=== PATIENT | female | born 1985 | race Caucasian/White ===

== ENCOUNTER 2019-12-10 15:50 | Inpatient (IN) | payer SELFPAY ==
[2019-12-10 15:51] VITALS: BP 91/61; PULSE 98; RESP 20; TEMP 36.8; O2SAT 99; BMI 16.2
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
[2019-12-10 16:23] LABS: Basophils # 0.1 10^3/uL (0.0-0.1); Basophils % 0.9 %; Eosinophils # 0.1 10^3/uL (0.0-0.8); Eosinophils % 0.9 %; Hematocrit 38.5 % (37.0-47.0); Hemoglobin 12.7 g/dL (11.5-15.3); Lymphocytes # 2.1 10^3/uL (0.8-4.8); Lymphocytes % 20.7 %; Mean Corpuscular Hemoglobin 31.9 pg (28.0-34.0); Mean Corpuscular Volume 96.7 fL (81-99); Monocytes # 0.7 10^3/uL (0.2-0.9); Monocytes % 6.8 %; Neutrophils # 7.21 10^3/uL (1.8-7.7); Neutrophils % 70.5 %; Nucleated Red Blood Cells % 0 %; Platelet Count 384 10^3/cmm (130-400); Red Blood Count 3.98 10^6/uL (4.1-5.3); Red Cell Distribution Width 12.3 % (12.1-15.1); White Blood Count 10.2 10^3/uL (4.0-10.0)
[2019-12-10 16:38] LABS: Alanine Aminotransferase 40 U/L (0-33); Albumin Level 4.4 g/dL (3.5-5.2); Alkaline Phosphatase 95 IU/L (35-105); Anion Gap 17.7 (5-19); Aspartate Amino Transferase 30 U/L (0-32); Blood Urea Nitrogen 17 mg/dL (6-20); Calcium 9.4 mg/dL (8.5-10.5); Carbon Dioxide 20 mmol/L (22-29); Chloride 104 mmol/L (98-107); Globulin 2.6 g/dL (1.3-4.6); Glomerular Filtration Rate 114.4 mL/min (90-130); Glucose 88 mg/dL (65-115); HCG, Serum Qual Negative (Negative); Osmolality Calculated 287 mOsm/kg (285-295); Potassium 3.7 mmol/L (3.5-5.1); Salicylate 0.8 mg/dL (3-10); Sodium 138 mmol/L (136-145); Total Bilirubin 0.3 mg/dL (0.15-1.2)
[2019-12-10 16:41] LABS: Acetaminophen < 5.0 ug/mL (10-30); Alcohol Level < 10 mg/dL (0-10)
[2019-12-10] MEDS: LORazepam 2 mg/mL INJ 1 mL (17:12)
[2019-12-10] MEDS: ziprasidone 20 mg/mL SDV IM (17:12)
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
[2019-12-10 19:28] VITALS: PULSE 65; RESP 18; TEMP 36.8; O2SAT 99
[2019-12-10 22:00] VITALS: RESP 17
--- NOTE | 2019-12-10 22:03 | PC.NURSE ---
Patient arrives to unit in restraints which were applied in the ED. Patient is placed on 1:1 due to being in restraints and recent aggressive and violent behaviors. Nursing will assess patient at this time and begin removal of restraints as soon as deemed safe.
--- NOTE | 2019-12-10 23:15 | PC.NURSE ---
1900 on my arrival to the unit, patient is sleeping in her bed. Patient has a 1:1 sitter at this time.
[2019-12-11 06:00] VITALS: RESP 15
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
[2019-12-11 14:00] VITALS: BP 138/89; PULSE 89; RESP 18; TEMP 36.5
[2019-12-11] MEDS: hyDROXYzine 25 mg Capsule 50 MG PO (20:30)
[2019-12-11] MEDS: trazodone 50 mg Tablet PO (20:30)
[2019-12-11 20:36] VITALS: BP 97/62; PULSE 88; RESP 17; TEMP 36.6; O2SAT 98
[2019-12-11] MEDS: haloperidol inj 5 mg/mL INJ 1 mL IM (21:11)
[2019-12-11] MEDS: diphenhydrAMINE 50 mg/mL SDV 1mL IM (21:11)
[2019-12-11] MEDS: LORazepam 2 mg/mL INJ 1 mL IM (21:12)
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
--- NOTE | 2019-12-12 09:38 | P.PN_ITS ---
Subjective NPU Subjective: Interval history: Aga presents today having received an as needed of Haldol and Ativan and being mostly nonresponsive as she has been most of her stay. Staff report aggression and inability to be reasoned with. Mental Status Exam MSE Comments: This is a diminutive white female with limited dress, grooming and virtually no eye contact. No abnormal movements except for psychomotor retardation. Uncooperative with exam in no acute distress. Speech was absent. Mood was not described, affect was subdued and lethargic. Thought process appeared linear. Thought content: Patient did not respond to questions of lethality but was not acting aggressive towards herself or others during my evaluation but had earlier, she did not appear to be having delusional content or responding to internal stimuli. Attention and concentration were limited and memory was not tested but none were formally tested. She was alert but demonstrated no orientation. Insight and judgment are impaired, impulse control is limited. Vitals/I&O/Wt Last Vital Signs Temp 97.8 F 12/12/19 19:40 Pulse 88 12/12/19 19:40 Resp 16 12/12/19 19:40 BP 120/36 12/12/19 19:40 Pulse Ox 98 12/12/19 19:40 Data NPU : 12/10/19 16:08 12/10/19 16:08 A&P Additional A&P Information (1) Psychosis: (2) Substance use: This is a 34-year-old white female with a long history of mental health services but limited history of medication management or clear indication of anything that would lead to this type of presentation who presented floridly psychotic to the emergency department who continues to struggle with aggression and has limited participation and treatment today. 1. Continue current medication. We will continue to explore history and offer medications to assist. 2. Continue every 15 minute checks for safety. 3. Encourage engagement in individual, group and milieu therapy. 4. Continue to attempt to obtain a UDS. 5. Likely methamphetamine or other substance use and well encouraged to pursue sober living treatment at the highest level of care to which she is willing to commit. Involuntary Hold Information 96 Hour Hold: 96 Hour Involuntary Admission: Yes 96 Hour Hold Ending Date: 12/16/19 96 Hour Hold Ending Time: 17:00 Attestations NPU Medical Necessity Statement*: Inpatient hospitalization is medically necessary and the clinically appropriate intervention at this time. We will initiate/monitor medications and make changes as indicated. Likely length of stay 4 to 6 days. Coding Level of Care Code Acute Director Of Program Management for Anna Stubbs
[2019-12-12 14:00] VITALS: BP 101/89; PULSE 87; RESP 18; TEMP 36.6
[2019-12-12 19:40] VITALS: BP 120/36; PULSE 88; RESP 16; TEMP 36.6; O2SAT 98
[2019-12-13 06:00] VITALS: BP 113/80; PULSE 60; RESP 16; TEMP 37.1; O2SAT 99
--- NOTE | 2019-12-13 11:25 | P.PN_ITS ---
Subjective NPU Subjective: Interval history: Aga presented today no longer lethargic but clearly still floridly psychotic. She was not interested in having any significant discussion about treatment or medication. She continued to be quite thoughtful repetitively makes sense in her conversation very much. She got upset when called her proper name at 1 time saying she was billed. She was ve rbally aggressive towards staff cursing at them. She was non-redirectable during conversation. And not open to medication. Mental Status Exam MSE Comments: This is a diminutive white female with limited dress, grooming and improving eye contact. No abnormal movements except for psychomotor agitation. Uncooperative with exam in mild distress. Speech: Normal rate and volume. Mood was not described, affect was angry and irritable. Thought process appeared disorganized. Thought content: Patient did not respond to questions of lethality but was not acting aggressive towards herself but was verbally aggressive towards others, she did appear to be having delusional content and possibly responding to internal stimuli. Attention and concentration were limited and memory was not tested but none were formally tested. She was alert but demonstrated no orientation. Insight and judgment are impaired, impulse control is impaired. Vitals/I&O/Wt Last Vital Signs Temp 98.4 F 12/13/19 19:46 Pulse 127 H 12/13/19 19:46 Resp 17 12/13/19 19:46 BP 48/27 12/13/19 19:46 Pulse Ox 97 12/13/19 19:46 Data NPU : 12/10/19 16:08 12/10/19 16:08 A&P Additional A&P Information (1) Psychosis: (2) Substance use: This is a 34-year-old white female with a long history of mental health services but limited history of medication management or clear indication of anything that would lead to this type of presentation who presented floridly psychotic to the emergency department who continues to struggle with aggression and has limited participation and treatment today. 1. Continue current medication. We will continue to explore history and offer medications to assist. 2. Continue every 15 minute checks for safety. 3. Encourage engagement in individual, group and milieu therapy. 4. Continue to attempt to obtain a UDS. 5. Likely methamphetamine or other substance use and well encouraged to pursue sober living treatment at the highest level of care to which she is willing to commit. 6. Current trajectory suggests a likely need for a 21-day hold his arising. Involuntary Hold Information 96 Hour Hold: 96 Hour Involuntary Admission: Yes 96 Hour Hold Ending Date: 12/16/19 96 Hour Hold Ending Time: 17:00 Attestations NPU Medical Necessity Statement*: Inpatient hospitalization is medically necessary and the clinically appropriate intervention at this time. We will initiate/monitor medications and make changes as indicated. Likely length of stay 4 to 6 days. Coding Level of Care Code Acute Flake Cutter Operator for Anna Stubbs
--- NOTE | 2019-12-13 13:26 | NPU.GN ---
Aga had to be asked to leave the session about fifteen minutes in for being disruptive. She was angry at being in the NPU and raised her voice about that. She continuously interrupted other group members when they were speaking and/or would laugh loudly at what they had to say (talking about very personal life situations). Aga was given multiple chances to sit down and be a respectful member of the group session but she would not. ECW had a nurse take her back to her room.
[2019-12-13 14:00] VITALS: BP 93/61; PULSE 87; RESP 18; TEMP 36.2; O2SAT 99
--- NOTE | 2019-12-13 14:51 | PC.RESP ---
SMOKING CESSATION INFORMATION SENT TO PATIENT.
[2019-12-13 19:46] VITALS: BP 48/27; PULSE 127; RESP 17; TEMP 36.9; O2SAT 97
[2019-12-13] MEDS: hyDROXYzine 25 mg Capsule 50 MG PO (20:35)
[2019-12-13] MEDS: trazodone 50 mg Tablet PO (20:35)
[2019-12-13] MEDS: haloperidol 5 mg Tablet PO (22:54)
[2019-12-14 06:00] VITALS: BP 103/70; PULSE 72; RESP 16; TEMP 37; O2SAT 98
--- NOTE | 2019-12-14 11:42 | PM.NPN ---
Subjective NPU Subjective: Interval history: Aga presents today still having significant struggles with disorganization and florid psychosis. She was able to articulate a desire to be discharged. And this typewriter repairer was able to share with her that the fastest route to her discharge given her level of impairment in her being on a 96-hour hold would be through her engaging in medication management. We discussed the risks, benefits and alternatives of a trial of Abilify which she reports she has had before and she understood and agreed proceed as is documented in this note. Although she was able to have this reasonable exchange she spent much of the day really struggling with control, screening and ultimately was moved to a different room to manage her level of agitation. Mental Status Exam MSE Comments: This is a diminutive white female with limited dress, grooming and improving eye contact. No abnormal movements except for psychomotor agitation. More cooperative with exam in mild to moderate distress. Speech: Often significantly increased rate and volume. Mood was not described, affect was angry and irritable. Thought process appeared disorganized. Thought content: Patient did not respond to questions of lethality but was not acting aggressive towards herself but was verbally aggressive towards others, she did appear to be having delusional content and possibly responding to internal stimuli. Attention and concentration were limited and memory was not tested but none were formally tested. She was alert and oriented to person and place. Insight and judgment are impaired, impulse control is impaired. Vitals/I&O/Wt Last Vital Signs Temp 97.6 F 12/14/19 20:59 Pulse 100 12/14/19 20:59 Resp 18 12/14/19 20:59 BP 98/51 12/14/19 20:59 Pulse Ox 97 12/14/19 20:59 Data NPU : 12/10/19 16:08 12/10/19 16:08 A&P Additional A&P Information (1) Psychosis: (2) Substance use: This is a 34-year-old white female with a long history of mental health services but limited history of medication management or clear indication of anything that would lead to this type of presentation who presented floridly psychotic to the emergency department who continues to struggle with aggression and has limited participation and treatment today. 1. Continue current medication. Except: Initiate Abilify 15 mg p.o. every morning. 3. Encourage engagement in individual, group and milieu therapy. 4. Continue to attempt to obtain a UDS. 5. Likely methamphetamine or other substance use and well encouraged to pursue sober living treatment at the highest level of care to which she is willing to commit. 6. Current trajectory suggests a likely need for a 21-day hold his arising. Involuntary Hold Information 96 Hour Hold: 96 Hour Involuntary Admission: Yes 96 Hour Hold Ending Date: 12/16/19 96 Hour Hold Ending Time: 17:00 Attestations NPU Medical Necessity Statement*: Inpatient hospitalization is medically necessary and the clinically appropriate intervention at this time. We will initiate/monitor medications and make changes as indicated. Likely length of stay 4 to 6 days. Coding Level of Care Code Acute Electric Sign Wirer for Anna Stubbs
[2019-12-14] MEDS: ARIPiprazole 30 mg Tablet 15 MG PO (11:44)
[2019-12-14 14:00] VITALS: BP 103/59; PULSE 98; RESP 18; TEMP 36.7; O2SAT 99
[2019-12-14 20:14] VITALS: RESP 18
--- NOTE | 2019-12-14 20:14 | PC.NURSE ---
Patient refused vitals. Respirations were given.
[2019-12-14] MEDS: haloperidol 5 mg Tablet PO (20:46)
[2019-12-14] MEDS: trazodone 50 mg Tablet PO (20:46)
[2019-12-14 20:59] VITALS: BP 98/51; PULSE 100; RESP 18; TEMP 36.4; O2SAT 97
[2019-12-15 06:00] VITALS: RESP 17
[2019-12-15] MEDS: ARIPiprazole 30 mg Tablet 15 MG PO (08:07)
--- NOTE | 2019-12-15 13:21 | NPU.GN ---
Aga did not attend group this afternoon.
[2019-12-15 14:00] VITALS: BP 95/65; PULSE 89; RESP 18; TEMP 36.1; O2SAT 98
--- NOTE | 2019-12-15 15:48 | PC.NURSE ---
PATIENT WAS ON THE PHONE WITH HER MOM, STARTED GETTING LOUD AND CURSING. ASKED TO GET OFF THE PHONE, REDIRECTED TO ROOM WHERE PATIENT CONTINUED CURSING AND YELLING. LAID DOWN IN BED AND ROLLED OVER ON HER SIDE. WILL CONT TO MONITOR, SUPPORT AND REDIRECT NEEDED.
--- NOTE | 2019-12-15 16:55 | P.PN_ITS ---
Subjective NPU Subjective: Interval history: Aga presents today reporting that on the Abilify. She did speak of a green pill that she was not sure if it goes well with the other medications. She talked about when they get the vital signs that they should leave the vital signs machine in the room and that will work better in obtaining people's information. She reported that she was bored to . And then correctly spelled [id number]. Today demonstrates the first [id number] conversation in a reasonable dB range since her admission. She once again asked to be discharged. And I explained that she was on a 96-hour hold Mental Status Exam MSE Comments: This is a diminutive white female with limited dress, grooming and improving eye contact. No abnormal movements except for psychomotor retardation. More cooperative with exam in no acute distress. Speech: More normal rate and volume. Mood was okay, affect was congruent. Thought process appeared more organized. Thought content: Patient did not respond to questions of lethality but was not acting aggressive towards herself or others, she did not appear to be having delusional content or to be responding to internal stimuli. Attention and concentration were vastly improved and memory was not tested but none were formally tested. She was alert and oriented to person and place. Insight and judgment are impaired, impulse control is impaired. Vitals/I&O/Wt Last Vital Signs Temp 98.0 F 12/15/19 22:00 Pulse 129 H 12/15/19 22:00 Resp 19 H 12/15/19 22:00 BP 92/58 12/15/19 22:00 Pulse Ox 97 12/15/19 22:00 Data NPU : 12/10/19 16:08 12/10/19 16:08 A&P Additional A&P Information (1) Psychosis: (2) Substance use: This is a 34-year-old white female with a long history of mental health services but limited history of medication management or clear indication of anything that would lead to this type of presentation who presented floridly psychotic to the emergency department who continues to struggle with aggression and has limited participation and treatment today. 1. Continue current medication. 3. Encourage engagement in individual, group and milieu therapy. 4. Continue to attempt to obtain a UDS. 5. Likely methamphetamine or other substance use and well encouraged to pursue sober living treatment at the highest level of care to which she is willing to commit. 6. We will likely file a 21-day hold tomorrow. Involuntary Hold Information 96 Hour Hold: 96 Hour Involuntary Admission: Yes 96 Hour Hold Ending Date: 12/16/19 96 Hour Hold Ending Time: 17:00 Attestations NPU Medical Necessity Statement*: Inpatient hospitalization is medically necessary and the clinically appropriate intervention at this time. We will initiate/monitor medications and make changes as indicated. Likely length of stay 4 to 6 days. Likely request a 21-day hold tomorrow. Coding Level of Care Code Acute Human Resources Professional for Anna Stubbs
[2019-12-15 22:00] VITALS: BP 92/58; PULSE 129; RESP 19; TEMP 36.7; O2SAT 97
--- NOTE | 2019-12-16 01:00 | NUR.SHIFT ---
Pt is calm this evening, she is easily redirected, and pleasant. She came to the nurses station with concerns that she may be allergic to abilify. She stated that she thinks she has covid and that the boys in the hallway are trying to give it to her, she can see it coming thru her vents. The vent in her room is covered in wet toilet paper wads that she has tried to cover the vent with to keep the Covid out. She says that she can hear voices whirling around in her room. patient made hissing noises and said that would keep it away.
--- NOTE | 2019-12-16 05:39 | PC.NURSE ---
Pt refused to allow COLLECTION SUPPORT SPECIALIST to take VS this morning. She became verbally assaultive. She has put one mattress in the floor and the other is what she is sleeping on. Most of the shift stacker she has been cooperative but she is in a different mood as of this morning.
[2019-12-16 06:00] VITALS: RESP 17
--- NOTE | 2019-12-16 06:05 | PC.NURSE ---
Patient refused vitals. Respirations were taken.
[2019-12-16] MEDS: ARIPiprazole 30 mg Tablet 15 MG PO (09:11)
--- NOTE | 2019-12-16 12:34 | P.PN_ITS ---
Subjective NPU Subjective: Interval history: Aga presented to session today continuing to have moments of clarity that are intermixed with significant difficulties. Today she went from having some very insightful moments to another screaming fit which led to the need for as needed medication to help her manage her agitation. We discussed the fact that we would be following a 21-day hold given her continued for psychosis. Mental Status Exam MSE Comments: This is a diminutive white female with limited dress, grooming and improving eye contact. No abnormal movements except for psychomotor retar dation. More cooperative with exam in no acute distress. Speech: More normal rate and volume. Mood was okay, affect was congruent. Thought process appeared more organized. Thought content: Patient did not respond to questions of lethality but was not acting aggressive towards herself or others, she did not appear to be having delusional content or to be responding to internal stimuli. Attention and concentration were vastly improved and memory was not tested but none were formally tested. She was alert and oriented to person and place. Insight and judgment are impaired, impulse control is impaired. Vitals/I&O/Wt Last Vital Signs Temp 98.0 F 12/15/19 22:00 Pulse 129 H 12/15/19 22:00 Resp 17 12/16/19 06:00 BP 92/58 12/15/19 22:00 Pulse Ox 97 12/15/19 22:00 Data NPU : 12/10/19 16:08 12/10/19 16:08 A&P Additional A&P Information (1) Psychosis: (2) Substance use: This is a 34-year-old white female with a long history of mental health services but limited history of medication management or clear indication of anything that would lead to this type of presentation who presented floridly psychotic to the emergency department who continues to struggle with aggression and has limited participation and treatment today. 1. Continue current medication. 3. Encourage engagement in individual, group and milieu therapy. 4. Continue to attempt to obtain a UDS. 5. Likely methamphetamine or other substance use and well encouraged to pursue sober living treatment at the highest level of care to which she is willing to commit. 6. Filed a 21-day hold petition today. Involuntary Hold Information 96 Hour Hold: 96 Hour Involuntary Admission: Yes 96 Hour Hold Ending Date: 12/16/19 96 Hour Hold Ending Time: 17:00 Attestations NPU Medical Necessity Statement*: Inpatient hospitalization is medically necessary and the clinically appropriate intervention at this time. We will initiate/monitor medications and make changes as indicated. Likely length of stay 4 to 6 days. Coding Level of Care Code Acute Group Billing Coordinator for Anna Stubbs
[2019-12-16 14:00] VITALS: BP 94/68; PULSE 103; RESP 18; TEMP 36.4; O2SAT 98
[2019-12-16] MEDS: ziprasidone 20 mg/mL SDV (14:10)
[2019-12-16] MEDS: LORazepam 2 mg/mL INJ 1 mL IM (14:10)
[2019-12-16] MEDS: diphenhydrAMINE 50 mg/mL SDV 1mL IM (14:10)
--- NOTE | 2019-12-16 14:29 | PC.NURSE ---
Geodon, Ativan, & Benadryl Patient screaming in her room. Patient at nurse's station wanting to leave, talking belligerently about random things. Patient asked to lower voice. Patient yelling that we cut her eyes out and requesting to be transferred to the emergency center. Derogatory language. Patient demanding she see a real doctor. Patient refusing to stop yelling and go back to room. Physician ordered medications. 50mg Benadryl, 20mg Geodon, and 2mg Ativan given IM. Will monitor for effectiveness. Patient now in room, resting.
[2019-12-16 22:00] VITALS: BP 92/70; PULSE 123; RESP 15; TEMP 36.3; O2SAT 99
[2019-12-17 06:00] VITALS: RESP 20
[2019-12-17] MEDS: ARIPiprazole 30 mg Tablet 15 MG PO (10:02)
[2019-12-17] MEDS: ziprasidone 20 mg/mL SDV (11:24)
[2019-12-17] MEDS: diphenhydrAMINE 50 mg/mL SDV 1mL IM (11:25)
[2019-12-17] MEDS: LORazepam 2 mg/mL INJ 1 mL IM (11:25)
--- NOTE | 2019-12-17 11:26 | PC.NURSE ---
Geodon 20, Ativan 2, and Benardyl 50 Meds given IM at this time d/t increased agitation, yelling, and attempting to elope out of locked doors. Patient hitting door and door. Orders to give meds at this time. Patient sat on her bed and recieved medications with no issues. Patient moved to a room closer to nurses station.
--- NOTE | 2019-12-17 12:20 | PC.NURSE ---
Lori Almonte and Estuardo Follow up Patient resting in bed quietly with eyes closed, respirations regular and non-labored.
--- NOTE | 2019-12-17 13:33 | P.PN_ITS ---
Subjective NPU Subjective: Interval history: Aga presents today continuing the pattern of moments of clarity intermixed with moments of extreme emotional and behavioral dysregulation. Things get out of the unit out of the blue. Being at the door screaming that she has to be let out because she has no oxygen. Having or demonstrating no ability at self-regulation during those times and generally needing as needed medication to disengage from those moments. We discussed the risk benefits and alternatives of adding Geodon as a standing dose and she expressed understanding and agreed to proceed as is documented in this note. We discussed having filed a 21-day hold. Mental Status Exam MSE Comments: This is a diminutive white female with limited dress, grooming and improving eye contact. No abnormal movements except for psychomotor retardation. More cooperative with exam in no acute distress. Speech: More normal rate and volume. Mood was all right but I want to get out, affect was congruent. Thought process appeared more organized. Thought content: Patient denied suicidal or homicidal ideations, she denied any delusions but persecutory/paranoid delusions noted she denied auditory or visual hallucinations. Attention and concentration were vastly improved and memory was unreliable but none were formally tested. She was alert and oriented to person and place. Insight and judgment are impaired, impulse control is impaired. Vitals/I&O/Wt Last Vital Signs Temp 97.3 F L 12/17/19 14:00 Pulse 123 H 12/16/19 22:00 Resp 16 12/17/19 21:13 BP 92/70 12/16/19 22:00 Pulse Ox 99 12/16/19 22:00 Data NPU : 12/10/19 16:08 12/10/19 16:08 A&P Additional A&P Information (1) Psychosis: (2) Substance use: This is a 34-year-old white female with a long history of mental health services but limited history of medication management or clear indication of anything that would lead to this type of presentation who presented floridly psychotic to the emergency department who continues to struggle with aggression and has limited participation and treatment today. 1. Continue current medication. Add Geodon 20 mg p.o. twice daily with meals. 3. Encourage engagement in individual, group and milieu therapy. 4. Continue to attempt to obtain a UDS. 5. Likely methamphetamine or other substance use and well encouraged to pursue sober living treatment at the highest level of care to which she is willing to commit. 6. Filed a 21-day hold petition today. Involuntary Hold Information 96 Hour Hold: 96 Hour Involuntary Admission: Yes 96 Hour Hold Ending Date: 12/16/19 96 Hour Hold Ending Time: 17:00 Attestations NPU Medical Necessity Statement*: Inpatient hospitalization is medically necessary and the clinically appropriate intervention at this time. We will initiate/m onitor medications and make changes as indicated. Likely length of stay 4 to 6 days. 21-day hold hearing is on Friday. Coding Level of Care Code Acute Director Of Software Engineering for Anna Stubbs
[2019-12-17 14:00] VITALS: RESP 18; TEMP 36.3
[2019-12-17] MEDS: ziprasidone hcl 20 mg Capsule PO (17:30)
[2019-12-17 21:13] VITALS: RESP 16
[2019-12-18 06:00] VITALS: PULSE 83; RESP 13; TEMP 36.8; O2SAT 96
[2019-12-18] MEDS: ziprasidone hcl 20 mg Capsule PO ×2 (06:42→16:54)
[2019-12-18] MEDS: ARIPiprazole 30 mg Tablet 15 MG PO (09:00)
[2019-12-18 14:00] VITALS: BP 138/87; PULSE 96; RESP 18; TEMP 36.3
--- NOTE | 2019-12-18 14:24 | PM.NPN ---
Subjective NPU Subjective: Interval history: with continuing to show slight improvements but still have a very roller coaster like presentation. Moments of clarity in conversation followed by moments of significant disinhibition, attempting to escape the unit and things of that nature. Less episodes of screaming today which may be a sign of improvement. Mental Status Exam MSE Comments: This is a diminutive white female with limited dress, grooming and improving eye contact. No abnormal movements except for psychomotor retardation. More cooperative with exam in no acute distress. Speech: More normal rate and volume. Mood was you have beautiful eyes, affect was more calm. Thought process appeared more organized. Thought content: Patient denied suicidal or homicidal ideations, she denied any delusions but persecutory/paranoid delusions noted she denied auditory or visual hallucinations. Attention and concentration were vastly improved and memory was unreliable but none were formally tested. She was alert and oriented to person and place. Insight and judgment are impaired, impulse control is impaired. Vitals/I&O/Wt Last Vital Signs Temp 97.4 F L 12/18/19 14:00 Pulse 96 12/18/19 14:00 Resp 16 12/18/19 21:41 BP 138/87 12/18/19 14:00 Pulse Ox 96 12/18/19 06:00 Data NPU : 12/10/19 16:08 12/10/19 16:08 A&P Additional A&P Information (1) Psychosis: (2) Substance use: This is a 34-year-old white female with a long history of mental health services but limited history of medication management or clear indication of anything that would lead to this type of presentation who presented floridly psychotic to the emergency department who continues to struggle with aggression and has limited participation and treatment today. 1. Continue current medication. Increase Geodon to 40 mg p.o. twice daily daily with meals. 3. Encourage engagement in individual, group and milieu therapy. 4. Continue to attempt to obtain a UDS. 5. Likely methamphetamine or other substance use and well encouraged to pursue sober living treatment at the highest level of care to which she is willing to commit. 6. 21-day hold hearing on Friday. Involuntary Hold Information 96 Hour Hold: 96 Hour Involuntary Admission: Yes 96 Hour Hold Ending Date: 12/16/19 96 Hour Hold Ending Time: 17:00 Attestations NPU Medical Necessity Statement*: Inpatient hospitalization is medically necessary and the clinically appropriate intervention at this time. We will initiate/monitor medications and make changes as indicated. Likely length of stay 4 to 6 days. 21-day hold hearing is on Friday. Coding Level of Care Code Acute Electronics Computer Mechanic for Anna Stubbs
[2019-12-18] MEDS: ziprasidone 20 mg/mL SDV IM (17:14)
--- NOTE | 2019-12-18 17:17 | PC.NURSE ---
SILVA Almonte Patient had a visitor and became agitated and was trying to leave by pushing on the doors. She insisted her visitor take her home. We asked him to leave because it was causing her to be upset. He agreed. Given 20 mg Geodon IM.
[2019-12-18 21:41] VITALS: RESP 16
[2019-12-19 06:00] VITALS: BP 112/67; PULSE 95; RESP 16; TEMP 36.2; O2SAT 98
[2019-12-19] MEDS: ziprasidone hcl 40 mg Capsule PO ×2 (06:00→17:09)
[2019-12-19] MEDS: ARIPiprazole 30 mg Tablet 15 MG PO (08:28)
[2019-12-19] MEDS: ziprasidone 20 mg/mL SDV IM (09:18)
--- NOTE | 2019-12-19 09:19 | PC.NURSE ---
PRN CHARISSA Patient becoming anxious and agitated. Going into other patients rooms and making bizarre statements and trying to get out the door. Stated there were babies in her breasts. Agreed to IM geodon 20 mg.
--- NOTE | 2019-12-19 11:21 | PM.NPN ---
Subjective NPU Subjective: Interval history: Aga present today continuing to struggle with a roller coaster like existence of having moments of calm this with moments of extreme behavioral lability. She will engage in conversation which starts out in the normal realm and then she will begin speaking words that since in sentences that do not. She is taking the medication as prescribed. Mental Status Exam MSE Comments: This is a diminutive white female with limited dress, grooming and improving eye contact. No abnormal movements except for psychomotor retardation, with occasional but less moments of psychomotor agitation. More cooperative with exam in no acute distress. Speech: More normal rate and volume, but still with occasional screaming. Mood was okay, affect was more calm at times. Thought process appeared more organized. Thought content: Patient denied suicidal or homicidal ideations, she denied any delusions but persecutory/paranoid delusions noted she denied auditory or visual hallucinations. Attention and concentration were vastly improved and memory was unreliable but none were formally tested. She was alert and oriented to person and place. Insight and judgment are impaired, impulse control is impaired. Vitals/I&O/Wt Last Vital Signs Temp 97.6 F 12/19/19 22:00 Pulse 99 12/19/19 22:00 Resp 15 12/19/19 22:00 BP 104/68 12/19/19 22:00 Pulse Ox 96 12/19/19 22:00 Weight last 48 hrs Weight 47.627 kg Data NPU : 12/10/19 16:08 12/10/19 16:08 A&P Additional A&P Information (1) Psychosis: (2) Substance use: This is a 34-year-old white female with a long history of mental health services but limited history of medication management or clear indication of anything that would lead to this type of presentation who presented floridly psychotic to the emergency department who continues to struggle with aggression and has limited participation and treatment today. 1. Continue current medication. 3. Encourage engagement in individual, group and milieu therapy. 4. Continue to attempt to obtain a UDS. 5. Likely methamphetamine or other substance use and well encouraged to pursue sober living treatment at the highest level of care to which she is willing to commit. 6. 21-day hold hearing on Friday. Involuntary Hold Information 96 Hour Hold: 96 Hour Involuntary Admission: Yes 96 Hour Hold Ending Date: 12/16/19 96 Hour Hold Ending Time: 17:00 Attestations NPU Medical Necessity Statement*: Inpatient hospitalization is medically necessary and the clinically appropriate intervention at this time. We will initiate/monitor medications and make changes as indicated. Likely length of stay 4 to 6 days. 21-day hold hearing is on Friday. Coding Level of Care Code Acute Fixed Route Bus Operator for Anna Stubbs
[2019-12-19] MEDS: haloperidol 5 mg Tablet PO ×2 (13:48→22:23)
--- NOTE | 2019-12-19 13:49 | PC.NURSE ---
PRN HALL Patient in room throwing food and yelling. She asked for medication. Given 5 mg Haldol po.
[2019-12-19 14:00] VITALS: BP 116/82; PULSE 104; RESP 16; TEMP 36.5; O2SAT 98
[2019-12-19] MEDS: LORazepam 2 mg/mL INJ 1 mL IM (15:33)
--- NOTE | 2019-12-19 15:45 | PC.NURSE ---
PRN ATIVAN patient continues to yell out and having hallucinations. feels her nose is gone and keeps yelling out to leave while standing at the locked door. Given Ativan 2mg IM.
[2019-12-19 22:00] VITALS: BP 104/68; PULSE 99; RESP 15; TEMP 36.4; O2SAT 96
[2019-12-19] MEDS: hyDROXYzine 25 mg Capsule 50 MG PO (22:23)
[2019-12-19] MEDS: trazodone 50 mg Tablet PO (22:23)
[2019-12-20 06:00] VITALS: RESP 18
[2019-12-20] MEDS: ziprasidone hcl 40 mg Capsule PO ×3 (06:00→18:00)
[2019-12-20] MEDS: ARIPiprazole 30 mg Tablet 15 MG PO (09:29)
[2019-12-20 14:11] VITALS: BP 106/65; PULSE 112; RESP 18; TEMP 36.4; O2SAT 99
[2019-12-20] MEDS: nicotine 2 mg Gum BUCCAL (16:33)
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
--- NOTE | 2019-12-20 18:17 | P.PN_ITS ---
Subjective NPU Subjective: Interval history: Aga presents today continuing to be more engaging but still having moments of extreme dysregulation of her mood and affect. She continues to desire discharge without any clear indication of what she would do and how she would manage herself and still unable to display self- control on the unit. She continues to require daily as needed medications. Continue with medications to affect. She continues to have moments where she is speaking in intelligible words without the words making sense together. She went on a rant about a bucket of tools that she has and that she was in a van and 2 blocks with heavy and that somehow the inverform machine operator got involved and talked about some woman on the unit that used to be her mom and strange things of that nature. Mental Status Exam MSE Comments: This is a diminutive white female with limited dress, grooming and improving eye contact. No abnormal movements except for psychomotor retardation, with occasional but less moments of psychomotor agitation. More cooperative with exam in no acute distress. Speech: More normal rate and volume, but still with occasional screaming. Mood was good, can I go home?, affect was more calm at times. Thought process appeared more organized. Thought content: Patient denied suicidal or homicidal ideations, she denied any delusions but persecutory/paranoid delusions noted she denied auditory or visual hallucinations. Attention and concentration were vastly improved and memory was unreliable but none were formally tested. She was alert and oriented to person and place. Insight and judgment are impaired, impulse control is impaired. Vitals/I&O/Wt Last Vital Signs Temp 97.6 F 12/20/19 14:11 Pulse 112 H 12/20/19 14:11 Resp 17 12/20/19 20:31 BP 106/65 12/20/19 14:11 Pulse Ox 99 12/20/19 14:11 Weight last 48 hrs Weight 47.627 kg Data NPU : 12/10/19 16:08 12/10/19 16:08 A&P Additional A&P Information (1) Psychosis: (2) Substance use: This is a 34-year-old white female with a long history of mental health services but limited history of medication management or clear indication of anything that would lead to this type of presentation who presented floridly psychotic to the emergency department who continues to struggle with aggression and has limited participation and treatment today. 1. Continue current medication. Except: We will increase her Abilify to 20 mg p.o. every morning in the morning and identify if she was previously on the Abilify injection. 2. Continue every 15 minute checks for safety. 3. Encourage engagement in individual, group and milieu therapy. 4. Encourage individual, group and mood therapies 5. Likely methamphetamine or other substance use and well encouraged to pursue sober living treatment at the highest level of care to which she is willing to commit. 6. 21-day hold hearing on Friday. Involuntary Hold Information 96 Hour Hold: 96 Hour Involuntary Admission: Yes 96 Hour Hold Ending Date: 12/16/19 96 Hour Hold Ending Time: 17:00 Attestations NPU Medical Necessity Statement*: Inpatient hospitalization is medically necessary and the clinically appropriate intervention at this time. We will initiate/monitor medications and make changes as indicated. Likely length of stay 7-10 days. 21-day hold hearing is on Friday. Coding Level of Care Code Acute Account Adjuster for Anna Stubbs
[2019-12-20 20:31] VITALS: RESP 17
[2019-12-20] MEDS: hyDROXYzine 25 mg Capsule 50 MG PO (23:52)
[2019-12-20] MEDS: trazodone 50 mg Tablet PO (23:52)
[2019-12-20] MEDS: haloperidol 5 mg Tablet PO (23:52)
[2019-12-21 06:00] VITALS: RESP 16
[2019-12-21] MEDS: ziprasidone hcl 40 mg Capsule PO ×2 (06:33→17:13)
[2019-12-21] MEDS: ARIPiprazole 10 mg Tablet 20 MG PO (10:25)
[2019-12-21] MEDS: hyDROXYzine 25 mg Capsule 50 MG PO ×2 (10:25→19:22)
[2019-12-21 14:00] VITALS: BP 106/67; PULSE 91; RESP 18; TEMP 36.8; O2SAT 100
--- NOTE | 2019-12-21 14:34 | PM.NPN ---
Subjective NPU Subjective: Interval history: Aga presents today with continued the railing of her conversations. Today she had a conversation that was for some reason focused on her ears. She was asking me questions about her ears, reporting that she swallowed them and she cannot get them out. Reporting that she can still hear with the home but then somehow they do not work at times. But she continued to be somatically preoccupied talking about her cheeks and her hand saying that her hand was growing out from her face when she touched her hand to her face. We went to the 21-day hold hearing, and she was placed on a 21-day hold and did not represent herself very well there. Mental Status Exam MSE Comments: This is a diminutive white female with limited dress, grooming and improving eye contact. No abnormal movements except for psychomotor retardation, with occasional but less common moments of psychomotor agitation. More cooperative with exam in no acute distress. Speech: More normal rate and volume, but still with less screaming. Mood was okay?, affect was more calm at times. Thought process appeared more organized. Thought content: Patient denied suicidal or homicidal ideations, she denied any delusions but persecutory/paranoid, and somatic delusions noted. She denied auditory or visual hallucinations. Attention and concentration were vastly improved and memory was unreliable but none were formally tested. She was alert and oriented to person and place. Insight and judgment are impaired, impulse control is impaired. Vitals/I&O/Wt Last Vital Signs Temp 97.7 F 12/21/19 20:11 Pulse 102 H 12/21/19 20:11 Resp 18 12/21/19 20:11 BP 104/62 12/21/19 20:11 Pulse Ox 99 12/21/19 20:11 Data NPU : 12/10/19 16:08 12/10/19 16:08 A&P Additional A&P Information (1) Psychosis: (2) Substance use: This is a 34-year-old white female with a long history of mental health services but limited history of medication management or clear indication of anything that would lead to this type of presentation who presented floridly psychotic to the emergency department who continues to struggle with aggression and has limited participation and treatment today. 1. Continue current medication. Except: We will determine whether she was on Abilify injection or possibly Invega injection and consider switching her over to Invega if in fact she was previously on that. 2. Continue every 15 minute checks for safety. 3. Encourage engagement in individual, group and milieu therapy. 4. Encourage individual, group and mood therapies 5. Likely methamphetamine or other substance use and well encouraged to pursue sober living treatment at the highest level of care to which she is willing to commit. 6. She was placed on a 21-day hold Involuntary Hold Information 96 Hour Hold: 96 Hour Involuntary Admission: Yes 96 Hour Hold Ending Date: 12/16/19 96 Hour Hold Ending Time: 17:00 Attestations NPU Medical Necessity Statement*: Inpatient hospitalization is medically necessary and the clinically appropriate intervention at this time. We will initiate/monitor medications and make changes as indicated. Likely length of stay 7-10 days. Coding Level of Care Code Acute Director Of Speech Pathology for Anna Stubbs
[2019-12-21] MEDS: haloperidol 5 mg Tablet PO (19:22)
[2019-12-21] MEDS: trazodone 50 mg Tablet PO (19:22)
[2019-12-21 20:11] VITALS: BP 104/62; PULSE 102; RESP 18; TEMP 36.5; O2SAT 99
--- NOTE | 2019-12-21 22:17 | NUR.SHIFT ---
Patient is pleasant and very talkative this evening. She stated, Im 5 months . She talked about how Carlos is not only a boy but a girl also. She was not able to tell me who Carlos is to her. She does report wanting to be stuck by a needle because it relieves the need to shoot up while she is withdrawing. She states that she is having a hard time sleeping and has lived multiple lifetimes. Tangential thought, flight of ideas, and nonsensical during most of assessment.
--- NOTE | 2019-12-22 02:12 | PC.NURSE ---
0200 pt came to nurses station thinking that her son was here to bring her a magic paintbrush that he put a spell on. Redirected pt to bed. She is resting in her room
[2019-12-22] MEDS: haloperidol inj 5 mg/mL INJ 1 mL IM ×2 (02:45→21:19)
--- NOTE | 2019-12-22 02:45 | PC.NURSE ---
PT NOTED TO BE SCREAMING IN ROOM 128. STATES SEEING HER SON OUT THE WINDOW. HALDOL 5MG IM GIVEN TO PT'S LEFT GLUTEAL MUSCLE.
--- NOTE | 2019-12-22 02:46 | PC.NURSE ---
Pt screaming in her room. She stated that she is seeing her sons skin grow up the tree outside her window. She is yelling, those kids are not buckets of paint.Stop cutting them in two. She is hallucinating and believes her son is outside her window and that he is caught in some type of blower motor being cut to pieces. She asked me to help her to call her friend [id number] to get the magic paintbrush so these kids don't . She said those kids wont taste right if they are used as paint. Contacted Med Nurse. Pt received 5mg Haldol IM to the left gluteal muscle. Will continue to monitor this patient.
--- NOTE | 2019-12-22 03:22 | PC.NURSE ---
Outburst, Housekeeping was cleaning the another room on the hoff and pt became upset. Pt was yelling. MEMBERSHIP COUNSELOR went into the room, pt stated, dont be wrapping those babies up in plastic bags and then jumped topics to her son. She calmed down and started talking about candy. She began talking about blood, told the MEMBERSHIP COUNSELOR not to hack off her arms, and don't get bloody. Her thought process is rapidly cycling. Pt received Haldol injection about an hour ago. She is now calm and attempting to rest. We will continue to monitor this patient.
[2019-12-22 06:00] VITALS: BP 101/66; PULSE 92; RESP 14; TEMP 36.7; O2SAT 99
[2019-12-22] MEDS: ziprasidone 20 mg/mL SDV IM (08:32)
[2019-12-22] MEDS: LORazepam 2 mg/mL INJ 1 mL IM (08:32)
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
--- NOTE | 2019-12-22 12:00 | P.PN_ITS ---
Subjective NPU Subjective: Interval history: Aga continues to report somatic issues. She seemed to be tired after receiving the Invega. She continued to be focused on wanting to be discharged. She continued to have episodes requiring as needed interventions. Mental Status Exam MSE Comments: This is a diminutive white female with limited dress, grooming and improving eye contact. No abnormal movements except for psychomotor retardation, with occasional but less common moments of psychomotor agitation. More cooperative with exam in no acute distress. Speech: More normal rate and volume, but still with less screaming. Mood was okay?, affect was more calm at times. Thought process appeared more organized. Thought content: Patient denied suicidal or homicidal ideations, she denied any delusions but persecutory/paranoid, and somatic delusions noted. She denied auditory or visual hallucinations. Attention and concentration were vastly improved and memory was unreliable but none were formally tested. She was alert and oriented to person and place. Insight and judgment are impaired, impulse control is impaired. Vitals/I&O/Wt Last Vital Signs Temp 98.1 F 12/22/19 06:00 Pulse 92 12/22/19 06:00 Resp 14 12/22/19 06:00 BP 101/66 12/22/19 06:00 Pulse Ox 99 12/22/19 06:00 Data NPU : 12/10/19 16:08 12/10/19 16:08 A&P Additional A&P Information (1) Psychosis: (2) Substance use: This is a 34-year-old white female with a long history of mental health services but limited history of medication management or clear indication of anything that would lead to this type of presentation who presented floridly psychotic to the emergency department who continues to struggle with aggression and has limited participation and treatment today. 1. Continue current medication. Except: Initiate Invega 6 mg p.o. daily we will begin to taper either Abilify or Geodon. 2. Continue every 15 minute checks for safety. 3. Encourage engagement in individual, group and milieu therapy. 4. Encourage individual, group and mood therapies 5. Likely methamphetamine or other substance use and well encouraged to pursue sober living treatment at the highest level of care to which she is willing to commit. Involuntary Hold Information 96 Hour Hold: 96 Hour Involuntary Admission: Yes 96 Hour Hold Ending Date: 12/16/19 96 Hour Hold Ending Time: 17:00 Attestations NPU Medical Necessity Statement*: Inpatient hospitalization is medically necessary and the clinically appropriate intervention at this time. We will initiate/monitor medications and make changes as indicated. Likely length of stay 7-10 days. Coding Level of Care Code Acute Machine Bunch Maker for Anna Stubbs
[2019-12-22 13:41] VITALS: TEMP 36.4; O2SAT 18
[2019-12-22] MEDS: paliperidone ER 6 mg Tablet PO (14:23)
[2019-12-22] MEDS: ziprasidone hcl 40 mg Capsule PO (16:57)
[2019-12-22 20:49] VITALS: BP 120/62; PULSE 97; RESP 16; TEMP 36.8; O2SAT 98
--- NOTE | 2019-12-22 21:20 | PC.NURSE ---
Addendum entered by Lizzy Anthony RN 12/23/19 03:50: Follow up Pt has slept without incident this evening Original Note: PRN Haldol 5mg IM given in right dorsogluteal muscle Pt is experiencing halluncinations and is becoming aggressive. Will monitor patient.
[2019-12-23] MEDS: ziprasidone hcl 40 mg Capsule PO (06:55)
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
--- NOTE | 2019-12-23 07:04 | PC.NURSE ---
Patient refused vials and began to escalate.
[2019-12-23] MEDS: paliperidone ER 6 mg Tablet PO (09:03)
[2019-12-23] MEDS: ARIPiprazole 10 mg Tablet 20 MG PO (09:03)
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
[2019-12-23 13:44] VITALS: BP 94/66; PULSE 118; RESP 18; TEMP 36.9; O2SAT 99
[2019-12-23] MEDS: ziprasidone 20 mg/mL SDV IM ×2 (16:41→16:42)
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
[2019-12-23] MEDS: LORazepam 2 mg Tablet PO (16:55)
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
[2019-12-23 20:18] VITALS: RESP 17
[2019-12-24 06:00] VITALS: RESP 17; TEMP 37.1
--- NOTE | 2019-12-24 06:51 | PC.NURSE ---
Patient sedated respirations remained at 17 was unable to get the rest of the vitals. was unable to continue charting without putting previous vitals.
--- NOTE | 2019-12-24 08:59 | PC.NURSE ---
Addendum entered by Cathy Colindres LPN 12/24/19 09:41: scheduled charissa, rene lopez given at this time to pt. snack and juice also given per pt request Original Note: SCHEDULED 0900 MEDS & 0600 CHARISSA HELD D/T LEVEL OF SEDATION & PT UNABLE TO SAFELY SWALLOW MEDS
[2019-12-24] MEDS: ARIPiprazole 10 mg Tablet 20 MG PO (09:41)
[2019-12-24] MEDS: paliperidone ER 6 mg Tablet PO (09:41)
[2019-12-24] MEDS: ziprasidone hcl 40 mg Capsule PO ×2 (09:41→16:54)
[2019-12-24 14:00] VITALS: BP 120/74; PULSE 138; RESP 19; TEMP 36.7; O2SAT 99
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
[2019-12-24] MEDS: acetaminophen 325 mg Tablet 650 MG PO (18:49)
[2019-12-24 20:27] VITALS: PULSE 114; RESP 18; TEMP 36.3; O2SAT 100
--- NOTE | 2019-12-24 21:06 | PC.NURSE ---
Upon assessment, pt is calm, cooperative with staff at this time.She allowed the [employer] to take vitals and to assess her heart and lungs. She stated, Im hearing babbling/crying babies. She denies VH, SI, HI, at this time. will continue to monitor patient throughout the evening
[2019-12-24] MEDS: trazodone 50 mg Tablet PO (23:28)
[2019-12-24] MEDS: OLANZapine 5 mg ODT PO (23:28)
[2019-12-24] MEDS: hyDROXYzine 25 mg Capsule 50 MG PO (23:28)
--- NOTE | 2019-12-25 01:46 | PC.NURSE ---
Pt decided to move out of room 129 into 131-1. I asked her why she wanted to change rooms and she said that she could at least have someone to talk to in a room with two beds. However, she went back to her room in 129 and slept for a while. When rounding this evening, she has changed back to 131-1
[2019-12-25 06:00] VITALS: PULSE 109; RESP 19; TEMP 36.6; O2SAT 98
[2019-12-25] MEDS: ziprasidone hcl 40 mg Capsule PO ×2 (06:46→17:37)
[2019-12-25] MEDS: ARIPiprazole 10 mg Tablet 20 MG PO (08:51)
[2019-12-25] MEDS: paliperidone ER 6 mg Tablet PO (08:51)
--- NOTE | 2019-12-25 09:38 | PM.NPN ---
Mental Status Exam MSE Comments: This is a diminutive white female with limited dress, grooming and improving eye contact. No abnormal movements except for psychomotor retardation, with occasional but less common moments of psychomotor agitation. More cooperative with exam in no acute distress. Speech: More normal rate and volume, with less screaming. Mood was depressed, affect was more calm at times. Thought process appeared more organized, with continued moments of making no sense. Thought content: Patient denied suicidal or homicidal ideations, she denied any delusions but persecutory/paranoid, and somatic delusions noted. She denied auditory or visual hallucinations. Attention and concentration were vastly improved and memory was unreliable but none were formally tested. She was alert and oriented to person and place. Insight and judgment are impaired, impulse control is impaired. Vitals/I&O/Wt Last Vital Signs Temp 97.8 F 12/25/19 06:00 Pulse 109 H 12/25/19 06:00 Resp 19 H 12/25/19 06:00 BP 120/74 12/24/19 14:00 Pulse Ox 98 12/25/19 06:00 Data NPU : 12/10/19 16:08 12/10/19 16:08 A&P Additional A&P Information (1) Psychosis: (2) Substance use: This is a 34-year-old white female with a long history of mental health services but limited history of medication management or clear indication of anything that would lead to this type of presentation who presented floridly psychotic to the emergency department who continues to struggle with aggression and has limited participation and treatment today. 1. Continue current medication. We will consider reducing medication. 2. Continue every 15 minute checks for safety. 3. Encourage engagement in individual, group and milieu therapy. 4. Encourage individual, group and mood therapies 5. Likely methamphetamine or other substance use and well encouraged to pursue sober living treatment at the highest level of care to which she is willing to commit. Involuntary Hold Information 96 Hour Hold: 96 Hour Involuntary Admission: Yes 96 Hour Hold Ending Date: 12/16/19 96 Hour Hold Ending Time: 17:00 Attestations NPU Medical Necessity Statement*: Inpatient hospitalization is medically necessary and the clinically appropriate intervention at this time. We will initiate/monitor medications and make changes as indicated. Likely length of stay 7-10 days. Coding Level of Care Code Acute Commercial Loan Analyst for Anna Stubbs
[2019-12-25] MEDS: LORazepam 2 mg/mL INJ 1 mL IM (10:36)
--- NOTE | 2019-12-25 10:37 | PC.NURSE ---
Addendum entered by Cathy Colindres LPN 12/25/19 13:32: prn med effective no further c/o anxiety Original Note: PRN ATIVAN 2 MG GIVEN IM IN LEFT DELTOID PER PT REQUEST & PHYSICIAN REQUEST. PT HAS BEEN RESTLESS, ASKING FOR SLEEPING MEDICINE WILL CONT TO MONITOR
[2019-12-25 14:00] VITALS: BP 106/72; PULSE 111; RESP 18; TEMP 37.1
[2019-12-25 21:58] VITALS: BP 119/68; PULSE 120; RESP 17; TEMP 37.1; O2SAT 98
[2019-12-26] MEDS: hyDROXYzine 25 mg Capsule 50 MG PO ×2 (03:22→20:31)
--- NOTE | 2019-12-26 03:22 | PC.NURSE ---
PRN VISTARIL PT REQUESTING ANXIETY MEDICATION. ADMINISTERED VISTARIL 50MG PO. WILL MONITOR FOR MEDICATION EFFECTIVENESS.
[2019-12-26 06:00] VITALS: RESP 15
[2019-12-26] MEDS: ziprasidone hcl 40 mg Capsule PO ×2 (06:59→16:47)
[2019-12-26] MEDS: paliperidone ER 6 mg Tablet PO (08:43)
[2019-12-26] MEDS: ARIPiprazole 10 mg Tablet 20 MG PO (08:43)
[2019-12-26] MEDS: OLANZapine 5 mg ODT PO ×2 (08:43→20:31)
--- NOTE | 2019-12-26 08:43 | PC.NURSE ---
PRN Zyprexa 5mg/Agitation 5mg Zyprexa PO given at this time for increased agitation. Patient pacing in room and reporting increased agitation. Will monitor for effectiveness of this medication.
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
--- NOTE | 2019-12-26 12:11 | P.PN_ITS ---
Subjective NPU Subjective: Interval history: Aga presented today reporting that she wants to leave, and maybe go to a rehab. She was somatically preoccupied with reports of strange issues with her sinuses. She denied issues with methamphetamines or previous Clozaril reversing her previous statements. She continues to occasionally disintegrate into confused ranting about strange topics. She c ontinues to take her medication. She is still receiving prn medications essentially daily. Mental Status Exam MSE Comments: This is a diminutive white female with limited dress, grooming and improving eye contact. No abnormal movements except for psychomotor retardation. More cooperative with exam in no acute distress. Speech: More normal rate and volume. Mood was depressed, affect was more calm at times. Thought process appeared more organized, with continued but less moments of making no sense. Thought content: Patient denied suicidal or homicidal ideations, she denied any delusions but persecutory/paranoid, and somatic delusions noted. She denied auditory or visual hallucinations. Attention and concentration were vastly improved and memory was unreliable but none were formally tested. She was alert and oriented to person and place. Insight and judgment are impaired, impulse control is impaired. Vitals/I&O/Wt Last Vital Signs Temp 98.4 F 12/26/19 19:57 Pulse 106 H 12/26/19 19:57 Resp 17 12/26/19 19:57 BP 95/66 12/26/19 19:57 Pulse Ox 98 12/26/19 19:57 Weight last 48 hrs Weight 64.977 kg Data NPU : 12/10/19 16:08 12/10/19 16:08 A&P Additional A&P Information (1) Psychosis: (2) Substance use: This is a 34-year-old white female with a long history of mental health services but limited history of medication management or clear indication of anything that would lead to this type of presentation who presented floridly psychotic to the emergency department who continues to struggle with aggression and has limited participation and treatment today. 1. Continue current medication. We will increase geodon to 60 mg po bid with meals and decrease abilify to 15 mg with a plan to maximize geodon and Invega, likely going to the injection and discontinue Abilify. If this is not effective a mood stabilizer and or clozaril would be indicated. 2. Continue every 15 minute checks for safety. 3. Encourage engagement in individual, group and milieu therapy. 4. Encourage individual, group and mood therapies 5. Likely methamphetamine or other substance use and well encouraged to pursue sober living treatment at the highest level of care to which she is willing to commit. Involuntary Hold Information 96 Hour Hold: 96 Hour Involuntary Admission: Yes 96 Hour Hold Ending Date: 12/16/19 96 Hour Hold Ending Time: 17:00 Attestations NPU Medical Necessity Statement*: Inpatient hospitalization is medically necessary and the clinically appropriate intervention at this time. We will initiate/monitor medications and make changes as indicated. Likely length of stay 7-10 days. Coding Level of Care Code Acute Field Crop Farmer for Anna Stubbs
[2019-12-26 14:00] VITALS: BP 107/67; PULSE 111; RESP 18; TEMP 37
[2019-12-26] MEDS: ziprasidone 20 mg/mL SDV IM (14:05)
--- NOTE | 2019-12-26 14:05 | PC.NURSE ---
PRN IM Geodon and IM Ativan Patient to nurses station at this time reporting she is agitated and demanding medication that the doctor ordered right now. Patient went back to her room and This nurse administered Geodon 20mg IM and Ativan 2mg IM. Patient cooperative.
[2019-12-26] MEDS: LORazepam 2 mg/mL INJ 1 mL IM (14:07)
--- NOTE | 2019-12-26 14:55 | PC.NURSE ---
Suzy/Lori Follow up Patient is pleasant at this time. She did just come to the desk and ask if it was time for her to check out. Berto RN explained that that was not an option at this time. Patient quietly went back to her room with no issues.
[2019-12-26 19:57] VITALS: BP 95/66; PULSE 106; RESP 17; TEMP 36.9; O2SAT 98
[2019-12-26] MEDS: trazodone 50 mg Tablet PO (20:31)
[2019-12-27 06:00] VITALS: BP 95/55; PULSE 96; RESP 20; TEMP 36.7; O2SAT 97
[2019-12-27] MEDS: ziprasidone hcl 60 mg Capsule PO ×2 (06:21→16:43)
[2019-12-27] MEDS: ARIPiprazole 10 mg Tablet 15 MG PO (09:31)
[2019-12-27] MEDS: paliperidone ER 6 mg Tablet PO (09:31)
[2019-12-27 13:56] VITALS: PULSE 109; RESP 20; TEMP 36.6; O2SAT 97
[2019-12-27] MEDS: hyDROXYzine 25 mg Capsule 50 MG PO (16:19)
--- NOTE | 2019-12-27 18:08 | P.PN_ITS ---
Subjective NPU Subjective: Interval history: I have memory loss. I know I have children. I do not know I think the youngest is 7. But I do not know how long I been in here. I wish I knew. They could be 20 years old by now. Patient for started off listing a number of different names by which she has been known in the past. Some were reasonable names and some were nonsense names. She was able to talk about her personal history. She cannot give any history of ever having gone to school. She said at one point, she lived in a town but she was completely by herself. There is a question of whether she ever attended school. 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 The only personal history that she gives it seems to be accurate is that she has an arrest record. She has 4 charges from 2018 all relating to operation of a motor vehicle. None were felonies or violent. However she did ask whether there was a warrant out for her arrest. Her affidavit was reviewed and at this point, it is unclear why she was in the intermediate at all. She gave an address where she lives on [address] [facility]. This was challenged. In fact there is a road by this name. It was brought up on the map. She could identify where she lived and recognized the area. She says that she lives with her and her children. She says that he has his own issues. She has not been in contact with him and wonders if he knows that she is in here. When asked why she has not contacted him, she said that the phones do not work and look at my hands. I cannot dial the phones that way. She also asked that the Abilify be discontinued because last year there was a problem at [facility] and her Abilify prescription was keeping her from getting other prescriptions. She could not explain why she had an Abilify prescription last year. Mental Status Exam MSE Comments: Mental Status Exam: The patient is a brown haired reneged woman appearing approximately her stated age. Eye contact is good. She displays no approach anxiety during the interview and she is believed to be a reliable informant to the best of her ability even though she provides very little information that can be checked. Appearance: hygiene is fair; no gross neurological deficits., gait is unremarkable; AIMS=0 Speech: Speech is of normal rate and rhythm and easily understood. Thought processes: Thought processes are idiosyncratic. Judgment is not adequate for safety. Associations: Quite loose Psychotic processes: There is no indication of guarding or paranoia. There is no attention to the internal stimuli. Auditory and visual hallucinations are denied. Judgment: Insight is poor. Problem solving skills are extremely poor and not adequate for safety. Orientation: The patient is oriented to person, and situation only Memory: We are unable to verify memory function of the events prior to being admitted to this hospitalization. Even during hospitalization, she does not provide significant amount of information that can be checked against the record. Attention: The patient is alert and interpersonally engaged. Language: Verbalizations are coherent. Fund of knowledge: Fund of knowledge is poor Affect/Mood: Affect is consistent with a euthymic mood. pt denies suicidal ideation Affective range during the interview is appropriate. Psychosis: Reality testing is extremely impaired primarily due to cognitive function. Cognition: Patient Appearance: Appears Older than Age Level of Consciousness: Awake, Disoriented and Inappropriate Patient Cognition Impaired: Yes (pt is disoriented) Ability to Follow Directions: Poor Patient Orientation (long list): Person and Name Comprehension Ability: Unable to Comprehend Hallucination Type: None Delusion Description: Not Present Thought Process: Indecisive Affect: Affect Description: Appropriate, Calm and Flat Behavior: Patient Behavior: Appropriate and Cooperative Speech Pattern: Appropriate and Clear Vitals/I&O/Wt Last Vital Signs Temp 97.9 F 12/27/19 13:56 Pulse 109 H 12/27/19 13:56 Resp 20 H 12/27/19 13:56 BP 95/55 12/27/19 06:00 Pulse Ox 97 12/27/19 13:56 Weight last 48 hrs Weight 64.977 kg Data NPU : 12/10/19 16:08 12/10/19 16:08 A&P Assessment and plan (1) Psychosis: Status: Acute (2) Substance use: Status: Acute Additional A&P Information (1) Psychosis: (2) Substance use: This is a 34-year-old white female with a long history of mental health services but limited history of medication management or clear indication of anything that would lead to this type of presentation who presented floridly psychotic to the emergency department who continues to struggle with aggression and has limited participation and treatment today. Hospital day #18: I have memory loss. I know I have children. I do not know I think the youngest is 7. But I do not know how long I been in here. I wish I knew. They could be 20 years old by now. Patient for started off listing a number of different names by which she has been known in the past. Some were reasonable names and some were nonsense names. She was able to talk about her personal history. She cannot give any history of ever having gone to school. She said at one point, she lived in a town but she was completely by herself. There is a question of whether she ever attended school. 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 The only personal history that she gives it seems to be accurate is that she has an arrest record. She has 4 charges from 2018 all r elating to operation of a motor vehicle. None were felonies or violent. However she did ask whether there was a warrant out for her arrest. Her affidavit was reviewed and at this point, it is unclear why she was in the intermediate at all. She gave an address where she lives on [address] [facility]. This was challenged. In fact there is a road by this name. It was brought up on the map. She could identify where she lived and recognized the area. She says that she lives with her and her children. She says that he has his own issues. She has not been in contact with him and wonders if he knows that she is in here. When asked why she has not contacted him, she said that the phones do not work and look at my hands. I cannot dial the phones that way. She also asked that the Abilify be discontinued because last year there was a problem at [facility] and her Abilify prescription was keeping her from getting other prescriptions. She could not explain why she had an Abilify prescription last year Staff and chart review indicates that they have there is a significant problem with her emotional lability and tendency toward assaultive behavior. It is unclear that the combination of Invega, Geodon, and Abilify have had a significant effect on this. At the same time, her deficit in reality testing appears to be more to do with deficit in cognitive function than it does to do w ith first rank symptoms, or delusional systems. 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 Without any premorbid assessment of her level of function, it is extremely difficult to come up with an intervention plan that we will provide a significant prognosis. The potential for this being secondary to substance use is quite distinct. However without a premorbid history or indication of specifically what substances she may have been abusing, again, a treatment plan is difficult to establish. Plan: Continue geodon to 60 mg po bid with meals and Invega 6 mg daily. Abilify is discontinued. A significant problem during her hospitalization has been her explosive reactive assaultive behavior. A mood stabilizing agent or an agent targeting intermittent explosive patterns would be of benefit. Unfortunately, her blood pressure has been low which prevents the use of the better medications with the fewer side effects. The plan at this time is to initiate Depakote 250 mg twice daily and will keep a close eye on blood pressure to see if there is an improvement that will allow the use of atenolol or clonidine. 2. Continue every 15 minute checks for safety. 3. Encourage engagement in individual, group and milieu therapy. 4. Encourage individual, group and mood therapies 5. Likely methamphetamine or other substance use and well encouraged to pursue sober living treatment at the highest level of care to which she is willing to commit. Involuntary Hold Information 96 Hour Hold: 96 Hour Involuntary Admission: Yes 96 Hour Hold Ending Date: 12/16/19 96 Hour Hold Ending Time: 17:00 Attestations NPU Medical Necessity Statement*: Patient will remain in the hospital another 2-4 nights for assessment of medication efficacy and tolerability. Coding Level of Care Code Acute Exterior Door Installer for Anna Stubbs Diagnoses Psychosis F29 Substance use F19.90
[2019-12-27 20:07] VITALS: BP 105/63; PULSE 116; RESP 18; TEMP 36.2; O2SAT 98
[2019-12-28 06:00] VITALS: BP 114/75; PULSE 81; RESP 17; TEMP 36.6; O2SAT 99
[2019-12-28] MEDS: ziprasidone hcl 60 mg Capsule PO ×2 (06:40→16:54)
[2019-12-28] MEDS: paliperidone ER 6 mg Tablet PO (08:48)
[2019-12-28] MEDS: divalproex DR 250 mg Tablet PO ×2 (08:48→20:22)
--- NOTE | 2019-12-28 10:16 | PM.NPN ---
Subjective NPU Subjective: Interval history: I am hungry. I am just so hungry. I think I need to be transferred to another hospital. I think I need an IV. I am really tired this morning. Mental Status Exam MSE Comments: Mental Status Exam: The patient is a brown haired woman appearing approximately her stated age. Eye contact is good. She displays no approach anxiety during the interview and she is believed to be a reliable informant to the best of her ability even though she provides very little information that can be checked. She appears fatigued and tired this morning. Appearance: hygiene is poor; no gross neurological deficits., gait is unremarkable; AIMS=0 Speech: Speech is of slow rate and rhythm and easily understood. Thought processes: Thought processes are idiosyncratic. Judgment is not adequate for safety. Associations: Quite loose Psychotic processes: There is no indication of guarding or paranoia. There is no attention to the internal stimuli. Auditory and visual hallucinations are denied. Judgment: Insight is poor. Problem solving skills are extremely poor and not adequate for safety. Orientation: The patient is oriented to person, and situation only Memory: We are unable to verify memory function of the events prior to being admitted to this hospitalization. Even during hospitalization, she does not provide significant amount of information that can be checked against the record. Attention: The patient is alert and interpersonally engaged. Language: Verbalizations are coherent. Fund of knowledge: Fund of knowledge is poor Affect/Mood: Affect is consistent with a euthymic mood. pt denies suicidal ideation Affective range during the interview is appropriate. Psychosis: Reality testing is extremely impaired primarily due to cognitive function. Cognition: Patient Appearance: Appropriate Level of Consciousness: Awake, Disoriented and Inappropriate Patient Cognition Impaired: Yes (pt is disoriented) Ability to Follow Directions: Poor Patient Orientation (long list): Person and Name Comprehension Ability: Unable to Comprehend Hallucination Type: None Delusion Description: Not Present Thought Process: Confused and Indecisive Affect: Affect Description: Calm Behavior: Patient Behavior: Cooperative Speech Pattern: Clear Vitals/I&O/Wt Last Vital Signs Temp 97.9 F 12/28/19 06:00 Pulse 81 12/28/19 06:00 Resp 17 12/28/19 06:00 BP 114/75 12/28/19 06:00 Pulse Ox 99 12/28/19 06:00 Data NPU : 12/10/19 16:08 12/10/19 16:08 A&P Assessment and plan (1) Psychosis: Status: Acute (2) Substance use: Status: Acute Additional A&P Information (1) Psychosis: (2) Substance use: This is a 34-year-old white female with a long history of mental health services but limited history of medication management or clear indication of anything that would lead to this type of presentation who presented floridly psychotic to the emergency department who continues to struggle with aggression and has limited participation and treatment today. Hospital day #18: I have memory loss. I know I have children. I do not know I think the youngest is 7. But I do not know how long I been in here. I wish I knew. They could be 20 years old by now. Patient for started off listing a number of different names by which she has been known in the past. Some were reasonable names and some were nonsense names. She was able to talk about her personal history. She cannot give any history of ever having gone to school. She said at one point, she lived in a town but she was completely by herself. There is a question of whether she ever attended school. 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 The only personal history that she gives it seems to be accurate is that she has an arrest record. She has 4 charges from 2018 all relating to operation of a motor vehicle. None were felonies or violent. However she did ask whether there was a warrant out for her arrest. Her affidavit was reviewed and at this point, it is unclear why she was in the residential at all. She gave an address where she lives on [address] This was challenged. In fact there is a road by this name. It was brought up on the map. She could identify where she lived and recognized the area. She says that she lives with her and her children. She says that he has his own issues. She has not been in contact with him and wonders if he knows that she is in here. When asked why she has not contacted him, she said that the phones do not work and look at my hands. I cannot dial the phones that way. She also asked that the Abilify be discontinued because last year there was a problem at [facility] and her Abilify prescription was keeping her from getting other prescriptions. She could not explain why she had an Abilify prescription last year Staff and chart review indicates that they have there is a significant problem with her emotional lability and tendency toward assaultive behavior. It is unclear that the combination of Invega, Geodon, and Abilify have had a significant effect on this. At the same time, her deficit in reality testing appears to be more to do with deficit in cognitive function than it does to do with first rank symptoms, or delusional systems. 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 Without any premorbid assessment of her level of function, it is extremely difficult to come up with an intervention plan that we will provide a significant prognosis. The potential for this being secondary to substance use is quite distinct. However without a premorbid history or indication of specifically what substances she may have been abusing, again, a treatment plan is difficult to establish. Plan: Continue geodon to 60 mg po bid with meals and Invega 6 mg daily. Abilify is discontinued. A significant problem during her hospitalization has been her explosive reactive assaultive behavior. A mood stabilizing agent or an agent targeting intermittent explosive patterns would be of benefit. Unfortunately, her blood pressure has been low which prevents the use of the better medications with the fewer side effects. The plan at this time is to initiate Depakote 250 mg twice daily and will keep a close eye on blood pressure to see if there is an improvement that will allow the use of atenolol or clonidine. Hospital day #19: Patient appears fatigued and tired this morning. This is day #1 of Depakote. Plan: Continue Invega 6 mg and Geodon 60 mg twice daily. May consider Invega Sustenna initiation. Will discontinue imipramine. 2. Continue every 15 minute checks for safety. 3. Encourage engagement in individual, group and milieu therapy. 4. Encourage individual, group and mood therapies 5. Likely methamphetamine or other substance use and well encouraged to pursue sober living treatment at the highest level of care to which she is willing to commit. Involuntary Hold Information 96 Hour Hold: 96 Hour Involuntary Admission: Yes 96 Hour Hold Ending Date: 12/16/19 96 Hour Hold Ending Time: 17:00 Attestations NPU Medical Necessity Statement*: Patient will remain in the hospital another 4-5 nights or till the end of her 21-day commitment. 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
[2019-12-28] MEDS: LORazepam 1 mg Tablet PO (10:49)
[2019-12-28 14:00] VITALS: BP 102/63; PULSE 88; RESP 18; TEMP 36.9; O2SAT 98
[2019-12-28] MEDS: trazodone 50 mg Tablet PO (20:23)
[2019-12-28 21:58] VITALS: RESP 16
--- NOTE | 2019-12-28 21:58 | PC.NURSE ---
Patient refused vitals. respirations were taken.
[2019-12-29 06:00] VITALS: BP 133/88; PULSE 96; RESP 17; TEMP 36.4; O2SAT 97
[2019-12-29] MEDS: ziprasidone hcl 60 mg Capsule PO ×2 (06:04→16:27)
[2019-12-29] MEDS: divalproex DR 250 mg Tablet PO (08:30)
[2019-12-29] MEDS: paliperidone ER 6 mg Tablet PO (08:30)
--- NOTE | 2019-12-29 13:56 | P.PN_ITS ---
Subjective NPU Subjective: Interval history: I have to stop bringing the pills early in the morning. I cannot tell who it is. It might be somebody to put something over my face. Like a ghost. Hungry and hungry all the time and my hair breaks easy. That is how I know there are ghosts around. Wait here, I will be right back. And then patient walks all the way and does not return. Mental Status Exam MSE Comments: Mental Status Exam: The patient is a brown haired woman appearing approximately her stated age. Eye contact is good. She displays no approach anxiety during the interview and she is believed to be a reliable informant to the best of her ability even though she provides very little information that can be checked. She appears fatigued and tired this morning. Appearance: hygiene is poor; no gross neurological deficits., gait is unremarkable; AIMS=0 Speech: Speech is of slow rate and rhythm and easily understood. Thought processes: Thought processes are idiosyncratic. Judgment is not adequate for safety. Associations: Quite loose Psychotic processes: There is no indication of guarding or paranoia. There is no attention to the internal stimuli. Auditory and visual hallucinations are denied. Judgment: Insight is poor. Problem solving skills are extremely poor and not adequate for safety. Orientation: The patient is oriented to person, and situation only Memory: We are unable to verify memory function of the events prior to being admitted to this hospitalization. Even during hospitalization, she does not provide significant amount of information that can be checked against the record. Attention: The patient is alert and interpersonally engaged. Language: Verbalizations are coherent. Fund of knowledge: Fund of knowledge is poor Affect/Mood: Affect is consistent with a euthymic mood. pt denies suicidal ideation Affective range during the interview is appropriate. Psychosis: Reality testing is extremely impaired primarily due to cognitive function. Cognition: Patient Appearance: Appropriate Level of Consciousness: Awake, Disoriented and Inappropriate Patient Cognition Impaired: Yes (pt is disoriented) Ability to Follow Directions: Poor Patient Orientation (long list): Person and Name Comprehension Ability: Unable to Comprehend Hallucination Type: None Delusion Description: Not Present Thought Process: Disorganized, Flight of Ideas and Indecisive Affect: Affect Description: Calm Behavior: Patient Behavior: Impulsive Speech Pattern: Appropriate and Clear Vitals/I&O/Wt Last Vital Signs Temp 97.6 F 12/29/19 06:00 Pulse 96 12/29/19 06:00 Resp 17 12/29/19 06:00 BP 133/88 12/29/19 06:00 Pulse Ox 97 12/29/19 06:00 Data NPU : 12/10/19 16:08 12/10/19 16:08 A&P Assessment and plan (1) Psychosis: Status: Acute (2) Substance use: Status: Acute Additional A&P Information (1) Psychosis: (2) Substance use: This is a 34-year-old white female with a long history of mental health services but limited history of medication management or clear indication of anything that would lead to this type of presentation who presented floridly psychotic to the emergency department who continues to struggle with aggression and has limited participation and treatment today. Hospital day #18: I have memory loss. I know I have children. I do not know I think the youngest is 7. But I do not know how long I been in here. I wish I knew. They could be 20 years old by now. Patient for started off listing a number of different names by which she has been known in the past. Some were reasonable names and some were nonsense names. She was able to talk about her personal history. She cannot give any history of ever having gone to school. She said at one point, she lived in a town but she was completely by herself. There is a question of whether she ever attended school. 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 The only personal history that she gives it seems to be accurate is that she has an arrest record. She has 4 charges from 2018 all re lating to operation of a motor vehicle. None were felonies or violent. However she did ask whether there was a warrant out for her arrest. Her affidavit was reviewed and at this point, it is unclear why she was in the residential at all. She gave an address where she lives [address]. This was challenged. In fact there is a road by this name. It was brought up on the map. She could identify where she lived and recognized the area. She says that she lives with her and her children. She says that he has his own issues. She has not been in contact with him and wonders if he knows that she is in here. When asked why she has not contacted him, she said that the phones do not work and look at my hands. I cannot dial the phones that way. She also asked that the Abilify be discontinued because last year there was a problem at [facility] and her Abilify prescription was keeping her from getting other prescriptions. She could not explain why she had an Abilify prescription last year Staff and chart review indicates that they have there is a significant problem with her emotional lability and tendency toward assaultive behavior. It is unclear that the combination of Invega, Geodon, and Abilify have had a significant effect on this. At the same time, her deficit in reality testing appears to be more to do with deficit in cognitive function than it does to do with first rank symptoms, or delusional systems. 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 Without any premorbid assessment of her level of function, it is extremely difficult to come up with an intervention plan that we will provide a significant prognosis. The potential for this being secondary to substance use is quite distinct. However without a premorbid history or indication of specifically what substances she may have been abusing, again, a treatment plan is difficult to establish. Plan: Continue geodon to 60 mg po bid with meals and Invega 6 mg daily. Abilify is discontinued. A significant problem during her hospitalization has been her explosive reactive assaultive behavior. A mood stabilizing agent or an agent targeting intermittent explosive patterns would be of benefit. Unfortunately, her blood pressure has been low which prevents the use of the better medications with the fewer side effects. The plan at this time is to initiate Depakote 250 mg twice daily and will keep a close eye on blood pressure to see if there is an improvement that will allow the use of atenolol or clonidine. Hospital day #19: Patient appears fatigued and tired this morning. This is day #1 of Depakote. Plan: Continue Invega 6 mg and Geodon 60 mg twice daily. May consider Invega Sustenna initiation. Will discontinue imipramine. Hospital day #20: Patient is now free of assaultive behavior x72 hours. However she continues to be disorganized in her thought processes. She is not reporting auditory or visual hallucinations. However she has loose associations driven by paranoia. Prognosis for significant improvement in a short period of time is poor. Plan: Change depakote to 500 mg at bedtime only. Get depakote olevel on 12/30. 2. Continue every 15 minute checks for safety. 3. Encourage engagement in individual, group and milieu therapy. 4. Encourage individual, group and mood therapies 5. Likely methamphetamine or other substance use and well encouraged to pursue sober living treatment at the highest level of care to which she is willing to commit. Involuntary Hold Information 96 Hour Hold: 96 Hour Involuntary Admission: Yes 96 Hour Hold Ending Date: 12/16/19 96 Hour Hold Ending Time: 17:00 Attestations NPU Medical Necessity Statement*: Patient to remain in the hospital another 8 to 10 days for her 21-day involuntary commitment. 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
[2019-12-29 14:00] VITALS: BP 96/64; PULSE 102; RESP 20; TEMP 36.9; O2SAT 98
[2019-12-29 19:49] VITALS: BP 121/36; PULSE 88; RESP 16; O2SAT 99
[2019-12-29] MEDS: divalproex DR 500 mg Tablet PO (21:10)
[2019-12-29] MEDS: trazodone 50 mg Tablet PO (21:14)
[2019-12-29] MEDS: hyDROXYzine 25 mg Capsule 50 MG PO (21:14)
[2019-12-30] MEDS: OLANZapine 5 mg ODT PO ×2 (00:11→23:51)
[2019-12-30 06:00] VITALS: BP 96/67; PULSE 147; RESP 16; TEMP 36.6; O2SAT 100
[2019-12-30] MEDS: paliperidone ER 6 mg Tablet PO (09:40)
--- NOTE | 2019-12-30 11:15 | PM.NPN ---
Subjective NPU Subjective: Interval history: pt refused po geodon this am. Mental Status Exam MSE Comments: Mental Status Exam: The patient is a brown haired woman appearing approximately her stated age. Eye contact is good. She displays no approach anxiety during the interview and she is believed to be a reliable informant to the best of her ability even though she provides very little information that can be checked. She appears fatigued and tired this morning. Appearance: hygiene is poor; no gross neurological deficits., gait is unremarkable; AIMS=0 Speech: Speech is of slow rate and rhythm and easily understood. Thought processes: Thought processes are idiosyncratic. Judgment is not adequate for safety. Associations: Quite loose Psychotic processes: There is no indication of guarding or paranoia. There is no attention to the internal stimuli. Auditory and visual hallucinations are denied. Judgment: Insight is poor. Problem solving skills are extremely poor and not adequate for safety. Orientation: The patient is oriented to person, and situation only Memory: We are unable to verify memory function of the events prior to being admitted to this hospitalization. Even during hospitalization, she does not provide significant amount of information that can be checked against the record. Attention: The patient is alert and interpersonally engaged. Language: Verbalizations are coherent. Fund of knowledge: Fund of knowledge is poor Affect/Mood: Affect is consistent with a euthymic mood. pt denies suicidal ideation Affective range during the interview is appropriate. Psychosis: Reality testing is extremely impaired primarily due to cognitive function. Cognition: Patient Appearance: Appropriate Level of Consciousness: Awake, Disoriented and Inappropriate Patient Cognition Impaired: Yes (pt is disoriented) Ability to Follow Directions: Poor Patient Orientation (long list): Person and Name Comprehension Ability: Unable to Comprehend Hallucination Type: None Delusion Description: Not Present Thought Process: Disorganized, Flight of Ideas and Indecisive Affect: Affect Description: Calm Behavior: Patient Behavior: Appropriate Speech Pattern: Clear Vitals/I&O/Wt Last Vital Signs Temp 97.9 F 12/30/19 06:00 Pulse 147 H 12/30/19 06:00 Resp 16 12/30/19 06:00 BP 96/67 12/30/19 06:00 Pulse Ox 100 12/30/19 06:00 Data NPU : 12/10/19 16:08 12/10/19 16:08 A&P Assessment and plan (1) Psychosis: Status: Acute (2) Substance use: Status: Acute Additional A&P Information (1) Psychosis: (2) Substance use: This is a 34-year-old white female with a long history of mental health services but limited history of medication management or clear indication of anything that would lead to this type of presentation who presented floridly psychotic to the emergency department who continues to struggle with aggression and has limited participation and treatment today. Hospital day #18: I have memory loss. I know I have children. I do not know I think the youngest is 7. But I do not know how long I been in here. I wish I knew. They could be 20 years old by now. Patient for started off listing a number of different names by which she has been known in the past. Some were reasonable names and some were nonsense names. She was able to talk about her personal history. She cannot give any history of ever having gone to school. She said at one point, she lived in a town but she was completely by herself. There is a question of whether she ever attended school. 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 The only personal history that she gives it seems to be accurate is that she has an arrest record. She has 4 charges from 2018 all relating to operation of a motor vehicle. None were felonies or violent. However she did ask whether there was a warrant out for her arrest. Her affidavit was reviewed and at this point, it is unclear why she was in the [facility] at all. She gave an address where she lives on [address] This was challenged. In fact there is a road by this name. It was brought up on the map. She could identify where she lived and recognized the area. She says that she lives with her and her children. She says that he has his own issues. She has not been in contact with him and wonders if he knows that she is in here. When asked why she has not contacted him, she said that the phones do not work and look at my hands. I cannot dial the phones that way. She also asked that the Abilify be discontinued because last year there was a problem at [facility] and her Abilify prescription was keeping her from getting other prescriptions. She could not explain why she had an Abilify prescription last year Staff and chart review indicates that they have there is a significant problem with her emotional lability and tendency toward assaultive behavior. It is unclear that the combination of Invega, Geodon, and Abilify have had a significant effect on this. At the same time, her deficit in reality testing appears to be more to do with deficit in cognitive function than it does to do with first rank symptoms, or delusional systems. 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 Without any premorbid assessment of her level of function, it is extremely difficult to come up with an intervention plan that we will provide a significant prognosis. The potential for this being secondary to substance use is quite distinct. However without a premorbid history or indication of specifically what substances she may have been abusing, again, a treatment plan is difficult to establish. Plan: Continue geodon to 60 mg po bid with meals and Invega 6 mg daily. Abilify is discontinued. A significant problem during her hospitalization has been her explosive reactive assaultive behavior. A mood stabilizing agent or an agent targeting intermittent explosive patterns would be of benefit. Unfortunately, her blood pressure has been low which prevents the use of the better medications with the fewer side effects. The plan at this time is to initiate Depakote 250 mg twice daily and will keep a close eye on blood pressure to see if there is an improvement that will allow the use of atenolol or clonidine. Hospital day #19: Patient appears fatigued and tired this morning. This is day #1 of Depakote. Plan: Continue Invega 6 mg and Geodon 60 mg twice daily. May consider Invega Sustenna initiation. Will discontinue imipramine. Hospital day #20: Patient is now free of assaultive behavior x72 hours. However she continues to be disorganized in her thought processes. She is not reporting auditory or visual hallucinations. However she has loose associations driven by paranoia. Prognosis for significant improvement in a short period of time is poor. Plan: Change depakote to 500 mg at bedtime only. Get depakote olevel on 12/30. Hospital day #21: Patient is now free of assaultive behavior x96 hours. However she continues to be disorganized in her thought processes. She is not reporting auditory or visual hallucinations. Depakote level pending tomorrow. Placement is barrier to discharge. 2. Continue every 15 minute checks for safety. 3. Encourage engagement in individual, group and milieu therapy. 4. Encourage individual, group and mood therapies 5. Likely methamphetamine or other substance use and well encouraged to pursue sober living treatment at the highest level of care to which she is willing to commit. Involuntary Hold Information 96 Hour Hold: 96 Hour Involuntary Admission: Yes 96 Hour Hold Ending Date: 12/16/19 96 Hour Hold Ending Time: 17:00 Attestations NPU Medical Necessity Statement*: Patient will remain in the hospital another 2-4 nights until a placement can be found. Coding Level of Care Code Acute Pharmacy Affairs Assistant for Anna Stubbs Diagnoses Psychosis F29 Substance use F19.90
[2019-12-30 12:43] VITALS: BP 99/54; PULSE 99; RESP 20; TEMP 36.6; O2SAT 100
[2019-12-30] MEDS: ziprasidone hcl 60 mg Capsule PO (16:39)
[2019-12-30 19:42] VITALS: BP 101/69; PULSE 119; RESP 19; TEMP 36.6; O2SAT 99
[2019-12-30] MEDS: trazodone 50 mg Tablet PO (20:57)
[2019-12-30] MEDS: divalproex DR 500 mg Tablet PO (20:58)
[2019-12-30] MEDS: hyDROXYzine 25 mg Capsule 50 MG PO (23:50)
--- NOTE | 2019-12-31 02:13 | PC.NURSE ---
Pt is showing concern related to the kinds of medication that she is taking. She seems more coherent this evening. Pt is discussing why she don't want to take the medication and how it is making her feel tired most of the time. She has a distrust of staff and people giving her medication. She wants to know what medications that she is taking and asking appropriate questions about her care.
[2019-12-31 06:00] VITALS: RESP 16
[2019-12-31 07:57] LABS: Valproic Acid Level 43.6 ug/mL (50-100)
--- NOTE | 2019-12-31 09:04 | PC.NURSE ---
pt refused scheduled Invega & Geodon this morning. dr. Sunshine aware, no further orders from physician currently
--- NOTE | 2019-12-31 13:09 | P.PN_ITS ---
Subjective NPU Subjective: Interval history: Patient was engaged on a number of topics. She isnists that she is safe to go home. She described with reasonable accuracy how she makes her favorite dish, tacos. She described how someone is always around ot supervise her. But as it became clear that she was not going ot be allowed to just walk home , she became more and more disorganized in her thinking. She stated that Ruslan was actually an imaginary person and Ronal was really the one that she urmila live with after stating that she lives with her mother. She also started making comments that relate to previous hospitalizations . Oh, I know how it goes. I have to promise to go to outpatient services. And I will be there at the office at the time and the place where you schedule the appo intment. I know. I have to get the Abilify injection before I go. Mental Status Exam MSE Comments: Mental Status Exam: The patient is a brown haired woman appearing approximately her stated age. Eye contact is good. She is believed to be a reliable informant to the best of her ability even though she provides very little information that can be checked. Appearance: hygiene is poor; no gross neurological deficits., gait is unremarkable; AIMS=0 Speech: Speech is of slow rate and rhythm and easily understood. Thought processes: Thought processes are idiosyncratic. Judgment is not adequate for safety. Associations: Quite loose Psychotic processes: There is no indication of guarding or paranoia. There is no attention to the internal stimuli. Auditory and visual hallucinations are denied. Judgment: Insight is poor. Problem solving skills are extremely poor and not adequate for safety. Orientation: The patient is oriented to person, and situation only Memory: We have no objective information on which to test her recall. However, her recall is constantly changing. I didn't go to any school. I went to school here in [place]. I went all the way [place] whether she actually graduated. Attention: The patient is alert and interpersonally engaged. Language: Verbalizations are coherent. Fund of knowledge: Fund of knowledge is poor Affect/Mood: Affect is consistent with a euthymic mood. pt denies suicidal ideation Affective range is mildly labile. Psychosis: Reality testing is extremely impaired primarily due to cognitive function. Cognition: Patient Appearance: Appropriate Level of Consciousness: Awake, Disoriented and Inappropriate Patient Cognition Impaired: Yes (pt is disoriented) Ability to Follow Directions: Poor Patient Orientation (long list): Person, Place, Name and Age Comprehension Ability: Unable to Comprehend Hallucination Type: None Delusion Description: Not Present Thought Process: Disorganized Affect: Affect Description: Calm Behavior: Patient Behavior: Cooperative Speech Pattern: Clear Vitals/I&O/Wt Last Vital Signs Temp 97.8 F 12/30/19 19:42 Pulse 119 H 12/30/19 19:42 Resp 16 12/31/19 06:00 BP 101/69 12/30/19 19:42 Pulse Ox 99 12/30/19 19:42 Data NPU : 12/10/19 16:08 12/10/19 16:08 A&P Assessment and plan (1) Psychosis: Status: Acute (2) Substance use: Status: Acute Additional A&P Information (1) Psychosis: (2) Substance use: This is a 34-year-old white female with a long history of mental health services but limited history of medication management or clear indication of anything that would lead to this type of presentation who presented floridly psychotic to the emergency department who continues to struggle with aggression and has limited participation and treatment today. Hospital day #18: I have memory loss. I know I have children. I do not know I think the youngest is 7. But I do not know how long I been in here. I wish I knew. They could be 20 years old by now. Patient for started off listing a number of different names by which she has been known in the past. Some were reasonable names and some were nonsense names. She was able to talk about her personal history. She cannot give any history of ever having gone to school. She said at one point, she lived in a town but she was completely by herself. There is a question of whether she ever attended school. 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 The only personal history that she gives it seems to be accurate is that she has an arrest record. She has 4 charges from 2018 all relating to operation of a motor vehicle. None were felonies or violent. However she did ask whether there was a warrant out for her arrest. Her affidavit was reviewed and at this point, it is unclear why she was in the [facility] at all. She gave an address where she lives on [address]. This was challenged. In fact there is a road by this name. It was brought up on the map. She could identify where she lived and recognized the area. She says that she lives with her and her children. She says that he has his own issues. She has not been in contact with him and wonders if he knows that she is in here. When asked why she has not contacted him, she said that the phones do not work and look at my hands. I cannot dial the phones that way. She also asked that the Abilify be discontinued because last year there was a problem at [facility] and her Abilify prescription was keeping her from getting other prescriptions. She could not explain why she had an Abilify prescription last year Staff and chart review indicates that they have there is a significant problem with her emotional lability and tendency toward assaultive behavior. It is unclear that the combination of Invega, Geodon, and Abilify have had a significant effect on this. At the same time, her deficit in reality testing appears to be more to do with deficit in cognitive function than it does to do with first rank symptoms, or delusional systems. 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 Without any premorbid assessment of her level of function, it is extremely difficult to come up with an intervention plan that we will provide a significant prognosis. The potential for this being secondary to substance use is quite distinct. However without a premorbid history or indication of specifically what substances she may have been abusing, again, a treatment plan is difficult to establish. Plan: Continue geodon to 60 mg po bid with meals and Invega 6 mg daily. Abilify is discontinued. A significant problem during her hospitalization has been her explosive reactive assaultive behavior. A mood stabilizing agent or an agent targeting intermittent explosive patterns would be of benefit. Unfortunately, her blood pressure has been low which prevents the use of the better medications with the fewer side effects. The plan at this time is to initiate Depakote 250 mg twice daily and will keep a close eye on blood pressure to see if there is an improvement that will allow the use of atenolol or clon idine. Hospital day #19: Patient appears fatigued and tired this morning. This is day #1 of Depakote. Plan: Continue Invega 6 mg and Geodon 60 mg twice daily. May consider Invega Sustenna initiation. Will discontinue imipramine. Hospital day #20: Patient is now free of assaultive behavior x72 hours. However she continues to be disorganized in her thought processes. She is not reporting auditory or visual hallucinations. However she has loose associations driven by paranoia. Prognosis for significant improvement in a short period of time is poor. Plan: Change depakote to 500 mg at bedtime only. Get depakote olevel on 12/30. Hospital day #21: Patient is now free of assaultive behavior x96 hours. However she continues to be disorganized in her thought processes. She is not reporting auditory or visual hallucinations. Depakote level pending tomorrow. Placement is barrier to discharge. Hospital Day #22: 90 day involuntry commitment filed. Depakote level on 500 mg/day = 43. 2. Continue every 15 minute checks for safety. 3. Encourage engagement in individual, group and milieu therapy. 4. Encourage individual, group and mood therapies 5. Likely methamphetamine or other substance use and well encouraged to pursue sober living treatment at the highest level of care to which she is willing to commit. Involuntary Hold Information 96 Hour Hold: 96 Hour Involuntary Admission: Yes 96 Hour Hold Ending Date: 12/16/19 96 Hour Hold Ending Time: 17:00 Attestations NPU Medical Necessity Statement*: Patient will remain in the hospital another 90 days until the completion of her commitment. Coding Level of Care Code Acute Information Systems Analyst for Anna Stubbs Diagnoses Psychosis F29 Substance use F19.90
[2019-12-31 13:29] VITALS: BP 100/61; PULSE 110; RESP 18; TEMP 37; O2SAT 100
[2019-12-31] MEDS: ziprasidone hcl 60 mg Capsule PO (16:26)
[2019-12-31 19:40] VITALS: BP 105/71; PULSE 92; RESP 15; TEMP 36.4; O2SAT 100
[2019-12-31] MEDS: trazodone 50 mg Tablet PO (20:29)
[2019-12-31] MEDS: divalproex DR 500 mg Tablet PO (20:29)
[2019-12-31] MEDS: nicotine 2 mg Gum BUCCAL (20:42)
--- NOTE | 2019-12-31 23:37 | PC.NURSE ---
Personal Hygiene Called Noamber this evening d/t matted hair. Pt requested that the matted portions of her hair be cut. Her hair was cut, patient showered, clean scrubs,and personal products given to patient. Pt states that she is hapy with the result of her hair cut and that she is glad the matted places are gone. Matted portion near the nape of the neck was all the way down to the skin, the large idalia at the crown of her head was cut, she no longer has matted, tangled hair. Fingernails were cleaned but she refused to allow them to be cut.
[2020-01-01 06:00] VITALS: BP 112/81; PULSE 117; RESP 19; TEMP 36.2; O2SAT 98
--- NOTE | 2020-01-01 06:36 | PC.NURSE ---
CHARISSA AFTER SEVERAL ATTEMPTS PT REFUSED 0700 CHARISSA. PT STATES SHE DOES NOT LIKE THE WAY THE MEDICATION MAKES HER FEEL. SHE STATES SHE WILL TAKE IT IN THE EVENING BUT WILL NOT TAKE IT IN THE MORNING. WILL CONTINUE TO MONITOR.
[2020-01-01] MEDS: paliperidone ER 6 mg Tablet PO (08:29)
--- NOTE | 2020-01-01 10:37 | PM.NPN ---
Subjective NPU Subjective: Interval history: Patient continues to make nonsensical requests change every 5 minutes. Mental Status Exam MSE Comments: Mental Status Exam: The patient is a brown haired woman appearing approximately her stated age. Eye contact is good. She is believed to be a reliable informant to the best of her ability even though she provides very little information that can be checked. Appearance: hygiene is poor; no gross neurological deficits., gait is unremarkable; AIMS=0 Speech: Speech is of slow rate and rhythm and easily understood. Thought processes: Thought processes are idiosyncratic. Judgment is not adequate for safety. Associations: Quite loose Psychotic processes: There is no indication of guarding or paranoia. There is no attention to the internal stimuli. Auditory and visual hallucinations are denied. Judgment: Insight is poor. Problem solving skills are extremely poor and not adequate for safety. Orientation: The patient is oriented to person, and situation only Memory: We have no objective information on which to test her recall. However, her recall is constantly changing. I didn't go to any school. I went to school here in [place]. I went all the way [place] answers whether she actually graduated. Attention: The patient is alert and interpersonally engaged. Language: Verbalizations are coherent. Fund of knowledge: Fund of knowledge is poor Affect/Mood: Affect is consistent with a euthymic mood. pt denies suicidal ideation Affective range is mildly labile. Psychosis: Reality testing is extremely impaired primarily due to cognitive function. Cognition: Patient Appearance: Appropriate Level of Consciousness: Awake, Disoriented and Inappropriate Patient Cognition Impaired: Yes (pt is disoriented) Ability to Follow Directions: Poor Patient Orientation (long list): Person, Place, Name and Age Comprehension Ability: Unable to Comprehend Hallucination Type: None Delusion Description: Not Present Thought Process: Confused and Disorganized Affect: Affect Description: Appropriate Behavior: Patient Behavior: Appropriate Speech Pattern: Appropriate Vitals/I&O/Wt Last Vital Signs Temp 97.1 F L 01/01/20 06:00 Pulse 117 H 01/01/20 06:00 Resp 19 H 01/01/20 06:00 BP 112/81 01/01/20 06:00 Pulse Ox 98 01/01/20 06:00 Data NPU : 12/10/19 16:08 12/10/19 16:08 A&P Assessment and plan (1) Psychosis: Status: Acute (2) Substance use: Status: Acute Additional A&P Information (1) Psychosis: (2) Substance use: This is a 34-year-old white female with a long history of mental health services but limited history of medication management or clear indication of anything that would lead to this type of presentation who presented floridly psychotic to the emergency department who continues to struggle with aggression and has limited participation and treatment today. Hospital day #18: I have memory loss. I know I have children. I do not know I think the youngest is 7. But I do not know how long I been in here. I wish I knew. They could be 20 years old by now. Patient for started off listing a number of different names by which she has been known in the past. Some were reasonable names and some were nonsense names. She was able to talk about her personal history. She cannot give any history of ever having gone to school. She said at one point, she lived in a town but she was completely by herself. There is a question of whether she ever attended school. 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 The only personal history that she gives it seems to be accurate is that she has an arrest record. She has 4 charges from 2018 all relating to operation of a motor vehicle. None were felonies or violent. However she did ask whether there was a warrant out for her arrest. Her affidavit was reviewed and at this point, it is unclear why she was in the shelter at all. She gave an address where she lives on [address] This was challenged. In fact there is a road by this name. It was brought up on the map. She could identify where she lived and recognized the area. She says that she lives with her and her children. She says that he has his own issues. She has not been in contact with him and wonders if he knows that she is in here. When asked why she has not contacted him, she said that the phones do not work and look at my hands. I cannot dial the phones that way. She also asked that the Abilify be discontinued because last year there was a problem at [facility] and her Abilify prescription was keeping her from getting other prescriptions. She could not explain why she had an Abilify prescription last year Staff and chart review indicates that they have there is a significant problem with her emotional lability and tendency toward assaultive behavior. It is unclear that the combination of Invega, Geodon, and Abilify have had a significant effect on this. At the same time, her deficit in reality testing appears to be more to do with deficit in cognitive function than it does to do with first rank symptoms, or delusional systems. 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 Without any premorbid assessment of her level of function, it is extremely difficult to come up with an intervention plan that we will provide a significant prognosis. The potential for this being secondary to substance use is quite distinct. However without a premorbid history or indication of specifically what substances she may have been abusing, again, a treatment plan is difficult to establish. Plan: Continue geodon to 60 mg po bid with meals and Invega 6 mg daily. Abilify is discontinued. A significant problem during her hospitalization has been her explosive reactive assaultive behavior. A mood stabilizing agent or an agent targeting intermittent explosive patterns would be of benefit. Unfortunately, her blood pressure has been low which prevents the use of the better medications with the fewer side effects. The plan at this time is to initiate Depakote 250 mg twice daily and will keep a close eye on blood pressure to see if there is an improvement that will allow the use of atenolol or clonidine. Hospital day #19: Patient appears fatigued and tired this morning. This is day #1 of Depakote. Plan: Continue Invega 6 mg and Geodon 60 mg twice daily. May consider Invega Sustenna initiation. Will discontinue imipramine. Hospital day #20: Patient is now free of assaultive behavior x72 hours. However she continues to be disorganized in her thought processes. She is not reporting auditory or visual hallucinations. However she has loose associations driven by paranoia. Prognosis for significant improvement in a short period of time is poor. Plan: Change depakote to 500 mg at bedtime only. Get depakote olevel on 12/30. Hospital day #21: Patient is now free of assaultive behavior x96 hours. However she continues to be disorganized in her thought processes. She is not reporting auditory or visual hallucinations. Depakote level pending tomorrow. Placement is barrier to discharge. Hospital Day #22: 90 day involuntry commitment filed. Depakote level on 500 mg/day = 43. Hospital day #23: Phone contact was made with Ruslan ([phone]), an older gentleman who has been more or less overseeing Aga for the past 3 years after finding her wandering through the neighborhood. He describes her as being not much more functional than that she is right now. When her behavior and thought processes as observed on the unit are described to him, he endorses them as being not surprising and pretty typical. She has a bad relationship with her mother and mother has no real interest in providing any supervision or caretaking. He is interested in continuing to take care of her but she is more than he can handle. He works full-time during the weeks as a special delivery messenger and would have difficulty coming in during business hours though he does get off early on . He seems highly invested in her wellbeing but does not know that he can care for her. 2. Continue every 15 minute checks for safety. 3. Encourage engagement in individual, group and milieu therapy. 4. Encourage individual, group and mood therapies 5. Likely methamphetamine or other substance use and well encouraged to pursue sober living treatment at the highest level of care to which she is willing to commit. Involuntary Hold Information 96 Hour Hold: 96 Hour Involuntary Admission: Yes 96 Hour Hold Ending Date: 12/16/19 96 Hour Hold Ending Time: 17:00 Attestations NPU Medical Necessity Statement*: Patient will remain in the hospital another 89 days until the completion of her 90-day commitment. Coding Level of Care Code Acute Exhibition Specialist for Anna Stubbs Diagnoses Psychosis F29 Substance use F19.90
[2020-01-01] MEDS: paliperidone palmitate 234 mg Syringe IM (13:37)
[2020-01-01 14:00] VITALS: BP 116/70; PULSE 112; RESP 20; TEMP 36.2; O2SAT 100
[2020-01-01] MEDS: ziprasidone hcl 40 mg Capsule PO (16:36)
[2020-01-01 19:25] VITALS: BP 96/51; PULSE 123; RESP 16; TEMP 36.9; O2SAT 100
[2020-01-01] MEDS: ondansetron 4 MG Tablet PO (19:33)
[2020-01-01] MEDS: divalproex DR 500 mg Tablet PO (20:10)
[2020-01-01] MEDS: trazodone 50 mg Tablet PO (20:10)
[2020-01-01] MEDS: hyDROXYzine 25 mg Capsule 50 MG PO (21:48)
[2020-01-01] MEDS: OLANZapine 5 mg ODT PO (21:48)
[2020-01-02 06:00] VITALS: BP 105/78; PULSE 83; RESP 16; TEMP 36.9; O2SAT 98
[2020-01-02] MEDS: ziprasidone hcl 40 mg Capsule PO ×2 (06:51→16:12)
--- NOTE | 2020-01-02 07:46 | PC.NURSE ---
Addendum entered by Cathy Colindres LPN 01/02/20 12:16: pt agreeable to take scheduled Invega now. 6 mg pill given to pt by [facility] Original Note: pt refused scheduled Invega this morning, pt stated no I got 2 big shots yesterday, I'm good for life!
--- NOTE | 2020-01-02 09:56 | P.PN_ITS ---
Subjective NPU Subjective: Interval history: Patient is quite scattered today. We talked about her pending court hearing and pointed out the period of involuntary treatment which might be handed down by the forensics team director. I have discussed the case with the treatment team and we are certain she will not comply. Mental Status Exam MSE Comments: This is a 34-year-old female who presents at her stat ed age. She is disheveled but clean. She seems lost although orientation is intact. Mood is calm and affect is appropriate. Thought processes are scattered, now desirous of outpatient treatment, with which she has never been compliant, and now desirous of inpatient AND outpatient treatment. Insight and judgment are grossly impaired. Speech is of normal rate and volume, without dysarthria, aprosody or pressure. She denies suicidal or homicidal ideation, plan or intent. She is at least no longer wildly agitated and assaultive. Vitals/I&O/Wt Last Vital Signs Temp 98.5 F 01/02/20 06:00 Pulse 83 01/02/20 06:00 Resp 16 01/02/20 06:00 BP 105/78 01/02/20 06:00 Pulse Ox 98 01/02/20 06:00 Weight last 48 hrs Weight 146 lb 12.8 oz Weight 146 lb 12.8 oz Data NPU : 12/10/19 16:08 12/10/19 16:08 A&P Additional A&P Information A&P Assessment and plan (1) Psychosis: (2) Substance use: Additional A&P Information (1) Psychosis: (2) Substance use: This is a 34-year-old white female with a long history of mental health services but limited history of medication management or clear indication of anything that would lead to this type of presentation who presented floridly psychotic to the emergency department who continues to struggle with aggression and has limited participation and treatment today. 2. Continue every 15 minute checks for safety. 3. Encourage engagement in individual, group and milieu therapy. 4. Encourage individual, group and mood therapies 5. Likely methamphetamine or other substance use and well encouraged to pursue sober living treatment at the highest level of care to which she is willing to commit. Involuntary Hold Information 96 Hour Hold: 96 Hour Involuntary Admission: Yes 96 Hour Hold Ending Date: 12/16/19 96 Hour Hold Ending Time: 17:00 Attestations NPU Medical Necessity Statement*: There is no way this patient can be safely discharge. We will have to go through the court proceedings and request more time. I anticipate many midnights additional stay. Time Spent in Patient Care: Greater than 35 minutes 40 minutes reviewing documentation, discussing patient's care with her, conferring with nursing staff and documentation. Coding Level of Care Code Acute Director Of Pulmonary Unit for Anna Stubbs
[2020-01-02] MEDS: acetaminophen 325 mg Tablet 650 MG PO ×2 (10:14→16:12)
[2020-01-02] MEDS: paliperidone ER 6 mg Tablet PO (11:43)
[2020-01-02 13:02] VITALS: BP 112/80; PULSE 118; RESP 17; TEMP 36.2; O2SAT 94
[2020-01-02] MEDS: trazodone 50 mg Tablet PO (19:41)
[2020-01-02] MEDS: divalproex DR 500 mg Tablet PO (19:41)
[2020-01-02 22:00] VITALS: BP 116/84; PULSE 80; RESP 17; TEMP 36.7; O2SAT 98
[2020-01-03] MEDS: ziprasidone hcl 40 mg Capsule PO ×2 (05:48→16:34)
[2020-01-03 06:00] VITALS: BP 125/86; PULSE 97; RESP 15; TEMP 36.6; O2SAT 99
--- NOTE | 2020-01-03 10:04 | PC.NURSE ---
refused scheduled Invega pill this morning. pt stated I've already had my shots
--- NOTE | 2020-01-03 10:54 | P.PN_ITS ---
Subjective NPU Subjective: Interval history: Aga presents today in focusing on desire for discharge but not really able to mount a coherent defense for herself about discharge. She continues to have moments of extreme disorganization as she spoke about being in the hospital and being in a coma and somehow being like dinosaur eggs. She talked about different people that she could go home with and spoke of the supposed reasons why she had refused some medication doses. She reports that she won't refuse it anymore. Then she reported feeling like she was having delusions about food. Reporting that she was constantly thinking about a yellow muffin that was not quite cooked completely through so that the mix and matter were losing and some delicious paste of muffin. Mental Status Exam MSE Comments: There is a well-nourished well-developed white female in hospital scrubs with limited grooming but adequate eye contact. She has cut her hair since the last time that I saw her so that is not matted but still unkempt. No abnormal movements except for continued mild psychomotor retardation. Cooperative with exam in no acute distress. Though after speaking with her she was seen attempting to walk in a room that a daily contact was about to occur in and when she was redirected from the room she went on a screaming rant at the top of her lungs for some time. Speech was otherwise slightly decreased rate and volume. Mood described as being full-blown in a computer, affect was odd. Thought process with continue episodes of significant disorganization, thought content: Patient denied suicidal or homicidal ideation, delusions of yellow muffins reported but no significant delusional thinking noted, she denied auditory or visual hallucinations. Attention and concentration were limited and memory seems unreliable but none were formally tested. She is alert and oriented to person and place. Insight and judgment are impaired, impulse control is impaired but improving. Vitals/I&O/Wt Last Vital Signs Temp 97.9 F 01/03/20 06:00 Pulse 97 01/03/20 06:00 Resp 15 01/03/20 06:00 BP 125/86 01/03/20 06:00 Pulse Ox 99 01/03/20 06:00 Weight last 48 hrs Weight 66.587 kg Weight 66.587 kg Data NPU : 12/10/19 16:08 12/10/19 16:08 A&P Additional A&P Information (1) Psychosis: (2) Substance use: This is a 34-year-old white female with a long history of mental health services but limited history of medication management or clear indication of anything that would lead to this type of presentation who presented floridly psychotic to the emergency department and has shown some improvement with medication but clearly continues to be disorganized and incapable of making informed consent. 1. Continue current medication. 2. Continue every 15 minute checks for safety. 3. Encourage individual, group and milieu therapy. 4. Continued psychosis in the face of significant medication trials make a consideration of Clazuril on the list of things to consider. Especially if this 21-day hold he comes a 90-day hold. Concerns remain that this was possibly methamphetamine induced psychotic episode. Involuntary Hold Information 96 Hour Hold: 96 Hour Involuntary Admission: Yes 96 Hour Hold Ending Date: 12/16/19 96 Hour Hold Ending Time: 17:00 Attestations NPU Medical Necessity Statement*: Inpatient hospitalization is medically necessary and the clinically appropriate intervention at this time. We will continue to monitor medications and make changes as indicated. Likely length of stay 8 to 10 days. Patient has had a 90-day hold filed. Coding Level of Care Code Acute Polysomnographer for Anna Stubbs
[2020-01-03 14:00] VITALS: BP 114/75; PULSE 104; RESP 20; TEMP 36.8; O2SAT 100
[2020-01-03] MEDS: trazodone 50 mg Tablet PO (19:49)
[2020-01-03] MEDS: divalproex DR 500 mg Tablet PO (19:49)
[2020-01-03 22:00] VITALS: BP 102/71; PULSE 99; RESP 15; TEMP 36.8; O2SAT 100
[2020-01-04 06:00] VITALS: BP 115/81; PULSE 93; RESP 17; TEMP 36.5; O2SAT 99
[2020-01-04] MEDS: ziprasidone hcl 40 mg Capsule PO ×2 (06:33→16:06)
[2020-01-04] MEDS: paliperidone ER 6 mg Tablet PO (08:36)
[2020-01-04 13:29] VITALS: BP 87/51; PULSE 93; RESP 18; TEMP 36.9; O2SAT 99
[2020-01-04] MEDS: benzocaine 20% 7 gm 1 APPLIC MUCOUS MEM (16:16)
--- NOTE | 2020-01-04 18:14 | P.PN_ITS ---
Subjective NPU Subjective: Interval history: Aga presents today reporting that she did take her medications today. We discussed the critical importance of her taking her medication as her significant other has concerns about her going home if she is not committed to taking her medication. We discussed her court date for 90 day hold on . She reports that she is eating okay and sleeping fine. Mental Status Exam MSE Comments: There is a well-nourished, well-developed, white female in hospital scrubs with limited grooming but adequate eye contact. She has cut her hair since the last time that I saw her so that is not matted but still unkempt. No abnormal movements except for continued mild psychomotor retardation. Cooperative with exam in no acute distress. Though after speaking with her she was seen attempting to walk in a room that a daily contact was about to occur in and when she was redirected from the room she went on a screaming rant at the top of her lungs for some time. Speech was otherwise slightly decreased rate and volume. Mood described as okay, affect subdued. Thought process with continue episodes of significant disorganization, thought content: Patient den ied suicidal or homicidal ideation, delusions of yellow muffins reported but no significant delusional thinking noted, she denied auditory or visual hallucinations. Attention and concentration were limited and memory seems unreliable but none were formally tested. She is alert and oriented to person and place. Insight and judgment are impaired, impulse control is impaired but improving. Vitals/I&O/Wt Last Vital Signs Temp 97.9 F 01/04/20 19:56 Pulse 116 H 01/04/20 19:56 Resp 17 01/04/20 19:56 BP 105/70 01/04/20 19:56 Pulse Ox 97 01/04/20 19:56 Data NPU : 12/10/19 16:08 12/10/19 16:08 A&P Additional A&P Information (1) Psychosis: (2) Substance use: This is a 34-year-old white female with a long history of mental health services but limited history of medication management or clear indication of anything that would lead to this type of presentation who presented floridly psychotic to the emergency department and has shown some improvement with medication but clearly continues to be disorganized and incapable of making informed consent. 1. Continue current medication. 2. Continue every 15 minute checks for safety. 3. Encourage individual, group and milieu therapy. 4. Continued psychosis in the face of significant medication trials make a consideration of Clazuril on the list of things to consider. Especially if this 21-day hold he comes a 90-day hold. Concerns remain that this was possibly methamphetamine induced psychotic episode Involuntary Hold Information 96 Hour Hold: 96 Hour Involuntary Admission: Yes 96 Hour Hold Ending Date: 12/16/19 96 Hour Hold Ending Time: 17:00 Attestations NPU Medical Necessity Statement*: Inpatient hospitalization is medically necessary and the clinically appropriate intervention at this time. We will continue to monitor medications and make changes as indicated. Likely length of stay 8 to 10 days. Patient has had a 90-day hold filed. Coding Level of Care Code Acute Map And Chart Mounter for Anna Stubbs
[2020-01-04 19:56] VITALS: BP 105/70; PULSE 116; RESP 17; TEMP 36.6; O2SAT 97
[2020-01-04] MEDS: divalproex DR 500 mg Tablet PO (20:21)
[2020-01-04] MEDS: hyDROXYzine 25 mg Capsule 50 MG PO (20:22)
[2020-01-04] MEDS: trazodone 50 mg Tablet PO (20:22)
--- NOTE | 2020-01-04 21:57 | PC.NURSE ---
Pt is calm on assessment. Physical assessment unremarkable. Pt reports hearing babies giggle and crying at times. Tonight she is cooperative with staff.
[2020-01-05 05:16] VITALS: BP 118/84; PULSE 96; RESP 17; TEMP 36.8; O2SAT 98
[2020-01-05] MEDS: ziprasidone hcl 40 mg Capsule PO ×2 (06:05→16:19)
[2020-01-05] MEDS: paliperidone ER 6 mg Tablet PO (07:57)
[2020-01-05 14:00] VITALS: BP 116/82; PULSE 100; RESP 18; TEMP 36.5; O2SAT 99
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
[2020-01-05] MEDS: acetaminophen 325 mg Tablet 650 MG PO (19:04)
[2020-01-05 19:31] VITALS: BP 117/81; PULSE 110; RESP 17; TEMP 36.9; O2SAT 98
--- NOTE | 2020-01-05 19:36 | PM.CONSULT ---
Providers/Reason For Consult Consulting Physican/Specialty*: Hospitalist service Reason for Consult*: Dental abscess Attending Physician: Cj Crews MD Primary Care Provider: Adriano Sullivan DO History of Present Illness History of Present Illness Aga Lai is a 34 year old female with a past medical history of alcohol abuse, schizophrenia, substance abuse, who has complaints of dental pain. Hospitalist team at [facility] was consulted, as patient has been complaining of dental pain, no fevers, no chills, no cough, no jaw pain, no pain with mastication, no ear pain. She has had this dental pain for a few weeks, she has insurance, she has a dentist who she goes to. Review of Systems Const: Denies: fever(s), chills, fatigue or malaise Eyes: Denies: change in vision or blurry vision ENMT: Denies: nasal congestion Resp: Denies: dyspnea, productive cough, non-productive cough or wheezing GI: Denies: abdominal pain, nausea, vomiting, hematemesis, diarrhea, constipation, hematochezia or melena : Denies: flank pain, dysuria or urinary frequency Musc: Denies: neck pain or back pain Skin/Breast: Denies: rash Neuro: Denies: headache(s), dizziness or vertigo Psych: Denies: anxiety or depression Endo: Denies: polyuria or polydipsia Meds/Allergies Home Medications and Allergies Home Medications Medication Instructions Recorded Confirmed Last Taken Type Unable to Assess 12/10/19 12/23/19 Unknown History Allergies Allergy/AdvReac Type Severity Reaction Status Date / Time No Known Allergies Allergy Verified 12/10/19 16:01 Current Medications Current Medications Generic Name Dose Route Start Last Admin Trade Name Freq PRN Reason Stop Dose Admin Acetaminophen 650 mg 12/10/19 19:28 01/05/20 19:04 Tylenol PO 650 mg Q4H PRN Administration MILD PAIN Benzocaine 1 applic 01/04/20 16:09 01/04/20 16:16 Orajel MUCOUS MEM 1 tube PRN PRN Administration PAIN Diphenhydramine HCl 50 mg 12/10/19 19:28 12/16/19 14:10 Benadryl IM 50 mg ONCE PRN Administration Severe Extrapyramidal Symptoms Diphenhydramine HCl 50 mg 12/10/19 19:28 12/17/19 11:25 Benadryl IM 50 mg Q4H PRN Administration Severe Aggression Divalproex Sodium 500 mg 12/29/19 21:00 01/04/20 20:[address] PO 500 mg BEDTIME ABE Administration Haloperidol 5 mg 12/10/19 19:28 12/21/19 19:22 Haldol PO 5 mg Q4H PRN Administration AGITATION Haloperidol Lactate 5 mg 12/10/19 19:28 12/22/19 21:19 Haldol Inj IM 5 mg Q4H PRN Administration Severe Aggression Hydroxyzine Pamoate 50 mg 12/10/19 19:28 01/04/20 20:22 Vistaril PO 50 mg Q6H PRN Administration ANXIETY Nicotine Polacrilex 2 mg 12/10/19 19:28 12/31/19 20:42 Nicorette BUCCAL 2 mg Q2H PRN Administration NICOTINE WITHDRAWAL Olanzapine 5 mg 12/10/19 19:28 01/01/20 21:48 Zyprexa Zydis PO 5 mg Q4H PRN Administration Agitation/Psychosis Ondansetron HCl 4 mg 12/10/19 19:28 01/01/20 19:33 Zofran PO 4 mg Q6H PRN Administration NAUSEA AND VOMITING Paliperidone 6 mg 12/22/19 12:00 01/05/20 07:57 Invega PO 6 mg DAILY ABE Administration Trazodone HCl 50 mg 12/28/19 21:00 01/04/20 20:22 Desyrel PO 50 mg BEDTIME ABE Administration Ziprasidone 20 mg 12/17/19 14:40 12/26/19 14:05 Geodon IM 20 mg Q12H PRN Administration AGITATION Ziprasidone 40 mg 01/01/20 17:00 01/05/20 16:19 Geodon PO 40 mg 0700,1700 ABE Administration PFSH Acute PFSH: Medical History (Updated 01/05/20 @ 19:41 by Martínez Redmond MD) Drug-induced psychotic disorder Schizophrenia, disorganized, chronic with acute exacerbation Substance use Surgical History (Updated 01/05/20 @ 19:38 by Martínez Redmond MD) No pertinent past surgical history Social History (Updated 01/05/20 @ 19:39 by Martínez Redmond MD) Smoking and tobacco status: current every day smoker cigarettes Packs smoked per day: 5 Alcohol intake: current Alcohol intake frequency: holidays/special occasions only Substance/Drug Use: current Female Reproductive History: Date of last menstrual period: 12/10/19 Vitals/I&O/Wt Last Vital Signs Temp 98.4 F 01/05/20 19:31 Pulse 110 H 01/05/20 19:31 Resp 17 01/05/20 19:31 BP 117/81 01/05/20 19:31 Pulse Ox 98 01/05/20 19:31 01/05/20 01/05/20 01/05/20 06:59 14:59 22:59 Intake Total 120 / 120 Balance 120 / 120 Physical Exam Const: COMMON NORMALS: no acute distress and patient oriented x3 HENMT: COMMON NORMALS: normocephalic HEAD & SCALP: normocephalic OTHER: Has multiple dental fillings on the left premolar premolar Left, upper premolar, dental abscess, with surrounding erythema Neck/C-Spine: COMMON NORMALS: no lymphadenopathy Resp: COMMON NORMALS: normal respiratory effort, No retractions, No use of accessory muscles and clear to auscultation bilaterally AUSCULTATION: clear to auscultation bilaterally Cardio: COMMON NORMALS: regular rate, regular rhythm, S1 normal heart sound present and S2 normal heart sound present RATE: regular rate RHYTHM: regular rhythm HEART SOUNDS: S1 normal heart sound present and S2 normal heart sound present GI: COMMON NORMALS: Normal to inspection, nondistended, normoactive bowel sounds present, Soft to palpation, non-tender, No hepatosplenomegaly present, no masses and no bruits PALPATION: Yes Soft to palpation and Yes No hepatosplenomegaly present Extremity: COMMON NORMALS: capillary refill normal, no clubbing, cyanosis or edema, no calf tenderness and no pedal edema Neuro: COMMON NORMALS: patient oriented x3 Psych: COMMON NORMALS: mental status grossly normal A&P Assessment and plan (1) Schizophrenia, disorganized, chronic with acute exacerbation: Status: Acute (2) Chronic schizophrenia: Status: Acute (3) Drug-induced psychotic disorder: Status: Acute (4) Substance use: Status: Acute (5) Psychosis: Status: Acute (6) Dental abscess: -Left, upper premolar -Patient states that she might be , will order beta-hCG, hold antibiotics until hCG is negative -Start Augmentin, needs 14 days -Tylenol with codeine for pain -Patient needs to follow-up with dentist as outpatient Status: Acute Coding Level of Care Code Acute Hardboard Press Operator for g Fwd Diagnoses Schizophrenia, disorganized, chronic with acute exacerbation F20.1 Chronic schizophrenia F20.9 Drug-induced psychotic disorder 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
--- NOTE | 2020-01-05 20:07 | PC.NURSE ---
dental pain Pt complains of dental pain on the upper left jaw area. Hospitalist Dr. Martínez Redmond contacted, saw pt this evening. Ordered HCG urine, collected, sent to lab. Pending result the physician will order augmentin and tylenol with codeine for pain. Pt denies AH, VH, SI, AND HI AT THIS TIME. Pt is cooperative and resting at this time.
[2020-01-05 20:31] LABS: HCG Qualitative Urine. Negative (Negative)
[2020-01-05] MEDS: divalproex DR 500 mg Tablet PO (20:37)
[2020-01-05] MEDS: trazodone 50 mg Tablet PO (20:37)
[2020-01-05] MEDS: hyDROXYzine 25 mg Capsule 50 MG PO (20:37)
[2020-01-06] MEDS: acetaminophen-codeine 120-12 mg/5 mL UDC PO ×2 (00:01→12:13)
--- NOTE | 2020-01-06 00:03 | PC.NURSE ---
Addendum entered by Lizzy Anthony RN 01/06/20 00:52: reassessed a level 3 of pain on a 1-10 pain scale. Pt is much more comfortable Original Note: tylenol w/codeine po 120-12mg/5ml given for dental pain rated an 8 on a 1-10 pain scale. will continue to monitor for pain control.
--- NOTE | 2020-01-06 01:37 | PC.NURSE ---
Pt woke up from her sleep for the second time this evening. She is tearful and verbalized that she is afraid. Pt asked me to hug her and hold her. She said that she needs to know that someone cares and that they are REAL. She wanted to change rooms until she could feel SAFE enough to be in a private room again. Pt verbalized concerns about going to court in the morning. She is unsure about what to expect and is genuinely afraid of what may happen. Tried to reassure her that things are ok and that she is not alone. Pt reports vivid dreams but denies AH/'VH at this time. She is resting at the moment. will continue to monitor this patient.
[2020-01-06] MEDS: benzocaine 20% 7 gm 1 APPLIC MUCOUS MEM ×3 (02:54→21:44)
--- NOTE | 2020-01-06 04:11 | PC.NURSE ---
Pt wanted to change rooms because she stated I dont want to be alone right now. I am scared. So she went and got into another bed where she slept for almost 2 hours. She then woke up came to the nurses station window for the 3rd time this evening. This time she said that she was afraid. She is hearing and seeing babies in her room. She is obviously nervous/anxious about her court hearing in the morning. This patient normally sleeps in the dark, undressed, and door almost closed. Tonight, there has been a change in her routine. She is dressed, light is on in her room, and the door is wide open. She is easily aroused by any sound as if she is on guard. Her sleep pattern is broken. Patient is worried because her psychosis is worsening and she is aware that there is a change in how she is feeling.
[2020-01-06 06:00] VITALS: BP 111/77; PULSE 92; RESP 16; TEMP 36.7; O2SAT 98
[2020-01-06] MEDS: ziprasidone hcl 40 mg Capsule PO ×2 (06:42→16:41)
[2020-01-06] MEDS: paliperidone ER 6 mg Tablet PO (08:32)
[2020-01-06] MEDS: amoxicillin-clav 875-125 mg Tablet 1 TAB PO ×2 (08:32→16:41)
[2020-01-06 14:00] VITALS: BP 120/64; PULSE 82; RESP 18; TEMP 36.6; O2SAT 99
--- NOTE | 2020-01-06 15:47 | PM.NPN ---
Subjective NPU Subjective: Interval history: Aga presented today reporting that she wants to go home but seems to be demonstrating some insight into the inability to do that at this point. Still displaying some impulsivity in relation to her wants very most like a child. Saw someone eating a snack and was upset that she did get 1 as well. Otherwise she has been taking medication independently and not refusing. We discussed the need for us to have a plan together to assist her in being functional after discharge. Significant tooth pain and discharge awaiting hospitalist consult. We discussed that the 90-day hold was granted. Mental Status Exam MSE Comments: There is a well-nourished, well-developed, white female in hospital scrubs with a recent workup with improving grooming and adequate eye contact. No abnormal movements except for continued mild psychomotor retardation. Cooperative with exam in no acute distress. Speech was slightly decreased rate and volume. Mood described as better, affect less subdued. Thought process with decreasing disorganization, thought content: Patient denied suicidal or homicidal ideation, no delusions were reported or noted, she denied auditory or visual hallucinations. Attention and concentration were improving and memory seems more reliable but none were formally tested. She is alert and oriented to person and place and starting to display some sense of purpose. Insight and judgment are limited, but improving, impulse control is improving Vitals/I&O/Wt Last Vital Signs Temp 97.8 F 01/06/20 20:53 Pulse 112 H 01/06/20 20:53 Resp 17 01/06/20 20:53 BP 93/65 01/06/20 20:53 Pulse Ox 95 01/06/20 20:53 Data NPU : 12/10/19 16:08 12/10/19 16:08 A&P Additional A&P Information (1) Schizophrenia, disorganized, chronic with acute exacerbation: (2) Drug-induced psychotic disorder: (3) Psychosis: (4) Substance use: This is a 34-year-old white female with a long history of mental health services but limited history of medication management or clear indication of anything that would lead to this type of presentation who presented floridly psychotic to the emergency department and has shown slow but continued improvement with medication and starting to show signs of capacity. 1. Continue current medication. 2. Continue every 15 minute checks for safety. 3. Encourage individual, group and milieu therapy. 4. She is showing improvement and so will keep with her current medications, however if she were to return a quick move to a trial of Clozaril would be indicated. 5. Encourage sober living treatment at this level. Which she is willing to commit. 6. She was placed on a 90-day hold. 7. Appreciate hospitalist consult regarding her tooth. Will follow recommendations. Involuntary Hold Information 96 Hour Hold: 96 Hour Involuntary Admission: Yes 96 Hour Hold Ending Date: 12/16/19 96 Hour Hold Ending Time: 17:00 Attestations NPU Medical Necessity Statement*: Inpatient hospitalization is medically necessary and the clinically appropriate intervention at this time. We will continue to monitor medications and make changes as indicated. Likely length of stay 7 days. She is on a 90-day hold Coding Level of Care Code Acute Performance Architect for Anna Stubbs
--- NOTE | 2020-01-06 20:48 | PC.NURSE ---
Pt denies AH/VH. Denies SI/HI. She is calm, cooperative, and pleasant. Smiling interacting with other patients. She says that she has severe tooth pain from the abscess and infection documented by Dr. Redmond yesterday. Med nurse notified of pain.
[2020-01-06 20:53] VITALS: BP 93/65; PULSE 112; RESP 17; TEMP 36.6; O2SAT 95
[2020-01-06] MEDS: trazodone 50 mg Tablet PO (21:42)
[2020-01-06] MEDS: divalproex DR 500 mg Tablet PO (21:42)
[2020-01-06] MEDS: acetaminophen 325 mg Tablet 650 MG PO (21:42)
--- NOTE | 2020-01-06 21:48 | PC.NURSE ---
Patient came to the nurses station. She is anxious, feeling like someone is watching her. She verbalizes that she is afraid. She dont feel safe. staff tried to reassure her that she is in a safe place. For the first time in 3 nights she asked me for a shot . However, she was easily redirected.
[2020-01-07] MEDS: benzocaine 20% 7 gm 1 APPLIC MUCOUS MEM ×2 (02:00→08:23)
[2020-01-07] MEDS: acetaminophen-codeine 120-12 mg/5 mL UDC PO (02:00)
[2020-01-07 06:00] VITALS: BP 116/80; PULSE 103; RESP 15; TEMP 36.8; O2SAT 99
--- NOTE | 2020-01-07 06:26 | PC.NURSE ---
0700 GEOLIZZETH ATTEMPTED TO ADMINISTER 0700 GEODON SEVERAL TIMES. PT REFUSED AND KNOCKED THE MEDICATION FROM THIS NURSES HAND AND STATED SHE DOES NOT TAKE MEDICATION FROM WOMEN AND TO GET THE FUCK OUT OF HER ROOM. WASTED GEODON 40MG AND WITNESSED BY Tatiana CHEW RN. WILL CONTINUE TO MONITOR AND REDIRECT PATIENT NEEDED.
--- NOTE | 2020-01-07 06:26 | PC.NURSE ---
Refused Geodon 40mg PO Tobacco Drier Operator Jasper tried to give medication. Patient refused. I tried to talk to the patient and to get her to take the medication. She came out of the bathroom and said she was not going to take it. She said she is getting a shot today. She appeared ill, evidenced by vomit on her face, and had some drool down her chin. She said she don't feel well and wanted me to leave her alone, please, samm
--- NOTE | 2020-01-07 06:29 | PC.NURSE ---
witnessed waste with Tatiana Moran Geodon 40mg PO , patient refused medication.
--- NOTE | 2020-01-07 07:41 | PC.NURSE ---
AM assessment Limited assessment. Patient refused to allow this nurse to assess heart and lungs, as well as refused to answer questions. When asking questions, patient flipped this nurse off and stated f off .
[2020-01-07] MEDS: amoxicillin-clav 875-125 mg Tablet 1 TAB PO ×2 (08:22→16:44)
[2020-01-07] MEDS: paliperidone palmitate 156 mg Syringe IM (08:23)
[2020-01-07 14:00] VITALS: BP 97/68; PULSE 110; RESP 20; TEMP 37; O2SAT 99
[2020-01-07] MEDS: ziprasidone hcl 40 mg Capsule PO (16:41)
--- NOTE | 2020-01-07 20:08 | PM.NPN ---
Subjective NPU Subjective: Interval history: Aga presents today reporting that she is feeling okay. No major episodes reported or noted. She continues to lobby for several requests for discharge. We continue to psychoeducation with the hopes of encouraging ongoing adherence to medication. She continues to model a appropriate appetite and has been sleeping well. General signs of a slow but steady improvement. Mental Status Exam MSE Comments: There is a well-nourished, well-developed, white female in hospital scrubs with a recent haircut with improving grooming and adequate eye contact. No abnormal movements except for continued mild psychomotor retardation. Cooperative with exam in no acute distress. Speech was slightly decreased rate and volume, with limited prosody. Mood described as good, affect less subdued. Thought process with decreasing disorganization, thought content: Patient denied suicidal or homicidal ideation, no delusions were reported or noted, she denied auditory or visual hallucinations. Attention and concentration were improving and memory seems more reliable but none were formally tested. She is alert and oriented to person and place and starting to display some sense of purpose. Insight and judgment are limited, but improving, impulse control is improving Vitals/I&O/Wt Last Vital Signs Temp 97.7 F 01/07/20 22:00 Pulse 94 01/07/20 22:00 Resp 15 01/07/20 22:00 BP 106/68 01/07/20 22:00 Pulse Ox 98 01/07/20 22:00 01/07/20 01/07/20 01/08/20 14:59 22:59 06:59 Intake Total 360 / 360 Balance 360 / 360 Data NPU : 12/10/19 16:08 12/10/19 16:08 A&P Additional A&P Information (1) Schizophrenia, disorganized, chronic with acute exacerbation: (2) Drug-induced psychotic disorder: (3) Psychosis: (4) Substance use: This is a 34-year-old white female with a long history of mental health services but limited history of medication management or clear indication of anything that would lead to this type of presentation who presented floridly psychotic to the emergency department and has shown slow but continued improvement with medication and starting to show signs of capacity. 1. Continue current medication. 2. Continue every 15 minute checks for safety. 3. Encourage individual, group and milieu therapy. 4. She is showing improvement and so will keep with her current medications, however if she were to return a quick move to a trial of Clozaril would be indicated. 5. Encourage sober living treatment at this level. Which she is willing to commit. 6. Appreciate hospitalist consult regarding her tooth. Will follow recommendations. Involuntary Hold Information 96 Hour Hold: 96 Hour Involuntary Admission: Yes 96 Hour Hold Ending Date: 12/16/19 96 Hour Hold Ending Time: 17:00 Attestations NPU Medical Necessity Statement*: Inpatient hospitalization is medically necessary and the clinically appropriate intervention at this time. We will continue to monitor medications and make changes as indicated. Likely length of stay 5-7 days. Coding Level of Care Code Acute Forest Nursery Supervisor for Anna Stubbs
[2020-01-07] MEDS: divalproex DR 500 mg Tablet PO (21:59)
[2020-01-07] MEDS: trazodone 50 mg Tablet PO (21:59)
[2020-01-07 22:00] VITALS: BP 106/68; PULSE 94; RESP 15; TEMP 36.5; O2SAT 98
[2020-01-08 06:00] VITALS: BP 110/63; PULSE 93; RESP 15; TEMP 36.9; O2SAT 98
[2020-01-08] MEDS: ziprasidone hcl 40 mg Capsule PO ×2 (06:31→16:33)
[2020-01-08] MEDS: acetaminophen-codeine 120-12 mg/5 mL UDC PO (06:47)
[2020-01-08] MEDS: benzocaine 20% 7 gm 1 APPLIC MUCOUS MEM (06:52)
[2020-01-08] MEDS: amoxicillin-clav 875-125 mg Tablet 1 TAB PO ×2 (09:58→20:52)
[2020-01-08] MEDS: paliperidone ER 6 mg Tablet PO (09:58)
--- NOTE | 2020-01-08 13:19 | PM.NPN ---
Subjective NPU Subjective: Interval history: Aga presents today continuing to be focused on discharge but in general being calmer. She does continue to have difficulties with redirection. For instance she is technically in 129 bed 1 but the staff is really struggling to keep her in her room as she had another client had a really connected and she has more or less decided she wants to stay in this other. For times she is speaking about her children and missing them and wanting to go home for that reason. We continue to discuss the likelihood of discharge in the next 6 or 7 days. Mental Status Exam MSE Comments: There is a well-nourished, well-developed, white female in hospital scrubs ]with improving grooming and adequate eye contact. No abnormal movements except for continued mild psychomotor retardation. Cooperative with exam in no acute distress. Speech was slightly decreased rate and volume, with limited prosody. Mood described as good, affect less subdued. Thought process with decreasing disorganization, thought content: Patient denied suicidal or homicidal ideation, no delusions were reported or noted, she denied auditory or visual hallucinations. Attention and concentration were improving and memory seems more reliable but none were formally tested. She is alert and oriented to person and place and starting to display some sense of purpose. Insight and judgment are limited, but improving, impulse control is improving Vitals/I&O/Wt Last Vital Signs Temp 97.7 F 01/07/20 22:00 Pulse 94 01/07/20 22:00 Resp 15 01/07/20 22:00 BP 106/68 01/07/20 22:00 Pulse Ox 98 01/07/20 22:00 01/07/20 01/07/20 01/08/20 14:59 22:59 06:59 Intake Total 360 / 360 Balance 360 / 360 Data NPU : 12/10/19 16:08 12/10/19 16:08 A&P Additional A&P Information (1) Schizophrenia, disorganized, chronic with acute exacerbation: (2) Drug-induced psychotic disorder: (3) Psychosis: (4) Substance use: This is a 34-year-old white female with a long history of mental health services but limited history of medication management or clear indication of anything that would lead to this type of presentation who presented floridly psychotic to the emergency department and has shown slow but continued improvement with medication and starting to show signs of capacity. 1. Continue current medication. 2. Continue every 15 minute checks for safety. 3. Encourage individual, group and milieu therapy. 4. She is showing improvement and so will keep with her current medications, however if she were to return a quick move to a trial of Clozaril would be indicated. 5. Encourage sober living treatment at this level. Which she is willing to commit. 6. We will plan for discharge in the next week with main concern being medication adherence. Involuntary Hold Information 96 Hour Hold: 96 Hour Involuntary Admission: Yes 96 Hour Hold Ending Date: 12/16/19 96 Hour Hold Ending Time: 17:00 Attestations NPU Medical Necessity Statement*: Inpatient hospitalization is medically necessary and the clinically appropriate intervention at this time. We will continue to monitor medications and make changes as indicated. Likely length of stay 4-6 days. Coding Level of Care Code Acute Plastic Boat Patcher for Anna Stubbs
[2020-01-08 14:00] VITALS: BP 102/72; PULSE 120; RESP 18; TEMP 36.6; O2SAT 98
[2020-01-08] MEDS: trazodone 50 mg Tablet PO (20:52)
[2020-01-08] MEDS: divalproex DR 500 mg Tablet PO (20:52)
[2020-01-08 21:11] VITALS: BP 114/80; PULSE 127; RESP 17; TEMP 36.6; O2SAT 97
[2020-01-09 06:00] VITALS: BP 110/70; PULSE 86; RESP 17; TEMP 36.7; O2SAT 98
[2020-01-09] MEDS: ziprasidone hcl 40 mg Capsule PO ×2 (06:07→16:51)
[2020-01-09] MEDS: acetaminophen-codeine 120-12 mg/5 mL UDC PO (06:10)
[2020-01-09] MEDS: amoxicillin-clav 875-125 mg Tablet 1 TAB PO ×2 (08:52→22:52)
[2020-01-09] MEDS: paliperidone ER 6 mg Tablet PO (08:52)
--- NOTE | 2020-01-09 12:24 | PM.NPN ---
Subjective NPU Subjective: Interval history: Aga presented today continuing to focus on going home but throwing a wrench and things now starting to talk about Deep who she reports is her and her being unclear if she is going with him or she will go with [facility]. She has brought up her children every day for the last few days reporting she needs to get back to them and the stable factor in her lives which was not something she talked about previously. She continues to ramble and be unclear at times but continues to move toward stability. We agreed that we will work with the treatment team in the morning to get an understanding of what place would be safe for her to be discharged to as we look to find a discharge plan for this week. Mental Status Exam MSE Comments: There is a well-nourished, well-developed, white female in hospital scrubs with improving grooming and adequate eye contact. No abnormal movements except for continued mild psychomotor retardation. Cooperative with exam in no acute distress. Speech was slightly decreased rate and volume, with limited prosody. Mood described as good, affect less subdued. Thought process with decreasing disorganization, thought content: Patient denied suicidal or homicidal ideation, no delusions were reported or noted, she denied auditory or visual hallucinations. Attention and concentration were improving and memory seems more reliable but none were formally tested. She is alert and oriented to person and place and starting to display some sense of purpose. Insight and judgment are limited, but improving, impulse control is improving Vitals/I&O/Wt Last Vital Signs Temp 98.6 F 01/09/20 14:00 Pulse 89 01/09/20 14:00 Resp 18 01/09/20 14:00 BP 116/84 01/09/20 14:00 Pulse Ox 98 01/09/20 06:00 Weight last 48 hrs Weight 68.719 kg Data NPU : 12/10/19 16:08 12/10/19 16:08 A&P Additional A&P Information (1) Schizophrenia, disorganized, chronic with acute exacerbation: (2) Drug-induced psychotic disorder: (3) Psychosis: (4) Substance use: This is a 34-year-old white female with a long history of mental health services but limited history of medication management or clear indication of anything that would lead to this type of presentation who presented floridly psychotic to the emergency department and has shown slow but continued improvement with medication and starting to show signs of capacity. 1. Continue current medication. 2. Continue every 15 minute checks for safety. 3. Encourage individual, group and milieu therapy. 4. She is showing improvement and so will keep with her current medications, however if she were to return a quick move to a trial of Clozaril would be indicated. 5. Encourage sober living treatment at this level. Which she is willing to commit. 6. We will plan for discharge in the next week with main concern being medication adherence. Involuntary Hold Information 96 Hour Hold: 96 Hour Involuntary Admission: Yes 96 Hour Hold Ending Date: 12/16/19 96 Hour Hold Ending Time: 17:00 Attestations NPU Medical Necessity Statement*: Inpatient hospitalization is medically necessary and the clinically appropriate intervention at this time. We will continue to monitor medications and make changes as indicated. Likely length of stay 3-5 days. Coding Level of Care Code Acute Director Of Content Marketing for Anna Stubbs
[2020-01-09 14:00] VITALS: BP 116/84; PULSE 89; RESP 18; TEMP 37
[2020-01-09 20:18] VITALS: BP 134/84; PULSE 87; RESP 17; TEMP 37; O2SAT 96
[2020-01-09] MEDS: divalproex DR 500 mg Tablet PO (21:01)
[2020-01-09] MEDS: trazodone 50 mg Tablet PO (21:01)
[2020-01-10 06:00] VITALS: BP 115/75; PULSE 78; RESP 18; TEMP 36.8; O2SAT 96
[2020-01-10] MEDS: ziprasidone hcl 40 mg Capsule PO ×2 (06:43→17:04)
[2020-01-10] MEDS: amoxicillin-clav 875-125 mg Tablet 1 TAB PO ×2 (10:33→20:17)
[2020-01-10] MEDS: paliperidone ER 6 mg Tablet PO (10:33)
[2020-01-10 14:00] VITALS: BP 92/60; PULSE 123; RESP 17; TEMP 36.2; O2SAT 98
--- NOTE | 2020-01-10 14:13 | P.PN_ITS ---
Subjective NPU Subjective: Interval history: Aga presents today continuing to report wanting to be discharged. We discussed the fact that we are working hard to identify the safest process by which to do that. And where she is going to be living. As well as arranging outpatient services so she has the appropriate safety net for medication management and treatment. Otherwise she is still having moments of confusion but they are fewer and and she endorses a plan to take her medication as prescribed. Mental Status Exam MSE Comments: There is a well-nourished, well-developed, white female in ho spital scrubs with improving grooming and adequate eye contact. No abnormal movements except for continued mild psychomotor retardation. Cooperative with exam in no acute distress. Speech was slightly decreased rate and volume, with limited prosody. Mood described as good, affect less subdued. Thought process with decreasing disorganization, thought content: Patient denied suicidal or homicidal ideation, no delusions were reported or noted, she denied auditory or visual hallucinations. Attention and concentration were improving and memory seems more reliable but none were formally tested. She is alert and oriented to person and place and starting to display some sense of purpose. Insight and judgment are limited, but improving, impulse control is improving Vitals/I&O/Wt Last Vital Signs Temp 98.2 F 01/10/20 06:00 Pulse 78 01/10/20 06:00 Resp 18 01/10/20 06:00 BP 115/75 01/10/20 06:00 Pulse Ox 96 01/10/20 06:00 Data NPU : 12/10/19 16:08 12/10/19 16:08 A&P Additional A&P Information (1) Schizophrenia, disorganized, chronic with acute exacerbation: (2) Drug-induced psychotic disorder: (3) Psychosis: (4) Substance use: This is a 34-year-old white female with a long history of mental health services but limited history of medication management or clear indication of anything that would lead to this type of presentation who presented floridly psychotic to the emergency department and has shown slow but continued improvement with medication and starting to show signs of capacity. 1. Continue current medication. 2. Continue every 15 minute checks for safety. 3. Encourage individual, group and milieu therapy. 4. She is showing improvement and so will keep with her current medications, however if she were to return a quick move to a trial of Clozaril would be indicated. 5. Encourage sober living treatment at this level. Which she is willing to commit. 6. We will plan for discharge in the next week with main concern being medication adherence. Involuntary Hold Information 96 Hour Hold: 96 Hour Involuntary Admission: Yes 96 Hour Hold Ending Date: 12/16/19 96 Hour Hold Ending Time: 17:00 Attestations NPU Medical Necessity Statement*: Inpatient hospitalization is medically necessary and the clinically appropriate intervention at this time. We will continue to monitor medications and make changes as indicated. Likely length of stay 2-4 da ys. Coding Level of Care Code Acute Mimeograph Operator for Anna Stubbs
[2020-01-10] MEDS: trazodone 50 mg Tablet PO (20:18)
[2020-01-10] MEDS: divalproex DR 500 mg Tablet PO (20:18)
[2020-01-10 21:39] VITALS: BP 105/70; PULSE 106; RESP 17; TEMP 36.7; O2SAT 98
[2020-01-11 06:00] VITALS: BP 114/78; PULSE 115; RESP 17; TEMP 36.6; O2SAT 98
[2020-01-11] MEDS: ziprasidone hcl 40 mg Capsule PO ×2 (06:00→16:48)
[2020-01-11] MEDS: amoxicillin-clav 875-125 mg Tablet 1 TAB PO ×2 (09:16→22:06)
[2020-01-11] MEDS: paliperidone ER 6 mg Tablet PO (09:16)
[2020-01-11] MEDS: hyDROXYzine 25 mg Capsule 50 MG PO ×2 (11:21→22:03)
--- NOTE | 2020-01-11 11:21 | PC.NURSE ---
PRN VISTARIL 50 MG GIVEN PO PER PT C/O STATED ANXIETY. WILL CONT TO MONITOR
[2020-01-11 14:00] VITALS: BP 96/62; PULSE 110; RESP 20; TEMP 36.7; O2SAT 98
--- NOTE | 2020-01-11 14:26 | P.PN_ITS ---
Subjective NPU Subjective: Interval history: Aga presents today reporting that things are going fine. She continues to be very focused on discharge and desiring to reconnect with her children and apparently her been. Treatment team is working on identifying which discharge location and plan will be safest and most appropriate for her. We discussed the continue plan for discharge this week. Mental Status Exam MSE Comments: There is a well-nourished, well-developed, white female in [facility] scrubs with improving grooming and adequate eye contact. No abnormal movements except for continued mild psychomotor retardation. Cooperative with exam in no acute distress. Speech was slightly decreased rate and volume, with limited prosody. Mood described as good, affect less subdued. Thought process with decreasing disorganization, thought content: Patient denied suicidal or homicidal ideation, no delusions were reported or noted, she denied auditory or visual hallucinations. Attention and concentration were improving and memory seems more reliable but none were formally tested. She is alert and oriented to person and place and starting to display some sense of purpose. Insight and judgment are limited, but improving, impulse control is improving Vitals/I&O/Wt Last Vital Signs Temp 98.6 F 01/11/20 20:26 Pulse 94 01/11/20 20:26 Resp 16 01/11/20 20:26 BP 82/53 01/11/20 20:26 Pulse Ox 96 01/11/20 20:26 Data NPU : 12/10/19 16:08 12/10/19 16:08 A&P Additional A&P Information (1) Schizophrenia, disorganized, chronic with acute exacerbation: (2) Drug-induced psychotic disorder: (3) Psychosis: (4) Substance use: This is a 34-year-old white female with a long history of mental health services but limited history of medication management or clear indication of anything that would lead to this type of presentation who presented floridly psychotic to the emergency department and has shown slow but continued improvement with medication and starting to show signs of capacity. 1. Continue current medication. 2. Continue every 15 minute checks for safety. 3. Encourage individual, group and milieu therapy. 4. She is showing improvement and so will keep with her current medications, however if she were to return a quick move to a trial of Clozaril would be indicated. 5. Encourage sober living treatment at this level. Which she is willing to commit. 6. We will plan for discharge in the next week with main concern being medication adherence. Involuntary Hold Information 96 Hour Hold: 96 Hour Involuntary Admission: Yes 96 Hour Hold Ending Date: 12/16/19 96 Hour Hold Ending Time: 17:00 Attestations NPU Medical Necessity Statement*: Inpatient hospitalization is medically necessary and the clinically appropriate intervention at this time. We will continue to monitor medications and make changes as indicated. Likely length of stay 1-3 days. Coding Level of Care Code Acute Commercial Insurance Underwriter for Anna Stubbs
[2020-01-11 20:26] VITALS: BP 82/53; PULSE 94; RESP 16; TEMP 37; O2SAT 96
[2020-01-11] MEDS: divalproex DR 500 mg Tablet PO (22:01)
[2020-01-11] MEDS: trazodone 50 mg Tablet PO (22:03)
[2020-01-12 06:00] VITALS: BP 104/69; PULSE 104; RESP 15; TEMP 36.7; O2SAT 99
[2020-01-12] MEDS: ziprasidone hcl 40 mg Capsule PO ×2 (06:17→17:13)
[2020-01-12] MEDS: paliperidone ER 6 mg Tablet PO (09:19)
[2020-01-12] MEDS: amoxicillin-clav 875-125 mg Tablet 1 TAB PO (09:19)
[2020-01-12] MEDS: benzocaine 20% 7 gm 1 APPLIC MUCOUS MEM (10:36)
[2020-01-12 14:00] VITALS: BP 102/67; PULSE 101; RESP 18; TEMP 36.1; O2SAT 100
--- NOTE | 2020-01-12 14:53 | PM.NPN ---
Subjective NPU Subjective: Interval history: Aga presents today continuing to have her focus on discharge, her children and not really seeming to care where she would go as long as we would open the doors. We continue to stress the importance of us knowing where she was going to be, knowing she was going to be stable and reaching her then and knowing that he was prepared to support her return versus her friend above or even her mother was critical and as feeling confident the discharge was reasonable. She appeared able to receive that information even though she was focused on leaving. Mental Status Exam MSE Comments: There is a well-nourished, well-developed, white female in hospital scrubs with improving grooming and adequate eye contact. No abnormal movements except for continued mild psychomotor retardation. Cooperative with exam in no acute distress. Speech was slightly decreased rate and volume, with limited prosody. Mood described as pretty good, affect less subdued. Thought process with decreasing disorganization, thought content: Patient denied suicidal or homicidal ideation, no delusions were reported or noted, she denied auditory or visual hallucinations. Attention and concentration were improving and memory seems more reliable but none were formally tested. She is alert and oriented to person and place and starting to display some sense of purpose. Insight and judgment are limited, but improving, impulse control is improving Vitals/I&O/Wt Last Vital Signs Temp 97.7 F 01/12/20 21:50 Pulse 97 01/12/20 21:50 Resp 15 01/12/20 21:50 BP 99/68 01/12/20 21:50 Pulse Ox 99 01/12/20 21:50 Data NPU : 12/10/19 16:08 12/10/19 16:08 A&P Additional A&P Information (1) Schizophrenia, disorganized, chronic with acute exacerbation: (2) Drug-induced psychotic disorder: (3) Psychosis: (4) Substance use: This is a 34-year-old white female with a long history of mental health services but limited history of medication management or clear indication of anything that would lead to this type of presentation who presented floridly psychotic to the emergency department and has shown slow but continued improvement with medication and starting to show signs of capacity. 1. Continue current medication. 2. Continue every 15 minute checks for safety. 3. Encourage individual, group and milieu therapy. 4. She is showing slow improvement and so will keep with her current medications, however if she were to return a quick move to a trial of Clozaril would be indicated. 5. Encourage sober living treatment at this level. Which she is willing to commit. 6. We will plan for discharge this week with main concern being medication adherence, and making sure she was being discharged to a stable circumstance. Involuntary Hold Information 96 Hour Hold: 96 Hour Involuntary Admission: Yes 96 Hour Hold Ending Date: 12/16/19 96 Hour Hold Ending Time: 17:00 Attestations NPU Medical Necessity Statement*: Inpatient hospitalization is medically necessary and the clinically appropriate intervention at this time. We will continue to monitor medications and make changes as indicated. Likely length of stay 1-3 days. Coding Level of Care Code Acute Marionette Performer for Anan Stubbs
[2020-01-12] MEDS: divalproex DR 500 mg Tablet PO (20:43)
[2020-01-12] MEDS: hyDROXYzine 25 mg Capsule 50 MG PO (20:43)
[2020-01-12] MEDS: trazodone 50 mg Tablet PO (20:43)
[2020-01-12 21:50] VITALS: BP 99/68; PULSE 97; RESP 15; TEMP 36.5; O2SAT 99
--- NOTE | 2020-01-12 23:18 | PC.NURSE ---
PM ASSESSMENT PT DENIES AH/VH/SI/HI AT THIS TIME. SHE IS SMILING, INTERACTING WITH OTHERS, PLEASANT, AND COOPERATIVE WITH STAFF THIS EVENING.
[2020-01-13] MEDS: amoxicillin-clav 875-125 mg Tablet 1 TAB PO ×3 (00:18→21:00)
[2020-01-13 06:00] VITALS: BP 123/72; PULSE 86; RESP 15; TEMP 36.4; O2SAT 98
[2020-01-13] MEDS: ziprasidone hcl 40 mg Capsule PO ×2 (06:37→16:05)
[2020-01-13] MEDS: paliperidone ER 6 mg Tablet PO (09:05)
[2020-01-13 13:33] VITALS: BP 106/73; PULSE 103; RESP 18; TEMP 37; O2SAT 99
--- NOTE | 2020-01-13 18:36 | PM.NPN ---
Subjective NPU Subjective: Interval history: Aga presents today seeming to somewhat take a step back as her frustration about not leaving [facility]. She continues to have issues with impulse control secondary to that. Her Deep he has not not been responsive to our calls and she at this point would leave with anyone who showed up at the door with a sign that said Aga. She did not have a good day today with some anger outbursts and seeming to demonstrate very limited insight. She is eating and sleeping fine. Mental Status Exam MSE Comments: There is a well-nourished, well-developed, white female in hospital scrubs with improving grooming and adequate eye contact. No abnormal movements except for continued mild psychomotor retardation. Cooperative with exam in no acute distress. Speech was slightly decreased rate and volume, with limited prosody she did have a couple loud outbursts during our interaction. Mood described as I want to go, affect less subdued. Thought process with decreasing disorganization, thought content: Patient denied suicidal or homicidal ideation, no delusions were reported or noted, she denied auditory or visual hallucinations. Attention and concentration were improving and memory seems more reliable but none were formally tested. She is alert and oriented to person and place and starting to display some sense of purpose. Insight and judgment are limited, impulse control is improving Vitals/I&O/Wt Last Vital Signs Temp 99.1 F 01/13/20 20:17 Pulse 17 L 01/13/20 20:17 Resp 79 H 01/13/20 20:17 BP 96/64 01/13/20 20:17 Pulse Ox 97 01/13/20 20:17 Data NPU : 12/10/19 16:08 12/10/19 16:08 A&P Additional A&P Information (1) Schizophrenia, disorganized, chronic with acute exacerbation: (2) Drug-induced psychotic disorder: (3) Psychosis: (4) Substance use: This is a 34-year-old white female with a long history of mental health services but limited history of medication management or clear indication of anything that would lead to this type of presentation who presented floridly psychotic to the emergency department and has shown slow but continued improvement with medication and starting to show signs of capacity. 1. Continue current medication. 2. Continue every 15 minute checks for safety. 3. Encourage individual, group and milieu therapy. 4. She is showing slow improvement and so will keep with her current medications, however if she were to return a quick move to a trial of Clozaril would be indicated. 5. Encourage sober living treatment at this level. Which she is willing to commit. 6. We will plan for discharge this week with main concern being medication adherence, and making sure she was being discharged to a stable circumstance. 7. She continues to have limited impulse control which may not diminish unless we get aggressive about a medication change, which the risk-benefit probably is not in our favor unless we were planning on a another 30 days of hospitalization. She also occasionally mentions being taken off of her medication which is concerning but is going to be difficult to remedy until she has outpatient coverage when her insurance kicks in. Involuntary Hold Information 96 Hour Hold: 96 Hour Involuntary Admission: Yes 96 Hour Hold Ending Date: 12/16/19 96 Hour Hold Ending Time: 17:00 Attestations NPU Medical Necessity Statement*: Inpatient hospitalization is medically necessary and the clinically appropriate intervention at this time. We will continue to monitor medications and make changes as indicated. Likely length of stay 1-3 days. Coding Level of Care Code Acute Field Artillery Operations Specialist for Anna Stubbs
[2020-01-13 20:17] VITALS: BP 96/64; PULSE 17; RESP 79; TEMP 37.3; O2SAT 97
[2020-01-13] MEDS: hyDROXYzine 25 mg Capsule 50 MG PO (21:44)
[2020-01-13] MEDS: divalproex DR 500 mg Tablet PO (21:44)
[2020-01-13] MEDS: benztropine 1 mg Tablet PO (21:44)
[2020-01-13] MEDS: trazodone 50 mg Tablet PO (21:44)
[2020-01-13] MEDS: acetaminophen 325 mg Tablet 650 MG PO (21:45)
--- NOTE | 2020-01-14 03:49 | PC.NURSE ---
refused antibiotic 01/12/21 @ 2100 pt refused augmentin 875-125mg po medication. Medication was updated by charge nurse and unable to change in the computer to show this.
[2020-01-14 06:00] VITALS: BP 105/71; PULSE 99; RESP 16; TEMP 36.6; O2SAT 97
[2020-01-14] MEDS: ziprasidone hcl 40 mg Capsule PO (06:18)
[2020-01-14] MEDS: amoxicillin-clav 875-125 mg Tablet 1 TAB PO (08:43)
[2020-01-14] MEDS: paliperidone ER 6 mg Tablet PO (08:43)
[2020-01-14] MEDS: nicotine 2 mg Gum BUCCAL (14:53)
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
[2020-01-14 15:25] VITALS: BP 105/71; PULSE 99; RESP 16; TEMP 36.6; O2SAT 97
== END 2020-01-14 16:25 | disposition home or self-care (01) | DRG 885 ==
LOC: ER 16:44 → NP 17:00
PROVIDERS: Family Medicine; Psychiatry & Neurology Psychiatry; Admitting Provider Psychiatry & Neurology Psychiatry; Emergency Provider Family Medicine; PCP Electrodiagnostic Medicine; Visit Provider Psychiatry & Neurology Psychiatry
DX: F20.9 Schizophrenia, unspecified (principal); F10.10 Alcohol abuse, uncomplicated; F17.210 Nicotine dependence, cigarettes, uncomplicated; F19.90 Other psychoactive substance use, unspecified, uncomplicated; F15.959 Other stimulant use, unspecified with stimulant-induced psychotic disorder, unspecified; K04.7 Periapical abscess without sinus
CPT/HCPCS: 12345; 36415; 80053; 80164; 80307; 81025; 84703; 85025; 96372; 99284; J1200; J1630; J2060; J3486; Q0162

== ENCOUNTER 2020-09-01 13:14 | Inpatient (IN) | payer MEDICAID, SELFPAY ==
[2020-09-01 13:22] VITALS: BMI 25.0
[2020-09-01] MEDS: diphenhydrAMINE 50 mg/mL SDV 1mL IM (13:43)
[2020-09-01] MEDS: LORazepam 2 mg/mL INJ 1 mL IM (13:43)
[2020-09-01] MEDS: haloperidol inj 5 mg/mL INJ 1 mL IM (13:43)
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
--- NOTE | 2020-09-01 13:51 | ECG_ITS ---
[facility] Test Date: 2020-09-01 Pat Name: Aga Lai Department: Room: Gender: Female System Operator: : 1985 Requested By: Matthew Do Order Number: [id number] Lainez MD: Yimi Doshi M.D. Measurements Intervals [place] Rate: 85 P: 53 RI: 160 QRS: 61 QRSD: 90 T: 68 QT: 378 QTc: 452 Interpretive Statements SINUS RHYTHM Compared to ECG 06/15/2016 20:24:32 No significant changes Electronically Signed On 09-01-2020 21:32:22 CDT by Yimi Doshi M.D. [id number]
[2020-09-01 13:52] VITALS: BP 109/70; PULSE 111; RESP 20; TEMP 36.6; O2SAT 97
[2020-09-01 14:04] LABS: Basophils # 0.1 10^3/uL (0.0-0.1); Basophils % 0.7 %; Eosinophils # 0.1 10^3/uL (0.0-0.8); Eosinophils % 0.8 %; Hematocrit 38.5 % (37.0-47.0); Hemoglobin 12.7 g/dL (11.5-15.3); Lymphocytes # 1.1 10^3/uL (0.8-4.8); Lymphocytes % 15.4 %; Mean Corpuscular Hemoglobin 31.8 pg (28.0-34.0); Mean Corpuscular Volume 96.3 fL (81-99); Mean Platelet Volume 9.8 fL (7.4-10.4); Monocytes # 0.4 10^3/uL (0.2-0.9); Monocytes % 6.2 %; Neutrophils % 76.6 %; Nucleated Red Blood Cells % 0 %; Platelet Count 415 10^3/cmm (130-400); Red Cell Distribution Width 12.9 % (12.1-15.1); White Blood Count 7.1 10^3/uL (4.0-10.0)
[2020-09-01 14:18] LABS: HCG, Serum Qual Negative (Negative)
[2020-09-01 14:35] LABS: Alanine Aminotransferase 11 U/L (0-33); Albumin Level 4.4 g/dL (3.5-5.2); Alcohol Level 127 mg/dL (0-10); Alkaline Phosphatase 88 IU/L (35-105); Anion Gap 22.5 (5-19); Aspartate Amino Transferase 16 U/L (0-32); Blood Urea Nitrogen 10 mg/dL (6-20); Calcium 9.4 mg/dL (8.5-10.5); Carbon Dioxide 17 mmol/L (22-29); Chloride 106 mmol/L (98-107); Creatine Phosphokinase 85 U/L (26-192); Globulin 2.3 g/dL (1.3-4.6); Glomerular Filtration Rate 82.1 mL/min (90-130); Glucose 85 mg/dL (65-115); Osmolality Calculated 292 mOsm/kg (285-295); Potassium 3.5 mmol/L (3.5-5.1); Sodium 142 mmol/L (136-145); Thyroid Stimulating Hormone 5.29 uIU/mL (0.27-4.20); Total Bilirubin 0.2 mg/dL (0.15-1.2); Total Protein 6.7 g/dL (6.6-8.7)
[2020-09-01 14:36] VITALS: PULSE 94; RESP 13; O2SAT 97
[2020-09-01 14:45] LABS: Acetaminophen < 5.0 ug/mL (10-30); Salicylate < 0.3 mg/dL (3-10)
[2020-09-01 14:47] LABS: Lactic Sepsis W/Reflex 6.7 mmol/L (0.5-2.2)
[2020-09-01] MEDS: sodium chloride 0.9% 1,000 ML 999 ML IV ×2 (14:53→16:17)
--- NOTE | 2020-09-01 14:56 | PC.NURSE ---
Restraints removed on bilateral ankles. Pt resting at this time.
[2020-09-01 15:49] LABS: Reflex Lactate Order REFLEX LACTIC ORDERD
[2020-09-01 16:08] LABS: Amphetamines Screen Urine Positive (Negative); Barbiturates Screen Urine Negative (Negative); Benzodiazepines Screen Urine Negative (Negative); Cocaine Screen Urine Negative (Negative); Opiate Screen Urine Negative (Negative); PCP Screen Urine Negative (Negative); THC Screen Urine Positive (Negative)
[2020-09-01 16:21] LABS: Add Urine Culture? No; Add Urine Microscopic? YES; Bacteria Urine TRACE /hpf; Bilirubin Urine Neg (Negative); Blood Urine Neg (Negative); Glucose Urine UA Norm (Normal); Ketones Urine Negative (Negative); Leukocyte Esterase Urine Negative (Negative); Nitrate Urine Negative (Negative); Protein Urine 1+ (Negative); Urine Appearance Clear (CLEAR); Urine Color Straw (Yellow); Urobilinogen Urine Norm (Negative); pH Urine 6 (5-7)
[2020-09-01 16:43] VITALS: BP 109/91; PULSE 96; RESP 18; TEMP 36; O2SAT 100
[2020-09-01 17:26] LABS: Lactic Acid level (Lactate) 2.9 mmol/L (0.5-2.2)
[2020-09-01 18:46] VITALS: BP 96/64; PULSE 106; RESP 17; TEMP 36.7; O2SAT 96
[2020-09-01 19:31] LABS: Lactate (Lactic Acid level) 2.1 mmol/L (0.5-2.2)
[2020-09-01 20:02] VITALS: BP 96/64; PULSE 106; RESP 17; TEMP 36.7; O2SAT 96
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
[2020-09-02 06:00] VITALS: RESP 15
[2020-09-02] MEDS: OLANZapine 5 mg TABLET PO ×2 (11:07→20:52)
--- NOTE | 2020-09-02 11:24 | PM.NHP ---
Providers/Chief Complaint Admitting Physician: Rufina Gonzalez DO Primary Care Provider: Adriano Sullivan DO Chief Complaint: psych HPI NPU History of Present Illness Aga Lai is a 34 year old female with a reported history of schizophrenia, bipolar disorder and borderline personality disorder although there does not appear to be any serial observation for any length of time outside the influence of substances other than during a 30-day hospitalization in January 2020. Patient was brought in by police and was placed on 96-hour hold after being found wandering down the road under the influence of substances and alcohol. Patient was somewhat combative at the time of initial evaluation in the emergency department and was given as needed medication. Patient was medically cleared in emergency department prior to admission to inpatient psychiatry. Patient reports that she did not continue to take any medication after leaving the hospital in January 2020 and has not followed up with any mental health care provider. Furthermore, she denies follow-up with any substance treatment. Patient does not appear to be disorganized and is able to communicate in a linear, organized but brief fashion secondary to being soporific from recent amphetamine use. Patient does not a good historian at this time given that she continues to fall asleep during interview. She gave permission for collateral information from her mother although her mother's phone is not a septic voicemail messages at this time. Patient does report auditory and visual loose Nations although she currently denies any at this time and it is unclear with regards to relationship with her ongoing substance and alcohol use. Patient was previously treated with mood stabilizing medication as well as antipsychotics but per above discontinued abruptly at the time of discharge. Patient was unable to complete psychiatric review of systems at this time. Review of Systems General: Reports: ROS unobtainable due to mental status Meds NPU Home Medications Medication Instructions Recorded Confirmed Last Taken Type Unable to Assess 09/02/20 09/02/20 Unknown History Allergies Allergy/AdvReac Type Severity Reaction Status Date / Time No Known Allergies Allergy Verified 12/10/19 16:01 [facility] NPU PFSH: Medical History Drug-induced psychotic disorder Schizophrenia, disorganized, chronic with acute exacerbation Substance use Surgical History No pertinent past surgical history Family History Father Suicide Alcohol abuse Schizophrenia Bipolar disorder Substance abuse Mother Depression Social History Smoking and tobacco status: unknown if ever smoked Alcohol intake: current Alcohol intake frequency: few times a week Alcohol type: beer, wine and hard liquor Desire information about alcohol rehabilitation?: No Counseling given: No (information given) Last alcohol use date: 09/01/20 Substance/Drug Use: current Substance/Drug use frequency: daily Substance/Drug use type: Marijuana, Methamphetamine and Other Desire information about substance/drug rehabilitation?: No Adopted: No Caregiver/support person: No Lives independently: Yes Household members: spouse Housing: House Marital status: Marital status details: partner has substance abuse issues also Number of children: 3 Highest education level completed: GED or Equivalent service: No Current occupational status: unemployed 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 Leisure activites: art and music Sexually active: Yes Current gender identity: Female Special kong needs: No Agree to transfusion: Yes Financial difficulty paying for basics: Hard Other Psychiatric History: Other Psychiatric History: Review of medical chart, patient with 1 previous psychiatric hospitalization and a previous evaluation by outpatient psychiatry in 2013 noting ongoing substance use at that time as well stating that diagnosis of schizophrenia or bipolar disorder was unlikely Patient denies any outside psychiatric follow-up Denies any history of suicide attempt or self-harm behavior Mental Status Exam MSE Comments: Patient initially sleeping, unkempt, ungroomed, wearing hospital scrubs, got up and ate sandwich and went to the bathroom and subsequently lied back down and fell asleep although answering questions after prompting but continues to fall asleep during interview Psychomotor activity is neither increased nor decreased, no agitation Speech is normal volume, normal rate, not pressured I am tired, congruent affect, not labile Soporific, unable to fully assess orientation or intellectual functioning although appears to be average based on vocabulary, brief interaction Thought process is linear but brief, no flight of ideas, no looseness of associations Thought content, reports hearing things and seeing things but does not appear to be attending to any internal stimuli, no suicidal or homicidal ideation Insight and judgment appear to be fair at best Vitals/I&O/Wt Last Vital Signs Temp 98.0 F 09/01/20 20:02 Pulse 106 H 09/01/20 20:02 Resp 15 09/02/20 06:00 BP 96/64 09/01/20 20:02 Pulse Ox 96 09/01/20 20:02 09/01/20 09/02/20 09/02/20 22:59 06:59 14:59 Intake Total 1999 Balance 1999 Weight last 48 hrs Weight 68.039 kg Data NPU : 09/01/20 13:57 09/01/20 13:57 A&P Assessment and plan (1) Psychosis: Status: Acute Qualifiers: Psychosis type: unspecified psychosis type Qualified Code(s): F29 - Unspecified psychosis not due to a substance or known physiological condition (2) Polysubstance abuse: Status: Acute Additional A&P Information Patient has longstanding history of polysubstance abuse with methamphetamine, cannabis as well as other substances and currently presented to the emergency department with alcohol intoxication in addition to use of methamphetamine and cannabis with altered mental status. Patient previously with reported diagnosis of schizophrenia although patient has never had any reported lengthy period of time of sobriety and unclear if her cognitive baseline is influenced by long-term substance abuse versus underlying thought disorder or mood disorder. Patient would benefit from observation and initiating a low-dose antipsychotic for her reported perceptual disturbances. INVOLUNTARY ADMIT to inpatient psychiatry START olanzapine 5 mg twice daily targeting psychotic symptoms Encouraged patient to participate in unit activities to include group sessions, unit milieu Coordinate with protective services social worker for post discharge behavioral health treatment as well as substance counseling/treatment Involuntary Hold Information 96 Hour Hold: 96 Hour Involuntary Admission: Yes 96 Hour Hold Ending Date: 09/08/20 96 Hour Hold Ending Time: 15:00 Attestations NPU Medical Necessity Statement*: Psychiatric hospitalization indicated for medication stabilization, coordination for safe discharge Anticipate hospital stay to exceed 2 midnights Time Spent in Patient Care: Greater than 35 minutes (>than 50% of time spent in counselling and/or direct pt care on unit). Coding Level of Care Code Acute Body Shop Worker for Anna Stubbs Diagnoses Psychosis F29 Psychosis type: unspecified psychosis type Polysubstance abuse F19.10
[2020-09-02 13:51] VITALS: BP 109/58; PULSE 90; RESP 15; TEMP 36.8; O2SAT 97
[2020-09-02 22:00] VITALS: RESP 17
--- NOTE | 2020-09-03 05:31 | PC.NURSE ---
bEHAVIOR NO PRN'S NEEDED. PT SLEPT MOST OF SHIFT, NO INTERACTION WITH AH NOTED THIS EVENING, PT STILL MAKES NONSENSICAL STATEMENTS BUT SMILES AT STAFF, COOPERATIVE THIS EVENING WITH VITALS AND ASSESSMENTS
[2020-09-03 06:00] VITALS: RESP 16; BMI 25.0
[2020-09-03] MEDS: OLANZapine 5 mg TABLET PO ×2 (10:27→20:40)
--- NOTE | 2020-09-03 12:29 | P.PN_ITS ---
Subjective NPU Subjective: Interval history: Patient lying in bed sleeping, mumbles responses but refuses to open her eyes and speak to interviewer. States that she is tired, denies eating breakfast Denies any current psychotic symptoms Mental Status Exam MSE Comments: Lying in bed sleeping, eyes closed, refuses to open eyes and engage interviewer Vitals/I&O/Wt Last Vital Signs Temp 98.2 F 09/02/20 13:51 Pulse 90 09/02/20 13:51 Resp 16 09/03/20 06:00 BP 109/58 09/02/20 13:51 Pulse Ox 97 09/02/20 13:51 Weight last 48 hrs Weight 68.039 kg Weight 68.039 kg Data NPU : 09/01/20 13:57 09/01/20 13:57 A&P Assessment and plan (1) Psychosis: Status: Acute Qualifiers: Psychosis type: unspecified psychosis type Qualified Code(s): F29 - Unspecified psychosis not due to a substance or known physiological condition (2) Polysubstance abuse: Status: Acute Additional A&P Information Patient lying in bed and refusing to participate in interview CONTINUE current medication, continue to monitor Involuntary Hold Information 96 Hour Hold: 96 Hour Involuntary Admission: Yes 96 Hour Hold Ending Date: 09/08/20 96 Hour Hold Ending Time: 15:00 Attestations NPU Medical Necessity Statement*: Continues to require psychiatric hospitalization for medication stabilization, coordination for safe discharge Coding Level of Care Code Acute Nurses Supervisor for Anna Stubbs Diagnoses Psychosis F29 Psychosis type: unspecified psychosis type Polysubstance abuse F19.10
[2020-09-03 14:00] VITALS: BP 92/58; PULSE 88; RESP 18; TEMP 36.2; O2SAT 98
[2020-09-03 22:00] VITALS: PULSE 119; RESP 20; TEMP 36.4; O2SAT 95
[2020-09-04 06:00] VITALS: BP 108/69; PULSE 70; RESP 16; TEMP 37; O2SAT 97
[2020-09-04] MEDS: OLANZapine 5 mg TABLET PO (09:47)
--- NOTE | 2020-09-04 09:56 | PM.NPN ---
Subjective NPU Subjective: Interval history: Patient continues to mostly lie in bed throughout the day although she has been up for a couple meals daily but immediately goes back to her room and goes to bed When asked if she is feeling better, patient states that she never felt bad but reports feeling tired Denies any psychotic symptoms, denies any auditory or visual hallucinations, denies any delusions Denies any depressed symptoms, denies any suicidal ideation Reports being compliant with her medication and denies any medication side effects Per staff report, no interval behavioral disturbances Mental Status Exam MSE Comments: Continues to lie in bed and briefly opens eyes to answer questions with short linear responses, no flight of ideas, no looseness of associations. Thought content, does not state any delusions and does not appear to be attending to any internal stimuli, no suicidal or homicidal ideation I am tired, congruent, constricted, not labile Tired, oriented to person, place, situation Psychomotor activity is decreased, no agitation Vitals/I&O/Wt Last Vital Signs Temp 98.6 F 09/04/20 06:00 Pulse 70 09/04/20 06:00 Resp 16 09/04/20 06:00 BP 108/69 09/04/20 06:00 Pulse Ox 97 09/04/20 06:00 Weight last 48 hrs Weight 68.039 kg Data NPU : 09/01/20 13:57 09/01/20 13:57 A&P Assessment and plan (1) Psychosis: Status: Acute Qualifiers: Psychosis type: unspecified psychosis type Qualified Code(s): F29 - Unspecified psychosis not due to a substance or known physiological condition (2) Polysubstance abuse: Status: Acute Additional A&P Information Patient continues to be soporific, lying in bed most of the day, currently denying any psychotic symptoms or mood symptoms CONTINUE current medication, continue to monitor Involuntary Hold Information 96 Hour Hold: 96 Hour Involuntary Admission: Yes 96 Hour Hold Ending Date: 09/08/20 96 Hour Hold Ending Time: 15:00 Attestations NPU Medical Necessity Statement*: Continues to require psychiatric hospitalization for medication stabilization Coding Level of Care Code Acute Deputy [employer] for Anna Stubbs Diagnoses Psychosis F29 Psychosis type: unspecified psychosis type Polysubstance abuse F19.10
[2020-09-04 14:00] VITALS: BP 107/58; PULSE 76; RESP 14; TEMP 36.6; O2SAT 96
--- NOTE | 2020-09-04 14:13 | P.DS_ITS ---
Diagnoses at Discharge Discharge Diagnosis (1) Psychosis: Status: Acute Qualifiers: Psychosis type: unspecified psychosis type Qualified Code(s): F29 - Unspecified psychosis not due to a substance or known physiological condition (2) Polysubstance abuse: Status: Acute Reason for Visit Reason for Visit: psych Hospital Course Hospital Course 34 year old female with a reported history of schizophrenia, bipolar disorder and borderline personality disorder although there does not appear to be any serial observation for any length of time outside the influence of substances other than during a 30-day hospitalization in January 2020. Patient was brought in by police and was placed on 96-hour hold after being found wandering down the road under the influence of substances and alcohol. Patient was somewhat combative at the time of initial evaluation in the emergency department and was given as needed medication. Patient was medically cleared in emergency department prior to admission to inpatient psychiatry. Patient reports that she did not continue to take any medication after leaving the hospital in January 2020 and has not followed up with any mental health care provider. Furthermore, she denied follow-up with any substance treatment. Patient did not appear to be disorganized and was able to communicate in a linear, organized but brief fashion secondary to being soporific during initial evaluation. Patient became much more clear and alert when she became sober from her recent methamphetamine use. Patient mostly spent the first couple of days in bed but reported feeling better with improved appetite. Patient was started on olanzapine given unclear past mood history although it appears to be mostly substance-induced and she tolerated the medication well with no reports of any medication side effects. Patient participate in unit milieu mostly during the last day and a half at which time when she was much more alert and able to communicate clearly asking to go home and stating that she would follow-up with outpatient care to include substance counseling. When pointed out that she had not been compliant with previous recommendations for outpatient care, patient stated that she would follow-up this time. Patient was not suicidal and did not endorse any psychotic or any other psychiatric symptoms at the time of discharge and did not appear to pose an imminent threat of harm to self or others. Low to moderate risk of harm to self given no current suicidal ideation or psychiatric symptoms although patient continues to be at an elevated risk if she continues to be noncompliant with recommendations to abstain from use of substances as well as recommendation for follow on mental health and substance treatment which will likely lead to subsequent episodes of altered mental status secondary to substance intoxication and withdrawal with unexpected, impulsive behavior. Risk mitigation included psychiatric hospitalization, medication stabilization, recommendation to abstain from the use of any substances or alcohol as well as the need for compliance with her medication, medication management and substance counseling/treatment follow-up. Patient was able to communicate her understanding of the need to abstain from use of substances and alcohol as well as the need for substance counseling/treatment in order to further mitigate her risk of harm to self and others. Involuntary Hold Information 96 Hour Hold: 96 Hour Involuntary Admission: Yes 96 Hour Hold Ending Date: 09/08/20 96 Hour Hold Ending Time: 15:00 Mental Status Exam MSE Comments: Patient much more alert, organized, appropriately dressed and better groomed, calm, cooperative, interactive, good eye contact Psychomotor activity is neither increased nor decreased, no agitation Speech is normal rate and volume, spontaneous, clear articulation, not pressured I feel much better, congruent affect, not labile Alert and oriented to person, place, time, situation Memory and concentration appear to be intact per interview Thought process, linear, goal-directed, organized, no flight of ideas, no looseness of associations Thought content, no delusions, does not appear to be attending to any internal stimuli, no suicidal homicidal ideation Insight and judgment appear to be fair to intact Discharge Data Vitals: Last Vital Signs Temp 98.6 F 09/04/20 06:00 Pulse 70 09/04/20 06:00 Resp 16 09/04/20 06:00 BP 108/69 09/04/20 06:00 Pulse Ox 97 09/04/20 06:00 Discharge Plan Discharge Patient Disposition: Home Condition: Stable Prescriptions: New olanzapine 5 mg Tablet 5 mg PO Q12H Qty: 60 RF: 0 No Action No Known Home Medications RF: 0 Discharge Orders: Discharge Order (Routine); Ordered 09/04/20 Ordered By: Rufina Gonzalez Referrals: [facility] [Outside] (Intital referral for walk-in Friday through Friday 7:30am to 3pm.) Adriano Sullivan DO [Primary Care Provider] - Discharge Diet: Regular Discharge Activity: Resume usual activity Patient Instructions: Opioid Safety Discharge Attestations NPU Time Spent in Discharge Care*: greater than 30 min Status at Discharge: Cognitive status at discharge: cognitively intact , Behavioral status at discharge: cooperative , Functional status at discharge: independent ambulation Overall status at discharge: patient is back to baseline Coding Level of Care Code Acute g FW DC note Diagnoses Psychosis F29 Psychosis type: unspecified psychosis type Polysubstance abuse F19.10
[2020-09-04 14:28] VITALS: BP 107/58; PULSE 76; RESP 14; TEMP 36.6; O2SAT 96
== END 2020-09-04 14:39 | disposition home or self-care (01) | DRG 897 ==
LOC: ER 18:18 → NP 18:38
PROVIDERS: Admitting Provider Psychiatry & Neurology Psychiatry; Emergency Provider Family Medicine; PCP Electrodiagnostic Medicine; Visit Provider Psychiatry & Neurology Psychiatry
DX: F10.159 Alcohol abuse with alcohol-induced psychotic disorder, unspecified (principal); F12.159 Cannabis abuse with psychotic disorder, unspecified; F15.159 Other stimulant abuse with stimulant-induced psychotic disorder, unspecified; F17.210 Nicotine dependence, cigarettes, uncomplicated; R79.89 Other specified abnormal findings of blood chemistry; Z81.8 Family history of other mental and behavioral disorders; Z86.59 Personal history of other mental and behavioral disorders
CPT/HCPCS: 36415; 51701; 80053; 80306; 80307; 81001; 82550; 83605; 84443; 84703; 85025; 93005; 96360; 96361; 96372; 99285; J1200; J1630; J2060; J7030

== ENCOUNTER 2020-11-16 13:14 | Inpatient (IN) | payer MEDICAID, SELFPAY ==
[2020-11-16] VITALS (7 sets, daily range): BP systolic 91–130; BP diastolic 51–107; PULSE 86–150; RESP 14–18; TEMP 36.5–37; O2SAT 93–100; BMI 25.0
--- NOTE | 2020-11-16 13:17 | ED_ITS ---
HPI - Psych General: Chief Complaint: Psychiatric Symptoms Stated Complaint: PSYCH EVAL Time Seen by Provider: 11/16/20 13:17 History of Present Illness: HPI Narrative: Ms. Lai is a 35-year-old lady with unclear history who presents the emergency department via law enforcement due to altered mental status and psychiatric concern. Upon initial evaluation patient is markedly agitated, she required physical restraints and subsequently chemical restraints. Her speech is rapid, pressured, tangential. She expresses nonsensical speech at times and has delusions. Unable to redirect or provide meaningful history. The exact course, duration, provoking, exacerbating, or alleviating factors is unclear. The intensity of her current symptoms appears to be severe. No other meaningful history provided. Review of Systems General: Reports: ROS unobtainable due to mental status PFS ED PFSH: Medical History Drug-induced psychotic disorder Schizophrenia, disorganized, chronic with acute exacerbation Substance use Surgical History No pertinent past surgical history Family History Father Suicide Alcohol abuse Schizophrenia Bipolar disorder Substance abuse Mother Depression Social History Smoking and tobacco status: unknown if ever smoked Alcohol intake: current Alcohol intake frequency: few times a week Alcohol type: beer, wine and hard liquor Desire information about alcohol rehabilitation?: No Counseling given: No (information given) Last alcohol use date: 09/01/20 Desire information about substance/drug rehabilitation?: No Adopted: No Caregiver/support person: No Lives independently: Yes Household members: spouse Housing: House Marital status: Marital status details: partner has substance abuse issues also Number of children: 3 Highest education level completed: GED or Equivalent service: No Current occupational status: unemployed 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 Eyes - PERRL, no conjunctival injection ENMT - Atraumatic external nose and ears. Dry mucous membranes NECK - supple. trachea midline CARDIOVASCULAR -tachycardic rate and regular rhythm.. Peripheral pulses 2+ and equal RESPIRATORY -clear to auscultation bilaterally. No retractions or accessory muscle use. ABDOMEN/GI - Nontender. Nondistended. MSK - Extremities without obvious deformity or tenderness to palpation SKIN - Warm, Dry. Pen dove on skin NEURO - alert but possibly disoriented. Limited evaluation secondary to mental status. No obvious focal neurologic deficits. PSYCH -agitated and combative. Impaired cognition. Rapid, tangential, and pressured speech. Course ED course: - Patient was seen and evaluated by me at bedside -Patient markedly agitated and presents a threat to herself and others and therefore is on restraint bed. -Medications ordered -Labs ordered. -Medications with desired therapeutic effect. -Labs notable for no acute finding to explain the patient's symptoms. Glucose is 63, half amp of D50 ordered however there is no improvement in patient's mental status. Patient reportedly on. And thus there is RBC contamination of urinalysis without obvious evidence of urinary tract infection. Toxic ingestion labs negative with exception of amphetamine screen and marijuana screen. - Upon serial reexamination after treatment the patient was improved with medication -Based on ED evaluation at this point there is no obvious condition that would preclude the patient from inpatient management of psychiatric concerns. In examining the patient's history it is challenging to determine if this patient simply has drug-induced psychosis or has a component of underlying psychiatric disorder. -Dr. Crews with the psychiatry service contacted and agreed to admit the patient. Vital Signs: Vital signs: Vital Signs Temperature 97.7 F 11/17/20 14:00 Pulse Rate 88 11/17/20 14:00 Respiratory Rate 18 11/17/20 14:00 Blood Pressure 93/62 11/17/20 14:00 Pulse Oximetry 98 11/16/20 18:14 MDM - Psych Medical Records: Attestation: I reviewed the patient's medical records. Lab Data: Attestation: I reviewed the patient's lab results. Labs: Lab Results 11/16/20 11/16/20 11/16/20 Range/Units 15:00 15:00 15:09 WBC 9.0 (4.0-10.0) 10^3/ uL RBC 4.23 (4.1-5.3) 10^6/u L Hgb 12.9 (11.5-15.3) g/dL Hct 38.9 (37.0-47.0) % MCV 92.0 (81-99) fl MCH 30.5 (28.0-34.0) pg MCHC 33.2 (30.0-36.0) g/dL RDW 13.3 (12.1-15.1) % Plt Count 295 (130-400) 10^3/c mm MPV 10.3 (7.4-10.4) fL Neut % (Auto) 62.9 % Lymph % (Auto) 27.1 % Stoddard % (Auto) 9.0 % Eos % (Auto) 0.2 % Baso % (Auto) 0.6 % Neut # (Auto) 5.67 (1.8-7.7) 10^3/u L Lymph # (Auto) 2.4 (0.8-4.8) 10^3/u L Stoddard # (Auto) 0.8 (0.2-0.9) 10^3/u L Eos # (Auto) 0.0 (0.0-0.8) 10^3/u L Baso # (Auto) 0.1 (0.0-0.1) 10^3/u L Nucleated RBC % (a uto) 0 % Nucleated RBCs # 0.0 /100WBC Sodium 141 (136-145) mmol/L Potassium 3.9 (3.5-5.1) mmol/L Chloride 107 (98-107) mmol/L Carbon Dioxide 22 (22-29) mmol/L Anion Gap 15.9 (5-19) BUN 13 (6-20) mg/dL Creatinine 0.7 (0.5-0.9) mg/dL GFR Calculation 95.2 (90-130) mL/min Glucose 63 L (65-115) mg/dL POC Glucose (70-110) mg/dL Calculated Osmolal ity 290 (285-295) mOsm/k g Calcium 9.1 (8.5-10.5) mg/dL Total Bilirubin 0.3 (0.15-1.2) mg/dL AST 24 (0-32) U/L ALT 25 (0-33) U/L Alkaline Phosphata se 92 (35-105) IU/L Creatine Kinase 128 (26-192) U/L Total Protein 7.2 (6.6-8.7) g/dL Albumin 4.5 (3.5-5.2) g/dL Globulin 2.7 (1.3-4.6) g/dL TSH 5.66 H (0.27-4.20) uIU/ mL Free T4 (0.82-1.77) ng/d L HCG, Qual Negative (Negative) Urine Color (Yellow) Urine Appearance (CLEAR) Urine pH (5-7) Ur Specific Gravit y (1.005-1.030) Urine Protein (Negative) Urine Glucose (UA) (Normal) Urine Ketones (Negative) Urine Blood (Negative) Urine Nitrate (Negative) Urine Bilirubin (Negative) Urine Urobilinogen (Negative) mg/dL Ur Leukocyte Pamella ase (Negative) Urine RBC (0-2) /hpf Urine WBC (0-5) /hpf Ur Squamous Epith Cells (0-5) /hpf Amorphous Sediment Urine Bacteria (NONE) /hpf Salicylates < 0.3 L (3-10) mg/dL Urine Opiates Scre en (Negative) ng/mL Acetaminophen < 5.0 L (10-30) ug/mL Ur Barbiturates Sc reen (Negative) ng/mL Ur Phencyclidine S crn (Negative) ng/mL Ur Amphetamines Sc reen (Negative) ng/mL U Benzodiazepines Scrn (Negative) ng/mL Urine Cocaine Scre en (Negative) ng/mL U Marijuana (THC) Screen (Negative) ng/mL Ethyl Alcohol < 10 (0-10) mg/dL 11/16/20 11/16/20 11/16/20 Range/Units 15:09 15:09 16:15 WBC (4.0-10.0) 10^3/ uL RBC (4.1-5.3) 10^6/u L Hgb (11.5-15.3) g/dL Hct (37.0-47.0) % MCV (81-99) fl MCH (28.0-34.0) pg MCHC (30.0-36.0) g/dL RDW (12.1-15.1) % Plt Count (130-400) 10^3/c mm MPV (7.4-10.4) fL Neut % (Auto) % Lymph % (Auto) % Stoddard % (Auto) % Eos % (Auto) % Baso % (Auto) % Neut # (Auto) (1.8-7.7) 10^3/u L Lymph # (Auto) (0.8-4.8) 10^3/u L Stoddard # (Auto) (0.2-0.9) 10^3/u L Eos # (Auto) (0.0-0.8) 10^3/u L Baso # (Auto) (0.0-0.1) 10^3/u L Nucleated RBC % (a uto) % Nucleated RBCs # /100WBC Sodium (136-145) mmol/L Potassium (3.5-5.1) mmol/L Chloride (98-107) mmol/L Carbon Dioxide (22-29) mmol/L Anion Gap (5-19) BUN (6-20) mg/dL Creatinine (0.5-0.9) mg/dL GFR Calculation (90-130) mL/min Glucose (65-115) mg/dL POC Glucose (70-110) mg/dL Calculated Osmolal ity (285-295) mOsm/k g Calcium (8.5-10.5) mg/dL Total Bilirubin (0.15-1.2) mg/dL AST (0-32) U/L ALT (0-33) U/L Alkaline Phosphata se (35-105) IU/L Creatine Kinase (26-192) U/L Total Protein (6.6-8.7) g/dL Albumin (3.5-5.2) g/dL Globulin (1.3-4.6) g/dL TSH (0.27-4.20) uIU/ mL Free T4 0.96 (0.82-1.77) ng/d L HCG, Qual (Negative) Urine Color Red (Yellow) Urine Appearance Cloudy A (CLEAR) Urine pH 5 (5-7) Ur Specific Gravit y 1.025 (1.005-1.030) Urine Protein 3+ H (Negative) Urine Glucose (UA) Norm (Normal) Urine Ketones Negative (Negative) Urine Blood 3+ H (Negative) Urine Nitrate Negative (Negative) Urine Bilirubin 1+ H (Negative) Urine Urobilinogen 1 H (Negative) mg/dL Ur Leukocyte Pamella ase Trace H (Negative) Urine RBC Too numerous to c nt H (0-2) /hpf Urine WBC 0-4 H (0-5) /hpf Ur Squamous Epith Cells 0-4 H (0-5) /hpf Amorphous Sediment Not Reportable Urine Bacteria Trace (NONE) /hpf Salicylates (3-10) mg/dL Urine Opiates Scre en Negative (Negative) ng/mL Acetaminophen (10-30) ug/mL Ur Barbiturates Sc reen Negative (Negative) ng/mL Ur Phencyclidine S crn Negative (Negative) ng/mL Ur Amphetamines Sc reen Positive H (Negative) ng/mL U Benzodiazepines Scrn Negative (Negative) ng/mL Urine Cocaine Scre en Negative (Negative) ng/mL U Marijuana (THC) Screen Positive H (Negative) ng/mL Ethyl Alcohol (0-10) mg/dL 11/16/20 Range/Units 16:27 WBC (4.0-10.0) 10^3/ uL RBC (4.1-5.3) 10^6/u L Hgb (11.5-15.3) g/dL Hct (37.0-47.0) % MCV (81-99) fl MCH (28.0-34.0) pg MCHC (30.0-36.0) g/dL RDW (12.1-15.1) % Plt Count (130-400) 10^3/c mm MPV (7.4-10.4) fL Neut % (Auto) % Lymph % (Auto) % Stoddard % (Auto) % Eos % (Auto) % Baso % (Auto) % Neut # (Auto) (1.8-7.7) 10^3/u L Lymph # (Auto) (0.8-4.8) 10^3/u L Stoddard # (Auto) (0.2-0.9) 10^3/u L Eos # (Auto) (0.0-0.8) 10^3/u L Baso # (Auto) (0.0-0.1) 10^3/u L Nucleated RBC % (a uto) % Nucleated RBCs # /100WBC Sodium (136-145) mmol/L Potassium (3.5-5.1) mmol/L Chloride (98-107) mmol/L Carbon Dioxide (22-29) mmol/L Anion Gap (5-19) BUN (6-20) mg/dL Creatinine (0.5-0.9) mg/dL GFR Calculation (90-130) mL/min Glucose (65-115) mg/dL POC Glucose 158 H (70-110) mg/dL Calculated Osmolal ity (285-295) mOsm/k g Calcium (8.5-10.5) mg/dL Total Bilirubin (0.15-1.2) mg/dL AST (0-32) U/L ALT (0-33) U/L Alkaline Phosphata se (35-105) IU/L Creatine Kinase (26-192) U/L Total Protein (6.6-8.7) g/dL Albumin (3.5-5.2) g/dL Globulin (1.3-4.6) g/dL TSH (0.27-4.20) uIU/ mL Free T4 (0.82-1.77) ng/d L HCG, Qual (Negative) Urine Color (Yellow) Urine Appearance (CLEAR) Urine pH (5-7) Ur Specific Gravit y (1.005-1.030) Urine Protein (Negative) Urine Glucose (UA) (Normal) Urine Ketones (Negative) Urine Blood (Negative) Urine Nitrate (Negative) Urine Bilirubin (Negative) Urine Urobilinogen (Negative) mg/dL Ur Leukocyte Pamella ase (Negative) Urine RBC (0-2) /hpf Urine WBC (0-5) /hpf Ur Squamous Epith Cells (0-5) /hpf Amorphous Sediment Urine Bacteria (NONE) /hpf Salicylates (3-10) mg/dL Urine Opiates Scre en (Negative) ng/mL Acetaminophen (10-30) ug/mL Ur Barbiturates Sc reen (Negative) ng/mL Ur Phencyclidine S crn (Negative) ng/mL Ur Amphetamines Sc reen (Negative) ng/mL U Benzodiazepines Scrn (Negative) ng/mL Urine Cocaine Scre en (Negative) ng/mL U Marijuana (THC) Screen (Negative) ng/mL Ethyl Alcohol (0-10) mg/dL EKG Data^: EKG 1: Attestation: I personally reviewed and interpreted this EKG as follows: EKG interpretation date: 11/16/20 EKG interpretation time: 14:50 Prior EKG tracings: available for review Interpretation: Twelve-lead EKG shows a regular sinus rhythm at a rate of 85. AL interval 138, QRS duration 86, QTc 435. Normal axis. Interpretation: Sinus rhythm. Discharge Plan Discharge Patient Disposition: Admitted As Inpatient Admit Provider: Cj Crews Clinical Impression: Drug-induced psychotic disorder, Acute psychosis Condition: Stable Coding Level of Care Code ED Char Filter Operator for Anna Stubbs
[2020-11-16] MEDS: haloperidol inj 5 mg/mL INJ 1 mL 2 MG IM (13:24)
[2020-11-16] MEDS: LORazepam 2 mg/mL INJ 1 mL IM (13:24)
--- NOTE | 2020-11-16 13:25 | PC.NURSE ---
pt immediately moved from police handcuffs to violent restraints due to pt's behaviors. pt verbally and physically abusive. pt placed in restraints at 1313.
--- NOTE | 2020-11-16 14:16 | PC.NURSE ---
At 1410 in with patient, talking with her to see if we could get labs, EKG she stated yes then became very agitated. Informed doctor.
--- NOTE | 2020-11-16 14:25 | PC.NURSE ---
In to give injections, Dr Oneill orders to hold medication for now.
--- NOTE | 2020-11-16 14:40 | PC.NURSE ---
Patient is more relaxed right foot is released from restraints, ice chips provided.
--- NOTE | 2020-11-16 14:48 | PC.NURSE ---
At bedside with patient.
[2020-11-16] MEDS: sodium chloride 0.9% 1,000 ML 999 ML IV (15:05)
--- NOTE | 2020-11-16 15:10 | PC.NURSE ---
Continue to be at beside with patient starting IV, obtaining other labs and EKG.
[2020-11-16 15:11] LABS: Basophils # 0.1 10^3/uL (0.0-0.1); Basophils % 0.6 %; Eosinophils % 0.2 %; Hematocrit 38.9 % (37.0-47.0); Hemoglobin 12.9 g/dL (11.5-15.3); Lymphocytes # 2.4 10^3/uL (0.8-4.8); Lymphocytes % 27.1 %; Mean Corpuscular HGB Conc 33.2 g/dL (30.0-36.0); Mean Corpuscular Hemoglobin 30.5 pg (28.0-34.0); Mean Platelet Volume 10.3 fL (7.4-10.4); Monocytes # 0.8 10^3/uL (0.2-0.9); Neutrophils # 5.67 10^3/uL (1.8-7.7); Neutrophils % 62.9 %; Nucleated Red Blood Cells % 0 %; Platelet Count 295 10^3/cmm (130-400); Red Blood Count 4.23 10^6/uL (4.1-5.3); Red Cell Distribution Width 13.3 % (12.1-15.1)
--- NOTE | 2020-11-16 15:11 | PC.NURSE ---
Patient is on her period and brief with pad provided with paper scrub bottoms.
--- NOTE | 2020-11-16 15:21 | PC.NURSE ---
Patient lower extremities were removed from restraints, she began kicking and twisting in bed. Left foot is placed back in restraints. When checking pulses and circulation in upper extremities she grabs my hand tightly and states, leave me alone . Dr Oneill is updated.
--- NOTE | 2020-11-16 15:28 | PC.NURSE ---
Patient is on 3 point restraints upper extrem and left lower extrem. When attempting to check pulses and sensation she becomes easily agitated, remains confused. Falls back to sleep quickly when not interacting with patient.
[2020-11-16 15:33] LABS: HCG Qualitative Urine. Negative (Negative)
[2020-11-16 15:41] LABS: Amphetamines Screen Urine Positive (Negative); Barbiturates Screen Urine Negative (Negative); Benzodiazepines Screen Urine Negative (Negative); Cocaine Screen Urine Negative (Negative); Opiate Screen Urine Negative (Negative); PCP Screen Urine Negative (Negative); THC Screen Urine Positive (Negative)
[2020-11-16 15:57] LABS: Alanine Aminotransferase 25 U/L (0-33); Albumin Level 4.5 g/dL (3.5-5.2); Alkaline Phosphatase 92 IU/L (35-105); Anion Gap 15.9 (5-19); Aspartate Amino Transferase 24 U/L (0-32); Blood Urea Nitrogen 13 mg/dL (6-20); Calcium 9.1 mg/dL (8.5-10.5); Carbon Dioxide 22 mmol/L (22-29); Chloride 107 mmol/L (98-107); Creatine Phosphokinase 128 U/L (26-192); Creatinine Clr Calc Pharmacy 108.7568; Globulin 2.7 g/dL (1.3-4.6); Glomerular Filtration Rate 95.2 mL/min (90-130); Glucose 63 mg/dL (65-115); Osmolality Calculated 290 mOsm/kg (285-295); Potassium 3.9 mmol/L (3.5-5.1); Sodium 141 mmol/L (136-145); Thyroid Stimulating Hormone 5.66 uIU/mL (0.27-4.20); Total Bilirubin 0.3 mg/dL (0.15-1.2); Total Protein 7.2 g/dL (6.6-8.7)
--- NOTE | 2020-11-16 15:59 | PC.NURSE ---
Patient has been taken off restraints [id number] and is resting with eyes closed on her right side. Dr Oneill is notified.
[2020-11-16 16:03] LABS: Protein Urine 3+ (Negative); Specific Gravity, Urine 1.025 (1.005-1.030); Urine Appearance Cloudy (CLEAR); Urine Color Red (Yellow); pH Urine 5 (5-7)
[2020-11-16 16:04] LABS: Add Urine Microscopic? YES; Bilirubin Urine 1+ (Negative); Blood Urine 3+ (Negative); Glucose Urine UA Norm (Normal); Ketones Urine Negative (Negative); Nitrate Urine Negative (Negative); Urobilinogen Urine 1 mg/dL (Negative)
[2020-11-16 16:05] LABS: Acetaminophen < 5.0 ug/mL (10-30); Alcohol Level < 10 mg/dL (0-10); Salicylate < 0.3 mg/dL (3-10)
[2020-11-16 16:08] LABS: Add Urine Culture? No; Leukocyte Esterase Urine Trace (Negative)
[2020-11-16 16:12] LABS: Bacteria Urine TRACE /hpf; RBC Urine TOO NUMEROUS TO CNT /hpf (0-2); Squamous Epithelial Cell Urine 0-4 /hpf (0-5); WBC Urine 0-4 /hpf (0-5)
[2020-11-16] MEDS: dextrose 50% syringe 50 mL 25 ML IVP (16:20)
[2020-11-16 16:31] LABS: Glucose Point of Care 158 mg/dL (70-110)
[2020-11-16 16:46] LABS: Free T4 Free Thyroxine 0.96 ng/dL (0.82-1.77)
--- NOTE | 2020-11-16 17:43 | PC.NURSE ---
Patient is resting quietly. No needs identified at this time.
[2020-11-17 06:00] VITALS: RESP 18
--- NOTE | 2020-11-17 08:29 | PC.OT ---
NURSING REQUESTS HOLD ON EVALUATION ON PATIENT AT THIS TIME.
--- NOTE | 2020-11-17 09:58 | PM.NHP ---
Providers/Chief Complaint Admitting Physician: Cj Crews MD Primary Care Provider: Adriano Sullivan DO Chief Complaint: PSYCH EVAL HPI NPU History of Present Illness Aga Lai is a 35 year old female who presented to the emergency department with the following report: Chief Complaint: Psychiatric Symptoms Stated Complaint: PSYCH EVAL Time Seen by Provider: 11/16/20 13:17 History of Present Illness: HPI Narrative: Ms. Lai is a 35-year-old lady with unclear history who presents the emergency department via law enforcement due to altered mental status and psychiatric concern. Upon initial evaluation patient is markedly agitated, she required physical restraints and subsequently chemical restraints. Her speech is rapid, pressured, tangential. She expresses nonsensical speech at times and has delusions. Unable to redirect or provide meaningful history. The exact course, duration, provoking, exacerbating, or alleviating factors is unclear. The intensity of her current symptoms appears to be severe. No other meaningful history provided. She was admitted to the neuropsychiatric unit for definitive treatment of those issues. Patient was significantly subdued secondary to medications received prior to admission to the unit. She was unable to provide any significant history. Later she did wake up she got a snack and ate some applesauce. She was speaking completely nonsensical. She had some water after that and questions that were asked were not answered in any way and ended up in weird tangential psychotic garble. We discussed the risk benefits and alternatives and that we had restarted her medications and it is unclear if she understood. An excerpt of her 09/02/2020 inpatient hospitalization is included below for context given her limited ability to give a history. Per her 09/02/2020 [facility] inpatient psychiatric evaluation: History of Present Illness Aga Lia is a 34 year old female with a reported history of schizophrenia, bipolar disorder and borderline personality disorder although there does not appear to be any serial observation for any length of time outside the influence of substances other than during a 30-day hospitalization in January 2020. Patient was brought in by police and was placed on 96-hour hold after being found wandering down the road under the influence of substances and alcohol. Patient was somewhat combative at the time of initial evaluation in the emergency department and was given as needed medication. Patient was medically cleared in emergency department prior to admission to inpatient psychiatry. Patient reports that she did not continue to take any medication after leaving the hospital in January 2020 and has not followed up with any mental health care provider. Furthermore, she denies follow-up with any substance treatment. Patient does not appear to be disorganized and is able to communicate in a linear, organized but brief fashion secondary to being soporific from recent amphetamine use. Patient does not a good historian at this time given that she continues to fall asleep during interview. She gave permission for collateral information from her mother although her mother's phone is not a septic voicemail messages at this time. Patient does report auditory and visual loose Nations although she currently denies any at this time and it is unclear with regards to relationship with her ongoing substance and alcohol use. Patient was previously treated with mood stabilizing medication as well as antipsychotics but per above discontinued abruptly at the time of discharge. Patient was unable to complete psychiatric review of systems at this time. Meds NPU Home Medications Medication Instructions Recorded Confirmed Last Taken Type olanzapine 5 mg PO Q12H 11/16/20 11/16/20 Unknown History Allergies Allergy/AdvReac Type Severity Reaction Status Date / Time No Known Allergies Allergy Verified 12/10/19 16:01 [facility] NPU PFSH: Medical History Drug-induced psychotic disorder Schizophrenia, disorganized, chronic with acute exacerbation Substance use Surgical History No pertinent past surgical history Family History Father Suicide Alcohol abuse Schizophrenia Bipolar disorder Substance abuse Mother Depression Social History Smoking and tobacco status: unknown if ever smoked Alcohol intake: current Alcohol intake frequency: few times a week Alcohol type: beer, wine and hard liquor Desire information about alcohol rehabilitation?: No Counseling given: No (information given) Last alcohol use date: 09/01/20 Desire information about substance/drug rehabilitation?: No Adopted: No Caregiver/support person: No Lives independently: Yes Household members: spouse Housing: House Marital status: Marital status details: partner has substance abuse issues also Number of children: 3 Highest education level completed: GED or Equivalent service: No Current occupational status: unemployed 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 No abnormal movements except for psychomotor retardation. Uncooperative with exam in no acute distress. Speech was limited but mostly nonsensical and a mostly normal rate and volume. Mood was not described, affect was subdued. Thought process appeared disorganized. Thought content: Patient did not respond to questions of lethality but was not acting aggressive towards herself or others, she did not report delusions but had clear and delusional thinking, she did not endorse auditory or visual hallucinations and did not appear to be attending to internal stimuli. Attention and concentration were limited and memory was unreliable, but none were formally tested. She was alert but demonstrated no orientation. Insight and judgment are impaired, impulse control is limited. Vitals/I&O/Wt Last Vital Signs Temp 97.7 F 11/16/20 18:14 Pulse 88 11/16/20 18:14 Resp 17 11/16/20 22:00 BP 93/62 11/16/20 18:14 Pulse Ox 98 11/16/20 18:14 11/16/20 11/16/20 11/17/20 14:59 22:59 06:59 Intake Total 1000 / 1000 Balance 1000 / 1000 Weight last 48 hrs Weight 68.039 kg Data NPU : 11/16/20 15:00 11/16/20 15:00 A&P Assessment and plan (1) Acute psychosis: Status: Acute (2) Polysubstance abuse: Status: Acute (3) Drug-induced psychotic disorder: Status: Acute (4) Schizophrenia, disorganized, chronic with acute exacerbation: Status: Acute Additional A&P Information This is a 35-year-old white female well known to the system who presents with history of schizophrenia and presents with active psychosis likely exacerbated by continued addiction. 1. Continue current medication. 2. Continue every 15 minute checks for safety. 3. Encourage individual, group and milieu therapies. 4. Encourage sober living treatment after discharge at the highest level of care to which he is willing to commit. Involuntary Hold Information 96 Hour Hold: 96 Hour Involuntary Admission: Yes 96 Hour Hold Ending Date: 11/22/20 96 Hour Hold Ending Time: 17:45 Attestations NPU Medical Necessity Statement*: Inpatient hospitalization is medically necessary and the clinically appropriate intervention at this time. We will monitor medications and make changes as indicated. Patient will be in the hospital for over two midnights. Likely length of stay 3 to 5 days. Coding Level of Care Code Acute Biometric Screener for Anna Fwd Diagnoses Acute psychosis F23 Polysubstance abuse F19.10 Drug-induced psychotic disorder F19.959 Schizophrenia, disorganized, chronic with acute exacerbation F20.1
[2020-11-17 14:00] VITALS: BP 93/62; PULSE 88; RESP 18; TEMP 36.5
[2020-11-17] MEDS: OLANZapine 5 mg TABLET PO (20:05)
[2020-11-17 22:00] VITALS: RESP 16
[2020-11-18] MEDS: trazodone 50 mg Tablet PO ×2 (02:24→20:58)
[2020-11-18 06:00] VITALS: RESP 15
[2020-11-18] MEDS: OLANZapine 5 mg TABLET PO (08:30)
--- NOTE | 2020-11-18 09:08 | PM.NPN ---
Subjective NPU Subjective: Interval history: Patient presents today continuing to be tired likely from medications given prior to admission, the resumption of her medication, and withdrawal from stimulants. She was arousable but somnolent denied any mood or problematic issues. Mental Status Exam MSE Comments: This is a well-nourished, well-developed white female with hospital scrubs on with adequate grooming and eye contact. No abnormal movements except for psychomotor retardation. Uncooperative with exam in no acute distress. Speech was limited and normal rate and volume. Mood was not described, affect was subdued. Thought process appeared linear. Thought content: Patient did not respond to questions of lethality but was not acting aggressive towards herself or others, she did not report delusions and none were noted given the limited interaction, she did not endorse auditory or visual hallucinations and did not appear to be attending to internal stimuli. Attention and concentration were limited and memory was unreliable, but none were formally tested. She was alert but demonstrated no orientation. Insight and judgment are impaired, impulse control is limited. Vitals/I&O/Wt Last Vital Signs Temp 97.7 F 11/17/20 14:00 Pulse 88 11/17/20 14:00 Resp 15 11/18/20 06:00 BP 93/62 11/17/20 14:00 Pulse Ox 98 11/16/20 18:14 Weight last 48 hrs Weight 68.039 kg Data NPU : 11/16/20 15:00 11/16/20 15:00 A&P Additional A&P Information (1) Acute psychosis: (2) Polysubstance abuse: (3) Drug-induced psychotic disorder: (4) Schizophrenia, disorganized, chronic with acute exacerbation: Additional A&P Information This is a 35-year-old white female well known to the system who presents with history of schizophrenia and presents with active psychosis likely exacerbated by continued addiction. 1. Continue current medication. Home medications were restarted we will monitor for indication for need for changes. 2. Continue every 15 minute checks for safety. 3. Encourage individual, group and milieu therapies. 4. Encourage sober living treatment after discharge at the highest level of care to which he is willing to commit. Involuntary Hold Information 96 Hour Hold: 96 Hour Involuntary Admission: Yes 96 Hour Hold Ending Date: 11/22/20 96 Hour Hold Ending Time: 17:45 Attestations NPU Medical Necessity Statement*: Inpatient hospitalization is medically necessary and the clinically appropriate intervention at this time. We will monitor medications and make changes as indicated. Likely length of stay 3 to 5 days. Coding Level of Care Code Acute Pharmacy Delivery Driver for Anna Stubbs
[2020-11-18 14:00] VITALS: BP 100/68; PULSE 74; RESP 16; TEMP 36.6; O2SAT 98
[2020-11-18 22:00] VITALS: RESP 18
--- NOTE | 2020-11-19 00:32 | PC.NURSE ---
Refusal of meds 2100 Pt refused night med pass--5mg Zyprexa. Pt had a huge attitude and told the nurse to, get the Fuck out ! Will continue to monitor this pt.
[2020-11-19 05:28] VITALS: BMI 25.0
[2020-11-19 06:00] VITALS: RESP 15
--- NOTE | 2020-11-19 06:31 | PC.NURSE ---
Patient refused vitals. Respirations were taken.
--- NOTE | 2020-11-19 08:11 | PC.NURSE ---
REFUSED SCHEDULED ADALI, PT AGITATED, YELLING PROFANITIES AT STAFF, THREW HER CHOCOLATE MILK ALL OVER THE NURSES STATION WINDOWS. TOLD STAFF SHE WANTED THE FUCK OUT OF HERE!
--- NOTE | 2020-11-19 10:31 | PM.NPN ---
Subjective NPU Subjective: Interval history: Patient presents today seeming less engaged than yesterday. She was under her blankets and would not answer any questions or respond to any concerns raised. She did not have any problems reported with this data analyst report writer or anything that has been done but just said she did not want to talk and wanted to be left alone. Mental Status Exam MSE Comments: This is a well-nourished, well-developed white female with hospital scrubs on with adequate grooming and eye contact. No abnormal movements except for psychomotor retardation. Uncooperative with exam in mild to moderate distress. Speech was limited but increased rate and volume when she spoke. Mood was not described, affect was subdued. Thought process appeared linear. Thought content: Patient did not respond to questions of lethality but was not acting aggressive towards herself or others, she did not report delusions and none were noted given the limited interaction, she did not endorse auditory or visual hallucinations and did not appear to be attending to internal stimuli. Attention and concentration were limited and memory was unreliable, but none were formally tested. She was alert but demonstrated no orientation. Insight and judgment are impaired, impulse control is impaired. Vitals/I&O/Wt Last Vital Signs Temp 97.9 F 11/18/20 14:00 Pulse 74 11/18/20 14:00 Resp 18 11/18/20 22:00 BP 100/68 11/18/20 14:00 Pulse Ox 98 11/18/20 14:00 Weight last 48 hrs Weight 68.039 kg Data NPU : 11/16/20 15:00 11/16/20 15:00 A&P Additional A&P Information (1) Acute psychosis: (2) Polysubstance abuse: (3) Drug-induced psychotic disorder: (4) Schizophrenia, disorganized, chronic with acute exacerbation: Additional A&P Information This is a 35-year-old white female well known to the system who presents with history of schizophrenia and presents with active psychosis likely exacerbated by continued addiction. 1. Continue current medication. 2. Continue every 15 minute checks for safety. 3. Encourage individual, group and milieu therapies. 4. Encourage sober living treatment after discharge at the highest level of care to which he is willing to commit. Involuntary Hold Information 96 Hour Hold: 96 Hour Involuntary Admission: Yes 96 Hour Hold Ending Date: 11/22/20 96 Hour Hold Ending Time: 17:45 Attestations NPU Medical Necessity Statement*: Inpatient hospitalization is medically necessary and the clinically appropriate intervention at this time. We will monitor medications and make changes as indicated. Likely length of stay 3 to 5 days. Coding Level of Care Code Acute [place] for Anna Stubbs
--- NOTE | 2020-11-19 12:48 | PC.NURSE ---
pt yelled loudly from her room why am I fucking here!? pt then started banging her fist against the wall and window in her room
[2020-11-19 14:00] VITALS: RESP 16
[2020-11-19] MEDS: OLANZapine 5 mg TABLET PO (20:53)
[2020-11-19 21:12] VITALS: BP 107/71; PULSE 69; RESP 15; TEMP 36.6; O2SAT 98
[2020-11-20 06:00] VITALS: BP 90/55; PULSE 67; RESP 15; TEMP 36.7; O2SAT 98
--- NOTE | 2020-11-20 09:01 | PC.OT ---
OT EVALUATION ATTEMPTED X2 THIS MORNING; PATIENT IS SLEEPING SOUNDLY AND DOES NOT AWAKEN. WILL ATTEMPT AGAIN AT A LATER TIME.
--- NOTE | 2020-11-20 11:38 | PC.NURSE ---
refused scheduled Zyprexa this morning
--- NOTE | 2020-11-20 12:41 | P.PN_ITS ---
Subjective NPU Subjective: Interval history: Aga presents today initially screaming quite loud and then later saying he was not hurt he was doing the screaming. She then had fairly nonsensical communication about her circumstances and being able to leave. Most of her conversation was focused on somewhat goal-directed but confusing disorganized communication about leaving. We discussed her being on a 96-hour hold and when it ends and the fact that we may need to keep her if she continues to have this level of confusion on the 21-day hold. Mental Status Exam MSE Comments: This is a well-nourished, well-developed white female with hospital scrubs on with adequate grooming and eye contact. No abnormal movements except for psychomotor retardation. Uncooperative with exam in mild to moderate distress. Speech was more spontaneous and sometimes increased rate and volume when she spoke. Mood was not described, affect was somewhat agitated. Thought process appeared disorganized thought content: Patient did not respond to questions of lethality but was not acting aggressive towards herself or others, she did not report delusions and none were noted given the limited interaction, she did not endorse auditory or visual hallucinations and did not appear to be attending to internal stimuli. Attention and concentration were limited and memory was unreliable, but none were formally tested. She was alert but demonstrated no orientation. Insight and judgment are impaired, impulse control is impaired. Vitals/I&O/Wt Last Vital Signs Temp 98.1 F 11/20/20 06:00 Pulse 67 11/20/20 06:00 Resp 15 11/20/20 06:00 BP 90/55 11/20/20 06:00 Pulse Ox 98 11/20/20 06:00 Weight last 48 hrs Weight 68.039 kg Data NPU : 11/16/20 15:00 11/16/20 15:00 A&P Additional A&P Information (1) Acute psychosis: (2) Polysubstance abuse: (3) Drug-induced psychotic disorder: (4) Schizophrenia, disorganized, chronic with acute exacerbation: Additional A&P Information This is a 35-year-old white female well known to the system who presents with history of schizophrenia and presents with active psychosis likely exacerbated by continued addiction. 1. Continue current medication. 2. Continue every 15 minute checks for safety. 3. Encourage individual, group and milieu therapies. 4. Encourage sober living treatment after discharge at the highest level of care to which he is willing to commit. Involuntary Hold Information 96 Hour Hold: 96 Hour Involuntary Admission: Yes 96 Hour Hold Ending Date: 11/22/20 96 Hour Hold Ending Time: 17:45 Attestations NPU Medical Necessity Statement*: Inpatient hospitalization is medically necessary and the clinically appropriate intervention at this time. We will monitor medications and make changes as indicated. Likely length of stay 3 to 5 days. Coding Level of Care Code Acute Room Service Food Service Attendant for Anna Stubbs
[2020-11-20 14:00] VITALS: BP 100/62; PULSE 97; RESP 17; TEMP 36.5; O2SAT 99
[2020-11-20] MEDS: OLANZapine 5 mg TABLET PO (19:44)
[2020-11-20 20:46] VITALS: BP 104/66; PULSE 102; RESP 20; TEMP 36.9; O2SAT 97
[2020-11-21 05:58] VITALS: RESP 16
--- NOTE | 2020-11-21 05:58 | PC.NURSE ---
pt refused vitals at this time/respirations were observed/jaclyn
[2020-11-21] MEDS: OLANZapine 5 mg TABLET PO ×2 (11:34→21:09)
--- NOTE | 2020-11-21 12:33 | NPU.GN ---
[facility] Topic:Coping Skills General Mood of Group:Refused group.
[2020-11-21 14:00] VITALS: RESP 18; TEMP 36.2
--- NOTE | 2020-11-21 18:58 | PM.NPN ---
Subjective NPU Subjective: Interval history: Patient presents today continuing to be quite out of it with no clear goal-directed thinking. Outside of her desire to go home and asking why she cannot leave. We discussed the fact that 21-day paperwork was filed. She has no insight as to why we would do that. She is somewhat reluctant to her medication adherence which has been okay thus far. Mental Status Exam MSE Comments: This is a well-nourished, well-developed white female with hospital scrubs on with adequate grooming and eye contact. No abnormal movements except for psychomotor retardation. Uncooperative with exam in mild to moderate distress. Speech was more spontaneous and sometimes increased rate and volume when she spoke. Mood reported as okay, affect was somewhat agitated. Thought process appeared disorganized thought content: Patient did not respond to questions of lethality but was not acting aggressive towards herself or others, she did not report delusions and none were noted given the limited interaction, she did not endorse auditory or visual hallucinations and did not appear to be attending to internal stimuli. Attention and concentration were limited and memory was unreliable, but none were formally tested. She was alert but demonstrated no orientation. Insight and judgment are impaired, impulse control is impaired. Vitals/I&O/Wt Last Vital Signs Temp 97.2 F L 11/21/20 14:00 Pulse 102 H 11/20/20 20:46 Resp 17 11/21/20 20:04 BP 104/66 11/20/20 20:46 Pulse Ox 97 11/20/20 20:46 Data NPU : 11/16/20 15:00 11/16/20 15:00 A&P Additional A&P Information (1) Acute psychosis: (2) Polysubstance abuse: (3) Drug-induced psychotic disorder: (4) Schizophrenia, disorganized, chronic with acute exacerbation: Additional A&P Information This is a 35-year-old white female well known to the system who presents with history of schizophrenia and presents with active psychosis likely exacerbated by continued addiction. 1. Continue current medication. 2. Continue every 15 minute checks for safety. 3. Encourage individual, group and milieu therapies. 4. Encourage sober living treatment after discharge at the highest level of care to which he is willing to commit. 5. 21-day hold paperwork filed. Involuntary Hold Information 96 Hour Hold: 96 Hour Involuntary Admission: Yes 96 Hour Hold Ending Date: 11/22/20 96 Hour Hold Ending Time: 17:45 Attestations NPU Medical Necessity Statement*: npatient hospitalization is medically necessary and the clinically appropriate intervention at this time. We will monitor medications and make changes as indicated. Likely length of stay 8-10 days. Coding Level of Care Code Acute Senior Master Scheduler for Anna Stubbs
[2020-11-21 20:04] VITALS: RESP 17
--- NOTE | 2020-11-21 20:05 | PC.NURSE ---
pt refused vitals at this time/respirations were observed/jaclyn
[2020-11-22 06:00] VITALS: RESP 18
--- NOTE | 2020-11-22 06:34 | PC.NURSE ---
pt refused vitals/respirations observed
[2020-11-22] MEDS: OLANZapine 5 mg TABLET PO ×2 (09:38→21:06)
[2020-11-22 14:00] VITALS: BP 84/55; PULSE 98; RESP 18; TEMP 36.2; O2SAT 95
--- NOTE | 2020-11-22 16:36 | PM.NPN ---
Subjective NPU Subjective: Interval history: Patient presents today really focused on discharge. Talking about needing to get home to her children. She is up a little more but continues to have fairly nonsensical statements in conversation. We discussed the 21-day hold hearing tomorrow and she expressed the plan to go and try to fight for her ability to go home we have been in communication with her mother who has expressed a clear need for her to get into some kind of treatment to be able to be good and active member of her children's life. She denied needing to do anything differently. Mental Status Exam MSE Comments: This is a well-nourished, well-developed white female with hospital scrubs on with adequate grooming and eye contact. No abnormal movements except for psychomotor retardation. Uncooperative with exam in mild to moderate distress. Speech was more spontaneous and sometimes increased rate and volume when she spoke. Mood reported as fine, affect was somewhat agitated. Thought process appeared disorganized thought content: Patient did not respond to questions of lethality but was not acting aggressive towards herself or others, she did not report delusions and none were noted given the limited interaction, she did not endorse auditory or visual hallucinations and did not appear to be attending to internal stimuli. Attention and concentration were limited and memory was unreliable, but none were formally tested. She was alert and oriented x2 but does not understand why she was brought here or needs to be here. Insight and judgment are impaired, impulse control is impaired. Vitals/I&O/Wt Last Vital Signs Temp 98.4 F 11/22/20 22:00 Pulse 96 11/22/20 22:00 Resp 18 11/22/20 22:00 BP 123/88 11/22/20 22:00 Pulse Ox 97 11/22/20 22:00 Data NPU : 11/16/20 15:00 11/16/20 15:00 A&P Additional A&P Information (1) Acute psychosis: (2) Polysubstance abuse: (3) Drug-induced psychotic disorder: (4) Schizophrenia, disorganized, chronic with acute exacerbation: Additional A&P Information This is a 35-year-old white female well known to the system who presents with history of schizophrenia and presents with active psychosis likely exacerbated by continued addiction. 1. Continue current medication. 2. Continue every 15 minute checks for safety. 3. Encourage individual, group and milieu therapies. 4. Encourage sober living treatment after discharge at the highest level of care to which he is willing to commit. 5. 21-day hold hearing tomorrow. Involuntary Hold Information 96 Hour Hold: 96 Hour Involuntary Admission: Yes 96 Hour Hold Ending Date: 11/22/20 96 Hour Hold Ending Time: 17:45 Attestations NPU Medical Necessity Statement*: Inpatient hospitalization is medically necessary and the clinically appropriate intervention at this time. We will monitor medications and make changes as indicated. Likely length of stay 8-10 days. Coding Level of Care Code Acute Government Documents Librarian for Anna Stubbs
[2020-11-22] MEDS: OLANZapine 5 mg ODT PO (18:27)
[2020-11-22] MEDS: hyDROXYzine 25 mg Capsule 50 MG PO (21:06)
[2020-11-22 22:00] VITALS: BP 123/88; PULSE 96; RESP 18; TEMP 36.9; O2SAT 97
[2020-11-23 06:00] VITALS: RESP 20
[2020-11-23 14:00] VITALS: BP 92/47; PULSE 128; RESP 18; TEMP 36.7; O2SAT 97
[2020-11-23] MEDS: hyDROXYzine 25 mg Capsule 50 MG PO ×2 (14:15→19:50)
--- NOTE | 2020-11-23 15:08 | PC.NURSE ---
meds refused 0900 Refused morning med pass of Zyprexa 5mg. Pt stated that it was out of a magazine.
--- NOTE | 2020-11-23 15:10 | PC.NURSE ---
prn 1415 Refused Zyprexa Zydis 5mg pt stated that it was for old people. Administered 50mg Vistaril for pt c/o of anxiety. Pt is yelling at Dr. Crews through the glass, Come on man just let me leave .
--- NOTE | 2020-11-23 18:31 | P.PN_ITS ---
Subjective NPU Subjective: Interval history: Patient presents today tearfully begging to be let go. She still is unable to articulate any understanding about why she is here and what the benefits of treatment might be. That being said she reports that she will do what ever this automotive service writer asks to be allowed to leave. We discussed the fact that her family and the treatment team feels strongly that her being engaged in more intensive treatment will be critical to her wellness and she continued to argue that all she needs to do is go home and be with her children because she misses them. She is becoming more cogent but still has moments of nonsensical speech. Mental Status Exam MSE Comments: This is a well-nourished, well-developed white female with hospital scrubs on with adequate grooming and eye contact. No abnormal movements except for psychomotor retardation. More cooperative with exam in mild to extreme distress. Speech was more spontaneous and sometimes increased rate and volume when she spoke. Mood reported as I am okay I need to go home, affect was labile. Thought process appeared disorganized, with increasing moments of organization thought content: Patient did not respond to questions of lethality but was not acting aggressive towards herself or others, she did not report delusions and none were noted given the limited interaction, she did not endorse auditory or visual hallucinations and did not appear to be attending to internal stimuli. Attention and concentration were limited and memory was unreliable, but none were formally tested. She was alert and oriented x2 but does not understand why she was brought here or needs to be here. Insight and judgment are impaired, impulse control is impaired. Vitals/I&O/Wt Last Vital Signs Temp 98.1 F 11/23/20 14:00 Pulse 128 H 11/23/20 14:00 Resp 16 11/23/20 20:15 BP 92/47 11/23/20 14:00 Pulse Ox 97 11/23/20 14:00 Data NPU : 11/16/20 15:00 11/16/20 15:00 A&P Additional A&P Information (1) Acute psychosis: (2) Polysubstance abuse: (3) Drug-induced psychotic disorder: (4) Schizophrenia, disorganized, chronic with acute exacerbation: Additional A&P Information This is a 35-year-old white female well known to the system who presents with hi story of schizophrenia and presents with active psychosis likely exacerbated by continued addiction. 1. Continue current medication. We began discussing possible medications that might have long-acting injectable to be initiated now that she is on a 21-day hold. 2. Continue every 15 minute checks for safety. 3. Encourage individual, group and milieu therapies. 4. Encourage sober living treatment after discharge at the highest level of care to which he is willing to commit. Involuntary Hold Information 96 Hour Hold: 96 Hour Involuntary Admission: Yes 96 Hour Hold Ending Date: 11/22/20 96 Hour Hold Ending Time: 17:45 Attestations NPU Medical Necessity Statement*: Inpatient hospitalization is medically necessary and the clinically appropriate intervention at this time. We will monitor medications and make changes as indicated. Likely length of stay 8-10 days. Coding Level of Care Code Acute Die Presser for Anna Stubbs
[2020-11-23] MEDS: OLANZapine 5 mg TABLET PO (19:50)
[2020-11-23] MEDS: acetaminophen 325 mg Tablet 650 MG PO (19:51)
[2020-11-23 20:15] VITALS: RESP 16
[2020-11-24 06:00] VITALS: BP 92/47; PULSE 128; RESP 16; TEMP 36.7; O2SAT 97
--- NOTE | 2020-11-24 06:58 | PM.NPN ---
Subjective NPU Subjective: Interval history: Aga presents today continuing to be labile in conversation with moments where she is easy to tears and wanting to leave. When we discussed what would be necessary for her to get better she is clear that she did not have a drug problem and reports that she actually was prescribed methamphetamine which is why she uses it so she does not have an addiction. Mental Status Exam MSE Comments: This is a well-nourished, well-developed white female with hospital scrubs on with adequate grooming and eye contact. No abnormal movements except for psychomotor retardation with moments of psychomotor agitation. More cooperative with exam in mild to extreme distress. Speech was more spontaneous and sometimes increased rate and volume when she spoke. Mood reported as I am okay I need to go home, affect was labile. Thought process appeared disorganized, with increasing moments of organization thought content: Patient did not respond to questions of lethality but was not acting aggressive towards herself or others, she did not report delusions and none were noted given the limited interaction, she did not endorse auditory or visual hallucinations and did not appear to be attending to internal stimuli. Attention and concentration were limited and memory was unreliable, but none were formally tested. She was alert and oriented x2 but does not understand why she was brought here or needs to be here. Insight and judgment are impaired, impulse control is impaired. Vitals/I&O/Wt Last Vital Signs Temp 98.1 F 11/24/20 06:00 Pulse 128 H 11/24/20 06:00 Resp 16 11/24/20 06:00 BP 92/47 11/24/20 06:00 Pulse Ox 97 11/24/20 06:00 Data NPU : 11/16/20 15:00 11/16/20 15:00 A&P Additional A&P Information (1) Acute psychosis: (2) Polysubstance abuse: (3) Drug-induced psychotic disorder: (4) Schizophrenia, disorganized, chronic with acute exacerbation: Additional A&P Information This is a 35-year-old white female well known to the system who presents with history of schizophrenia and presents with active psychosis likely exacerbated by continued addiction. 1. Continue current medication. We began discussing possible medications that might have long-acting injectable to be initiated now that she is on a 21-day hold. 2. Continue every 15 minute checks for safety. 3. Encourage individual, group and milieu therapies. 4. Encourage sober living treatment after discharge at the highest level of care to which he is willing to commit. Involuntary Hold Information 96 Hour Hold: 96 Hour Involuntary Admission: Yes 96 Hour Hold Ending Date: 11/22/20 96 Hour Hold Ending Time: 17:45 Attestations NPU Medical Necessity Statement*: Inpatient hospitalization is medically necessary and the clinically appropriate intervention at this time. We will monitor medications and make changes as indicated. Likely length of stay 8-10 days. Coding Level of Care Code Acute Rivet Spinner for Anna Stubbs
[2020-11-24] MEDS: OLANZapine 5 mg TABLET PO ×2 (08:06→21:21)
[2020-11-24 14:00] VITALS: RESP 17
[2020-11-24] MEDS: hyDROXYzine 25 mg Capsule 50 MG PO (17:01)
[2020-11-24] MEDS: nicotine 2 mg Gum BUCCAL (17:02)
[2020-11-24] MEDS: haloperidol 5 mg Tablet PO (18:39)
[2020-11-24 20:55] VITALS: RESP 16
[2020-11-24] MEDS: trazodone 50 mg Tablet PO (21:21)
--- NOTE | 2020-11-24 21:25 | PC.NURSE ---
Patient requested sleep med. Trazodone 50mg PO given
[2020-11-25 06:00] VITALS: RESP 16
--- NOTE | 2020-11-25 08:37 | P.PN_ITS ---
Subjective NPU Subjective: Interval history: I have a simple how are you doing question. Aga lost all control screening for about 3 minutes with kind of profanity all kinds of psychotic content about this mortgage underwriter taking things, being a pedophile, having sex with children, not being adopted, and then she started pulling down her pants and flashing/mooning this mortgage underwriter smacking her buttocks and asking is that what she want? And things of that nature. Mental Status Exam MSE Comments: This is a well-nourished, well-developed white female with hospital scrubs on with adequate grooming and eye contact. No abnormal movements except for psychomotor retardation with moments of psychomotor agitation. Uncooperative with exam in extreme distress. Speech was more spontaneous and sometimes increased rate and volume when she spoke. Mood reported as fuck you! , affect was labile and [id number]. Thought process appeared disorganized, with increasing moments of organization thought content: Patient did not respond to questions of lethality but was acting aggressive towards herself or others, she did not report delusions and and bizarre delusions were noted, she did not endorse auditory or visual hallucinations and did not appear to be attending to internal stimuli. Attention and concentration were limited and memory was unreliable, but none were formally tested. She was alert and oriented x2 but does not understand why she was brought here or needs to be here. Insight and judgment are impaired, impulse control is impaired. Vitals/I&O/Wt Last Vital Signs Temp 98.1 F 11/24/20 06:00 Pulse 128 H 11/24/20 06:00 Resp 16 11/25/20 06:00 BP 92/47 11/24/20 06:00 Pulse Ox 97 11/24/20 06:00 Data NPU : 11/16/20 15:00 11/16/20 15:00 A&P Additional A&P Information (1) Acute psychosis: (2) Polysubstance abuse: (3) Drug-induced psychotic disorder: (4) Schizophrenia, disorganized, chronic with acute exacerbation: This is a 35-year-old white female well known to the system who presents with history of schizophrenia and presents with active psychosis likely exacerbated by continued addiction. 1. Continue current medication. We began discussing possible medications that might have long-acting injectable to be initiated now that she is on a 21-day hold. 2. Continue every 15 minute checks for safety. 3. Encourage individual, group and milieu therapies. 4. Encourage sober living treatment after discharge at the highest level of care to which he is willing to commit. Involuntary Hold Information 96 Hour Hold: 96 Hour Involuntary Admission: Yes 96 Hour Hold Ending Date: 11/22/20 96 Hour Hold Ending Time: 17:45 Attestations NPU Medical Necessity Statement*: Inpatient hospitalization is medically necessary and the clinically appropriate intervention at this time. We will monitor medications and make changes as indicated. Likely length of stay 8-10 days. Coding Level of Care Code Acute Utility Arborist for Anna Stubbs
[2020-11-25 14:00] VITALS: BP 101/68; PULSE 94; RESP 18; TEMP 36.4; O2SAT 100
--- NOTE | 2020-11-25 18:29 | PC.NURSE ---
Screaming fit 1005 Aga became highly upset when the Doctor was in her room speaking with her. Aga began yelling and screaming all kind of nonsense, just word salad. Pt screamed and yelled for about 15-20min just yelling nasty things about the doctor and cussing loudly. Will continue to monitor the pt.
[2020-11-25] MEDS: hyDROXYzine 25 mg Capsule 50 MG PO (20:23)
[2020-11-25] MEDS: OLANZapine 5 mg TABLET PO (20:24)
[2020-11-25] MEDS: acetaminophen 325 mg Tablet 650 MG PO (20:24)
[2020-11-25] MEDS: trazodone 50 mg Tablet PO (20:25)
--- NOTE | 2020-11-25 20:30 | PC.NURSE ---
Vistaril 50mg PO and Trazodone 50mg PO for anxiety and seep as patient requested.
[2020-11-25 22:00] VITALS: RESP 18
--- NOTE | 2020-11-25 23:00 | PC.NURSE ---
Patient refused vitals. Respirations were taken.
[2020-11-26 06:00] VITALS: RESP 16
--- NOTE | 2020-11-26 09:42 | P.PN_ITS ---
Subjective NPU Subjective: Interval history: Patient presents today continuing in this new vein of aggressive ranting. She ultimately called this conventional mortgage underwriter a Nigger again and made other disparaging remarks ultimately losing her temper again and screaming at the top of her lungs until this conventional mortgage underwriter leave the room. Mental Status Exam MSE Comments: This is a well-nourished, well-developed white female with hospital scrubs on with adequate grooming and eye contact. No abnormal movements except for psychomotor retardation with moments of psychomotor agitation. Uncooperative with exam in extreme distress. Speech was more spontaneous and sometimes increased rate and volume when she spoke. Mood report ed as get out of my room , affect was labile and [id number]. Thought process appeared disorganized, with increasing moments of organization thought content: Patient did not respond to questions of lethality but was acting aggressive towards herself or others, she did not report delusions and and bizarre delusions were noted, she did not endorse auditory or visual hallucinations and did not appear to be attending to internal stimuli. Attention and concentration were limited and memory was unreliable, but none were formally tested. She was alert and oriented x2 but does not understand why she was brought here or needs to be here. Insight and judgment are impaired, impulse control is impaired. Vitals/I&O/Wt Last Vital Signs Temp 97.5 F L 11/25/20 14:00 Pulse 94 11/25/20 14:00 Resp 16 11/26/20 06:00 BP 101/68 11/25/20 14:00 Pulse Ox 100 11/25/20 14:00 Weight last 48 hrs Weight 68.039 kg Data NPU : 11/16/20 15:00 11/16/20 15:00 A&P Additional A&P Information (1) Acute psychosis: (2) Polysubstance abuse: (3) Drug-induced psychotic disorder: (4) Schizophrenia, disorganized, chronic with acute exacerbation: This is a 35-year-old white female well known to the system who presents with history of schizophrenia and presents with active psychosis likely exacerbated by continued addiction. 1. Continue current medication. We began discussing possible medications that might have long-acting injectable to be initiated now that she is on a 21-day hold. 2. Continue every 15 minute checks for safety. 3. Encourage individual, group and milieu therapies. 4. Encourage sober living treatment after discharge at the highest level of care to which he is willing to commit. Involuntary Hold Information 96 Hour Hold: 96 Hour Involuntary Admission: Yes 96 Hour Hold Ending Date: 11/22/20 96 Hour Hold Ending Time: 17:45 Attestations NPU Medical Necessity Statement*: Inpatient hospitalization is medically necessary and the clinically appropriate intervention at this time. We will monitor m edications and make changes as indicated. Likely length of stay 8-10 days. Coding Level of Care Code Acute Pattern Filer for Anna Stubbs
[2020-11-26] MEDS: OLANZapine 5 mg TABLET PO ×2 (13:35→20:34)
[2020-11-26 14:00] VITALS: RESP 16
[2020-11-26] MEDS: trazodone 50 mg Tablet PO (20:43)
--- NOTE | 2020-11-26 20:45 | PC.NURSE ---
pt requested sleep med, trazodone 50mg po given for sleep.
[2020-11-26 21:26] VITALS: BP 91/58; PULSE 86; RESP 19; TEMP 37; O2SAT 98
--- NOTE | 2020-11-26 22:00 | PC.NURSE ---
pt resting quietly
[2020-11-27 06:00] VITALS: BP 101/67; PULSE 90; RESP 15; TEMP 36.5; O2SAT 98
[2020-11-27] MEDS: OLANZapine 5 mg TABLET PO ×2 (08:46→19:56)
[2020-11-27 14:00] VITALS: BP 92/63; PULSE 103; RESP 18; TEMP 36; O2SAT 97
--- NOTE | 2020-11-27 14:53 | PM.NPN ---
Subjective NPU Subjective: Interval history: I met with Dr. Crews and the treatment team to review the patient's progress. 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 She may need a long-acting injectable antipsychotic, such as Invega or Risperdal. Her mother is taking care of her kids. The goal is for her to get well enough to go to a sober living treatment program. The patient says she does not know why she is in the hospital. She says her mood is good and she has some depression and worry. She says she is sleeping well. She denies auditory and visual hallucinations. She has some visual illusions, such as seeing the floor move sometimes. She denies suicidal and homicidal ideation. She takes Zyprexa and has no medication side effects. When the patient 1st saw me in the hallway, she said, I love you. When I met with her, I asked her about her statement, and she said, I just wanted to get it out of the way. She was not able to explain her rationale or the context for her comment. Mental Status Exam MSE Comments: This is a well-nourished, well-developed white female with hospital scrubs on with adequate grooming and eye contact. No abnormal movements or tics noted. She does have some psychomotor agitation. Fairly cooperative. No acute distress. Speech was more spontaneous and sometimes increased rate and volume when she spoke. Mood reported as good , affect was euphoric. Thought process appeared disorganized, with increasing moments of organization. Thought content: patient denied suicidal and homicidal ideation. She did not report delusions and bizarre delusions were noted. She did not endorse auditory or visual hallucinations and did not appear to be attending to internal stimuli. Attention and concentration were limited and memory was unreliable, but none were formally tested. She was alert and oriented x2 but does not understand why she was brought here or needs to be here. Insight and judgment are impaired, impulse control is impaired. Vitals/I&O/Wt Last Vital Signs Temp 99.1 F 11/27/20 22:00 Pulse 79 11/27/20 22:00 Resp 17 11/27/20 22:00 BP 85/44 11/27/20 22:00 Pulse Ox 97 11/27/20 22:00 Weight last 48 hrs Weight 68.039 kg Data NPU : 11/16/20 15:00 11/16/20 15:00 A&P Assessment and plan (1) Schizophrenia, disorganized, chronic with acute exacerbation: Status: Acute (2) Drug-induced psychotic disorder: Status: Acute (3) Polysubstance abuse: Status: Acute (4) Acute psychosis: Status: Acute Additional A&P Information This is a 35-year-old white female well known to the system who presents with history of schizophrenia and presents with active psychosis likely exacerbated by continued addiction. 1. Continue current medication. We began discussing possible medications that might have long-acting injectable to be initiated now that she is on a 21-day hold. 2. Continue every 15 minute checks for safety. 3. Encourage individual, group and milieu therapies. 4. Encourage sober living treatment after discharge at the highest level of care to which he is willing to commit. Involuntary Hold Information 96 Hour Hold: 96 Hour Involuntary Admission: Yes 96 Hour Hold Ending Date: 11/22/20 96 Hour Hold Ending Time: 17:45 Attestations NPU Medical Necessity Statement*: Inpatient hospitalization is medically necessary and the clinically appropriate intervention at this time. We will monitor medications and make changes as indicated. Likely length of stay 8-10 days. Coding Level of Care Code Acute Metal Hanging Supervisor for Anna Stubbs Diagnoses Schizophrenia, disorganized, chronic with acute exacerbation F20.1 Drug-induced psychotic disorder F19.959 Polysubstance abuse F19.10 Acute psychosis F23
--- NOTE | 2020-11-27 18:36 | PC.NURSE ---
PRN VISTARIL 50 MG GIVEN PO PER PT C/O STATED ANXIETY.
[2020-11-27] MEDS: trazodone 50 mg Tablet PO (19:55)
[2020-11-27 22:00] VITALS: BP 85/44; PULSE 79; RESP 17; TEMP 37.3; O2SAT 97
--- NOTE | 2020-11-27 22:50 | PC.NURSE ---
nurse notified of b/p/will continue to monitor
[2020-11-27] MEDS: hyDROXYzine 25 mg Capsule 50 MG PO (22:56)
[2020-11-27] MEDS: OLANZapine 5 mg ODT PO (22:56)
[2020-11-28 06:00] VITALS: BP 100/67; PULSE 65; RESP 15; TEMP 36.6; O2SAT 98
[2020-11-28] MEDS: OLANZapine 5 mg TABLET PO ×2 (12:31→19:59)
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
[2020-11-28 14:00] VITALS: RESP 16
[2020-11-28] MEDS: trazodone 50 mg Tablet PO (19:59)
[2020-11-28] MEDS: hyDROXYzine 25 mg Capsule 50 MG PO (19:59)
[2020-11-28 20:10] VITALS: BP 101/59; PULSE 83; RESP 18; TEMP 37.1; O2SAT 95
[2020-11-28] MEDS: OLANZapine 5 mg ODT PO (21:34)
[2020-11-29 06:00] VITALS: BP 101/59; PULSE 83; RESP 17; TEMP 37.1; O2SAT 95
[2020-11-29] MEDS: OLANZapine 5 mg TABLET PO ×2 (09:13→20:19)
[2020-11-29 14:00] VITALS: RESP 17
--- NOTE | 2020-11-29 14:27 | P.PN_ITS ---
Subjective NPU Subjective: Interval history: I met with the treatment team to discuss the patient's progress. They say that she has continued to have periods of rage, but then apologizes after. When I met with her she again pleaded to be released from the hospital, but had no real ability to engage in a reality-based conversation about what brought her into the hospital, how she has been impaired, and what she might need to do to improve. Her friend Ruslan was present when we talked, at the patient's request. He agrees that she needs to stay in the hospital but also says that she is significantly improved from her condition at admission, which is important to recognize. She did not go into a rage when I said she could not leave today, but she did follow me around for quite some time, continuing to plead her case. During the day, the patient often approaches me when I am talking with another patient, unaware that she is violating their personal space and their need for privacy. No medication side effects. It appears that Zyprexa has been helpful, and we are also wanting to start Abilify so that the patient can be given the Abilify long- acting injectable version. Mental Status Exam MSE Comments: This is a well-nourished, well-developed white female with hospital scrubs on with improving grooming and eye contact. No abnormal movements or tics noted. She does have some psychomotor agitation, especially when asking to leave. More able to cooperate and collaborate today, meaning, she could talk relatively calmly and not go into a rage, but did not really listen at all. SSpeech was spontaneous and sometimes increased rate and volume when she spoke. Mood reported as good , affect was euphoric. Thought process was disorganized. Thought content: patient denied suicidal and homicidal ideation. She did not report delusions although some bizarre delusions were noted, for example, again talking about spending 200 days in the hospital recently. She did not endorse auditory or visual hallucinations and did not appear to be attending to internal stimuli. Attention and concentration were limited and memory was unreliable, but none were formally tested. She was alert and oriented x2 but does not understand why she was brought here or needs to be here. Insight and judgment are impaired, impulse control is impaired. Vitals/I&O/Wt Last Vital Signs Temp 98.7 F 11/29/20 06:00 Pulse 83 09/29/21 06:00 Resp 17 11/29/20 14:00 BP 101/59 11/29/20 06:00 Pulse Ox 95 11/29/20 06:00 Data NPU : 11/16/20 15:00 11/16/20 15:00 A&P Assessment and plan (1) Schizophrenia, disorganized, chronic with acute exacerbation: Status: Acute (2) Acute psychosis: Status: Acute (3) Drug-induced psychotic disorder: Status: Acute (4) Polysubstance abuse: Status: Acute Additional A&P Information This is a 35-year-old white female well known to the system who presents with history of schizophrenia and presents with active psychosis likely exacerbated by continued addiction. 1. Continue current medication. We began discussing possible medications that might have long-acting injectable to be initiated now that she is on a 21-day hold. 2. Continue every 15 minute checks for safety. 3. Encourage individual, group and milieu therapies. 4. Encourage sober living treatment after discharge at the highest level of ca re to which he is willing to commit. 5. It is now clear that the patient is not able to make decisions on her own. We will ask the court to assign a guardian from the [facility]. Involuntary Hold Information 96 Hour Hold: 96 Hour Involuntary Admission: Yes 96 Hour Hold Ending Date: 11/22/20 96 Hour Hold Ending Time: 17:45 Attestations NPU Medical Necessity Statement*: Inpatient hospitalization is medically necessary and the clinically appropriate intervention at this time. We will monitor medications and make changes as indicated. Likely length of stay 8-10 days. Coding Level of Care Code Acute Die Casting Machine Setter for Anna Stubbs Diagnoses Schizophrenia, disorganized, chronic with acute exacerbation F20.1 Acute psychosis F23 Drug-induced psychotic disorder F19.959 Polysubstance abuse F19.10
[2020-11-29] MEDS: ARIPiprazole 10 mg Tablet 5 MG PO (19:02)
[2020-11-29] MEDS: hyDROXYzine 25 mg Capsule 50 MG PO (20:17)
[2020-11-29] MEDS: trazodone 50 mg Tablet PO (20:17)
[2020-11-29 22:00] VITALS: BP 101/59; PULSE 83; RESP 17; TEMP 37.1; O2SAT 95
[2020-11-29] MEDS: OLANZapine 5 mg ODT PO (23:25)
[2020-11-29] MEDS: haloperidol 5 mg Tablet PO (23:25)
--- NOTE | 2020-11-29 23:25 | PC.NURSE ---
PRN Haldol 5mg pO given for AH/VH and increased agitation Zyprexa Zydis 5mg PO given for increased agitation
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
[2020-11-30 06:00] VITALS: BP 89/57; PULSE 96; RESP 18; O2SAT 98
[2020-11-30] MEDS: OLANZapine 5 mg TABLET PO ×2 (09:31→20:23)
[2020-11-30] MEDS: ARIPiprazole 10 mg Tablet 5 MG PO (09:31)
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
[2020-11-30 14:00] VITALS: BP 91/67; PULSE 128; RESP 18; TEMP 36.3; O2SAT 98
[2020-11-30] MEDS: trazodone 50 mg Tablet PO (20:23)
[2020-11-30] MEDS: hyDROXYzine 25 mg Capsule 50 MG PO (20:23)
[2020-11-30 22:00] VITALS: BP 91/67; PULSE 116; RESP 18; TEMP 36.3; O2SAT 98
--- NOTE | 2020-12-01 02:16 | PC.NURSE ---
PRN meds, Trazodone 50mg PO & Vistaril 50mg PO given for sleep and anxiety. Upon reassessment medications were effective.
--- NOTE | 2020-12-01 06:39 | PC.NURSE ---
VS Refused am VS check
--- NOTE | 2020-12-01 10:41 | PC.NURSE ---
med refusal 0900 Pt refused morning meds Abilify and Zyprexa. Will continue to monitor pt. 2 attempts by nurse were made, at the bedside.
[2020-12-01 14:00] VITALS: BP 74/51; PULSE 118; RESP 20; TEMP 36.3; O2SAT 98
[2020-12-01] MEDS: hyDROXYzine 25 mg Capsule 50 MG PO ×2 (15:48→21:56)
--- NOTE | 2020-12-01 15:50 | P.PN_ITS ---
Subjective NPU Subjective: Interval history: The patient says she is quite depressed but slept well last night. We talked about her home situation. She lives with her mother. She is denying auditory and visual hallucinations. I tried to explain to her about disorganized thinking and helping it to get clear. I explained about medication helping with that. It still hard for her to focus on anything but when she will leave the hospital. She does not understand her mental illness nor the need for treatment. No suicidal or homicidal ideation. No medication side effects. Mental Status Exam MSE Comments: This is a well-nourished, well-developed white female with hospital scrubs on with fairly good grooming and eye contact. No abnormal movements or tics noted. She does have some psychomotor agitation. She is unable to cooperate in planning mental health treatment because she does not u nderstand the nature of her difficulties nor what will help them. Speech was spontaneous and sometimes increased rate and volume when she spoke. Mood reported as good , affect was euphoric to irritable. Thought process was disorganized. Thought content: patient denied suicidal and homicidal ideation. She did not report delusions although some bizarre delusions were noted, for example, again talking about spending 200 days in the hospital recently, despite several conversations we had in which I informed her that I accounted the days, and she had been here for 35 days last year. She did not endorse auditory or visual hallucinations and did not appear to be attending to internal stimuli. Attention and concentration were limited and memory was unreliable, but none were formally tested. She was alert and oriented x2 but does not understand why she was brought here or needs to be here. Insight and judgment are impaired, impulse control is impaired. Vitals/I&O/Wt Last Vital Signs Temp 97.3 F L 12/01/20 14:00 Pulse 118 H 12/01/20 14:00 Resp 20 H 12/01/20 14:00 BP 74/51 12/01/20 14:00 Pulse Ox 98 12/01/20 14:00 Data NPU : 11/16/20 15:00 11/16/20 15:00 A&P Assessment and plan (1) Polysubstance abuse: Status: Acute (2) Schizophrenia, disorganized, chronic with acute exacerbation: Status: Acute Additional A&P Information This is a 35-year-old white female well known to the system who presents with history of schizophrenia and presents with active psychosis likely exacerbated by continued addiction. 1. Continue current medication. We added Abilify 5 mg daily yesterday afternoon. No side effects. We will titrate the dose up slowly. 2. Continue every 15 minute checks for safety. 3. Encourage individual, group and milieu therapies. 4. Encourage sober living treatment after discharge at the highest level of care to which he is willing to commit. 5. It is now clear that the patient is not able to make decisions on her own. We will ask the court to assign a guardian from the [facility]. Involuntary Hold Information 96 Hour Hold: 96 Hour Involuntary Admission: Yes 96 Hour Hold Ending Date: 11/22/20 96 Hour Hold Ending Time: 17:45 Attestations NPU Medical Necessity Statement*: Inpatient hospitalization is medically necessary and the clinically appropriate intervention at this time. We will monitor medications and make changes as indicated. Likely length of stay 10-14 days. Coding Level of Care Code Acute Coding Compliance Manager for Anna Stubbs Diagnoses Polysubstance abuse F19.10 Schizophrenia, disorganized, chronic with acute exacerbation F20.1
[2020-12-01] MEDS: ARIPiprazole 10 mg Tablet 5 MG PO (17:38)
[2020-12-01] MEDS: nicotine 2 mg Gum BUCCAL (18:04)
[2020-12-01] MEDS: benzocaine 20% 7 gm 1 APPLIC MUCOUS MEM (18:55)
[2020-12-01] MEDS: acetaminophen 325 mg Tablet 650 MG PO (18:55)
[2020-12-01 20:39] VITALS: BP 108/75; PULSE 88; RESP 18; TEMP 36.6; O2SAT 97
[2020-12-01] MEDS: OLANZapine 5 mg TABLET PO (21:56)
[2020-12-01] MEDS: trazodone 50 mg Tablet PO (21:56)
--- NOTE | 2020-12-02 03:29 | PC.NURSE ---
Patient was given trazodone and vistaril for sleep and anxiety, pt responded well
[2020-12-02 06:00] VITALS: RESP 17
[2020-12-02 14:00] VITALS: BP 100/53; PULSE 95; RESP 17; TEMP 36.2; O2SAT 95
[2020-12-02] MEDS: nicotine 2 mg Gum BUCCAL (14:42)
--- NOTE | 2020-12-02 16:51 | P.PN_ITS ---
Subjective NPU Subjective: Interval history: I met with nursing to discuss the patient's progress. 1 assembler steam and [employer] says that the patient had told her son that she was leaving today and asked him to pick her up. The nurse ask her why she did that, when she has not been told she is leaving. The patient is unable to tell reality from fantasy at this point. I talked again with the patient about the need to take medication regularly. She did take the Abilify this morning, but not yesterday. She still has little idea why she is here. No suicidal ideation. No auditory or visual hallucinations. No side effects from the medication. Mental Status Exam MSE Comments: This is a well-nourished, well-developed white female with hospital scrubs on with fairly good grooming and eye contact. No abnormal movements or tics noted. She has psychomotor agitation, bouncing up and down when speaking. She is unable to cooperate in planning mental health treatment because she does not understand the nature of her difficulties nor what will help them. Speech was rapid and she yelled when told that she is not leaving. She says her mood is good, but also says she is very depressed. Affect was euphoric to irritable. Thought process was disorganized. Thought content: patient denied suicidal and homicidal ideation. She did not report delusions although some bizarre delusions were noted, for example, again talking about spending 200 days in the hospital recently, despite several conversations we had in which I informed her that I accounted the days, and she had been here for 35 days last year. She did not endorse auditory or visual hallucinations and did not appear to be attending to internal stimuli. Attention and concentration were limited and memory was unreliable, but none were formally tested. She was alert and oriented x2 but does not understand why she was brought here or needs to be here. Insight and judgment are impaired, impulse control is impaired. Vitals/I&O/Wt Last Vital Signs Temp 97.1 F L 12/02/20 14:00 Pulse 95 12/02/20 14:00 Resp 17 12/02/20 14:00 BP 100/53 12/02/20 14:00 Pulse Ox 95 12/02/20 14:00 Data NPU : 11/16/20 15:00 11/16/20 15:00 A&P Assessment and plan (1) Polysubstance abuse: Status: Acute (2) Schizophrenia, disorganized, chronic with acute exacerbation: Status: Acute Additional A&P Information This is a 35-year-old white female well known to the system who presents with history of schizophrenia and presents with active psychosis likely exacerbated by continued addiction. 1. Continue current medication. Increase Abilify to 10 mg daily tomorrow morning. No side effects. We will continue to titrate the dose up slowly. 2. Continue every 15 minute checks for safety. 3. Encourage individual, group and milieu therapies. 4. Encourage sober living treatment after discharge at the highest level of care to which he is willing to commit. 5. It is now clear that the patient is not able to make decisions on her own. We will ask the court to [facility] a [facility]. Involuntary Hold Information 96 Hour Hold: 96 Hour Involuntary Admission: Yes 96 Hour Hold Ending Date: 11/22/20 96 Hour Hold Ending Time: 17:45 Attestations NPU Medical Necessity Statement*: Inpatient hospitalization is medically necessary and the clinically appropriate intervention at this time. We will monitor medications and make changes as indicated. Likely length of stay 10-14 days. Coding Level of Care Code Acute Horseshoer for Anna Stubbs Diagnoses Polysubstance abuse F19.10 Schizophrenia, disorganized, chronic with acute exacerbation F20.1
[2020-12-02] MEDS: trazodone 50 mg Tablet PO (20:36)
[2020-12-02] MEDS: hyDROXYzine 25 mg Capsule 50 MG PO (20:36)
[2020-12-02] MEDS: OLANZapine 5 mg TABLET PO (20:36)
[2020-12-02 20:48] VITALS: BP 92/61; PULSE 78; RESP 16; TEMP 36.8; O2SAT 99
[2020-12-02] MEDS: haloperidol 5 mg Tablet PO (21:39)
--- NOTE | 2020-12-03 01:31 | PC.NURSE ---
Haldol 5mg PO given for agitation and anxiety. Patient responded well.
[2020-12-03 06:00] VITALS: BP 99/65; PULSE 81; RESP 17; TEMP 36.7; O2SAT 96
--- NOTE | 2020-12-03 08:00 | PC.NURSE ---
Patient refused morning assessment. Patient told this nurse to Fuck off . Nurse will continue to monitor and redirect as needed.
[2020-12-03 14:00] VITALS: BP 98/60; PULSE 141; RESP 17; TEMP 37; O2SAT 96
--- NOTE | 2020-12-03 15:19 | P.PN_ITS ---
Subjective NPU Subjective: Interval history: The patient runs up to me intrusively and immediately says that she is ready to go home, can she please go home today. I reviewed with her the plan again to continue to stay here until her thinking is clear and she is in more control of her impulses. I talked again with the patient about the need to take medication regularly. She has taken the Abilify the last 2 mornings. She is agreeable to taking Abilify Maintena tomorrow. I explained to her again how it works and how often she will receive it. She still has little idea why she is here. No suicidal ideation. No auditory or visual hallucinations. No side effects from the medication. Mental Status Exam MSE Comments: This is a well-nourished, well-developed white female with hospital scrubs on whose hair is uncombed and who makes fairly good eye contact. No abnormal movements or tics noted. She bounces up and down when speaking. She is unable to cooperate in planning mental health treatment because she does not understand the nature of her difficulties nor what will help them. Speech was rapid but she did not wail today when told that she is not leaving. She says her mood is good and that she is very depressed. Affect was euphoric to irritable. Thought process was disorganized. Thought content: patient denied suicidal and homicidal ideation. She did not report delusions. She did not endorse auditory or visual hallucinations and did not appear to be attending to internal stimuli. Attention and concentration were limited and memory was unreliable, but none were formally tested. She was alert and oriented x 3 but does not understand why she was brought here or needs to be here. Insight and judgment are impaired, impulse control is impaired. Vitals/I&O/Wt Last Vital Signs Temp 98.0 F 12/03/20 06:00 Pulse 81 12/03/20 06:00 Resp 17 12/03/20 06:00 BP 99/65 12/03/20 06:00 Pulse Ox 96 12/03/20 06:00 Weight last 48 hrs Weight 65.317 kg Data NPU : 11/16/20 15:00 11/16/20 15:00 A&P Assessment and plan (1) Schizophrenia, disorganized, chronic with acute exacerbation: Status: Acute (2) Polysubstance abuse: Status: Acute Additional A&P Information This is a 35-year-old white female well known to the system who presents with history of schizophrenia and presents with active psychosis likely exacerbated by continued addiction. 1. Continue current medication. Increased Abilify to 10 mg daily. No side effects. We will give Abilify Maintena 400 mg IM tomorrow. 2. Continue every 15 minute checks for safety. 3. Encourage individual, group and milieu therapies. 4. Encourage sober living treatment after discharge at the highest level of care to which he is willing to commit. 5. It is now clear that the patient is not able to make decisions on her own. We have asked the court to assign a guardian from the [facility]. A hearing has not been scheduled yet. Involuntary Hold Information 96 Hour Hold: 96 Hour Involuntary Admission: Yes 96 Hour Hold Ending Date: 11/22/20 96 Hour Hold Ending Time: 17:45 Attestations NPU Medical Necessity Statement*: Inpatient hospitalization is medically necessary and the clinically appropriate intervention at this time. We will monitor medications and make changes as indicated. Likely length of stay 9-13 days. Coding Level of Care Code Acute Principal Cyber Engineer for Anna Fwd Diagnoses Schizophrenia, disorganized, chronic with acute exacerbation F20.1 Polysubstance abuse F19.10
[2020-12-03] MEDS: OLANZapine 5 mg TABLET PO ×2 (15:40→20:23)
[2020-12-03] MEDS: ARIPiprazole 10 mg Tablet PO (15:40)
[2020-12-03 15:41] VITALS: BP 100/68; PULSE 115
[2020-12-03] MEDS: acetaminophen 325 mg Tablet 650 MG PO (16:17)
[2020-12-03] MEDS: hyDROXYzine 25 mg Capsule 50 MG PO (20:23)
[2020-12-03] MEDS: trazodone 50 mg Tablet PO (20:23)
[2020-12-03] MEDS: haloperidol 5 mg Tablet PO (21:03)
--- NOTE | 2020-12-03 21:05 | PC.NURSE ---
pt came to the nurses desk , can i have a haldol? haldol 5mg po given.
[2020-12-03 21:23] VITALS: BP 98/58; PULSE 68; RESP 15; TEMP 36.6; O2SAT 98
--- NOTE | 2020-12-03 23:00 | PC.NURSE ---
pt resting quietly with both eyes closed, depend on her head.
[2020-12-04 06:00] VITALS: RESP 15
--- NOTE | 2020-12-04 06:20 | PC.NURSE ---
client refused vitals at this time/respirations were observed.
[2020-12-04] MEDS: OLANZapine 5 mg TABLET PO ×2 (12:19→20:44)
[2020-12-04] MEDS: ARIPiprazole 10 mg Tablet 15 MG PO (12:19)
[2020-12-04 14:00] VITALS: BP 90/56; PULSE 107; RESP 18; TEMP 36.7; O2SAT 99
[2020-12-04] MEDS: ARIPiprazole Maintena 400 MG IM (14:45)
--- NOTE | 2020-12-04 14:46 | PC.NURSE ---
KRYSTYNA MAINTENA 400 MG GIVEN IM ORDERED BY PHYSICIAN PT TOLERATED INJECTION WELL, GIVEN IM IN LEFT DELTOID LOT [id number] EXP JAN 2023
--- NOTE | 2020-12-04 17:11 | P.PN_ITS ---
Subjective NPU Subjective: Interval history: Met with the treatment team to discuss the patient's progress. The director social service has checked with the court and no date has yet been set for the guardianship hearing. We talked about potential place that she could stay post discharge. We also talked about her needing to get Medicaid, especially if she is on Abilify Maintena injections, so they can get paid for. The patient says she is doing well and as usual asks if she can discharge now. She does not seem to understand the nature of her condition or treatment. She says that her mood is good. It does appear that her mood is more stable than it has been. For example, she has had a decrease in the frequency, intensity, and duration of her rageful outbursts. She denies auditory and visual hallucinations. She denies suicidal ideation. She denies medication side effects. Mental Status Exam MSE Comments: This is a well-nourished, well-developed white female with hospital scrubs on whose hair is combed today and who makes fairly good eye contact. No abnormal movements or tics noted. She has some psychomotor agitation. She is unable to cooperate in planning mental health treatment because she does not understand the nature of her difficulties nor what will help them. Speech was rapid but again she did not wail today when told that she is not leaving. She says her mood is good and that she is very depressed. Affect was euphoric to irritable. Thought process was disorganized. Thought content: patient denied suicidal and homicidal ideation. She did not report delusions. She did not endorse auditory or visual hallucinations and did not appear to be attending to internal stimuli. Attention and concentration were limited and memory was unreliable, but none were formally tested. She was alert and oriented x 3 but does not understand why she was brought here or needs to be here. Insight and judgment are impaired, impulse control is impaired. Vitals/I&O/Wt Last Vital Signs Temp 98.0 F 12/04/20 14:00 Pulse 107 H 12/04/20 14:00 Resp 18 12/04/20 14:00 BP 90/56 12/04/20 14:00 Pulse Ox 99 12/04/20 14:00 Weight last 48 hrs Weight 65.317 kg Data NPU : 11/16/20 15:00 11/16/20 15:00 A&P Assessment and plan (1) Schizophrenia, disorganized, chronic with acute exacerbation: Status: Acute (2) Drug-induced psychotic disorder: Status: Acute (3) Polysubstance abuse: Status: Acute Additional A&P Information This is a 35-year-old white female well known to the system who presents with history of schizophrenia and presents with active psychosis likely exacerbated by continued addiction. 1. Continue current medication. Increased Abilify to 15 mg daily. No side effects. She got Abilify Maintena 400 mg IM today. 2. Continue every 15 minute checks for safety. 3. Encourage individual, group and milieu therapies. 4. Encourage sober living treatment after discharge at the highest level of care to which he is willing to commit. 5. It is now clear that the patient is not able to make decisions on her own. We have asked the court to assign a guardian from the [facility]. A hearing has not been scheduled yet. Involuntary Hold Information 96 Hour Hold: 96 Hour Involuntary Admission: Yes 96 Hour Hold Ending Date: 11/22/20 96 Hour Hold Ending Time: 17:45 Attestations NPU Medical Necessity Statement*: Inpatient hospitalization is medically necessary and the clinically appropriate intervention at this time. We will monitor medications and make changes as indicated. Likely length of stay 8-12 days. Coding Level of Care Code Acute Dental Coordinator for Anna Stubbs Diagnoses Schizophrenia, disorganized, chronic with acute exacerbation F20.1 Drug-induced psychotic disorder F19.959 Polysubstance abuse F19.10
[2020-12-04] MEDS: trazodone 50 mg Tablet PO (20:43)
[2020-12-04 22:00] VITALS: BP 110/80; PULSE 103; RESP 15; TEMP 37; O2SAT 98
[2020-12-05 06:00] VITALS: RESP 15
[2020-12-05] MEDS: ARIPiprazole 10 mg Tablet 15 MG PO (11:54)
[2020-12-05] MEDS: OLANZapine 5 mg TABLET PO ×2 (11:55→20:34)
[2020-12-05] MEDS: nicotine 2 mg Gum BUCCAL (13:48)
[2020-12-05 14:00] VITALS: BP 101/59; PULSE 97; RESP 17; TEMP 37.2; O2SAT 98
[2020-12-05] MEDS: hyDROXYzine 25 mg Capsule 50 MG PO (16:25)
--- NOTE | 2020-12-05 16:25 | PC.NURSE ---
PRN VISTARIL 50 MG GIVEN PO PER PT C/O STATED ANXIETY. PT UPSET SHE ISN'T BEING DISCHARGED TODAY.
--- NOTE | 2020-12-05 17:45 | P.PN_ITS ---
Subjective NPU Subjective: Interval history: I discussed the patient's progress and situation with the treatment team, including the special investigation unit investigator. The hospital is willing to continue to support the patient's guardianship application even after she leaves the hospital. The discharge planners searched for a suitable discharge placement today, but were unable to locate one that provided sufficient structure to keep the patient safe. The patient reports being in a good mood without auditory or visual hallucinations. No suicidal or homicidal ideations. However her thinking is still somewhat disorganized. No medication side effects. Mental Status Exam MSE Comments: This is a well-nourished, well-developed white female with hospital scrubs on whose hair is combed today and who makes fairly good eye contact. No abnormal movements or tics noted. She has some psychomotor agitation. She is unable to cooperate in planning mental health treatment because she does not understand the nature of her difficulties nor what will help them. Speech was rapid but again she did not wail today when told that she is not leaving. She says her mood is good and that she is very depressed. Affect was euphoric to irritable. Thought process was disorganized. Thought content: patient denied suicidal and homicidal ideation. She did not report delusions. She did not endorse auditory or visual hallucinations and did not appear to be attending to internal stimuli. Attention and concentration were limited and memory was unreliable, but none were formally tested. She was alert and oriented x 3 but does not understand why she was brought here or needs to be here. Insight and judgment are impaired, impulse control is impaired. Vitals/I&O/Wt Last Vital Signs Temp 98.9 F 12/05/20 20:22 Pulse 91 12/05/20 20:22 Resp 17 12/05/20 20:22 BP 101/59 12/05/20 20:22 Pulse Ox 98 12/05/20 20:22 Data NPU : 11/16/20 15:00 11/16/20 15:00 A&P Assessment and plan (1) Schizophrenia, disorganized, chronic with acute exacerbation: Status: Acute (2) Polysubstance abuse: Status: Acute Additional A&P Information This is a 35-year-old white female well known to the system who presents with history of schizophrenia and presents with active psychosis likely exacerbated by continued addiction. RECOMMENDATION AND PLAN: 1. Continue current medication. Increased Abilify to 15 mg daily. No side effects. She got Abilify Maintena 400 mg IM yesterday, 12/04/2020. Next dose 01/04/2021 2. Continue every 15 minute checks for safety. 3. Encourage individual, group and milieu therapies. 4. Encourage sober living treatment after discharge at the highest level of care to which he is willing to commit. 5. It is now clear that the patient is not able to make decisions on her own. We have asked the court to assign a guardian from the [facility]. A hearing has not been scheduled yet. 6. Discharge patient to a suitably structured placement. Involuntary Hold Information 96 Hour Hold: 96 Hour Involuntary Admission: Yes 96 Hour Hold Ending Date: 11/22/20 96 Hour Hold Ending Time: 17:45 Attestations NPU Medical Necessity Statement*: Psychiatric hospitalization is medically necessary, because without a structured living situation, the patient is at risk of harming herself. Anticipate discharge in the next couple days. Coding Level of Care Code Acute Smt Machine Operator for Anna Stubbs Diagnoses Schizophrenia, disorganized, chronic with acute exacerbation F20.1 Polysubstance abuse F19.10
[2020-12-05 20:22] VITALS: BP 101/59; PULSE 91; RESP 17; TEMP 37.2; O2SAT 98
[2020-12-05] MEDS: haloperidol 5 mg Tablet PO (20:34)
--- NOTE | 2020-12-05 20:35 | PC.NURSE ---
Addendum entered by Lizzy Anthony RN 12/05/20 22:50: Pt is resting in her room. Original Note: prnS hALDOL 5MG PO FOR AGGITATION AND PSYCHOSIS OLANZAPINE 5MG po GIVEN FOR ANXIETY AND AGITATION
[2020-12-06 06:00] VITALS: BP 137/89; PULSE 79; RESP 16; TEMP 36.3; O2SAT 98
--- NOTE | 2020-12-06 11:05 | PM.NPN ---
Subjective NPU Subjective: Interval history: I discussed the patient's progress and situation with the treatment team, including the community service officer coordinator yesterday. The hospital is willing to continue to support the patient's guardianship application even after she leaves the hospital. The discharge planners searched for a suitable discharge placement again today, but continue to be unable to locate one that provided sufficient structure to keep the patient safe. The patient reports being in a good mood without auditory or visual hallucinations. No suicidal or homicidal ideations. However her thinking is still somewhat disorganized. No medication side effects. I talked with her about the need to find a suitable placement before discharge. This is hard for her to understand. Mental Status Exam MSE Comments: This is a well-nourished, well-developed white female with hospital scrubs on whose hair is combed today and who makes fairly good eye contact. No abnormal movements or tics noted. She has some psychomotor agitation. She is unable to cooperate in planning mental health treatment because she does not understand the nature of her difficulties nor what will help them. Speech was rapid but again she did not wail today when told that she is not leaving. She says her mood is good and that she is very depressed. Affect was euphoric to irritable. Thought process was disorganized. Thought content: patient denied suicidal and homicidal ideation. She did not report delusions. She did not endorse auditory or visual hallucinations and did not appear to be attending to internal stimuli. Attention and concentration were limited and memory was unreliable, but none were formally tested. She was alert and oriented x 3 but does not understand why she was brought here or needs to be here. Insight and judgment are impaired, impulse control is impaired. Vitals/I&O/Wt Last Vital Signs Temp 98.1 F 12/06/20 20:17 Pulse 119 H 12/06/20 20:17 Resp 18 12/07/20 06:00 BP 138/91 12/06/20 20:17 Pulse Ox 97 12/06/20 20:17 Data NPU : 11/16/20 15:00 11/16/20 15:00 A&P Assessment and plan (1) Schizophrenia, disorganized, chronic with acute exacerbation: Status: Acute (2) Polysubstance abuse: Status: Acute Additional A&P Information This is a 35-year-old white female well known to the system who presents with history of schizophrenia and presents with active psychosis likely exacerbated by continued addiction. RECOMMENDATION AND PLAN: 1. Continue current medication. Increased Abilify to 15 mg daily. No side effects. She got Abilify Maintena 400 mg IM yesterday, 12/04/2020. Next dose 01/04/2021. She will need medicaid to continue to take it as an outpatient. 2. Continue every 15 minute checks for safety. 3. Encourage individual, group and milieu therapies. 4. Encourage sober living treatment after discharge at the highest level of care to which he is willing to commit. 5. It is now clear that the patient is not able to make decisions on her own. We have asked the court to assign a guardian from the [facility]. A hearing has not been scheduled yet. 6. Discharge patient to a suitably structured placement. Involuntary Hold Information 96 Hour Hold: 96 Hour Involuntary Admission: Yes 96 Hour Hold Ending Date: 11/22/20 96 Hour Hold Ending Time: 17:45 Attestations NPU Medical Necessity Statement*: Psychiatric hospitalization is medically necessary, because without a structured living situation, the patient is at risk of harming herself. Anticipate discharge in 5-7 days. Coding Level of Care Code Acute Die Caster for Anna Stubbs Diagnoses Schizophrenia, disorganized, chronic with acute exacerbation F20.1 Polysubstance abuse F19.10
[2020-12-06] MEDS: ARIPiprazole 10 mg Tablet 15 MG PO (13:16)
[2020-12-06] MEDS: OLANZapine 5 mg TABLET PO ×2 (13:17→22:37)
[2020-12-06 14:00] VITALS: BP 92/62; PULSE 17; RESP 120; TEMP 36.6; O2SAT 99
[2020-12-06 20:17] VITALS: BP 138/91; PULSE 119; RESP 22; TEMP 36.7; O2SAT 97
[2020-12-06] MEDS: trazodone 50 mg Tablet PO ×2 (21:11→22:37)
[2020-12-06] MEDS: OLANZapine 5 mg ODT PO (21:11)
[2020-12-06] MEDS: hyDROXYzine 25 mg Capsule 50 MG PO (21:11)
--- NOTE | 2020-12-07 03:14 | PC.NURSE ---
Patient given Trazpdone 50mg PO, Visteril 50 mg PO at patient request for sleep and anxiety. Zyprexa 5 mg given for anxiety / agitation.
--- NOTE | 2020-12-07 03:48 | PC.NURSE ---
NURSE NOTE: Behavioral assessment: Pt alert to person, place, and situation. Moves all extremities and follows commands. Lying in bed majority of shift. Denies SI and/or HI. Pt calm. Denies pain this shift. Currently resting in bed with eyes closed. All VS and assessments as charted.
[2020-12-07 06:00] VITALS: RESP 18
[2020-12-07] MEDS: OLANZapine 5 mg TABLET PO ×2 (08:22→21:13)
[2020-12-07] MEDS: ARIPiprazole 10 mg Tablet 15 MG PO (08:22)
[2020-12-07 14:00] VITALS: RESP 16
[2020-12-07] MEDS: nicotine 2 mg Gum BUCCAL (15:39)
[2020-12-07] MEDS: BuSPIRONE 10 mg Tablet 15 MG PO ×2 (15:54→18:11)
--- NOTE | 2020-12-07 18:22 | PM.NPN ---
Subjective NPU Subjective: Interval history: Aga presents today reporting that she just was to go home to be with her kids. We discussed the fact that she has significant challenges still and how her mind is working but she reports that she does need to be home with them and then she will feel a lot better and she will read the drugs etc. We reported and need for her to be in a better condition to be able to have that role with the children. Mental Status Exam MSE Comments: This is a well-nourished, well-developed white female with hospital scrubs on with adequate grooming and eye contact. No abnormal movements.. She has some psychomotor agitation. She is unable to cooperate in planning mental health treatment because she does not understand the nature of her difficulties nor what will help them. Speech was rapid but again she did not wail today when told that she is not leaving. She says her mood is good. Affect was euphoric. Thought process was disorganized. Thought content: patient denied suicidal and homicidal ideation. She did not report delusions. She did not endorse auditory or visual hallucinations and did not appear to be attending to internal stimuli. Attention and concentration were limited and memory was unreliable, but none were formally tested. She was alert and oriented x 3 but does not understand why she was brought here or needs to be here. Insight and judgment are impaired, impulse control is impaired. Vitals/I&O/Wt Last Vital Signs Temp 97.9 F 12/07/20 20:31 Pulse 114 H 12/07/20 20:31 Resp 18 12/07/20 20:31 BP 72/48 12/07/20 20:31 Pulse Ox 97 12/07/20 20:31 Data NPU : 11/16/20 15:00 11/16/20 15:00 A&P Additional A&P Information (1) Schizophrenia, disorganized, chronic with acute exacerbation: (2) Polysubstance abuse: This is a 35-year-old white female well known to the system who presents with history of schizophrenia and presents with active psychosis likely exacerbated by continued addiction. RECOMMENDATION AND PLAN: 1. Continue current medication. 2. Continue every 15 minute checks for safety. 3. Encourage individual, group and milieu therapies. 4. Encourage sober living treatment after discharge at the highest level of care to which he is willing to commit. 5. It is now clear that the patient is not able to make decisions on her own. We have asked the court to assign a guardian from the [facility]. A hearing has not been scheduled yet. 6. Discharge patient to a suitably structured placement. Involuntary Hold Information 96 Hour Hold: 96 Hour Involuntary Admission: Yes 96 Hour Hold Ending Date: 11/22/20 96 Hour Hold Ending Time: 17:45 Attestations NPU Medical Necessity Statement*: Psychiatric hospitalization is medically necessary, because without a structured living situation, the patient is at risk of harming herself. Anticipate discharge in 5-7 days. Coding Level of Care Code Acute Psychiatric Tech for Anna Stubbs
[2020-12-07 20:31] VITALS: BP 72/48; PULSE 114; RESP 18; TEMP 36.6; O2SAT 97
[2020-12-07] MEDS: trazodone 50 mg Tablet PO (21:13)
[2020-12-07] MEDS: hyDROXYzine 25 mg Capsule 50 MG PO (21:14)
--- NOTE | 2020-12-08 00:03 | PC.NURSE ---
PRN MEDIATIONS: PATIENT WAS GIVEN VISTERIL 50MG PO AND DESYREL 50MG PO. UPON REASSESSMENT MEDICATION WAS EFFECTIVE.
[2020-12-08 06:00] VITALS: RESP 16
[2020-12-08] MEDS: OLANZapine 5 mg TABLET PO ×2 (09:49→20:35)
[2020-12-08] MEDS: ARIPiprazole 10 mg Tablet 15 MG PO (09:49)
[2020-12-08] MEDS: BuSPIRONE 10 mg Tablet 15 MG PO ×2 (09:49→19:02)
[2020-12-08] MEDS: nicotine 2 mg Gum BUCCAL (12:16)
[2020-12-08 14:00] VITALS: BP 96/51; PULSE 85; RESP 17; TEMP 36.6; O2SAT 99
[2020-12-08] MEDS: OLANZapine 5 mg ODT PO (15:37)
--- NOTE | 2020-12-08 19:15 | PM.NPN ---
Subjective NPU Subjective: Interval history: Aga presents today continuing to be all over the place in conversation with meandering thoughts and having the only goal-directed clarity she has is that she would like to be discharged. Otherwise she is fairly challenged and has to be watched carefully as she has some erotic intentions. Continues with a safety danger to herself outside of a locked possibilities or options with oversight. Mental Status Exam MSE Comments: This is a well-nourished, well-developed white female with hospital scrubs on with adequate grooming and eye contact. No abnormal movements.. She has some psychomotor agitation. She is unable to cooperate in planning mental health treatment because she does not understand the nature of her difficulties nor what will help them. Speech was rapid but again she did not wail today when told that she is not leaving. She says her mood is good, letting go home. Affect was euphoric. Thought process was disorganized. Thought content: patient denied suicidal and homicidal ideation. She did not report delusions. She did not endorse auditory or visual hallucinations and did not appear to be attending to internal stimuli. Attention and concentration were limited and memory was unreliable, but none were formally tested. She was alert and oriented x 3 but does not understand why she was brought here or needs to be here. Insight and judgment are impaired, impulse control is impaired. Vitals/I&O/Wt Last Vital Signs Temp 98.2 F 12/08/20 20:59 Pulse 112 H 12/08/20 20:59 Resp 22 H 12/08/20 20:59 BP 140/94 12/08/20 20:59 Pulse Ox 99 12/08/20 20:59 Data NPU : 11/16/20 15:00 11/16/20 15:00 A&P Additional A&P Information (1) Schizophrenia, disorganized, chronic with acute exacerbation: (2) Polysubstance abuse: This is a 35-year-old white female well known to the system who presents with history of schizophrenia and presents with active psychosis likely exacerbated by continued addiction. RECOMMENDATION AND PLAN: 1. Continue current medication. 2. Continue every 15 minute checks for safety. 3. Encourage individual, group and milieu therapies. 4. Encourage sober living treatment after discharge at the highest level of care to which he is willing to commit. 5. It is now clear that the patient is not able to make decisions on her own. We have asked the court to assign a guardian from the [facility]. A hearing has not been scheduled yet. 6. Discharge patient to a suitably structured placement. Involuntary Hold Information 96 Hour Hold: 96 Hour Involuntary Admission: Yes 96 Hour Hold Ending Date: 11/22/20 96 Hour Hold Ending Time: 17:45 Attestations NPU Medical Necessity Statement*: Psychiatric hospitalization is medically necessary, because without a structured living situation, the patient is at risk of harming herself. Anticipate discharge in 5-7 days. Coding Level of Care Code Acute Power Cleaner Operator for Anna Stubbs
[2020-12-08] MEDS: hyDROXYzine 25 mg Capsule 50 MG PO (20:43)
[2020-12-08] MEDS: trazodone 50 mg Tablet PO (20:43)
[2020-12-08 20:59] VITALS: BP 140/94; PULSE 112; RESP 22; TEMP 36.8; O2SAT 99
--- NOTE | 2020-12-08 22:57 | PC.NURSE ---
Patient received vistaril 50mg for anxiety and trazadone 50mg for insomnia. Medication effective.
[2020-12-09 06:00] VITALS: RESP 16
--- NOTE | 2020-12-09 08:18 | PM.NPN ---
Subjective NPU Subjective: Interval history: Aga presents today continuing to be hyper focused on when she gets to leave. She struggles with anything outside of the thought that she misses her kids and wants to be with them and that she is been here for a prolonged period of time. She is unable to merge that with her significant addiction and cognitive impairment/psychosis that has been a part of her substance use. Mental Status Exam MSE Comments: This is a well-nourished, well-developed white female with hospital scrubs on with adequate grooming and eye contact. No abnormal movements. She has some psychomotor agitation. She is unable to cooperate in planning mental health treatment because she does not understand the nature of her difficulties nor what will help them. Speech was rapid but again she did not wail today when told that she is not leaving. She says her mood is upset because I do not know why you will let me go home. Affect was euphoric. Thought process was disorganized. Thought content: patient denied suicidal and homicidal ideation. She did not report delusions. She did not endorse auditory or visual hallucinations and did not appear to be attending to internal stimuli. Attention and concentration were limited and memory was unreliable, but none were formally tested. She was alert and oriented x 3 but does not understand why she was brought here or needs to be here. Insight and judgment are impaired, impulse control is impaired. Vitals/I&O/Wt Last Vital Signs Temp 98.2 F 12/08/20 20:59 Pulse 112 H 12/08/20 20:59 Resp 16 12/09/20 06:00 BP 140/94 12/08/20 20:59 Pulse Ox 99 12/08/20 20:59 Data NPU : 11/16/20 15:00 11/16/20 15:00 A&P Additional A&P Information (1) Schizophrenia, disorganized, chronic with acute exacerbation: (2) Polysubstance abuse: This is a 35-year-old white female well known to the system who presents with history of schizophrenia and presents with active psychosis likely exacerbated by continued addiction. RECOMMENDATION AND PLAN: 1. Continue current medication. 2. Continue every 15 minute checks for safety. 3. Encourage individual, group and milieu therapies. 4. Encourage sober living treatment after discharge at the highest level of care to which he is willing to commit. 5. It is now clear that the patient is not able to make decisions on her own. We have asked the court to assign a guardian from the [facility]. A hearing has not been scheduled yet. 6. Discharge patient to a suitably structured placement. Involuntary Hold Information 96 Hour Hold: 96 Hour Involuntary Admission: Yes 96 Hour Hold Ending Date: 11/22/20 96 Hour Hold Ending Time: 17:45 Attestations NPU Medical Necessity Statement*: Psychiatric hospitalization is medically necessary, because without a structured living situation, the patient is at risk of harming herself. Anticipate discharge in 5-7 days. Coding Level of Care Code Acute Car Attendant for Anna Stubbs
[2020-12-09] MEDS: OLANZapine 5 mg TABLET PO ×2 (09:12→20:36)
[2020-12-09] MEDS: BuSPIRONE 10 mg Tablet 15 MG PO ×2 (09:12→17:08)
[2020-12-09] MEDS: ARIPiprazole 10 mg Tablet 15 MG PO (09:12)
[2020-12-09] MEDS: hyDROXYzine 25 mg Capsule 50 MG PO ×2 (12:42→20:36)
[2020-12-09] MEDS: nicotine 2 mg Gum BUCCAL (12:42)
[2020-12-09 14:00] VITALS: BP 90/62; PULSE 99; RESP 18; TEMP 36.7; O2SAT 100
[2020-12-09 20:47] VITALS: BP 95/64; PULSE 104; RESP 18; TEMP 36.6; O2SAT 99
[2020-12-09] MEDS: lidocaine 2% viscous 1.667 ML, diphenhydrAMINE oral liq 4.165 MG, aluminum-mag hydrox-s... MUCOUS MEM (20:48)
[2020-12-09] MEDS: haloperidol 5 mg Tablet PO (21:45)
[2020-12-09] MEDS: quetiapine 25 mg Tablet 50 MG PO (22:36)
--- NOTE | 2020-12-10 02:47 | PC.NURSE ---
PRN Zyprexa, Haldol, seroquel, and trazadone,given intermittently throughout shift for anxiety and insomnia. Patient responded well to medication. Will continue to monitor.
[2020-12-10 06:00] VITALS: RESP 16
--- NOTE | 2020-12-10 07:39 | P.PN_ITS ---
Subjective NPU Subjective: Interval history: Patient presents today much like he has the past few days very focused on discharge and being with her children. She continues to have disorganization and lack of insight. We will continue with working with the treatment team to find an appropriate discharge location. She continues to perseverate over who will be her guardian. Mental Status Exam MSE Comments: This is a well-nourished, well-developed white female with hospital scrubs on with adequate grooming and eye contact. No abnormal movements. She has some psychomotor agitation. She is unable to cooperate in planning mental health treatment because she does not understand the nature of her difficulties nor what will help them. Speech was rapid but again she did not wail today when told that she is not leaving. She says her mood is good, affect congruent. Because I do not know why you will let me go home. Affect was euphoric. Thought process was disorganized. Thought content: patient denied suicidal and homicidal ideation. She did not report delusions. She did not endorse auditory or visual hallucinations and did not appear to be attending to internal stimuli. Attention and concentration were limited and memory was unreliable, but none were formally tested. She was alert and oriented x 3 but does not understand why she was brought here or needs to be here. Insight and judgment are impaired, impulse control is impaired. Vitals/I&O/Wt Last Vital Signs Temp 97.9 F 12/09/20 20:47 Pulse 104 H 12/09/20 20:47 Resp 16 12/10/20 06:00 BP 95/64 12/09/20 20:47 Pulse Ox 99 12/09/20 20:47 Weight last 48 hrs Weight 65.317 kg Data NPU : 11/16/20 15:00 11/16/20 15:00 A&P Additional A&P Information (1) Schizophrenia, disorganized, chronic with acute exacerbation: (2) Polysubstance abuse: This is a 35-year-old white female well known to the system who presents with history of schizophrenia and presents with active psychosis likely exacerbated by continued addiction. RECOMMENDATION AND PLAN: 1. Continue current medication. 2. Continue every 15 minute checks for safety. 3. Encourage individual, group and milieu therapies. 4. Encourage sober living treatment after discharge at the highest level of care to which he is willing to commit. 5. It is now clear that the patient is not able to make decisions on her own. We have asked the court to assign a guardian from the [facility]. A hearing has not been scheduled yet. 6. Discharge patient to a suitably structured placement. Involuntary Hold Information 96 Hour Hold: 96 Hour Involuntary Admission: Yes 96 Hour Hold Ending Date: 11/22/20 96 Hour Hold Ending Time: 17:45 Attestations NPU Medical Necessity Statement*: Psychiatric hospitalization is medically necessary, because without a structured living situation, the patient is at risk of harming herself. Anticipate discharge in 4-6 days. Coding Level of Care Code Acute Senior Technical Support Engineer for Anna Stubbs
[2020-12-10] MEDS: OLANZapine 5 mg TABLET PO ×2 (10:02→22:00)
[2020-12-10] MEDS: BuSPIRONE 10 mg Tablet 15 MG PO ×2 (10:02→17:51)
[2020-12-10] MEDS: ARIPiprazole 10 mg Tablet 15 MG PO (10:03)
[2020-12-10 14:00] VITALS: BP 120/87; PULSE 95; RESP 17; TEMP 36.9; O2SAT 97
[2020-12-10] MEDS: hyDROXYzine 25 mg Capsule 50 MG PO (17:51)
[2020-12-10] MEDS: nicotine 2 mg Gum BUCCAL (18:25)
[2020-12-10 20:14] VITALS: BP 99/58; PULSE 104; RESP 21; TEMP 36.7; O2SAT 99
[2020-12-10] MEDS: haloperidol 5 mg Tablet PO (22:00)
[2020-12-10] MEDS: quetiapine 25 mg Tablet 50 MG PO (22:00)
[2020-12-10] MEDS: trazodone 50 mg Tablet PO (22:00)
--- NOTE | 2020-12-10 23:43 | PC.NURSE ---
pt request by name, haldol, trazodone and seroquel . pt given haldol 5mg po for anxiety, trazodone 50mg po for sleep, and seroquel 50mg po for sleep .
--- NOTE | 2020-12-11 01:51 | PC.NURSE ---
pt has been resting quietly since hs meds given at 2200 last stephanie.
[2020-12-11 06:00] VITALS: RESP 18
[2020-12-11] MEDS: ARIPiprazole 10 mg Tablet 15 MG PO (12:02)
[2020-12-11] MEDS: OLANZapine 5 mg TABLET PO ×2 (12:03→21:59)
[2020-12-11] MEDS: BuSPIRONE 10 mg Tablet 15 MG PO ×2 (12:03→21:29)
[2020-12-11 13:53] VITALS: PULSE 108; RESP 16; TEMP 36.4; O2SAT 95
[2020-12-11] MEDS: hyDROXYzine 25 mg Capsule 50 MG PO (14:04)
--- NOTE | 2020-12-11 14:05 | PC.NURSE ---
Addendum entered by Cathy Colindres LPN 12/11/20 18:38: LATE ENTRY, PRN MED EFFECTIVE NO FURTHER C/O ANXIETY Original Note: PRN VISTARIL 50 MG GIVEN PO PER PT C/O STATED ANXIETY PT IS LAUGHING UP AT THE DESK, MED SEEKING FOR ANY AND ALL PRN MEDICATIONS SHE CAN HAVE
--- NOTE | 2020-12-11 14:06 | NPU.GN ---
[facility] Topic:Depression Hetal General Mood of Group: Patient refused group today, she was asleep.
--- NOTE | 2020-12-11 18:02 | PM.NPN ---
Subjective NPU Subjective: Interval history: Patient presents today continuing to have her focus to be on going home and seeing her kids. She struggles still with insight and all into the significant drug use that has put her in the situation. Explained the process of waiting for placement as well as guardianship considerations. She continues to make call to family, ex-'s, ex-boyfriend to see if they would want to be her guardian. Mental Status Exam MSE Comments: This is a well-nourished, well-developed white female with hospital scrubs on with adequate grooming and eye contact. No abnormal movements. Limited psychomotor agitation but more calm today. She is unable to cooperate in planning mental health treatment because she does not understand the nature of her difficulties nor what will help them. Speech was more normal rate and volume she says her mood is good, affect congruent. Affect was euphoric. Thought process was disorganized. Thought content: patient denied suicidal and homicidal ideation. She did not report delusions. She did not endorse auditory or visual hallucinations and did not appear to be attending to internal stimuli. Attention and concentration were limited and memory was unreliable, but none were formally tested. She was alert and oriented x 3 but does not understand why she was brought here or needs to be here. Insight and judgment are impaired, impulse control is impaired. Vitals/I&O/Wt Last Vital Signs Temp 97.5 F L 12/11/20 13:53 Pulse 108 H 12/11/20 13:53 Resp 16 12/11/20 13:53 BP 99/58 12/10/20 20:14 Pulse Ox 95 12/11/20 13:53 Weight last 48 hrs Weight 65.317 kg Data NPU : 11/16/20 15:00 11/16/20 15:00 A&P Additional A&P Information (1) Schizophrenia, disorganized, chronic with acute exacerbation: (2) Polysubstance abuse: This is a 35-year-old white female well known to the system who presents with history of schizophrenia and presents with active psychosis likely exacerbated by continued addiction. RECOMMENDATION AND PLAN: 1. Continue current medication. 2. Continue every 15 minute checks for safety. 3. Encourage individual, group and milieu therapies. 4. Encourage sober living treatment after discharge at the highest level of care to which he is willing to commit. 5. It is now clear that the patient is not able to make decisions on her own. We have asked the court to assign a guardian from the [facility]. A hearing has not been scheduled yet. 6. Discharge patient to a suitably structured placement. Involuntary Hold Information 96 Hour Hold: 96 Hour Involuntary Admission: Yes 96 Hour Hold Ending Date: 11/22/20 96 Hour Hold Ending Time: 17:45 Attestations NPU Medical Necessity Statement*: Psychiatric hospitalization is medically necessary, because without a structured living situation, the patient is at risk of harming herself. Anticipate discharge in 3-5 days. Coding Level of Care Code Acute Casino Runner for Anna Stubbs
[2020-12-11] MEDS: quetiapine 25 mg Tablet 50 MG PO (20:54)
[2020-12-11] MEDS: trazodone 50 mg Tablet PO (20:54)
[2020-12-11] MEDS: nicotine 2 mg Gum BUCCAL (20:54)
--- NOTE | 2020-12-11 20:55 | PC.NURSE ---
pt requested trazodone and seroquel for sleep. trazodone 50mg po and seroquel 50mg po given.
[2020-12-11] MEDS: OLANZapine 5 mg ODT PO (21:29)
--- NOTE | 2020-12-11 21:30 | PC.NURSE ---
pt stated i need my zyprexa when advised she would be getting her scheduled med soon, pt stated i know, i want the one that disolves zyprexa zydis given.
[2020-12-11 22:00] VITALS: BP 99/59; PULSE 105; RESP 22; TEMP 36.6; O2SAT 99
--- NOTE | 2020-12-12 00:30 | PC.NURSE ---
pt resting quietly with both eyes closed
[2020-12-12 06:00] VITALS: BP 113/65; PULSE 93; RESP 20; TEMP 36.7; O2SAT 98
--- NOTE | 2020-12-12 10:38 | NPU.GN ---
[facility] Topic:Sail Boat/ Mechanisms General Mood of Group: Aga did not attend group today.
[2020-12-12] MEDS: BuSPIRONE 10 mg Tablet 15 MG PO ×2 (12:49→21:28)
[2020-12-12] MEDS: OLANZapine 5 mg TABLET PO ×2 (12:50→21:28)
[2020-12-12] MEDS: ARIPiprazole 10 mg Tablet 15 MG PO (12:50)
[2020-12-12 14:00] VITALS: BP 103/69; PULSE 115; RESP 16; TEMP 36.9; O2SAT 98
[2020-12-12] MEDS: hyDROXYzine 25 mg Capsule 50 MG PO (17:05)
--- NOTE | 2020-12-12 17:05 | PC.NURSE ---
PRN VISTARIL 50 MG GIVEN PO PER PT C/O STATED ANXIETY
--- NOTE | 2020-12-12 18:35 | P.PN_ITS ---
Subjective NPU Subjective: Interval history: Patient visit today continuing to be focused on getting home to her kids with continued lack of insight into the reason why anyone have concerns about her going home in her current state. Tests getting a guardian and placement and she is no longer at this point being angry or reactionary to the fact that she is not being allowed to leave. Mental Status Exam MSE Comments: This is a well-nourished, well-developed white female with hospital scrubs on with adequate grooming and eye contact. No abnormal movements. Cooperative with exam in no acute distress. She is unable to cooperate in planning mental health treatment because she does not understand the nature of her difficulties nor what will help them. Speech was more normal rate and volume. She continues to report her mood is good, affect congruent. Affect was euphoric. Thought process was disorganized. Thought content: patient denied suicidal and homicidal ideation. She did not report delusions. She did not endorse auditory or visual hallucinations and did not appear to be attending to internal stimuli. Attention and concentration were limited and memory was unreliable, but none were formally tested. She was alert and oriented x 3 but does not understand why she was brought here or needs to be here. Insight and judgment are impaired, impulse control is limited. Vitals/I&O/Wt Last Vital Signs Temp 98.4 F 12/12/20 14:00 Pulse 115 H 12/12/20 14:00 Resp 16 12/12/20 22:00 BP 103/69 12/12/20 14:00 Pulse Ox 98 12/12/20 14:00 Data NPU : 11/16/20 15:00 11/16/20 15:00 A&P Additional A&P Information (1) Schizophrenia, disorganized, chronic with acute exacerbation: (2) Polysubstance abuse: This is a 35-year-old white female well known to the system who presents with history of schizophrenia and presents with active psychosis likely exacerbated by continued addiction. RECOMMENDATION AND PLAN: 1. Continue current medication. 2. Continue every 15 minute checks for safety. 3. Encourage individual, group and milieu therapies. 4. Encourage sober living treatment after discharge at the highest level of care to which he is willing to commit. 5. It is now clear that the patient is not able to make decisions on her own. We have asked the court to assign a guardian from the [facility]. A hearing has not been scheduled yet. 6. Discharge patient to a suitably structured placement. Involuntary Hold Information 96 Hour Hold: 96 Hour Involuntary Admission: Yes 96 Hour Hold Ending Date: 11/22/20 96 Hour Hold Ending Time: 17:45 Attestations NPU Medical Necessity Statement*: Psychiatric hospitalization is medically necessary, because without a structured living situation, the patient is at risk of harming herself. Anticipate discharge in 3-5 days. Coding Level of Care Code Acute Sales Expert for Anna Stubbs
[2020-12-12] MEDS: quetiapine 25 mg Tablet 50 MG PO (21:28)
--- NOTE | 2020-12-12 21:30 | PC.NURSE ---
pt requested seroquel by name for sleep. seroquel 50mg po given.
[2020-12-12 22:00] VITALS: RESP 16
--- NOTE | 2020-12-12 22:17 | PC.NURSE ---
pt refused vitals at this time/respirations were observed
--- NOTE | 2020-12-12 23:00 | PC.NURSE ---
pt resting quietly with both eyes closed.
[2020-12-13 06:00] VITALS: RESP 23; TEMP 36.6
[2020-12-13] MEDS: OLANZapine 5 mg TABLET PO ×2 (08:45→20:46)
[2020-12-13] MEDS: ARIPiprazole 10 mg Tablet 15 MG PO (08:45)
[2020-12-13] MEDS: BuSPIRONE 10 mg Tablet 15 MG PO ×2 (08:46→20:46)
[2020-12-13] MEDS: nicotine 21 mg Patch 1 PATCH TRANSDERMA (11:19)
--- NOTE | 2020-12-13 13:13 | NPU.GN ---
[facility] Topic:Anxiety Bingo General Mood of Group: Aga did not attend group today. She was tired.
[2020-12-13 13:43] VITALS: BP 100/61; PULSE 67; RESP 16; TEMP 36.5; O2SAT 97
[2020-12-13] MEDS: hyDROXYzine 25 mg Capsule 50 MG PO ×2 (17:23→22:50)
--- NOTE | 2020-12-13 18:56 | P.PN_ITS ---
Subjective NPU Subjective: Interval history: Aga presents today unchanged. She continues to spend the day running down the different possibilities of people that could be her guardian. She also talks frequently about her children and how she needs to be home and give some reason for the day of why discharge today should occur. Things like not being home for hollowing last year, being in the hospital X number of days, the fact that her children , But having 0 insight into the reason for the hospitalization and need for guardianship. We discussed the fact that she is so frequently come to the hospital high on methamphetamine barely get a little better and then be back in that situation again. Not taking her medication etc. Mental Status Exam MSE Comments: This is a well-nourished, well-developed white female with hospital scrubs on with adequate grooming and eye contact. No abnormal movements. Cooperative with exam in no acute distress. She is unable to cooperate in planning mental health treatment because she does not understand the nature of her difficulties nor what will help them. Speech was more normal rate and volume. She continues to report her mood is pretty good, affect congruent. Affect was euphoric. Thought process was disorganized. Thought content: patient denied suicidal and homicidal ideation. She did not report delusions. She did not endorse auditory or visual hallucinations and did not appear to be attending to internal stimuli. Attention and concentration were limited and memory was unreliable, but none were formally tested. She was alert and oriented x 3 but does not understand why she was brought here or needs to be here. Insight and judgment are impaired, impulse control is limited. Vitals/I&O/Wt Last Vital Signs Temp 97.7 F 12/13/20 22:00 Pulse 67 12/13/20 22:00 Resp 16 12/13/20 22:00 BP 100/61 12/13/20 22:00 Pulse Ox 97 12/13/20 22:00 Data NPU : 11/16/20 15:00 11/16/20 15:00 A&P Additional A&P Information (1) Schizophrenia, disorganized, chronic with acute exacerbation: (2) Polysubstance abuse: This is a 35-year-old white female well known to the system who presents with history of schizophrenia and presents with active psychosis likely exacerbated b y continued addiction. RECOMMENDATION AND PLAN: 1. Continue current medication. 2. Continue every 15 minute checks for safety. 3. Encourage individual, group and milieu therapies. 4. Encourage sober living treatment after discharge at the highest level of care to which he is willing to commit. 5. It is now clear that the patient is not able to make decisions on her own. We have asked the court to assign a guardian from the [facility]. A hearing has not been scheduled yet. 6. Discharge patient to a suitably structured placement. Involuntary Hold Information 96 Hour Hold: 96 Hour Involuntary Admission: Yes 96 Hour Hold Ending Date: 11/22/20 96 Hour Hold Ending Time: 17:45 Attestations NPU Medical Necessity Statement*: Psychiatric hospitalization is medically necessary, because without a structured living situation, the patient is at risk of harming herself. Anticipate discharge in 5-7 days as we await guardianship hearing. Coding Level of Care Code Acute Compliance Director for Anna Stubbs
[2020-12-13] MEDS: alum-mag-hydroxide-sime 30 mL UDC PO (20:48)
[2020-12-13] MEDS: quetiapine 25 mg Tablet 50 MG PO (20:57)
[2020-12-13 22:00] VITALS: BP 100/61; PULSE 67; RESP 16; TEMP 36.5; O2SAT 97
[2020-12-13] MEDS: haloperidol 5 mg Tablet PO (22:10)
[2020-12-13] MEDS: trazodone 50 mg Tablet PO (22:51)
--- NOTE | 2020-12-14 03:39 | PC.NURSE ---
Patient PRN's this shift are as listed: Maalox, Haldol 5mg PO for agitation, Hydroxyzine 50mg for anxiety, Seroquel 50mg and Trazodone 50mg for sleep.
[2020-12-14 06:00] VITALS: BP 100/61; PULSE 67; RESP 16; TEMP 36.5; O2SAT 97
[2020-12-14] MEDS: ARIPiprazole 10 mg Tablet 15 MG PO (08:43)
[2020-12-14] MEDS: BuSPIRONE 10 mg Tablet 15 MG PO ×2 (08:43→23:24)
[2020-12-14] MEDS: OLANZapine 5 mg TABLET PO ×2 (08:43→23:25)
--- NOTE | 2020-12-14 12:00 | NPU.GN ---
[facility] Topic:Anger General Mood of Group: Aga did not attend group today.
[2020-12-14 13:51] VITALS: BP 100/61; PULSE 67; RESP 16; TEMP 36.5; O2SAT 97
[2020-12-14 14:23] VITALS: BP 91/65; PULSE 112; RESP 20; TEMP 36.3; O2SAT 100
[2020-12-14] MEDS: hyDROXYzine 25 mg Capsule 50 MG PO ×2 (17:43→20:20)
--- NOTE | 2020-12-14 17:43 | PC.NURSE ---
PRN VISTARIL 50 MG GIVEN PO PER PT C/O STATED ANXIETY
--- NOTE | 2020-12-14 18:43 | P.PN_ITS ---
Subjective NPU Subjective: Interval history: Patient presents today continuing to discuss wanting to discharge. called in reporting that he would be her guardian if necessary and expressed anger that she had been kept this long but he has not been anywhere around to participate in our attempts to make sure she had a safe place to go. Additionally he has not been a part of keeping her from his pattern of frequent hospitalizations, significant methamphetamine use and inability to assist in the management of her children. Mental Status Exam MSE Comments: This is a well-nourished, well-developed white female with hospital scrubs on with adequate grooming and eye contact. No abnormal mov ements. Cooperative with exam in no acute distress. She is unable to cooperate in planning mental health treatment because she does not understand the nature of her difficulties nor what will help them. Speech was more normal rate and volume. She continues to report her mood is okay, I want to leave, affect congruent. Affect was euphoric. Thought process was disorganized. Thought content: patient denied suicidal and homicidal ideation. She did not report delusions. She did not endorse auditory or visual hallucinations and did not appear to be attending to internal stimuli. Attention and concentration were limited and memory was unreliable, but none were formally tested. She was alert and oriented x 3 but does not understand why she was brought here or needs to be here. Insight and judgment are impaired, impulse control is limited. Vitals/I&O/Wt Last Vital Signs Temp 97.3 F L 12/14/20 21:23 Pulse 91 12/14/20 21:23 Resp 18 12/14/20 21:23 BP 91/65 12/14/20 21:23 Pulse Ox 100 12/14/20 21:23 Data NPU : 11/16/20 15:00 11/16/20 15:00 A&P Additional A&P Information (1) Schizophrenia, disorganized, chronic with acute exacerbation: (2) Polysubstance abuse: This is a 35-year-old white female well known to the system who presents with history of schizophrenia and presents with active psychosis likely exacerbated by continued addiction. RECOMMENDATION AND PLAN: 1. Continue current medication. 2. Continue every 15 minute checks for safety. 3. Encourage individual, group and milieu therapies. 4. Encourage sober living treatment after discharge at the highest level of care to which he is willing to commit. 5. It is now clear that the patient is not able to make decisions on her own. We have asked the court to assign a guardian from the [facility]. A hearing has not been scheduled yet. 6. Discharge patient to a suitably structured placement. Involuntary Hold Information 96 Hour Hold: 96 Hour Involuntary Admission: Yes 96 Hour Hold Ending Date: 11/22/20 96 Hour Hold Ending Time: 17:45 Attestations NPU Medical Necessity Statement*: Psychiatric hospitalization is medically necessary, because without a structured living situation, the patient is at risk of harming herself. Anticipate discharge in 5-7 days as we await guardianship hearing. Coding Level of Care Code Acute Driller Multiple Spindle for Anna Stubbs
[2020-12-14] MEDS: trazodone 50 mg Tablet PO (20:19)
[2020-12-14] MEDS: quetiapine 25 mg Tablet 50 MG PO (20:19)
[2020-12-14 21:23] VITALS: BP 91/65; PULSE 91; RESP 18; TEMP 36.3; O2SAT 100
[2020-12-15 06:00] VITALS: RESP 18
[2020-12-15] MEDS: ARIPiprazole 10 mg Tablet 15 MG PO (10:05)
[2020-12-15] MEDS: OLANZapine 5 mg TABLET PO ×2 (10:05→22:17)
[2020-12-15] MEDS: BuSPIRONE 10 mg Tablet 15 MG PO ×2 (10:05→21:04)
[2020-12-15 13:34] VITALS: BP 148/58; PULSE 119; RESP 17; TEMP 36.8; O2SAT 96
[2020-12-15] MEDS: nicotine 2 mg Gum BUCCAL (18:00)
--- NOTE | 2020-12-15 18:30 | P.PN_ITS ---
Subjective NPU Subjective: Interval history: Aga presents today with essentially no change. She continues to be pleasant, but also continues to laments over how long she has been here, that her to be her guardian, that she can be released today, and how much she misses her kids. She continues to express lack of insight into her circumstances for being here and reported she should build to go home today. Mental Status Exam MSE Comments: This is a well-nourished, well-developed white female with hospital scrubs on with adequate grooming and eye contact. No abnormal movements. Cooperative with exam in no acute distress. She is unable to cooperate in planning mental health treatment because she does not understand the nature of her difficulties nor what will help them. Speech was more normal rate and volume. She continues to report her mood is good, affect congruent. Affect was euphoric. Thought process was more organized. Thought content: patient denied suicidal and homicidal ideation. She did not report delusions. She did not endorse auditory or visual hallucinations and did not appear to be attending to internal stimuli. Attention and concentration were limited and memory was unreliable, but none were formally tested. She was alert and oriented x 3 but does not understand why she was brought here or needs to be here. Insight and judgment are impaired, impulse control is limited. Vitals/I&O/Wt Last Vital Signs Temp 98.7 F 12/15/20 20:40 Pulse 91 12/15/20 20:40 Resp 17 12/15/20 20:40 BP 98/66 12/15/20 20:40 Pulse Ox 95 12/15/20 20:40 Data NPU : 11/16/20 15:00 11/16/20 15:00 A&P Additional A&P Information (1) Schizophrenia, disorganized, chronic with acute exacerbation: (2) Polysubstance abuse: This is a 35-year-old white female well known to the system who presents with history of schizophrenia and presents with active psychosis likely exacerbated by continued addiction. RECOMMENDATION AND PLAN: 1. Continue current medication. 2. Continue every 15 minute checks for safety. 3. Encourage individual, group and milieu therapies. 4. Encourage sober living treatment after discharge at the highest level of care to which he is willing to commit. 5. It is now clear that the patient is not able to make decisions on her own. We have asked the court to assign a [facility]. A hearing has not been scheduled yet. 6. Discharge patient to a suitably structured placement. Involuntary Hold Information 96 Hour Hold: 96 Hour Involuntary Admission: Yes 96 Hour Hold Ending Date: 11/22/20 96 Hour Hold Ending Time: 17:45 Attestations NPU Medical Necessity Statement*: Psychiatric hospitalization is medically necessary, because without a structured living situation, the patient is at risk of harming herself. Anticipate discharge in 5-7 days as we await guardianship hearing. Coding Level of Care Code Acute Arson Investigator for Anna Stubbs
[2020-12-15 20:40] VITALS: BP 98/66; PULSE 91; RESP 17; TEMP 37.1; O2SAT 95
[2020-12-15] MEDS: trazodone 50 mg Tablet PO (21:03)
[2020-12-16 06:00] VITALS: BP 98/66; PULSE 91; RESP 17; TEMP 37.1; O2SAT 95
[2020-12-16] MEDS: ARIPiprazole 10 mg Tablet 15 MG PO (08:41)
[2020-12-16] MEDS: BuSPIRONE 10 mg Tablet 15 MG PO ×2 (08:41→20:20)
[2020-12-16] MEDS: OLANZapine 5 mg TABLET PO ×2 (08:41→20:27)
--- NOTE | 2020-12-16 10:07 | P.PN_ITS ---
Subjective NPU Subjective: Interval history: Aga presents today continuing to be laser focused on discharge. She continues the same mantra of having this or that person available to be her guardian, reporting that she needs to be home to take care of her baby's, and counting the days that she has been in the hospital and reporting that it is unnecessary. Otherwise she is less irritable and und erstands she is awaiting her hearing. Mental Status Exam MSE Comments: This is a well-nourished, well-developed white female with hospital scrubs on with adequate grooming and eye contact. No abnormal mov ements. Cooperative with exam in no acute distress. She is unable to cooperate in planning mental health treatment because she does not understand the nature of her difficulties nor what will help them. Speech was more normal rate and volume. She continues to report her mood is good, affect congruent. Affect was euphoric. Thought process was more organized. Thought content: patient denied suicidal and homicidal ideation. She did not report delusions. She did not endorse auditory or visual hallucinations and did not appear to be attending to internal stimuli. Attention and concentration were limited and memory was unreliable, but none were formally tested. She was alert and oriented x 3 but does not understand why she was brought here or needs to be here. Insight and judgment are impaired, impulse control is limited. Vitals/I&O/Wt Last Vital Signs Temp 98.7 F 12/16/20 06:00 Pulse 91 12/16/20 06:00 Resp 17 12/16/20 06:00 BP 98/66 12/16/20 06:00 Pulse Ox 95 12/16/20 06:00 Data NPU : 11/16/20 15:00 11/16/20 15:00 A&P Additional A&P Information (1) Schizophrenia, disorganized, chronic with acute exacerbation: (2) Polysubstance abuse: This is a 35-year-old white female well known to the system who presents with history of schizophrenia and presents with active psychosis likely exacerbated by continued addiction. RECOMMENDATION AND PLAN: 1. Continue current medication. 2. Continue every 15 minute checks for safety. 3. Encourage individual, group and milieu therapies. 4. Encourage sober living treatment after discharge at the highest level of care to which he is willing to commit. 5. It is now clear that the patient is not able to make decisions on her own. We have asked the court to assign a [facility]. A hearing has not been scheduled yet. 6. Discharge patient to a suitably structured placement. Involuntary Hold Information 96 Hour Hold: 96 Hour Involuntary Admission: Yes 96 Hour Hold Ending Date: 11/22/20 96 Hour Hold Ending Time: 17:45 Attestations NPU Medical Necessity Statement*: Psychiatric hospitalization is medically necessary, because without a structured living situation, the patient is at risk of harming herself. Anticipate discharge in 5-7 days as we await guardianship hearing. Coding Level of Care Code Acute Senior Policy Advisor for Anna Stubbs
[2020-12-16] MEDS: nicotine 2 mg Gum BUCCAL (13:03)
[2020-12-16] MEDS: hyDROXYzine 25 mg Capsule 50 MG PO ×2 (13:45→21:35)
[2020-12-16 14:00] VITALS: BP 109/55; PULSE 111; RESP 20; TEMP 36; O2SAT 99
[2020-12-16] MEDS: OLANZapine 5 mg ODT PO (17:44)
[2020-12-16] MEDS: trazodone 50 mg Tablet PO (20:25)
[2020-12-16 20:35] VITALS: BP 116/58; PULSE 115; RESP 20; TEMP 36.8; O2SAT 96
[2020-12-16] MEDS: quetiapine 25 mg Tablet 50 MG PO (21:35)
[2020-12-17 06:00] VITALS: BMI 23.9
--- NOTE | 2020-12-17 09:12 | PM.NPN ---
Subjective NPU Subjective: Interval history: Patient presents today reporting that she is doing fine and just wanting to be discharged. She has been social and fairly vocal. She endorses that her or some woman whose name starts with M could be her guardian and that she could be released today. She reports that her is seeking a data entry manager. She denied any other problems or issues. She is eating and sleeping well. Mental Status Exam MSE Comments: This is a well-nourished, well-developed white female with hospital scrubs on with adequate grooming and eye contact. No abnormal movements. Cooperative with exam in no acute distress. She is unable to cooperate in planning mental health treatment because she does not understand the nature of her difficulties nor what will help them. Speech was more normal rate and volume. She continues to report her mood is good, affect congruent. Affect was euphoric. Thought process was more organized. Thought content: patient denied suicidal and homicidal ideation. She did not report delusions. She did not endorse auditory or visual hallucinations and did not appear to be attending to internal stimuli. Attention and concentration were limited and memory was unreliable, but none were formally tested. She was alert and oriented x 3 but does not understand why she was brought here or needs to be here. Insight and judgment are impaired, impulse control is limited. Vitals/I&O/Wt Last Vital Signs Temp 98.3 F 12/16/20 20:35 Pulse 115 H 12/16/20 20:35 Resp 20 H 12/16/20 20:35 BP 116/58 12/16/20 20:35 Pulse Ox 96 12/16/20 20:35 Weight last 48 hrs Weight 65.317 kg Data NPU : 11/16/20 15:00 11/16/20 15:00 A&P Additional A&P Information (1) Schizophrenia, disorganized, chronic with acute exacerbation: (2) Polysubstance abuse: This is a 35-year-old white female well known to the system who presents with history of schizophrenia and presents with active psychosis likely exacerbated by continued addiction. RECOMMENDATION AND PLAN: 1. Continue current medication. 2. Continue every 15 minute checks for safety. 3. Encourage individual, group and milieu therapies. 4. Encourage sober living treatment after discharge at the highest level of care to which he is willing to commit. 5. It is now clear that the patient is not able to make decisions on her own. We have asked the court to assign a guardian from the county. A hearing has not been scheduled yet. 6. Discharge patient to a suitably structured placement. Involuntary Hold Information 96 Hour Hold: 96 Hour Involuntary Admission: Yes 96 Hour Hold Ending Date: 11/22/20 96 Hour Hold Ending Time: 17:45 Attestations NPU Medical Necessity Statement*: sychiatric hospitalization is medically necessary, because without a structured living situation, the patient is at risk of harming herself. Anticipate discharge in 5-7 days as we await guardianship hearing. Coding Level of Care Code Acute Counter Supervisor for Anna Stubbs
[2020-12-17] MEDS: OLANZapine 5 mg TABLET PO ×2 (09:22→20:39)
[2020-12-17] MEDS: ARIPiprazole 10 mg Tablet 15 MG PO (09:22)
[2020-12-17] MEDS: BuSPIRONE 10 mg Tablet 15 MG PO ×2 (09:22→20:39)
[2020-12-17] MEDS: OLANZapine 5 mg ODT PO (13:06)
--- NOTE | 2020-12-17 13:13 | PC.NURSE ---
prn Administered Zydis Zyprexa 5mg for pt c/o anxiety. Will continue to monitor pt.
[2020-12-17] MEDS: hyDROXYzine 25 mg Capsule 50 MG PO (13:39)
[2020-12-17 14:00] VITALS: BP 100/60; PULSE 100; RESP 16; TEMP 36.7; O2SAT 100
[2020-12-17] MEDS: haloperidol 5 mg Tablet PO (14:56)
[2020-12-17] MEDS: acetaminophen 325 mg Tablet 650 MG PO (17:56)
[2020-12-17] MEDS: ondansetron 4 MG Tablet PO (17:57)
[2020-12-17] MEDS: nicotine 2 mg Gum BUCCAL (17:57)
[2020-12-17] MEDS: quetiapine 25 mg Tablet 50 MG PO (20:38)
[2020-12-17] MEDS: lidocaine 2% viscous 1.667 ML, diphenhydrAMINE oral liq 4.165 MG, aluminum-mag hydrox-s... MUCOUS MEM (20:40)
--- NOTE | 2020-12-17 20:40 | PC.NURSE ---
pt requested seroquel for sleep. seroquel 50ng po given
[2020-12-17 20:56] VITALS: BP 101/70; PULSE 98; RESP 17; TEMP 36.7; O2SAT 98
--- NOTE | 2020-12-17 23:00 | PC.NURSE ---
pt resting quietly with both eyes closed
[2020-12-18 06:00] VITALS: RESP 17
--- NOTE | 2020-12-18 07:05 | PC.NURSE ---
pt refused vitals/ pt stated I hate that thing, it gives me anxiety. no you're not taking my vitals
--- NOTE | 2020-12-18 11:24 | NPU.GN ---
[facility] Topic:Osvaldo Pearson General Mood of Group: Aga did not attend group therapy today. Aga wanted to sleep.
[2020-12-18] MEDS: BuSPIRONE 10 mg Tablet 15 MG PO ×2 (11:45→20:11)
[2020-12-18] MEDS: ARIPiprazole 10 mg Tablet 15 MG PO (11:45)
[2020-12-18] MEDS: OLANZapine 5 mg TABLET PO ×2 (11:45→20:11)
[2020-12-18] MEDS: nicotine 2 mg Gum BUCCAL (12:07)
[2020-12-18] MEDS: hyDROXYzine 25 mg Capsule 50 MG PO ×2 (13:12→20:11)
--- NOTE | 2020-12-18 13:13 | PC.NURSE ---
PRN VISTARIL 50 MG GIVEN PO PER PT REQUEST FOR ANXIETY MED
[2020-12-18 14:00] VITALS: BP 98/65; PULSE 118; RESP 20; TEMP 36.1; O2SAT 99
--- NOTE | 2020-12-18 15:38 | PM.NPN ---
Subjective NPU Subjective: Interval history: Patient presents today very excited about her guardianship hearing tomorrow. She continues to show limited insight and feels so many aspects of her situation. Sometimes asking if 2 people can be her guardian. We discussed the difficulty being discharge scenario. Discussing the difficulties she has had maintaining her sobriety which she continues to struggle to acknowledge. She wanted to discuss discharge, but we agreed that once a guardian is chosen we would discuss immediately with that person a plan for discharge. Mental Status Exam MSE Comments: This is a well-nourished, well-developed white female with hospital scrubs on with adequate grooming and eye contact. No abnormal movements. Cooperative with exam in no acute distress. She is unable to cooperate in planning mental health treatment because she does not understand the nature of her difficulties nor what will help them. Speech was more normal rate and volume. She continues to report her mood is good, affect congruent. Affect was euphoric. Thought process was more organized. Thought content: patient denied suicidal and homicidal ideation. She did not report delusions. She did not endorse auditory or visual hallucinations and did not appear to be attending to internal stimuli. Attention and concentration were limited and memory was unreliable, but none were formally tested. She was alert and oriented x 3 but does not understand why she was brought here or needs to be here. Insight and judgment are impaired, impulse control is limited. Vitals/I&O/Wt Last Vital Signs Temp 97.0 F L 12/18/20 14:00 Pulse 118 H 12/18/20 14:00 Resp 20 H 12/18/20 14:00 BP 98/65 12/18/20 14:00 Pulse Ox 99 12/18/20 14:00 Weight last 48 hrs Weight 65.317 kg Data NPU : 11/16/20 15:00 11/16/20 15:00 A&P Additional A&P Information (1) Schizophrenia, disorganized, chronic with acute exacerbation: (2) Polysubstance abuse: This is a 35-year-old white female well known to the system who presents with history of schizophrenia and presents with active psychosis likely exacerbated by continued addiction. RECOMMENDATION AND PLAN: 1. Continue current medication. 2. Continue every 15 minute checks for safety. 3. Encourage individual, group and milieu therapies. 4. Encourage sober living treatment after discharge at the highest level of care to which he is willing to commit. 5. It is now clear that the patient is not able to make decisions on her own. We have asked the court to assign a guardian from the [facility]. Her hearing is tomorrow. 6. Discharge patient to a suitably structured placement. 7. The larger question will be about discharge and placement. Her most concerning behaviors might only be curtailed in a locked unit from a sobriety standpoint but that would be a huge challenge to find. So we may have to consider the possibility of discharging her to the guardian if it is not just the court appointed one. Involuntary Hold Information 96 Hour Hold: 96 Hour Involuntary Admission: Yes 96 Hour Hold Ending Date: 11/22/20 96 Hour Hold Ending Time: 17:45 Attestations NPU Medical Necessity Statement*: Inpatient psychiatric hospitalization is medically necessary, because without a structured living situation, the patient is at risk of harming herself. Discharge to be as soon as tomorrow depending on plan for placement.. Coding Level of Care Code Acute Teacher Associate for Anna Stubbs
[2020-12-18] MEDS: OLANZapine 5 mg ODT PO (17:13)
[2020-12-18] MEDS: trazodone 50 mg Tablet PO (20:11)
[2020-12-18] MEDS: quetiapine 25 mg Tablet 50 MG PO (20:11)
[2020-12-18] MEDS: haloperidol 5 mg Tablet PO (21:07)
[2020-12-18 22:00] VITALS: RESP 16
--- NOTE | 2020-12-18 22:44 | PC.NURSE ---
pt refused vitals at this time/pt stated I REFUSE! as pt walked down hallway
[2020-12-19 06:00] VITALS: RESP 17
--- NOTE | 2020-12-19 06:38 | PC.NURSE ---
pt refused vitals at this time/ when staff approached pt, pt stated NO! staff asked to obtain vital signs/ pt stated again NO! respirations were counted
[2020-12-19] MEDS: BuSPIRONE 10 mg Tablet 15 MG PO ×2 (12:00→20:59)
[2020-12-19] MEDS: OLANZapine 5 mg TABLET PO ×2 (12:01→20:59)
[2020-12-19] MEDS: ARIPiprazole 10 mg Tablet 15 MG PO (12:01)
--- NOTE | 2020-12-19 12:12 | NPU.GN ---
[facility] Topic:Lyric General Mood of Group: Aga did not attend group therapy this morning, she wanted to sleep.
[2020-12-19] MEDS: nicotine 2 mg Gum BUCCAL (13:40)
--- NOTE | 2020-12-19 13:46 | PC.NURSE ---
off unit for Guardianship hearing at court house
[2020-12-19 14:00] VITALS: BP 97/63; PULSE 92; RESP 18; TEMP 36.4; O2SAT 97
--- NOTE | 2020-12-19 14:54 | PC.NURSE ---
return to unit from court hearing
[2020-12-19] MEDS: hyDROXYzine 25 mg Capsule 50 MG PO ×2 (15:33→20:58)
--- NOTE | 2020-12-19 15:33 | PC.NURSE ---
PATIENT AT DESK MULTIPLE TIMES ASKING FOR CHOCOLATE MILK, PUDDING, EXTRA LUNCH BAGS SINCE RETURNING FROM COURT. PATIENT ASKED FOR HER VISTARIL, PRN DOSE 50MG GIVEN.
--- NOTE | 2020-12-19 16:42 | PC.NURSE ---
PATIENT CAME TO DESK ASKING FOR ANOTHER MEDICATION, I'M FEELING DEPRESSED, ANTI-SOCIAL, MORE ANXIOUS. i MISS MY BABIES, AND I JUST DON'T KNOW WHAT IS GOING TO END UP HAPPENING. MEDICATED WITH PRN ZYPREXA.
[2020-12-19] MEDS: OLANZapine 5 mg ODT PO (16:43)
--- NOTE | 2020-12-19 16:43 | PC.NURSE ---
PRN ZYPREXA ZYDIS 5 MG GIVEN PO PER PT C/O STATED AGITATION
--- NOTE | 2020-12-19 18:10 | PM.NPN ---
Subjective NPU Subjective: Interval history: Aga presents today unchanged and pleased with the fact that she has a guardian. Now her tension turns fully towards the discharged and where she would be allowed to go. We continue to discuss with her our concerns about her safety outside of the hospital and then would work with a guardian for a reasonable plan but what the next. We discussed the fact that one of the benefits of the guardianship is that there are issues like her disability and insurance that can move forward in a clear more organized fashion with someone else steering the wheel. This will open more opportunities for her with some revenue stream and coverage. Mental Status Exam MSE Comments: This is a well-nourished, well-developed white female with hospital scrubs on with adequate grooming and eye contact. No abnormal movements. Cooperative with exam in no acute distress. She is unable to cooperate in planning mental health treatment because she does not understand the nature of her difficulties nor what will help them. Speech was more normal rate and volume. She continues to report her mood is good, affect congruent. Affect was euphoric. Thought process was more organized. Thought content: patient denied suicidal and homicidal ideation. She did not report delusions. She did not endorse auditory or visual hallucinations and did not appear to be attending to internal stimuli. Attention and concentration were limited and memory was unreliable, but none were formally tested. She was alert and oriented x 3 but does not understand why she was brought here or needs to be here. Insight and judgment are impaired, impulse control is limited. Vitals/I&O/Wt Last Vital Signs Temp 97.4 F L 12/19/20 20:40 Pulse 97 12/19/20 20:40 Resp 18 12/19/20 20:40 BP 114/75 12/19/20 20:40 Pulse Ox 100 12/19/20 20:40 Data NPU : 11/16/20 15:00 11/16/20 15:00 A&P Additional A&P Information (1) Schizophrenia, disorganized, chronic with acute exacerbation: (2) Polysubstance abuse: This is a 35-year-old white female well known to the system who presents with history of schizophrenia and presents with active psychosis likely exacerbated by continued addiction. RECOMMENDATION AND PLAN: 1. Continue current medication. 2. Continue every 15 minute checks for safety. 3. Encourage individual, group and milieu therapies. 4. Encourage sober living treatment after discharge at the highest level of care to which he is willing to commit. 5. Guardianship hearing took place and she was appointed a guardian which was a nonfamily member. 6. Discharge patient to a suitably structured placement. 7. The larger question will be about discharge and placement. Her most concerning behaviors might only be curtailed in a locked unit from a sobriety standpoint but that would be a huge challenge to find. So we may have to consider the possibility of discharging her to the guardian if it is not just the court appointed one. Involuntary Hold Information 96 Hour Hold: 96 Hour Involuntary Admission: Yes 96 Hour Hold Ending Date: 11/22/20 96 Hour Hold Ending Time: 17:45 Attestations NPU Medical Necessity Statement*: Inpatient psychiatric hospitalization is medically necessary, because without a structured living situation, the patient is at risk of harming herself. Discharge to be as soon as tomorrow depending on plan for placement.. Coding Level of Care Code Acute Director Of Revenue Cycle Management for Anna Stubbs
[2020-12-19 20:40] VITALS: BP 114/75; PULSE 97; RESP 18; TEMP 36.3; O2SAT 100
[2020-12-19] MEDS: quetiapine 25 mg Tablet 50 MG PO (20:58)
[2020-12-19] MEDS: trazodone 50 mg Tablet PO (20:59)
--- NOTE | 2020-12-20 09:07 | P.PN_ITS ---
Subjective NPU Subjective: Interval history: Aga presents today continuing to struggle with the logistics of how this is going to work moving forward. She has a clear understanding of having a guardian, however understanding how where she lives and how she is going to interact with the world moving forward continues to puzzle her to be source of significant anxiety. She continues to spend much of her time folding countless different scenarios of what could happen and requesting to leave immediately to be with her family or snuggle with her children. Mental Status Exam MSE Comments: This is a well-nourished, well-developed white female with hospital scrubs on with adequate grooming and eye contact. No abnormal movements. Cooperative with exam in no acute distress. She is unable to coope rate in planning mental health treatment because she does not understand the nature of her difficulties nor what will help them. Speech was more normal rate and volume. She continues to report her mood is good, affect congruent. Thought process was more organized. Thought content: patient denied suicidal and homicidal ideation. She did not report delusions. She did not endorse auditory or visual hallucinations and did not appear to be attending to internal stimuli. Attention and concentration were limited and memory was unreliable, but none were formally tested. She was alert and oriented x 3 but does not understand why she was brought here or needs to be here. Insight and judgment are impaired, impulse control is limited. Vitals/I&O/Wt Last Vital Signs Temp 97.4 F L 12/19/20 20:40 Pulse 97 12/19/20 20:40 Resp 18 12/19/20 20:40 BP 114/78 12/19/20 20:40 Pulse Ox 100 12/19/20 20:40 Data NPU : 11/16/20 15:00 11/16/20 15:00 A&P Additional A&P Information (1) Schizophrenia, disorganized, chronic with acute exacerbation: (2) Polysubstance abuse: This is a 35-year-old white female well known to the system who presents with history of schizophrenia and presents with active psychosis likely exacerbated by continued addiction. RECOMMENDATION AND PLAN: 1. Continue current medication. 2. Continue every 15 minute checks for safety. 3. Encourage individual, group and milieu therapies. 4. Encourage sober living treatment after discharge at the highest level of care to which she is willing to commit. 5. Guardianship hearing took place and she was appointed a guardian which was a nonfamily member. 6. Discharge patient to a suitably structured placement. 7. The larger question will be about discharge and placement. Her most concerning behaviors might only be curtailed in a locked unit from a sobriety standpoint but that would be a huge challenge to find. So we may have to consider the possibility of discharging her to the guardian if it is not just the court appointed one. Involuntary Hold Information 96 Hour Hold: 96 Hour Involuntary Admission: Yes 96 Hour Hold Ending Date: 11/22/20 96 Hour Hold Ending Time: 17:45 Attestations NPU Medical Necessity Statement*: Inpatient psychiatric hospitalization is medically necessary, because without a structured living situation, the patient is at risk of harming herself. Discharge to be as soon as tomorrow depending on plan for placement.. Coding Level of Care Code Acute Production Solderer for Anna Stubbs
[2020-12-20] MEDS: ARIPiprazole 10 mg Tablet 15 MG PO (09:32)
[2020-12-20] MEDS: OLANZapine 5 mg TABLET PO ×2 (09:32→21:30)
[2020-12-20] MEDS: BuSPIRONE 10 mg Tablet 15 MG PO ×2 (09:32→21:30)
[2020-12-20] MEDS: nicotine 2 mg Gum BUCCAL ×2 (09:33→15:34)
--- NOTE | 2020-12-20 12:26 | NPU.GN ---
[facility] Topic:Coping Skills Bingo/ Cross word puzzle General Mood of Group: Aga did attend and participate in group therapy this morning. Aga wanted to sleep.
[2020-12-20] MEDS: hyDROXYzine 25 mg Capsule 50 MG PO (13:26)
[2020-12-20 14:00] VITALS: BP 99/61; PULSE 100; RESP 16; TEMP 36.7; O2SAT 99
[2020-12-20] MEDS: OLANZapine 5 mg ODT PO (15:34)
[2020-12-20] MEDS: ondansetron 4 MG Tablet PO (16:51)
[2020-12-20] MEDS: acetaminophen 325 mg Tablet 650 MG PO (18:29)
[2020-12-21 06:00] VITALS: BP 103/78; PULSE 71; RESP 18; TEMP 36.6; O2SAT 98
[2020-12-21] MEDS: OLANZapine 5 mg TABLET PO ×2 (11:41→20:44)
[2020-12-21] MEDS: BuSPIRONE 10 mg Tablet 15 MG PO ×2 (11:41→20:45)
[2020-12-21] MEDS: ARIPiprazole 10 mg Tablet 15 MG PO (11:41)
[2020-12-21] MEDS: nicotine 2 mg Gum BUCCAL ×2 (12:20→17:33)
--- NOTE | 2020-12-21 13:36 | NPU.GN ---
[facility] Topic:Coping Kills Checklist General Mood of Group: Aga did not attend group today she wanted to sleep.
[2020-12-21 14:00] VITALS: BP 99/53; PULSE 114; RESP 20; TEMP 36.6; O2SAT 99
--- NOTE | 2020-12-21 14:42 | P.PN_ITS ---
Subjective NPU Subjective: Interval history: I discussed the patient's case with Dr. Crews and the treatment team. She has now been assigned a guardian, her Medicaid is pending, and the next step is to locate a suitable placement. The discharge planners will contact facilities that had turned her down in the past, to give them an update on her status. I met with the patient in person. She is calm more and more organized than the last time I saw her, about 2 weeks ago. She is a little more able to control her impulses, however she is still interpersonally intrusive and impulsive. I talked with her about the plan to locate a suitable placement which will keep her safe outside of the hospital. This is something that is hard for her to understand, because she minimizes her risky behaviors and is not able to comprehend her psychiatric condition. She is happy that she has a guardian and is happy that she will be able to apply for disability now. Mental Status Exam MSE Comments: This is a well-nourished, well-developed white female with hospital scrubs on with adequate grooming and eye contact. No abnormal movements. Cooperative with exam in no acute distress. She is unable to cooperate in planning mental health treatment because she does not understand the nature of her difficulties nor what will help them. Speech was more normal rate and volume. She continues to report her mood is good, affect congruent. Affect was euphoric. Thought process was more organized. Thought content: patient denied suicidal and homicidal ideation. She did not report delusions. She did not endorse auditory or visual hallucinations and did not appear to be attending to internal stimuli. Attention and concentration were limited and memory was unreliable, but none were formally tested. She was alert and oriented x 3 but does not understand why she was brought here or needs to be here. Insight and judgment are impaired, impulse control is limited. Vitals/I&O/Wt Last Vital Signs Temp 97.8 F 12/21/20 06:00 Pulse 71 12/21/20 06:00 Resp 18 12/21/20 06:00 BP 103/78 12/21/20 06:00 Pulse Ox 98 12/21/20 06:00 Data NPU : 11/16/20 15:00 11/16/20 15:00 A&P Assessment and plan (1) Polysubstance abuse: Status: Acute (2) Drug-induced psychotic disorder: Status: Acute (3) Schizophrenia, disorganized, chronic with acute exacerbation: Status: Acute Additional A&P Information This is a 35-year-old white female well known to the system who presents with history of schizophrenia and presents with active psychosis likely exacerbated by continued addiction. RECOMMENDATION AND PLAN: 1. Continue current medication. 2. Continue every 15 minute checks for safety. 3. Encourage individual, group and milieu therapies. 4. Encourage sober living treatment after discharge at the highest level of care to which he is willing to commit. 5. Guardianship hearing took place and she was appointed a guardian which was a nonfamily member. 6. Discharge patient to a suitably structured placement. 7. The larger question will be about discharge and placement. Her most concerning behaviors might only be curtailed in a locked unit from a sobriety standpoint but that would be a huge challenge to find. So we may have to consider the possibility of discharging her to the guardian if it is not just the court appointed one. Involuntary Hold Information 96 Hour Hold: 96 Hour Involuntary Admission: Yes 96 Hour Hold Ending Date: 11/22/20 96 Hour Hold Ending Time: 17:45 Attestations NPU Medical Necessity Statement*: Inpatient psychiatric hospitalization is medically necessary, because without a structured living situation, the patient is at risk of harming herself. Discharge to be as soon as tomorrow depending on plan for placement. Coding Level of Care Code Acute Supercharger Mechanic for Anna Stubbs Diagnoses Polysubstance abuse F19.10 Drug-induced psychotic disorder F19.959 Schizophrenia, disorganized, chronic with acute exacerbation F20.1
[2020-12-21] MEDS: hyDROXYzine 25 mg Capsule 50 MG PO (16:16)
--- NOTE | 2020-12-21 16:16 | PC.NURSE ---
PRN VISTARIL 50 MG GIVEN PO PER PT C/O STATED ANXIETY
[2020-12-21 19:59] VITALS: BP 107/76; PULSE 76; RESP 16; TEMP 36.7; O2SAT 95
[2020-12-21] MEDS: trazodone 50 mg Tablet PO ×2 (20:45→22:15)
[2020-12-22 06:00] VITALS: BP 119/78; PULSE 89; RESP 18; TEMP 37.1; O2SAT 98
[2020-12-22] MEDS: OLANZapine 5 mg TABLET PO ×2 (09:43→21:17)
[2020-12-22] MEDS: ARIPiprazole 10 mg Tablet 15 MG PO (09:43)
[2020-12-22] MEDS: BuSPIRONE 10 mg Tablet 15 MG PO ×2 (09:43→21:17)
[2020-12-22] MEDS: hyDROXYzine 25 mg Capsule 50 MG PO (13:00)
[2020-12-22] MEDS: nicotine 21 mg Patch 1 PATCH TRANSDERMA (13:49)
[2020-12-22 14:00] VITALS: BP 97/53; PULSE 102; RESP 17; TEMP 36.7; O2SAT 99
[2020-12-22] MEDS: haloperidol 5 mg Tablet PO (17:21)
--- NOTE | 2020-12-22 18:08 | PM.NPN ---
Subjective NPU Subjective: Interval history: I met with the treatment team to review the patient's progress. They say that residential care facilities will not take patients now with Medicaid pending status. The team is determined that an RCF is her best option. They are looking at [facility]. I talked with the patient about her children, who she has been on the phone with recently. She still gets somewhat intrusive about asking to leave, but I am talking with other patients. Mood is good. She denies auditory and visual hallucinations. No suicidal ideation. Mental Status Exam MSE Comments: This is a well-nourished, well-developed white female with hospital scrubs on with adequate grooming and eye contact. No abnormal movements. Cooperative with exam in no acute distress. She is unable to cooperate in planning mental health treatment because she does not understand the nature of her difficulties nor what will help them. Speech was at a normal rate and volume. She continues to report her mood is good, affect congruent. Thought process was more organized. Thought content: patient denied suicidal and homicidal ideation. She did not report delusions. She did not endorse auditory or visual hallucinations and did not appear to be attending to internal stimuli. Attention and concentration were limited and memory was unreliable, but none were formally tested. She was alert and oriented x 3 but does not understand why she was brought here or needs to be here. Insight and judgment are impaired, impulse control is limited. Vitals/I&O/Wt Last Vital Signs Temp 98.1 F 12/22/20 14:00 Pulse 102 H 12/22/20 14:00 Resp 17 12/22/20 14:00 BP 97/53 12/22/20 14:00 Pulse Ox 99 12/22/20 14:00 Data NPU : 11/16/20 15:00 11/16/20 15:00 A&P Assessment and plan (1) Polysubstance abuse: Status: Acute (2) Drug-induced psychotic disorder: Status: Acute (3) Schizophrenia, disorganized, chronic with acute exacerbation: Status: Acute Additional A&P Information This is a 35-year-old white female well known to the system who presents with history of schizophrenia and presents with active psychosis likely exacerbated by continued addiction. RECOMMENDATION AND PLAN: 1. Continue current medication. 2. Continue every 15 minute checks for safety. 3. Encourage individual, group and milieu therapies. 4. Encourage sober living treatment after discharge at the highest level of care to which she is willing to commit. 5. Guardianship hearing took place and she was appointed a guardian which was a nonfamily member. 6. Discharge patient to a suitably structured placement. 7. The larger question will be about discharge and placement. Her most concerning behaviors might only be curtailed in a locked unit from a sobriety standpoint but that would be a huge challenge to find. So we may have to consider the possibility of discharging her to the guardian if it is not just the court appointed one. Involuntary Hold Information 96 Hour Hold: 96 Hour Involuntary Admission: Yes 96 Hour Hold Ending Date: 11/22/20 96 Hour Hold Ending Time: 17:45 Attestations NPU Medical Necessity Statement*: Inpatient psychiatric hospitalization is medically necessary, because without a structured living situation, the patient is at risk of harming herself. Discharge to be as soon as possible depending on plan for placement. Coding Level of Care Code Acute Software Build Engineer for Anna Stubbs Diagnoses Polysubstance abuse F19.10 Drug-induced psychotic disorder F19.959 Schizophrenia, disorganized, chronic with acute exacerbation F20.1
[2020-12-22] MEDS: diphenhydrAMINE 25 mg Capsule PO (19:20)
[2020-12-22 21:20] VITALS: BP 101/64; PULSE 96; RESP 18; TEMP 36.9; O2SAT 96
[2020-12-23 06:00] VITALS: BP 103/70; PULSE 96; RESP 18; TEMP 36.5; O2SAT 96
[2020-12-23] MEDS: ARIPiprazole 10 mg Tablet 15 MG PO (11:23)
[2020-12-23] MEDS: BuSPIRONE 10 mg Tablet 15 MG PO ×2 (11:24→20:48)
[2020-12-23] MEDS: OLANZapine 5 mg TABLET PO ×2 (11:24→20:48)
[2020-12-23] MEDS: diphenhydrAMINE 25 mg Capsule PO ×2 (12:20→20:48)
[2020-12-23] MEDS: nicotine 21 mg Patch 1 PATCH TRANSDERMA (12:28)
[2020-12-23 14:00] VITALS: BP 97/62; PULSE 120; RESP 20; TEMP 36.8; O2SAT 99
[2020-12-23] MEDS: acetaminophen 325 mg Tablet 650 MG PO ×2 (14:43→22:12)
[2020-12-23] MEDS: hyDROXYzine 25 mg Capsule 50 MG PO (15:54)
--- NOTE | 2020-12-23 16:00 | PM.NPN ---
Subjective NPU Subjective: Interval history: The patient says she has had a good appetite and her mood is good. She slept well last night. No medication side effects. We talked some more about her children. Her son is 7 and her daughter's 6. She says that they miss her. We also talked about her methamphetamine use in the past. She does not really able to engage in a productive discussion about it, because she minimizes her past use. No auditory or visual hallucinations. No suicidal ideation. Mental Status Exam MSE Comments: This is a well-nourished, well-developed white female with hospital scrubs on with adequate grooming and eye contact. No abnormal movements. Cooperative with exam in no acute distress. She is unable to cooperate in planning mental health treatment because she does not understand the nature of her difficulties nor what will help them. Speech was at a normal rate and volume. She continues to report her mood is good, affect congruent. Thought process was more organized. Thought content: patient denied suicidal and homicidal ideation. She did not report delusions. She did not endorse auditory or visual hallucinations and did not appear to be attending to internal stimuli. Attention and concentration were limited and memory was unreliable, but none were formally tested. She was alert and oriented x 3 but does not understand why she was brought here or needs to be here. Insight and judgment are impaired, impulse control is limited. Vitals/I&O/Wt Last Vital Signs Temp 97.7 F 12/24/20 14:00 Pulse 88 12/24/20 14:00 Resp 18 12/24/20 14:00 BP 93/65 12/24/20 14:00 Pulse Ox 97 12/24/20 14:00 Weight last 48 hrs Weight 65.317 kg Data NPU : 11/16/20 15:00 11/16/20 15:00 A&P Assessment and plan (1) Polysubstance abuse: Status: Acute (2) Drug-induced psychotic disorder: Status: Acute (3) Schizophrenia, disorganized, chronic with acute exacerbation: Status: Acute Additional A&P Information This is a 35-year-old white female well known to the system who presents with history of schizophrenia and presents with active psychosis likely exacerbated by continued addiction. RECOMMENDATION AND PLAN: 1. Continue current medication. 2. Continue every 15 minute checks for safety. 3. Encourage individual, group and milieu therapies. 4. Encourage sober living treatment after discharge at the highest level of care to which she is willing to commit. 5. Guardianship hearing took place and she was appointed a guardian which was a nonfamily member. 6. Discharge patient to a suitably structured placement. 7. The larger question will be about discharge and placement. Her most concerning behaviors might only be curtailed in a locked unit from a sobriety standpoint but that would be a huge challenge to find. So we may have to consider the possibility of discharging her to the guardian if it is not just the court appointed one. Involuntary Hold Information 96 Hour Hold: 96 Hour Involuntary Admission: Yes 96 Hour Hold Ending Date: 11/22/20 96 Hour Hold Ending Time: 17:45 Attestations NPU Medical Necessity Statement*: Inpatient psychiatric hospitalization is medically necessary, because without a structured living situation, the patient is at risk of harming herself. Discharge to be as soon as possible depending on plan for placement. Coding Level of Care Code Acute Dry House Attendant for Anna Stubbs Diagnoses Polysubstance abuse F19.10 Drug-induced psychotic disorder F19.959 Schizophrenia, disorganized, chronic with acute exacerbation F20.1
--- NOTE | 2020-12-23 16:56 | PC.NURSE ---
Benadryl PRN Patient requesting Benadryl for congestion. Will continue to monitor.
[2020-12-23] MEDS: OLANZapine 5 mg ODT PO (17:17)
[2020-12-23] MEDS: nicotine 2 mg Gum BUCCAL (19:23)
[2020-12-23] MEDS: trazodone 50 mg Tablet PO (20:48)
[2020-12-23] MEDS: haloperidol 5 mg Tablet PO (21:24)
[2020-12-23 22:00] VITALS: BP 106/62; PULSE 105; RESP 18; TEMP 36.7; O2SAT 97
[2020-12-23] MEDS: quetiapine 25 mg Tablet 50 MG PO (22:12)
[2020-12-23] MEDS: ibuprofen 600 mg Tablet PO (23:39)
--- NOTE | 2020-12-24 01:39 | PC.NURSE ---
Addendum entered by Palma Tineo RN 12/24/20 02:08: While initially reported Tylenol helpful, did complain of returning headache at 2339. Received IBP at that time. Patient has since been in bed resting. No complaints after this at this time. Original Note: Patient requested and received PRN medications- Trazodone and Benadryl- 2047 for sleep aid to poor effect. Haldol- 2123 for ongoing anxiety/agitation. At 221 patient remained up in hoff with complaints of anxiety, agitation, insomnia, and headache. Took PRN Tylenol and Seroquel at 221. Medications effective. Patient has been in bed resting since. No further complaints voiced at this time.
[2020-12-24 06:00] VITALS: RESP 16
[2020-12-24 14:00] VITALS: BP 93/65; PULSE 88; RESP 18; TEMP 36.5; O2SAT 97
[2020-12-24] MEDS: OLANZapine 5 mg TABLET PO ×2 (15:20→21:07)
[2020-12-24] MEDS: BuSPIRONE 10 mg Tablet 15 MG PO ×2 (15:20→21:07)
[2020-12-24] MEDS: ARIPiprazole 10 mg Tablet 15 MG PO (15:20)
[2020-12-24] MEDS: ibuprofen 600 mg Tablet PO ×2 (16:31→23:16)
[2020-12-24] MEDS: hyDROXYzine 25 mg Capsule 50 MG PO ×2 (17:26→21:07)
--- NOTE | 2020-12-24 17:29 | PC.NURSE ---
ADMINISTERED VISTARIL 50MG PO FOR PT C/O INCREASING ANXIETY.
--- NOTE | 2020-12-24 18:16 | PM.NPN ---
Subjective NPU Subjective: Interval history: The patient continues to come up with potential solutions for her discharge, none of which meet the criteria that the team has set out, namely that it will be a facility that can prevent her from relapsing and drug use as much as possible. This idea does not seem to stick in her head. She does report that her mood is good and she hears no voices or sees no visual hallucinations. No suicidal ideation. No medication side effect. Mental Status Exam MSE Comments: This is a well-nourished, well-developed white female with hospital scrubs on with adequate grooming and eye contact. No abnormal movements. Cooperative with exam in no acute distress. She is unable to cooperate in planning mental health treatment because she does not understand the nature of her difficulties nor what will help them. Speech was at a normal rate and volume. She continues to report her mood is good, affect congruent. Thought process was more organized. Thought content: patient denied suicidal and homicidal ideation. She did not report delusions. She did not endorse auditory or visual hallucinations and did not appear to be attending to internal stimuli. Attention and concentration were limited and memory was unreliable, but none were formally tested. She was alert and oriented x 3 but does not understand why she was brought here or needs to be here. Insight and judgment are impaired, impulse control is limited. Vitals/I&O/Wt Last Vital Signs Temp 97.7 F 12/24/20 14:00 Pulse 88 12/24/20 14:00 Resp 18 12/24/20 14:00 BP 93/65 12/24/20 14:00 Pulse Ox 97 12/24/20 14:00 Weight last 48 hrs Weight 65.317 kg Data NPU : 11/16/20 15:00 11/16/20 15:00 A&P Assessment and plan (1) Polysubstance abuse: Status: Acute (2) Drug-induced psychotic disorder: Status: Acute (3) Schizophrenia, disorganized, chronic with acute exacerbation: Status: Acute Additional A&P Information This is a 35-year-old white female well known to the system who presents with history of schizophrenia and presents with active psychosis likely exacerbated by continued addiction. RECOMMENDATION AND PLAN: 1. Continue current medication. 2. Continue every 15 minute checks for safety. 3. Encourage individual, group and milieu therapies. 4. Encourage sober living treatment after discharge at the highest level of care to which she is willing to commit. 5. Guardianship hearing took place and she was appointed a guardian which was a nonfamily member. 6. Discharge patient to a suitably structured placement. 7. The larger question will be about discharge and placement. Her most concerning behaviors might only be curtailed in a locked unit from a sobriety standpoint but that would be a huge challenge to find. So we may have to consider the possibility of discharging her to the guardian if it is not just the court appointed one. Involuntary Hold Information 96 Hour Hold: 96 Hour Involuntary Admission: Yes 96 Hour Hold Ending Date: 11/22/20 96 Hour Hold Ending Time: 17:45 Attestations NPU Medical Necessity Statement*: Inpatient psychiatric hospitalization is medically necessary, because without a structured living situation, the patient is at risk of harming herself. Discharge to be as soon as possible depending on plan for placement. Coding Level of Care Code Acute Informatics Application Analyst for Anna Stubbs Diagnoses Polysubstance abuse F19.10 Drug-induced psychotic disorder F19.959 Schizophrenia, disorganized, chronic with acute exacerbation F20.1
[2020-12-24] MEDS: nicotine 2 mg Gum BUCCAL (19:25)
[2020-12-24 20:06] VITALS: BP 102/70; PULSE 91; RESP 17; TEMP 37.1; O2SAT 96
[2020-12-24] MEDS: trazodone 50 mg Tablet PO (21:07)
[2020-12-24] MEDS: OLANZapine 5 mg ODT PO (23:17)
--- NOTE | 2020-12-25 00:13 | PC.NURSE ---
Upon assessment patient is in her room. Patient is alert/oriented x4. She has good eye contact and is smiling. She denies any complaints and continue to eat as much as staff will give her. Patient asks for food approx twice an hour.She states she cannot get full. Patient also has trouble getting herself to go to sleep. Patient spends a lot of her time at the Nurse's station area and has to be redirected. Patient appears bored. Will continue to monitor and follow plan of care. q 15 min safety checks per protocol.
[2020-12-25 06:00] VITALS: BP 83/58; PULSE 62; RESP 15; TEMP 36.7; O2SAT 99
[2020-12-25] MEDS: OLANZapine 5 mg TABLET PO ×2 (13:29→20:07)
[2020-12-25] MEDS: BuSPIRONE 10 mg Tablet 15 MG PO ×2 (13:29→20:07)
[2020-12-25] MEDS: ARIPiprazole 10 mg Tablet 15 MG PO (13:29)
[2020-12-25 14:00] VITALS: BP 98/53; PULSE 105; RESP 20; TEMP 36.7; O2SAT 99
[2020-12-25] MEDS: nicotine 21 mg Patch 1 PATCH TRANSDERMA (14:30)
[2020-12-25] MEDS: hyDROXYzine 25 mg Capsule 50 MG PO ×2 (14:31→20:07)
--- NOTE | 2020-12-25 18:09 | PM.NPN ---
Subjective NPU Subjective: Interval history: The patient's presentation is essentially unchanged from yesterday. The patient continues to come up with potential solutions for her discharge, none of which meet the criteria that the team has set out, namely that it will be a facility that can prevent her from relapsing and drug use as much as possible. This idea does not seem to stick in her head. She is in a good mood and denies auditory and visual hallucinations. No suicidal ideation. No medication side effects. Mental Status Exam MSE Comments: This is a well-nourished, well-developed white female with hospital scrubs on with adequate grooming and eye contact. No abnormal movements. Cooperative with exam in no acute distress. She is unable to cooperate in planning mental health treatment because she does not understand the nature of her difficulties nor what will help them. Speech was at a normal rate and volume. She continues to report her mood is good, affect congruent. Thought process was more organized. Thought content: patient denied suicidal and homicidal ideation. She did not report delusions. She did not endorse auditory or visual hallucinations and did not appear to be attending to internal stimuli. Attention and concentration were limited and memory was unreliable, but none were formally tested. She was alert and oriented x 3 but does not understand why she was brought here or needs to be here. Insight and judgment are impaired, impulse control is limited. Vitals/I&O/Wt Last Vital Signs Temp 98.0 F 12/25/20 14:00 Pulse 105 H 12/25/20 14:00 Resp 20 H 12/25/20 14:00 BP 98/53 12/25/20 14:00 Pulse Ox 99 12/25/20 14:00 Weight last 48 hrs Weight 65.317 kg Data NPU : 11/16/20 15:00 11/16/20 15:00 A&P Assessment and plan (1) Polysubstance abuse: Status: Acute (2) Drug-induced psychotic disorder: Status: Acute (3) Schizophrenia, disorganized, chronic with acute exacerbation: Status: Acute Additional A&P Information This is a 35-year-old white female well known to the system who presents with history of schizophrenia and presents with active psychosis likely exacerbated by continued addiction. RECOMMENDATION AND PLAN: 1. Continue current medication. 2. Continue every 15 minute checks for safety. 3. Encourage individual, group and milieu therapies. 4. Encourage sober living treatment after discharge at the highest level of care to which she is willing to commit. 5. Guardianship hearing took place and she was appointed a guardian which was a nonfamily member. 6. Discharge patient to a suitably structured placement. 7. The larger question will be about discharge and placement. Her most concerning behaviors might only be curtailed in a locked unit from a sobriety standpoint but that would be a huge challenge to find. So we may have to consider the possibility of discharging her to the guardian if it is not just the court appointed one. Involuntary Hold Information 96 Hour Hold: 96 Hour Involuntary Admission: Yes 96 Hour Hold Ending Date: 11/22/20 96 Hour Hold Ending Time: 17:45 Attestations NPU Medical Necessity Statement*: Inpatient psychiatric hospitalization is medically necessary, because without a structured living situation, the patient is at risk of harming herself. Discharge to be as soon as possible depending on plan for placement. Coding Level of Care Code Acute Ampoule Washing Machine Operator for Anna Stubbs Diagnoses Polysubstance abuse F19.10 Drug-induced psychotic disorder F19.959 Schizophrenia, disorganized, chronic with acute exacerbation F20.1
[2020-12-25] MEDS: nicotine 2 mg Gum BUCCAL (18:20)
--- NOTE | 2020-12-25 18:21 | SUR.HOLD ---
NICOTINE PATCH REMOVED PROPERLY DISPOSED OF
--- NOTE | 2020-12-25 19:32 | NPU.GN ---
[facility] Group Topic:Stress General Mood of Group: Patient refused group today.
[2020-12-25] MEDS: ibuprofen 600 mg Tablet PO (20:06)
[2020-12-25] MEDS: quetiapine 25 mg Tablet 50 MG PO (20:07)
[2020-12-25 20:24] VITALS: BP 104/78; PULSE 78; RESP 16; TEMP 36.9; O2SAT 97
[2020-12-25] MEDS: trazodone 50 mg Tablet PO (21:08)
[2020-12-25] MEDS: lidocaine 2% viscous 1.667 ML, diphenhydrAMINE oral liq 4.165 MG, aluminum-mag hydrox-s... MUCOUS MEM (21:46)
[2020-12-25] MEDS: OLANZapine 5 mg ODT PO (22:43)
--- NOTE | 2020-12-25 22:58 | PC.NURSE ---
At approximately 1930, staff was getting orientated for evening shift when pt came to the desk requesting sleep and anxiety meds. pt was assured that requested meds would be given with HS meds. At 2006, scheduled HS meds were given, along with Vistaril 50mg po, motrin 600mg po, and seroquel 50mg po were given. At 2107, pt came to the desk nrequesting... can i have ativan? the other girl got ativan and i need some. pt was assured the other girl did not receive ativan. well, can i have something to help me sleep? trazodone 50mg po was given. At 2242, pt again came to the desk. can i get some midol? pt was told the she was given motrin at 2006. i think i could sleep if i can have some midol. pt was told the hospital does not carry midol . but i need a shot in my leg. pt was given zyprexa zydis 5mg SL at this time.
--- NOTE | 2020-12-25 23:33 | PC.NURSE ---
pt resting quietly with both eyes closed at this time.
[2020-12-26 06:00] VITALS: BP 102/79; PULSE 78; RESP 14; TEMP 36.9; O2SAT 97
[2020-12-26] MEDS: OLANZapine 5 mg TABLET PO ×2 (13:33→19:47)
[2020-12-26] MEDS: ARIPiprazole 10 mg Tablet 15 MG PO (13:33)
[2020-12-26] MEDS: BuSPIRONE 10 mg Tablet 15 MG PO ×2 (13:33→19:47)
[2020-12-26 14:00] VITALS: BP 97/64; PULSE 121; RESP 20; TEMP 36.7; O2SAT 97
--- NOTE | 2020-12-26 14:37 | P.PN_ITS ---
Subjective NPU Subjective: Interval history: I met with the treatment team to review the patient's progress. She had told them that her mother had quit her job, so she could watch her 23/09 now. The information we received is that the mother has not quit her job. The patient reports doing fairly well. Sleeping and eating well. Energy is okay. No medication side effects. She continues to have concrete and disorganized thinking. No suicidal or homicidal ideation. No auditory or visual hallucinations. Mental Status Exam MSE Comments: This is a well-nourished, well-developed white female with hospital scrubs on with adequate grooming and eye contact. No abnormal movements. Cooperative with exam in no acute distress. She is unable to cooperate in planning mental health treatment because she does not understand the nature of her difficulties nor what will help them. Speech was at a normal rate and volume. She continues to report her mood is good, affect congruent. Thought process was more organized. Thought content: patient denied suicidal and homicidal ideation. She did not report delusions. She did not endorse auditory or visual hallucinations and did not appear to be attending to internal stimuli. Attention and concentration were limited and memory was unreliable, but none were formally tested. She was alert and oriented x 3 but does not understand why she was brought here or needs to be here. Insight and judgment are impaired, impulse control is limited. Vitals/I&O/Wt Last Vital Signs Temp 98.0 F 12/26/20 14:00 Pulse 121 H 12/26/20 14:00 Resp 20 H 12/26/20 14:00 BP 97/64 12/26/20 14:00 Pulse Ox 97 12/26/20 14:00 Data NPU : 11/16/20 15:00 11/16/20 15:00 A&P Assessment and plan (1) Polysubstance abuse: Status: Acute (2) Drug-induced psychotic disorder: Status: Acute (3) Schizophrenia, disorganized, chronic with acute exacerbation: Status: Acute Additional A&P Information This is a 35-year-old white female well known to the system who presents with history of schizophrenia and presents with active psychosis likely exacerbated by continued addiction. RECOMMENDATION AND PLAN: 1. Continue current medication. I discontinued several of the as needed medications, as the patient is not taking them, or does not need them. 2. Continue every 15 minute checks for safety. 3. Encourage individual, group and milieu therapies. 4. Encourage sober living treatment after discharge at the highest level of care to which she is willing to commit. 5. Guardianship hearing took place and she was appointed a guardian which was a nonfamily member. 6. Discharge patient to a suitably structured placement. 7. The larger question will be about discharge and placement. Her most concerning behaviors might only be curtailed in a locked unit from a sobriety standpoint but that would be a huge challenge to find. So we may have to consid er the possibility of discharging her to the guardian if it is not just the court appointed one. Involuntary Hold Information 96 Hour Hold: 96 Hour Involuntary Admission: Yes 96 Hour Hold Ending Date: 11/22/20 96 Hour Hold Ending Time: 17:45 Attestations NPU Medical Necessity Statement*: Inpatient psychiatric hospitalization is medically necessary, because without a structured living situation, the patient is at risk of harming herself. Discharge to be as soon as possible depending on plan for placement. Coding Level of Care Code Acute Saw Superintendent for Anna Stubbs Diagnoses Polysubstance abuse F19.10 Drug-induced psychotic disorder F19.959 Schizophrenia, disorganized, chronic with acute exacerbation F20.1
[2020-12-26] MEDS: nicotine 2 mg Gum BUCCAL (15:37)
--- NOTE | 2020-12-26 16:25 | NPU.GN ---
[facility] Topic:Lew (Addiction) General Mood of Group: Patient did not attend group.
[2020-12-26] MEDS: hyDROXYzine 25 mg Capsule PO (19:46)
[2020-12-26] MEDS: trazodone 50 mg Tablet PO (19:47)
[2020-12-26] MEDS: ibuprofen 600 mg Tablet PO (19:47)
[2020-12-26 20:08] VITALS: BP 97/68; PULSE 83; RESP 16; TEMP 36.9; O2SAT 97
[2020-12-26] MEDS: lidocaine 2% viscous 1.667 ML, diphenhydrAMINE oral liq 4.165 MG, aluminum-mag hydrox-s... MUCOUS MEM (21:47)
--- NOTE | 2020-12-27 02:28 | PC.NURSE ---
Patient awake at start of shift. Cooperative, social with peers. Denied SI/HI or AVH. Took PRN Vistaril, Ibuprfen, and Trazodone at 1947 to little effect. Continued to ask for additional medications but not able to specify reason for needing medications. Patient did eat snack and go to bed. In bed at this time, resting with eyes closed. No signs of distress noted.
[2020-12-27 06:00] VITALS: RESP 16
[2020-12-27] MEDS: BuSPIRONE 10 mg Tablet 15 MG PO ×2 (09:12→20:02)
[2020-12-27] MEDS: ARIPiprazole 10 mg Tablet 15 MG PO (09:12)
[2020-12-27] MEDS: OLANZapine 5 mg TABLET PO ×2 (09:12→20:02)
--- NOTE | 2020-12-27 11:51 | NPU.GN ---
[facility] Topic: Stress Map General Mood of Group: Aga did not attend group today she wanted to sleep.
[2020-12-27] MEDS: nicotine 2 mg Gum BUCCAL (12:37)
[2020-12-27 13:44] VITALS: BP 91/60; PULSE 123; RESP 18; TEMP 36.5; O2SAT 93
[2020-12-27] MEDS: nicotine 21 mg Patch 1 PATCH TRANSDERMA (14:54)
--- NOTE | 2020-12-27 14:58 | P.PN_ITS ---
Subjective NPU Subjective: Interval history: The patient brought up her referral to a [place] [facility]. She is starting to like this idea, and says she wants some place that she can call home. We talked some about what happened to where she was living prior to admission, but she gets confused and is unable to tell a coherent story about what happened. Today she says she hears buzzers, something she has not disclosed to me before. She says these noises have been present for several years. About the noises she says, I have a body. I am okay. They [what ever is making the noises] do not have a body. So, maybe they are not okay. She denies visual hallucinations. She denies suicidal and homicidal ideation. She has no medication side effects. The patient was able to help a low functioning patient yesterday, by playing games with her for a couple of hours. She felt good doing this and is planning on helping the other patients more today. Mental Status Exam MSE Comments: This is a well-nourished, well-developed white female with hospital scrubs on with adequate grooming and eye contact. No abnormal movements. Cooperative with exam in no acute distress. She is unable to cooperate in planning mental health treatment because she does not understand the nature of her difficulties nor what will help them. Speech was at a normal rate and volume. She continues to report her mood is good, affect congruent. Thought process was more organized. Thought content: patient denied suicidal and homicidal ideation. She did not report delusions. The patient says she has auditory hallucinations, in the form of hearing buzzers. These appear to be some sort of alarm that goes off indicating someone is in need. She did not endorse visual hallucinations and did not appear to be attending to internal stimuli. Attention and concentration were limited and memory was unreliable, bu t none were formally tested. She was alert and oriented x 3 but does not understand why she was brought here or needs to be here. Insight and judgment are impaired, impulse control is limited. Vitals/I&O/Wt Last Vital Signs Temp 97.7 F 12/27/20 13:44 Pulse 123 H 12/27/20 13:44 Resp 18 12/27/20 13:44 BP 91/60 12/27/20 13:44 Pulse Ox 93 12/27/20 13:44 Data NPU : 11/16/20 15:00 11/16/20 15:00 A&P Assessment and plan (1) Polysubstance abuse: Status: Acute (2) Drug-induced psychotic disorder: Status: Acute (3) Schizophrenia, disorganized, chronic with acute exacerbation: Status: Acute Additional A&P Information This is a 35-year-old white female well known to the system who presents with history of schizophrenia and presents with active psychosis likely exacerbated b y continued addiction. RECOMMENDATION AND PLAN: 1. Continue current medication. I discontinued several of the as needed medications, as the patient is not taking them, or does not need them. 2. Continue every 15 minute checks for safety. 3. Encourage individual, group and milieu therapies. 4. Encourage sober living treatment after discharge at the highest level of care to which she is willing to commit. 5. Guardianship hearing took place and she was appointed a guardian which was a nonfamily member. 6. Discharge patient to a suitably structured placement. 7. The larger question will be about discharge and placement. Her most concerning behaviors might only be curtailed in a locked unit from a sobriety standpoint but that would be a huge challenge to find. So we may have to conside r the possibility of discharging her to the guardian if it is not just the court appointed one. Involuntary Hold Information 96 Hour Hold: 96 Hour Involuntary Admission: Yes 96 Hour Hold Ending Date: 11/22/20 96 Hour Hold Ending Time: 17:45 Attestations NPU Medical Necessity Statement*: Inpatient psychiatric hospitalization is medically necessary, because without a structured living situation, the patient is at risk of harming herself. Discharge to be as soon as possible depending on plan for placement. Coding Level of Care Code Acute Open Hearth Furnace Operator for Anna Fwd Diagnoses Polysubstance abuse F19.10 Drug-induced psychotic disorder F19.959 Schizophrenia, disorganized, chronic with acute exacerbation F20.1
[2020-12-27] MEDS: hyDROXYzine 25 mg Capsule PO ×2 (15:05→22:07)
[2020-12-27] MEDS: diphenhydrAMINE 25 mg Capsule PO (17:40)
[2020-12-27] MEDS: trazodone 50 mg Tablet PO (20:02)
[2020-12-27 20:20] VITALS: BP 98/64; PULSE 105; RESP 16; TEMP 36.9; O2SAT 98
--- NOTE | 2020-12-28 04:42 | PC.NURSE ---
Patient calm and cooperative at this time. Denies SI/HI or AVH. Does endorse mild anxiety. Trouble falling asleep but was directable to relaxation suggestions. Has been in bed for remainder of night, resting with eyes close. No complaints voiced. No signs of distress noted.
[2020-12-28 05:50] VITALS: RESP 17
[2020-12-28] MEDS: BuSPIRONE 10 mg Tablet 15 MG PO ×2 (09:28→20:48)
[2020-12-28] MEDS: OLANZapine 5 mg TABLET PO ×2 (09:28→20:49)
[2020-12-28] MEDS: ARIPiprazole 10 mg Tablet 15 MG PO (09:28)
--- NOTE | 2020-12-28 12:09 | NPU.GN ---
[facility] Topic:My Favorite Things General Mood of Group: Aga did not attend group today.
[2020-12-28] MEDS: nicotine 21 mg Patch 1 PATCH TRANSDERMA (12:22)
[2020-12-28 14:00] VITALS: BP 98/55; PULSE 100; RESP 16; TEMP 36.6; O2SAT 97
--- NOTE | 2020-12-28 15:44 | P.PN_ITS ---
Subjective NPU Subjective: Interval history: The patient said there is a spider loose inside my brain, and it was not clear what she was talking about. She did not want to go to group today. Met with the team and talked about her mother's proposal that close friends of the family could watch the patient while the mother was at work. We actually asked that this was a possibility a number of weeks ago. It does appear that this will the as get a solution as possible. Mental Status Exam MSE Comments: This is a well-nourished, well-developed white female with hospital scrubs on with adequate grooming and eye contact. No abnormal movements. Cooperative with exam in no acute distress. She is unable to cooperate in planning mental health treatment because she does not understand the nature of her difficulties nor what will help them. Speech was at a normal rate and volume. She continues to report her mood is good, affect congruent. Thought process was more organized. Thought content: patient denied suicidal and homicidal ideation. She did not report delusions. The patient says she has auditory hallucinations, in the form of hearing buzzers. These appear to be some sort of alarm that goes off indicating someone is in need. She did not endorse visual hallucinations and did not appear to be attending to internal stimuli. Attention and concentration were limited and memory was unreliable, but none were formally tested. She was alert and oriented x 3 but does not understand why she was brought here or needs to be here. Insight and judgment are impaired, impulse control is limited. Vitals/I&O/Wt Last Vital Signs Temp 98.5 F 12/27/20 20:20 Pulse 105 H 12/27/20 20:20 Resp 17 12/28/20 05:50 BP 98/64 12/27/20 20:20 Pulse Ox 98 12/27/20 20:20 Data NPU : 11/16/20 15:00 11/16/20 15:00 A&P Assessment and plan (1) Polysubstance abuse: Status: Chronic (2) Drug-induced psychotic disorder: Status: Resolved (3) Schizophrenia, disorganized, chronic with acute exacerbation: Status: Chronic Additional A&P Information This is a 35-year-old white female well known to the system who presents with history of schizophrenia and presents with active psychosis likely exacerbated by continued addiction. RECOMMENDATION AND PLAN: 1. Continue current medication. 2. Continue every 15 minute checks for safety. 3. Encourage individual, group and milieu therapies. 4. Encourage sober living treatment after discharge at the highest level of care to which she is willing to commit. 5. Guardianship hearing took place and she was appointed a guardian which was a nonfamily member. 6. Discharge patient to a suitably structured placement. 7. I have decided to discharge the patient to her guardian tomorrow, with additional support from close family friends to supervise the patient while the mom is at work. Involuntary Hold Information 96 Hour Hold: 96 Hour Involuntary Admission: Yes 96 Hour Hold Ending Date: 11/22/20 96 Hour Hold Ending Time: 17:45 Attestations NPU Medical Necessity Statement*: Inpatient psychiatric hospitalization is medically necessary, because without a structured living situation, the patient is at risk of harming herself. Discharge to be as soon as possible depending on plan for placement. Coding Level of Care Code Acute Packing Machine Inspector for Anna Owusud Diagnoses Polysubstance abuse F19.10 Drug-induced psychotic disorder F19.959 Schizophrenia, disorganized, chronic with acute exacerbation F20.1
[2020-12-28] MEDS: nicotine 2 mg Gum BUCCAL (17:36)
[2020-12-28] MEDS: hyDROXYzine 25 mg Capsule PO ×2 (20:48→22:33)
[2020-12-28] MEDS: trazodone 50 mg Tablet PO (20:49)
[2020-12-28] MEDS: lidocaine 2% viscous 1.667 ML, diphenhydrAMINE oral liq 4.165 MG, aluminum-mag hydrox-s... MUCOUS MEM (21:30)
[2020-12-28 21:35] VITALS: BP 102/60; PULSE 78; RESP 18; TEMP 36.5; O2SAT 97
[2020-12-29 06:00] VITALS: RESP 15
[2020-12-29] MEDS: ARIPiprazole 10 mg Tablet 15 MG PO (09:41)
[2020-12-29] MEDS: BuSPIRONE 10 mg Tablet 15 MG PO (09:41)
[2020-12-29] MEDS: OLANZapine 5 mg TABLET PO (09:41)
[2020-12-29] MEDS: nicotine 21 mg Patch 1 PATCH TRANSDERMA (11:19)
--- NOTE | 2020-12-29 11:39 | PM.NDC ---
Diagnoses at Discharge Discharge Diagnosis (1) Polysubstance abuse: Status: Chronic (2) Drug-induced psychotic disorder: Status: Resolved (3) Schizophrenia, disorganized, chronic with acute exacerbation: Status: Chronic Reason for Visit Reason for Visit: PSYCH EVAL Brief History: Aga Lai is a 35 year old female who presented to the emergency department with the following report: Chief Complaint: Psychiatric Symptoms Stated Complaint: PSYCH EVAL Time Seen by Provider: 11/16/20 13:17 History of Present Illness: HPI Narrative: Ms. Lai is a 35-year-old lady with unclear history who presents the emergency department via law enforcement due to altered mental status and psychiatric concern. Upon initial evaluation patient is markedly agitated, she required physical restraints and subsequently chemical restraints. Her speech is rapid, pressured, tangential. She expresses nonsensical speech at times and has delusions. Unable to redirect or provide meaningful history. The exact course, duration, provoking, exacerbating, or alleviating factors is unclear. The intensity of her current symptoms appears to be severe. No other meaningful history provided. She was admitted to the neuropsychiatric unit for definitive treatment of those issues. Patient was significantly subdued secondary to medications received prior to admission to the unit. She was unable to provide any significant history. Later she did wake up she got a snack and ate some applesauce. She was speaking completely nonsensical. She had some water after that and questions that were asked were not answered in any way and ended up in weird tangential psychotic garble. We discussed the risk benefits and alternatives and that we had restarted her medications and it is unclear if she understood. An excerpt of her 09/02/2020 inpatient hospitalization is included below for context given her limited ability to give a history. Per her 09/02/2020 [facility] inpatient psychiatric evaluation: History of Present Illness Aga Lai is a 34 year old female with a reported history of schizophrenia, bipolar disorder and borderline personality disorder although there does not appear to be any serial observation for any length of time outside the influence of substances other than during a 30-day hospitalization in January 2020. Patient was brought in by police and was placed on 96-hour hold after being found wandering down the road under the influence of substances and alcohol. Patient was somewhat combative at the time of initial evaluation in the emergency department and was given as needed medication. Patient was medically cleared in emergency department prior to admission to inpatient psychiatry. Patient reports that she did not continue to take any medication after leaving the hospital in January 2020 and has not followed up with any mental health care provider. Furthermore, she denies follow-up with any substance treatment. Patient does not appear to be disorganized and is able to communicate in a linear, organized but brief fashion secondary to being soporific from recent amphetamine use. Patient does not a good historian at this time given that she continues to fall asleep during interview. She gave permission for collateral information from her mother although her mother's phone is not a septic voicemail messages at this time. Patient does report auditory and visual loose [place] although she currently denies any at this time and it is unclear with regards to relationship with her ongoing substance and alcohol use. Patient was previously treated with mood stabilizing medication as well as antipsychotics but per above discontinued abruptly at the time of discharge. Patient was unable to complete psychiatric review of systems at this time. Hospital Course Hospital Course The patient was admitted to the neuropsychiatric unit for definitive treatment of these issues. On the unit she slowly acclimated to the individual, group and milieu therapies. There were some mild psychotic symptoms present initially which resolved with the medication being restarted. She was given oral Abilify along with the Zyprexa she had been taking at 5 mg twice daily. On 12/04/2020 she was given Abilify Maintena IM 400 mg. She will get the next dose on 01/03/2021. She was receptive to treatment team recommendations and showed modest improvement and was able to contract for safety prior to discharge. During the hospitalization, patient had routine laboratory studies which were within normal limits except for few outliers. Additionally there was a general medical evaluation which was also within normal limits and revealed no new acute processes. Since the patient had been admitted on several occasions, and was locked in a cycle of using drugs, becoming psychotic, admitted to the hospital, clearing psychosis, return to the community, and using drugs again? Guardianship was sought and obtained by the hospital. Her guardian is Viktor Plunkett [facility] Public enterprise application administrator. We sought a placement for the patient, but all of the residential care facilities were unwilling to take her without Medicaid in place. At last, the patient's mother found people who could watch the patient while the mother was at work. This was a reasonable enough solution to provide her the least restrictive level of care. Discharge Summary: At the time of discharge, psychosis and lethality were denied. She did continue to have some disorganized thinking, which is at her baseline. Mood and anxiety were well managed. Patient endorsed a plan to avoid all drugs of abuse and follow-up with the aftercare recommendations of the treatment team. Patient was evaluated and deemed to be absent credible lethality, and had achieved the maximum benefit from an inpatient hospitalization, so was discharged. Involuntary Hold Information 96 Hour Hold: 96 Hour Involuntary Admission: Yes 96 Hour Hold Ending Date: 11/22/20 96 Hour Hold Ending Time: 17:45 Mental Status Exam MSE Comments: The patient made good eye contact and was cooperative and open to the exam. No psychomotor agitation or retardation. Speech was had a regular rate and rhythm without pressure. Alert and oriented to person, place, time, and situation. Attention and concentration were intact to exam Memory was fairly good to exam. Mood is improved without depression and anxiety. Affect is brighter. Thought process: some disorganization. No racing thoughts or flight of ideas. Thought content: Denies auditory and visual hallucinations. There are no delusions noted. No suicidal or homicidal ideation. Has future-oriented goals. Insight and judgment are improved and adequate. Discharge Data Vitals: Last Vital Signs Temp 97.7 F 12/28/20 21:35 Pulse 78 12/28/20 21:35 Resp 15 12/29/20 06:00 BP 102/60 12/28/20 21:35 Pulse Ox 97 12/28/20 21:35 Discharge Plan Discharge Patient Disposition: Home Condition: Stable Prescriptions: New olanzapine 5 mg Tablet 5 mg PO 899,2099 30 Days Qty: 60 RF: 1 aripiprazole 10 mg Tablet 15 mg PO DAILY 30 Days Qty: 45 RF: 0 buspirone 10 mg Tablet 15 mg PO 0900,2100 30 Days Qty: 90 RF: 1 hydroxyzine pamoate 25 mg Capsule 25 mg PO Q6H PRN (Reason: Anxiety or Sleep) 30 Days Qty: 120 RF: 0 trazodone 50 mg Tablet 50 mg PO BEDTIME 30 Days Qty: 30 RF: 1 Abilify Maintena 400 mg suspension,extended rel recon 400 mg IM Q30D 30 Days Qty: 1 RF: 0 Discontinued olanzapine 5 mg tablet 5 mg PO Q12H RF: 0 Discharge Orders: Discharge Order (Routine); Ordered 12/29/20 Ordered By: Nabeel Beaulieu Referrals: [facility] [Outside] - 01/02/21 12:30 pm (Appointment to complete initial assessment on 01/02/2021 @ 12:30pm.) Kandi Nguyen PMHNP [Staff Physician] - 01/03/21 10:00 am (Medications appointment with Kandi Nguyen on 01/03/21 at 10:00am. Be sure to go by the [facility] to olive picker the Abilify injection prior to appointment. ) Adriano Slulivan, [Primary Care Provider] - Discharge Diet: Usual diet Discharge Activity: Resume usual activity Patient Instructions: Opioid Safety Discharge Attestations NPU Time Spent in Discharge Care*: greater than 30 min Specific Discharge Activities: Specific discharge activities: educating patient, discussing with trimming caser/social workers/dc planners, documenting/other paperwork and evaluating patient/reviewing data Status at Discharge: Cognitive status at discharge: mildly impaired cognition, Behavioral status at discharge: cooperative, Functional status at discharge: independent ambulation Overall status at discharge: patient is back to baseline Coding Level of Care Code Acute Chg FW DC note Diagnoses Polysubstance abuse F19.10 Drug-induced psychotic disorder F19.959 Schizophrenia, disorganized, chronic with acute exacerbation F20.1
--- NOTE | 2020-12-29 12:28 | NPU.GN ---
[facility] Topic:Lyric General Mood of Group: Aga did not attend group as she wanted to sleep.
== END 2020-12-29 15:22 | disposition home or self-care (01) | DRG 885 ==
LOC: ER 17:20 → NP 17:54
PROVIDERS: Admitting Provider Psychiatry & Neurology Psychiatry; Emergency Provider Emergency Medicine; PCP Electrodiagnostic Medicine; Visit Provider Psychiatry & Neurology Child & Adolescent Psychiatry
DX: F25.0 Schizoaffective disorder, bipolar type (principal); F15.159 Other stimulant abuse with stimulant-induced psychotic disorder, unspecified; F12.10 Cannabis abuse, uncomplicated; F15.10 Other stimulant abuse, uncomplicated; F60.3 Borderline personality disorder
CPT/HCPCS: 36416; 80053; 80306; 80307; 81001; 81025; 82550; 82962; 84439; 84443; 85025; 96360; 96372; 97150; 97165; 99285; J1630; J2060; J2250; J7030; Q0162

== ENCOUNTER 2021-11-11 23:14 | Emergency (ER) | payer MEDICAID, SELFPAY ==
[2021-11-11 23:15] VITALS: BP 120/80; RESP 120; O2SAT 99; BMI 25.6
--- NOTE | 2021-11-11 23:38 | ED.C_ITS ---
HPI - Psych General: Chief Complaint: Psychiatric Symptoms Stated Complaint: HALLUCINATIONS Time Seen by Provider: 11/11/21 23:35 History of Present Illness: 36-year-old female was brought in by EMS for concerns of hallucinations. Patient is very talkative and denies any alcohol use or drug use except marijuana. Patient reports that she is was staying at a hotel and had walked down to [place] to get a snack but another patron was standing behind her getting in patient which upset her. The police were called and they were concerned for her safety due to her disorganized thoughts and possible hallucinations. Patient is very disorganized in her speech pattern and has a hard time clearly expressing her thoughts. I am able to redirect patient to the surroundings and converse with her. Patient has a history of schizophrenia disorganized, polysubstance abuse. 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, early partial, sustained full, or sustained partial remission Bipolar disorder Borderline personality disorder Cannabis dependence in early, early partial, sustained full, or sustained partial remission Cannabis dependence, uncomplicated Chronic schizophrenia 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 Hypnagogic hallucinations Nicotine dependence, cigarettes, uncomplicated Other schizophrenia Psychiatric care Schizophrenia, disorganized, chronic with acute exacerbation Substance use Surgical History No pertinent past surgical history Family History Father Suicide Alcohol abuse Schizophrenia Bipolar disorder Substance abuse Mother Depression Social History Smoking and tobacco status: unknown if ever smoked Alcohol intake: current Alcohol intake frequency: few times a week Alcohol type: beer, wine and hard liquor Desire information about alcohol rehabilitation?: No Counseling given: No (information given) Last alcohol use date: 09/01/20 Desire information about substance/drug rehabilitation?: No Adopted: No Caregiver/support person: No Lives independently: Yes Household members: spouse Housing: House Marital status: Marital status details: partner has substance abuse issues also Number of children: 3 Highest education level completed: GED or Equivalent service: No Current occupational status: unemployed 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 Leisure activites: art and music Sexually active: Yes Current gender identity: Female Special kong needs: No Agree to transfusion: Yes Financial difficulty paying for basics: Hard Female Reproductive History: Date of last menstrual period: 11/15/20 Physical Exam Const: COMMON NORMALS: alert HENMT: COMMON NORMALS: normocephalic HEAD & SCALP: normocephalic Neck/C-Spine: COMMON NORMALS: full ROM Resp: COMMON NORMALS: normal respiratory effort and clear to auscultation bilaterally AUSCULTATION: clear to auscultation bilaterally Cardio: COMMON NORMALS: regular rate and regular rhythm RATE: regular rate RHYTHM: regular rhythm Back/Pelvis: COMMON NORMALS: thoracic and lumbar spine normal to inspection Extremity: COMMON NORMALS: full ROM Neuro: SENSORIUM/ORIENTATION: Yes alert Psych: APPEARANCE: Yes disheveled ATTITUDE: Yes bizarre ACTIVITY/MOTOR BEHAVIOR: Yes fidgeting and Yes disorganized behavior SPEECH: Yes excessive MOOD & AFFECT: Yes elevated mood THOUGHT PROCESS: disorganized and Flight of ideas present THOUGHT CONTENT: No Suicidality present and No Homicidality pre sent MEMORY/COGNITION: Yes memory grossly intact INSIGHT: Limited insight present (Psych) JUDGEMENT: Limited judgement present (Psych) Course Vital Signs: Vital signs: Vital Signs Respiratory Rate 120 H 11/11/21 23:15 Blood Pressure 120/80 11/11/21 23:15 Pulse Oximetry 99 11/11/21 23:15 [facility] - Psych Medical Decision Making Patient was brought in by EMS and law enforcement for concerns of bizarre behavior and hallucinations. Patient was at the [employer] station becoming belligerent with staff because they would not help her with her homework and patient also reported there was something strange in the bushes. Patient does have disorganized schizophrenia and polysubstance abuse. Patient does admit to using cannabis but no other drugs or alcohol. Patient was able to be redirected and answer questions. Patient denies suicidal or homicidal thoughts. Patient has not been taking any medications but does go to behavioral health counseling. Differential diagnosis includes acute psychosis, substance abuse, major depressive disorder, bipolar disorder. Discharge Plan Discharge Patient Disposition: Home Clinical Impression: Chronic disorganized schizophrenia Condition: Stable Prescriptions: No Action Abilify Maintena 400 mg suspension,extended rel recon 400 mg IM Q28D Qty: 1 2RF amitriptyline 10 mg tablet 10 mg PO .HS Qty: 30 1RF buspirone 10 mg tablet 15 mg PO 0900,2100 30 Days Qty: 90 1RF olanzapine 5 mg tablet 5 mg PO 0900,2100 30 Days Qty: 60 1RF aripiprazole [Abilify] 15 mg tablet 15 mg PO DAILY Qty: 30 1RF hydroxyzine pamoate 25 mg capsule 25 mg PO Q6H PRN (Reason: Anxiety or Sleep) 30 Days Qty: 120 1RF Discharge Orders: Discharge ED (Routine); Ordered 11/12/21 Ordered By: Chandana Borges Referrals: Adriano Sullivan DO [Primary Care Provider] - Patient Instructions: Opioid Safety Activity Restrictions/Additional Instructions: Continue with routine home medications. Healthy diet and activity. Follow-up with primary care or behavioral health pet care assistant for further treatment. Return to ER for new concerns. Coding Level of Care Code ED Data Conversion Developer for Bethg Fwd Exam Comprehensive
[2021-11-11] MEDS: OLANZapine 10 mg ODT PO (23:44)
== END 2021-11-12 01:42 | disposition home or self-care (01) ==
PROVIDERS: Emergency Provider Nurse Practitioner Family; PCP Electrodiagnostic Medicine
DX: F20.1 Disorganized schizophrenia (principal)
CPT/HCPCS: 99283

== ENCOUNTER 2021-11-13 02:01 | Inpatient (IN) | payer MEDICAID, SELFPAY ==
[2021-11-13 01:55] VITALS: PULSE 114; RESP 18; TEMP 36.8; O2SAT 99; BMI 29.2
--- NOTE | 2021-11-13 02:06 | ED.C_ITS ---
HPI - Psych General: Chief Complaint: Psychiatric Symptoms Stated Complaint: psychiatric evaluation Time Seen by Provider: 11/13/21 02:03 Source: patient and police Mode of arrival: other (police) Limitations: no limitations History of Present Illness: 36-year-old female has a history of schizophrenia along with methamphetamine abuse she is brought here by police she is wandering the streets and yelling at people's homes and knocking on the doors here patient is acutely psychotic she has flight of ideas she is extremely paranoid she denies any suicidal homicidal ideations history is difficult due to her psychoses. Associated symptoms: Reports auditory hallucinations and delusions Review of Systems Const: Denies: fever(s), chills, body aches or change in appetite Eyes: Denies: blurry vision or eye discomfort ENMT: Denies: throat pain or dental pain Card: Denies: chest pain Resp: Denies: dyspnea GI: Denies: abdominal pain, nausea, vomiting or diarrhea : Denies: dysuria Musc: Denies: neck pain or back pain Skin/Breast: Denies: rash Neuro: Denies: headache(s) Psych: Reports: paranoia and auditory hallucinations [place]/Lymph: Denies: easy bruising All/Imm: Denies: urticaria PFSH ED PFSH: Medical History Acute exacerbation of subchronic schizophrenia Acute psychosis Alcohol dependence in early, early partial, sustained full, or sustained partial remission 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, early partial, sustained full, or sustained partial remission Bipolar disorder Borderline personality disorder Cannabis dependence in early, early partial, sustained full, or sustained partial remission Cannabis dependence, uncomplicated Chronic schizophrenia 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 Hypnagogic hallucinations Nicotine dependence, cigarettes, uncomplicated Other schizophrenia Psychiatric care Schizophrenia, disorganized, chronic with acute exacerbation Substance use Surgical History No pertinent past surgical history Family History Father Suicide Alcohol abuse Schizophrenia Bipolar disorder Substance abuse Mother Depression Social History Smoking and tobacco status: unknown if ever smoked Alcohol intake: current Alcohol intake frequency: few times a week Alcohol type: beer, wine and hard liquor Desire information about alcohol rehabilitation?: No Counseling given: No (information given) Last alcohol use date: 09/01/20 Desire information about substance/drug rehabilitation?: No Adopted: No Caregiver/support person: No Lives independently: Yes Household members: spouse Housing: House Marital status: Marital status details: partner has substance abuse issues also Number of children: 3 Highest education level completed: GED or Equivalent service: No Current occupational status: unemployed 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 Leisure activites: art and music Sexually active: Yes Current gender identity: Female Special kong needs: No Agree to transfusion: Yes Financial difficulty paying for basics: Hard Female Reproductive History: Date of last menstrual period: 11/15/20 Physical Exam Const: COMMON NORMALS: patient oriented x3 GENERAL APPEARANCE: anxious and disheveled HENMT: COMMON NORMALS: normocephalic and atraumatic HEAD & SCALP: normocephalic and atraumatic Eye: COMMON NORMALS: Equal, round and reactive pupils present and EOMs intact bilaterally PUPIL: Yes Equal, round and reactive pupils present Neck/C-Spine: COMMON NORMALS: full ROM and supple Chest: COMMONS NORMALS: normal inspection of the chest and normal palpation of entire chest wall Resp: COMMON NORMALS: normal respiratory effort, No retractions, No use of accessory muscles and clear to auscultation bilaterally AUSCULTATION: clear to auscultation bilaterally Cardio: COMMON NORMALS: regular rate, regular rhythm and No murmurs present (Cardio) RATE: regular rate RHYTHM: regular rhythm GI: COMMON NORMALS: Normal to inspection, nondistended, normoactive bowel sounds present, Soft to palpation, non-tender and no masses PALPATION: Yes Soft to palpation Extremity: COMMON NORMALS: normal to inspection and full ROM Neuro: COMMON NORMALS: patient oriented x3, moves all extremities and no focal motor deficits Psych: COMMON NORMALS: cooperative APPEARANCE: Yes disheveled ATTITUDE: Yes paranoid and Yes bizarre THOUGHT CONTENT: Yes delusions and Yes Hallucination(s) present Skin: COMMON NORMALS: no rashes or lesions noted and no wounds GENERAL SKIN EXAM: no rashes or lesions noted Course Vital Signs: Vital signs: Vital Signs Temperature 98.3 F 11/13/21 01:55 Pulse Rate 114 H 11/13/21 01:55 Respiratory Rate 18 11/13/21 01:55 Pulse Oximetry 99 11/13/21 01:55 MDM - Psych Medical Decision Making Patient presents here with acute psychosis likely methamphetamine induced along with her schizophrenia patient is not in her right mind this was her second visit in 2 nights I do not feel she is stable for discharge on her own spoke to the psychiatrist and will admit at this time. Discharge Plan Discharge Patient Disposition: Admitted As Inpatient Clinical Impression: Acute psychosis Condition: Stable Prescriptions: No Action Abilify Maintena 400 mg suspension,extended rel recon 400 mg IM Q28D Qty: 1 2RF amitriptyline 10 mg tablet 10 mg PO .HS Qty: 30 1RF buspirone 10 mg tablet 15 mg PO 0900,2099 30 Days Qty: 90 1RF olanzapine 5 mg tablet 5 mg PO 0900,2099 30 Days Qty: 60 1RF aripiprazole [Abilify] 15 mg tablet 15 mg PO DAILY Qty: 30 1RF hydroxyzine pamoate 25 mg capsule 25 mg PO Q6H PRN (Reason: Anxiety or Sleep) 30 Days Qty: 120 1RF Referrals: Adriano Sullivan DO [Primary Care Provider] - Coding Level of Care Code ED Barrel Rib Matting Machine Operator for Chg Fwd Exam Comprehensive
[2021-11-13] MEDS: LORazepam 2 mg Tablet PO (02:20)
[2021-11-13] MEDS: ziprasidone 20 mg/mL SDV IM (02:20)
[2021-11-13 02:57] LABS: Amphetamines Screen Urine Positive (Negative); Barbiturates Screen Urine Negative (Negative); Benzodiazepines Screen Urine Negative (Negative); Cocaine Screen Urine Negative (Negative); Opiate Screen Urine Negative (Negative); PCP Screen Urine Negative (Negative); THC Screen Urine Positive (Negative)
[2021-11-13 03:13] LABS: Specific Gravity, Urine 1.025 (1.005-1.030); Urine Appearance Cloudy (CLEAR); Urine Color Yellow (Yellow); pH Urine 5 (5-7)
[2021-11-13 03:14] LABS: Add Urine Microscopic? YES; Bilirubin Urine 1+ (Negative); Blood Urine 3+ (Negative); Glucose Urine UA Norm (Normal); Ketones Urine 1+ (Negative); Leukocyte Esterase Urine 2+ (Negative); Nitrate Urine Negative (Negative); Protein Urine 1+ (Negative); RBC Urine 25-40 /hpf (0-2); Urobilinogen Urine 4 mg/dL (Negative); WBC Urine 40-55 /hpf (0-5)
[2021-11-13 03:15] LABS: Add Urine Culture? Yes; Amorphous Sediment Urine 1+ /hpf; Bacteria Urine 2+ /hpf; Calcium Oxalate Crystals Urine 0-4 /hpf; Hyaline Casts Urine 0-4 /lpf
[2021-11-13 04:11] LABS: Basophils # 0.1 10^3/uL (0.0-0.1); Basophils % 0.7 %; Eosinophils # 0.1 10^3/uL (0.0-0.8); Eosinophils % 1.2 %; Hematocrit 37.5 % (37.0-47.0); Hemoglobin 12.3 g/dL (11.5-15.3); Lymphocytes # 3.1 10^3/uL (0.8-4.8); Mean Corpuscular HGB Conc 32.8 g/dL (30.0-36.0); Mean Corpuscular Hemoglobin 30.1 pg (28.0-34.0); Mean Corpuscular Volume 91.9 fl (81-99); Mean Platelet Volume 10.1 fL (7.4-10.4); Monocytes % 9.8 %; Neutrophils # 5.45 10^3/uL (1.8-7.7); Neutrophils % 56.1 %; Nucleated Red Blood Cells % 0 %; Platelet Count 325 10^3/cmm (130-400); Red Blood Count 4.08 10^6/uL (4.1-5.3); Red Cell Distribution Width 14.3 % (12.1-15.1); White Blood Count 9.7 10^3/uL (4.0-10.0)
[2021-11-13 04:41] LABS: Acetaminophen < 5.0 ug/mL (10-30); Alanine Aminotransferase 24 U/L (0-33); Albumin Level 3.8 g/dL (3.5-5.2); Alkaline Phosphatase 90 U/L (35-105); Anion Gap 15.5 (5-19); Aspartate Amino Transferase 36 U/L (0-32); Blood Urea Nitrogen 11 mg/dL (6-20); Calcium 9.3 mg/dL (8.5-10.5); Carbon Dioxide 24 mmol/L (22-29); Chloride 104 mmol/L (98-107); Creatinine Clr Calc Pharmacy 90.6867; Globulin 2.8 g/dL (1.3-4.6); Glomerular Filtration Rate 81.2 mL/min (90-130); Glucose 74 mg/dL (65-115); Osmolality Calculated 288 mOsm/kg (285-295); Potassium 3.5 mmol/L (3.5-5.1); Salicylate < 0.3 mg/dL (3-10); Sodium 140 mmol/L (136-145); Total Bilirubin 0.2 mg/dL (0.15-1.2); Total Protein 6.6 g/dL (6.6-8.7)
[2021-11-13 04:44] VITALS: BP 98/58; PULSE 79; RESP 18; O2SAT 95
[2021-11-13 04:45] LABS: Thyroid Stimulating Hormone 4.09 uIU/mL (0.27-4.20)
[2021-11-13 04:46] LABS: Alcohol Level < 10 mg/dL (0-10)
[2021-11-13 05:18] LABS: HCG Qualitative Urine. Negative (Negative)
[2021-11-13 06:00] VITALS: RESP 18
--- NOTE | 2021-11-13 13:35 | W.PM.NPUH&PS ---
Providers/Chief Complaint Admitting Physician: Cj Crews MD Primary Care Provider: Adriano Sullivan DO Chief Complaint: psychiatric evaluation HPI NPU History of Present Illness Aga Lai is a 36 year old female who presented to the emergency department with the following report: Chief Complaint: Psychiatric Symptoms Stated Complaint: psychiatric evaluation Time Seen by Provider: 11/13/21 02:03 Source: patient and police Mode of arrival: other (police) Limitations: no limitations History of Present Illness: 36-year-old female has a history of schizophrenia along with methamphetamine abuse she is brought here by police she is wandering the streets and yelling at people's homes and knocking on the doors here patient is acutely psychotic she has flight of ideas she is extremely paranoid she denies any suicidal homicidal ideations history is difficult due to her psychoses. Associated symptoms: Reports auditory hallucinations and delusions She was admitted to the neuropsychiatric unit for definitive treatment of those issues. She presents today seeming to be crashing from likely methamphetamine use. She is well-known to this unit from very prolonged stays where an her psychosis would not break. Concerns exist as to whether continued episodes like this will create an environment where her recovery is not possible due to toxic impact from the psychosis and drug abuse. She could give no functional history. An excerpt of her December 2020 discharge summary is included below for context. Per her 12/29/2020 [facility] inpatient psychiatric discharge summary: PSYCH EVAL Brief History: Aga Lai is a 35 year old female who presented to the emergency department with the following report: Chief Complaint: Psychiatric Symptoms Stated Complaint: PSYCH EVAL Time Seen by Provider: 11/16/20 13:17 History of Present Illness: HPI Narrative: Ms. Lai is a 35-year-old lady with unclear history who presents the emergency department via law enforcement due to altered mental status and psychiatric concern. Upon initial evaluation patient is markedly agitated, she required physical restraints and subsequently chemical restraints. Her speech is rapid, pressured, tangential. She expresses nonsensical speech at times and has delusions. Unable to redirect or provide meaningful history. The exact course, duration, provoking, exacerbating, or alleviating factors is unclear. The intensity of her current symptoms appears to be severe. No other meaningful history provided. She was admitted to the neuropsychiatric unit for definitive treatment of those issues. Patient was significantly subdued secondary to medications received prior to admission to the unit. She was unable to provide any significant history. Later she did wake up she got a snack and ate some applesauce. She was speaking completely nonsensical. She had some water after that and questions that were asked were not answered in any way and ended up in weird tangential psychotic garble. We discussed the risk benefits and alternatives and that we had restarted her medications and it is unclear if she understood. An excerpt of her 09/02/2020 inpatient hospitalization is included below for context given her limited ability to give a history. Per her 09/02/2020 [facility] inpatient psychiatric evaluation: History of Present Illness Aga Lai is a 34 year old female with a reported history of schizophrenia, bipolar disorder and borderline personality disorder although there does not appear to be any serial observation for any length of time outside the influence of substances other than during a 30-day hospitalization in January 2020. Patient was brought in by police and was placed on 96-hour hold after being found wandering down the road under the influence of substances and alcohol. Patient was somewhat combative at the time of initial evaluation in the emergency department and was given as needed medication. Patient was medically cleared in emergency department prior to admission to inpatient psychiatry. Patient reports that she did not continue to take any medication after leaving the hospital in January 2020 and has not followed up with any mental health care provider. Furthermore, she denies follow-up with any substance treatment. Patient does not appear to be disorganized and is able to communicate in a linear, organized but brief fashion secondary to being soporific from recent amphetamine use. Patient does not a good historian at this time given that she continues to fall asleep during interview. She gave permission for collateral information from her mother although her mother's phone is not a septic voicemail messages at this time. Patient does report auditory and visual loose Nations although she currently denies any at this time and it is unclear with regards to relationship with her ongoing substance and alcohol use. Patient was previously treated with mood stabilizing medication as well as antipsychotics but per above discontinued abruptly at the time of discharge. Patient was unable to complete psychiatric review of systems at this time. Hospital Course Hospital Course The patient was admitted to the neuropsychiatric unit for definitive treatment of these issues. On the unit she slowly acclimated to the individual, group and milieu therapies. There were some mild psychotic symptoms present initially which resolved with the medication being restarted. She was given oral Abilify along with the Zyprexa she had been taking at 5 mg twice daily. On 12/04/2020 she was given Abilify Maintena IM 400 mg. She will get the next dose on 01/03/2021. She was receptive to treatment team recommendations and showed modest improvement and was able to contract for safety prior to discharge. During the hospitalization, patient had routine laboratory studies which were within normal limits except for few outliers. Additionally there was a general medical evaluation which was also within normal limits and revealed no new acute processes. Since the patient had been admitted on several occasions, and was locked in a cycle of using drugs, becoming psychotic, admitted to the hospital, clearing psychosis, return to the community, and using drugs again? Guardianship was sought and obtained by the hospital. Her guardian is Viktor Plunkett [employer] Public route process administrator. We sought a placement for the patient, but all of the residential care facilities were unwilling to take her without Medicaid in place. At last, the patient's mother found people who could watch the patient while the mother was at work. This was a reasonable enough solution to provide her the least restrictive level of care. Discharge Summary: At the time of discharge, psychosis and lethality were denied. She did continue to have some disorganized thinking, which is at her baseline. Mood and anxiety were well managed. Patient endorsed a plan to avoid all drugs of abuse and follow-up with the aftercare recommendations of the treatment team. Patient was evaluated and deemed to be absent credible lethality, and had achieved the maximum benefit from an inpatient hospitalization, so was discharged. 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, early partial, sustained full, or sustained partial remission Bipolar disorder Borderline personality disorder Cannabis dependence in early, early partial, sustained full, or sustained partial remission Cannabis dependence, uncomplicated Chronic schizophrenia 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 Hypnagogic hallucinations Nicotine dependence, cigarettes, uncomplicated Other schizophrenia Psychiatric care Schizophrenia, disorganized, chronic with acute exacerbation Substance use Surgical History No pertinent past surgical history Family History Father Suicide Alcohol abuse Schizophrenia Bipolar disorder Substance abuse Mother Depression Social History Smoking and tobacco status: unknown if ever smoked Alcohol intake: current Alcohol intake frequency: few times a week Alcohol type: beer, wine and hard liquor Desire information about alcohol rehabilitation?: No Counseling given: No (information given) Last alcohol use date: 09/01/20 Desire information about substance/drug rehabilitation?: No Adopted: No Caregiver/support person: No Lives independently: Yes Household members: spouse Housing: House Marital status: Marital status details: partner has substance abuse issues also Number of children: 3 Highest education level completed: GED or Equivalent service: No Current occupational status: unemployed 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 Significant bruising and scabs of different ages all over her exposed skin. No abnormal movements except for significant psychomotor retardation. Cooperative with exam in no clear distress. Speech was limited in decreased rate and volume. Mood described as tired, affect congruent. Thought process was disorganized. Thought content: patient denied suicidal and homicidal ideation. She did not report delusions. But clear bizarre and somewhat somatic delusions noted. She did not endorse auditory or visual hallucinations and did not appear to be attending to internal stimuli. Attention and concentration were limited and memory was unreliable, but none were formally tested. She was alert and oriented x 3 but does not understand why she was brought here or needs to be here. Insight and judgment are impaired, impulse control is limited. Vitals/I&O/Wt Last Vital Signs Temp 98.3 F 11/13/21 01:55 Pulse 79 11/13/21 04:44 Resp 18 11/13/21 06:00 BP 98/58 11/13/21 04:44 Pulse Ox 95 11/13/21 04:44 O2 Del Method 11/13/21 04:50 Weight last 48 hrs Weight 72.575 kg Data NPU : 11/13/21 04:02 11/13/21 04:02 A&P Assessment and plan (1) Chronic disorganized schizophrenia: Status: Acute (2) Acute psychosis: Status: Acute (3) Cannabis dependence, uncomplicated: Status: Acute (4) Acute exacerbation of subchronic schizophrenia: Status: Acute (5) Nicotine dependence, cigarettes, uncomplicated: Status: Acute (6) Methamphetamine use disorder, severe: Status: Acute Plan This is a 36-year-old white female well known to the system who presents with history of schizophrenia and presents with active psychosis likely exacerbated by continued addiction. RECOMMENDATION AND PLAN: 1.? Continue current medication. 2.? Continue every 15 minute checks for safety. 3.? Encourage individual, group and milieu therapies. 4.? Encourage sober living treatment after discharge at the highest level of care to which she is willing to commit. 5. Contact guardian identified what measures undertaken for suitable placement. Involuntary Hold Information 96 Hour Hold: 96 Hour Involuntary Admission: Yes 96 Hour Hold Ending Date: 11/19/21 96 Hour Hold Ending Time: 04:30 Attestations NPU Medical Necessity Statement*: Inpatient hospitalization is medically necessary and the clinically appropriate intervention at this time. We will monitor medications and make changes as indicated. Patient will be in the hospital for over two midnights. Likely length of stay 5-7 days. Coding Level of Care Code Acute Health Care Specialist for Anna Stubbs Diagnoses Chronic disorganized schizophrenia F20.1 Acute psychosis F23 Cannabis dependence, uncomplicated F12.20 Acute exacerbation of subchronic schizophrenia F20.89 Nicotine dependence, cigarettes, uncomplicated F17.210 Methamphetamine use disorder, severe F15.20
[2021-11-13 14:00] VITALS: BP 94/61; PULSE 89; RESP 18; TEMP 36.4; O2SAT 98
[2021-11-13 19:39] VITALS: BP 89/48; PULSE 89; RESP 18; TEMP 36.9; O2SAT 100
[2021-11-14 06:00] VITALS: BP 116/74; PULSE 88; RESP 16; O2SAT 96
--- NOTE | 2021-11-14 09:29 | PC.OT ---
OT EVALUATION ATTEMPTED; PATIENT IS SLEEPING SOUNDLY AND DOES NOT AWAKEN. WILL ATTEMPT AGAIN AT A LATER TIME.
[2021-11-14 14:00] VITALS: BP 101/64; PULSE 107; RESP 18; TEMP 36.7; O2SAT 98
[2021-11-14] MEDS: OLANZapine 5 mg ODT PO (14:35)
--- NOTE | 2021-11-14 15:15 | PC.OT ---
PATIENT AWAKE THIS P.M. AND WANDERING IN THE HALLS AND DAYROOM TALKING TO SELF AND CRYING. WILL ATTEMPT OT EVALUATION AGAIN TOMORROW.
--- NOTE | 2021-11-14 15:29 | W.PM.NPUPNS ---
Subjective NPU Subjective: Patient presents today with more activity and energy than yesterday but continuing to show lack of insight. She spent the majority of her conversation discussing repeatedly wanting to be discharged and that she was only there to get her eyes checked out. The discussion about her eye underscoring her psychotic presentation. She continued to beg and plead to be discharged which is reminiscent of past hospitalizations when she would talk about needing to be home for her and her children. We continued to discuss the critical need for her to be sober and well if she was going to help. Mental Status Exam MSE Comments: This is an overweight, well-developed white female in hospital scrubs, disheveled with appropriate eye contact. She is normally having matted hair that is likely to be shaved. Significant bruising and scabs of different ages all over her exposed skin. No abnormal movements except for psychomotor agitation. Cooperative with exam in mild distress. Speech was increased rate and mostly normal volume. Mood described as I am fine, there is nothing wrong with me, affect congruent. Thought process was mostly organized. Thought content: patient denied suicidal and homicidal ideation. She did not report delusions. But clear bizarre and somatic delusions noted. She did not endorse auditory or visual hallucinations and did not appear to be attending to internal stimuli. Attention and concentration were limited and memory was unreliable, but none were formally tested. She was alert and oriented x 3 but does not understand why she was brought here or needs to be here. Insight and judgment are impaired, impulse control is limited. Vitals/I&O/Wt Last Vital Signs Temp 98.0 F 11/14/21 14:00 Pulse 107 H 11/14/21 14:00 Resp 18 11/14/21 14:00 BP 101/64 11/14/21 14:00 Pulse Ox 98 11/14/21 14:00 O2 Del Method 11/14/21 14:00 Data NPU : 11/13/21 04:02 11/13/21 04:02 Micro: Microbiology 11/13/21 02:19 Urine Culture - Preliminary Urine,Clean Catch Microbiology 11/13/21 02:19 Urine,Clean Catch Urine Culture - Preliminary A&P Assessment and plan (1) Chronic disorganized schizophrenia: Status: Acute (2) Acute psychosis: Status: Acute (3) Cannabis dependence, uncomplicated: Status: Acute (4) Acute exacerbation of subchronic schizophrenia: Status: Acute (5) Nicotine dependence, cigarettes, uncomplicated: Status: Acute (6) Methamphetamine use disorder, severe: Status: Acute Plan This is a 36-year-old white female well known to the system who presents with history of schizophrenia and presents with active psychosis likely exacerbated by continued addiction. RECOMMENDATION AND PLAN: 1.? Continue current medication. Work with guardian to identify previous medication. 2.? Continue every 15 minute checks for safety. 3.? Encourage individual, group and milieu therapies. 4.? Encourage sober living treatment after discharge at the highest level of care to which she is willing to commit. 5. Contact guardian identified what measures undertaken for suitable placement. Involuntary Hold Information 96 Hour Hold: 96 Hour Involuntary Admission: Yes 96 Hour Hold Ending Date: 11/19/21 96 Hour Hold Ending Time: 04:30 Attestations U Medical Necessity Statement*: Inpatient hospitalization is medically necessary and the clinically appropriate intervention at this time. We will monitor medications and make changes as indicated. Likely length of stay 6-8 days. Coding Level of Care Code Acute Banjo Repair Person for Anna Stubbs Diagnoses Chronic disorganized schizophrenia F20.1 Acute psychosis F23 Cannabis dependence, uncomplicated F12.20 Acute exacerbation of subchronic schizophrenia F20.89 Nicotine dependence, cigarettes, uncomplicated F17.210 Methamphetamine use disorder, severe F15.20
[2021-11-14] MEDS: nicotine 21 mg Patch 1 PATCH TRANSDERMA (16:45)
[2021-11-14 22:00] VITALS: RESP 16
[2021-11-15] MEDS: acetaminophen 325 mg Tablet 650 MG PO (00:45)
[2021-11-15 06:00] VITALS: BP 100/64; PULSE 111; RESP 16; TEMP 37; O2SAT 98
--- NOTE | 2021-11-15 10:42 | PC.NURSE ---
Nursing Behavioral Assessment Patient didn't want to participate in the assessment and refused to look my direction or answer the questions. Could not complete assessment.
[2021-11-15 14:00] VITALS: BP 98/66; PULSE 98; RESP 18; TEMP 36.6; O2SAT 98
--- NOTE | 2021-11-15 17:07 | W.PM.NPUPNS ---
Subjective NPU Subjective: Patient presents today continuing locked mantra about going home to her children and her . She seems to have insight into the truthfulness of this automobile and property underwriter concerned about her methamphetamine use because when she talked about not using and I bring up her urine drug screen she gets quiet. We discussed that her presentation suggests that she used enough to get her psychosis reactivated. We discussed the possibility of restarting her medications to which she remains somewhat resistant. Mental Status Exam MSE Comments: This is an overweight, well-developed white female in hospital scrubs, disheveled with appropriate eye contact. She is normally having matted hair that is likely to be shaved. Significant bruising and scabs of different ages all over her exposed skin. No abnormal movements except for psychomotor agitation. Cooperative with exam in mild distress. Speech was increased rate and mostly normal volume. Mood described as I am fine, why cannot I go home, affect congruent. Thought process was mostly organized. Thought content: patient denied suicidal and homicidal ideation. She did not report delusions. But clear bizarre and somatic delusions noted. She did not endorse auditory or visual hallucinations and did not appear to be attending to internal stimuli. Attention and concentration were limited and memory was unreliable, but none were formally tested. She was alert and oriented x 3 but does not understand why she was brought here or needs to be here. Insight and judgment are impaired, impulse control is limited. Vitals/I&O/Wt Last Vital Signs Temp 97.6 F 11/15/21 20:52 Pulse 85 11/15/21 20:52 Resp 15 11/15/21 20:52 BP 128/83 11/15/21 20:52 Pulse Ox 92 11/15/21 20:52 O2 Del Method 11/15/21 20:52 Data NPU : 11/13/21 04:02 11/13/21 04:02 Micro: Microbiology 11/13/21 02:19 Urine Culture - Final Urine,Clean Catch Microbiology 11/13/21 02:19 Urine,Clean Catch Urine Culture - Final A&P Assessment and plan (1) Chronic disorganized schizophrenia: Status: Acute (2) Acute psychosis: Status: Acute (3) Cannabis dependence, uncomplicated: Status: Acute (4) Acute exacerbation of subchronic schizophrenia: Status: Acute (5) Nicotine dependence, cigarettes, uncomplicated: Status: Acute (6) Methamphetamine use disorder, severe: Status: Acute Plan This is a 36-year-old white female well known to the system who presents with history of schizophrenia and presents with active psychosis likely exacerbated by continued addiction. RECOMMENDATION AND PLAN: 1.? Continue current medication. Work with guardian to identify previous medication. 2.? Continue every 15 minute checks for safety. 3.? Encourage individual, group and milieu therapies. 4.? Encourage sober living treatment after discharge at the highest level of care to which she is willing to commit. 5. Contact guardian identified what measures undertaken for suitable placement. Involuntary Hold Information 96 Hour Hold: 96 Hour Involuntary Admission: Yes 96 Hour Hold Ending Date: 11/19/21 96 Hour Hold Ending Time: 04:30 Attestations NPU Medical Necessity Statement*: Inpatient hospitalization is medically necessary and the clinically appropriate intervention at this time. We will monitor medications and make changes as indicated. Likely length of stay 6-8 days. Coding Level of Care Code Acute Heading Maker for Anna Stubbs Diagnoses Chronic disorganized schizophrenia F20.1 Acute psychosis F23 Cannabis dependence, uncomplicated F12.20 Acute exacerbation of subchronic schizophrenia F20.89 Nicotine dependence, cigarettes, uncomplicated F17.210 Methamphetamine use disorder, severe F15.20
[2021-11-15] MEDS: nicotine 2 mg Gum BUCCAL (17:11)
[2021-11-15 20:52] VITALS: BP 128/83; PULSE 85; RESP 15; TEMP 36.4; O2SAT 92
--- NOTE | 2021-11-15 22:42 | NUR.SHIFT ---
PT PRESENTS DISHEVELED BUT COOPERATIVE. SMELL EMANATING FROM PATIENT'S ROOM. PATIENT ASKED TO BATHE AND DO ADL'S. PATIENT GIVEN TOWEL AND FRESH SCRUBS. PT CHANGED OUT OF SCRUBS THEN WALKED OUT OF ROOM AND SAID MY ROOM STINKS. THIS NURSE SAID, YOU WERE GIVEN STUFF TO SHOWER. PT THEN STATED, I ALREADY DID. PT DID NOT TAKE A SHOWER. PT REPORTS 2/10 ANXIETY AND DENIES SI/HI/AVH AND DEPRESSION AT THIS TIME. PT HAS FLIGHT OF IDEAS AND IS EASILY DISTRACTED ALTHOUGH PLEASANT AND COOPERATIVE.
--- NOTE | 2021-11-16 13:49 | W.PM.NPUPNS ---
Subjective NPU Subjective: Aga presents today continuing to be unchanged. Her insight is continues to be poor. Continues to focus on wanting to be discharged in an almost OCD manner. Continues to resist restarting medications. We discussed her guardian's desire for discharge to a more controlled environment. She continues to deny the impact of methamphetamines on her presentation. Mental Status Exam MSE Comments: This is an overweight, well-developed white female in hospital scrubs, disheveled with appropriate eye contact. She is normally having matted hair that is likely to be shaved. Significant bruising and scabs of different ages all over her exposed skin. No abnormal movements except for psychomotor agitation. Cooperative with exam in mild distress. Speech was increased rate and mostly normal volume. Mood described good, affect odd. Thought process was mostly organized. Thought content: patient denied suicidal and homicidal ideation. She did not report delusions. But clear bizarre and somatic delusions noted. She did not endorse auditory or visual hallucinations and did not appear to be attending to internal stimuli. Attention and concentration were limited and memory was unreliable, but none were formally tested. She was alert and oriented x 3 but does not understand why she was brought here or needs to be here. Insight and judgment are impaired, impulse control is limited. Vitals/I&O/Wt Last Vital Signs Temp 97.6 F 11/15/21 20:52 Pulse 85 11/15/21 20:52 Resp 15 11/15/21 20:52 BP 128/83 11/15/21 20:52 Pulse Ox 92 11/15/21 20:52 O2 Del Method 11/15/21 20:52 Data NPU : 11/13/21 04:02 11/13/21 04:02 Micro: Microbiology 11/13/21 02:19 Urine Culture - Final Urine,Clean Catch Microbiology 11/13/21 02:19 Urine,Clean Catch Urine Culture - Final A&P Assessment and plan (1) Chronic disorganized schizophrenia: Status: Acute (2) Acute psychosis: Status: Acute (3) Cannabis dependence, uncomplicated: Status: Acute (4) Acute exacerbation of subchronic schizophrenia: Status: Acute (5) Nicotine dependence, cigarettes, uncomplicated: Status: Acute (6) Methamphetamine use disorder, severe: Status: Acute Plan This is a 36-year-old white female well known to the system who presents with history of schizophrenia and presents with active psychosis likely exacerbated by continued addiction. RECOMMENDATION AND PLAN: 1.? Continue current medication. Work with guardian to identify previous medication. 2.? Continue every 15 minute checks for safety. 3.? Encourage individual, group and milieu therapies. 4.? Encourage sober living treatment after discharge at the highest level of care to which she is willing to commit. 5. Contact guardian identified what measures undertaken for suitable placement. Involuntary Hold Information 96 Hour Hold: 96 Hour Involuntary Admission: Yes 96 Hour Hold Ending Date: 11/19/21 96 Hour Hold Ending Time: 04:30 Attestations NPU Medical Necessity Statement*: Inpatient hospitalization is medically necessary and the clinically appropriate intervention at this time. We will monitor medications and make changes as indicated. Likely length of stay 6-8 days. Coding Level of Care Code Acute Paraffin Machine Operator for Anna Stubbs Diagnoses Chronic disorganized schizophrenia F20.1 Acute psychosis F23 Cannabis dependence, uncomplicated F12.20 Acute exacerbation of subchronic schizophrenia F20.89 Nicotine dependence, cigarettes, uncomplicated F17.210 Methamphetamine use disorder, severe F15.20
[2021-11-16 14:00] VITALS: BP 98/66; PULSE 97; RESP 16; TEMP 36.8; O2SAT 98
[2021-11-17 13:04] VITALS: BP 92/68; PULSE 102; RESP 19; TEMP 36.8; O2SAT 96
[2021-11-17] MEDS: nicotine 2 mg Gum BUCCAL (13:59)
[2021-11-17] MEDS: hyDROXYzine 25 mg Capsule 50 MG PO ×2 (15:15→19:49)
--- NOTE | 2021-11-17 17:19 | W.PM.NPUPNS ---
Subjective NPU Subjective: Patient presents today unchanged over the past several days. She continues to report a desire to be released to be with her kids. She continues to demonstrate limited to no insight into her continued difficulties connecting with her addiction. The plans via her guardian are for [facility]. Mental Status Exam MSE Comments: This is an overweight, well-developed white female in hospital scrubs, disheveled with appropriate eye contact. She is normally having matted hair that is likely to be shaved. Significant bruising and scabs of different ages all over her exposed skin. No abnormal movements except for psychomotor agitation. Cooperative with exam in mild distress. Speech was increased rate and mostly normal volume. Mood described good, affect odd. Thought process was mostly organized. Thought content: patient denied suicidal and homicidal ideation. She did not report delusions. But clear bizarre and somatic delusions noted. She did not endorse auditory or visual hallucinations and did not appear to be attending to internal stimuli. Attention and concentration were limited and memory was unreliable, but none were formally tested. She was alert and oriented x 3 but does not understand why she was brought here or needs to be here. Insight and judgment are impaired, impulse control is limited. Vitals/I&O/Wt Last Vital Signs Temp 98.5 F 11/17/21 19:54 Pulse 102 H 11/17/21 19:54 Resp 17 11/17/21 19:54 BP 91/67 11/17/21 19:54 Pulse Ox 99 11/17/21 19:54 O2 Del Method 11/17/21 19:54 Weight last 48 hrs Weight 72.575 kg Data NPU : 11/13/21 04:02 11/13/21 04:02 A&P Assessment and plan (1) Chronic disorganized schizophrenia: Status: Acute (2) Acute psychosis: Status: Acute (3) Cannabis dependence, uncomplicated: Status: Acute (4) Acute exacerbation of subchronic schizophrenia: Status: Acute (5) Nicotine dependence, cigarettes, uncomplicated: Status: Acute (6) Methamphetamine use disorder, severe: Status: Acute Plan This is a 36-year-old white female well known to the system who presents with history of schizophrenia and presents with active psychosis likely exacerbated by continued addiction. RECOMMENDATION AND PLAN: 1.? Continue current medication. Work with guardian to identify previous medication. 2.? Continue every 15 minute checks for safety. 3.? Encourage individual, group and milieu therapies. 4.? Encourage sober living treatment after discharge at the highest level of care to which she is willing to commit. 5. Contact guardian identified what measures undertaken for suitable placement. Involuntary Hold Information 96 Hour Hold: 96 Hour Involuntary Admission: Yes 96 Hour Hold Ending Date: 11/19/21 96 Hour Hold Ending Time: 04:30 Attestations NPU Medical Necessity Statement*: Inpatient hospitalization is medically necessary and the clinically appropriate intervention at this time. We will monitor medications and make changes as indicated. Likely length of stay 6-8 days. Coding Level of Care Code Acute Sea Kayaking Guide for g Fwd Diagnoses Chronic disorganized schizophrenia F20.1 Acute psychosis F23 Cannabis dependence, uncomplicated F12.20 Acute exacerbation of subchronic schizophrenia F20.89 Nicotine dependence, cigarettes, uncomplicated F17.210 Methamphetamine use disorder, severe F15.20
[2021-11-17] MEDS: haloperidol 5 mg Tablet PO (18:50)
[2021-11-17 19:54] VITALS: BP 91/67; PULSE 102; RESP 17; TEMP 36.9; O2SAT 99
[2021-11-18 06:00] VITALS: BMI 29.2
[2021-11-18] MEDS: nicotine 2 mg Gum BUCCAL (12:04)
[2021-11-18 14:00] VITALS: RESP 16
--- NOTE | 2021-11-18 17:41 | P.NPUPN_ITS ---
Subjective NPU Subjective: Patient resents today continue to focus on wanting to discharge. We discussed the possibility of that being expedited with her taking medication which she reports does not like medication. We discussed her leaving her mind about the idea of starting medication and talking to her guardian to begin medication in the morning. We discussed likely getting her Abilify injection again as well as oral medication. Mental Status Exam MSE Comments: This is an overweight, well-developed white female in hospital scrubs, disheveled with appropriate eye contact. She is normally having matted hair that is likely to be shaved. Significant bruising and scabs of different ages all over her exposed skin. No abnormal movements except for psychomotor agitation. Cooperative with exam in mild distress. Speech was increased rate and mostly normal volume. Mood described as I am good I just want to go home with my babies, affect odd. Thought process was mostly organized. Thought content: patient denied suicidal and homicidal ideation. She did not report delusions. But clear bizarre and somatic delusions noted. She did not endorse auditory or visual hallucinations and did not appear to be attending to internal stimuli. Attention and concentration were limited and memory was unreliable, but none were formally tested. She was alert and oriented x 3 but does not understand why she was brought here or needs to be here. Insight and judgment are impaired, impulse control is limited. Vitals/I&O/Wt Last Vital Signs Temp 98.5 F 11/17/21 19:54 Pulse 102 H 11/17/21 19:54 Resp 16 11/18/21 14:00 BP 91/67 11/17/21 19:54 Pulse Ox 99 11/17/21 19:54 O2 Del Method 11/17/21 19:54 Weight last 48 hrs Weight 72.575 kg Data NPU : 11/13/21 04:02 11/13/21 04:02 A&P Assessment and plan (1) Chronic disorganized schizophrenia: Status: Acute (2) Acute psychosis: Status: Acute (3) Cannabis dependence, uncomplicated: Status: Acute (4) Acute exacerbation of subchronic schizophrenia: Status: Acute (5) Nicotine dependence, cigarettes, uncomplicated: Status: Acute (6) Methamphetamine use disorder, severe: Status: Acute Plan This is a 36-year-old white female well known to the system who presents with history of schizophrenia and presents with active psychosis likely exacerbated by continued addiction. RECOMMENDATION AND PLAN: 1.? Continue current medication. Start Abilify Maintena 400 mg IM and Abilify 10 mg in the morning. 2.? Continue every 15 minute checks for safety. 3.? Encourage individual, group and milieu therapies. 4.? Encourage sober living treatment after discharge at the highest level of care to which she is willing to commit. 5. Contact guardian identified what measures undertaken for suitable placement. Involuntary Hold Information 96 Hour Hold: 96 Hour Involuntary Admission: Yes 96 Hour Hold Ending Date: 11/19/21 96 Hour Hold Ending Time: 04:30 Attestations NPU Medical Necessity Statement*: Inpatient hospitalization is medically necessary and the clinically appropriate intervention at this time. We will monitor medications and make changes as indicated. Likely length of stay 6-8 days. Coding Level of Care Code Acute Mechanical Assembly for Anna Stubbs Diagnoses Chronic disorganized schizophrenia F20.1 Acute psychosis F23 Cannabis dependence, uncomplicated F12.20 Acute exacerbation of subchronic schizophrenia F20.89 Nicotine dependence, cigarettes, uncomplicated F17.210 Methamphetamine use disorder, severe F15.20
[2021-11-18] MEDS: hyDROXYzine 25 mg Capsule 50 MG PO (21:48)
[2021-11-19] MEDS: hyDROXYzine 25 mg Capsule 50 MG PO ×2 (13:31→19:56)
[2021-11-19] MEDS: nicotine 21 mg Patch 1 PATCH TRANSDERMA (13:49)
[2021-11-19] MEDS: ARIPiprazole Maintena 400 MG IM (13:49)
[2021-11-19 14:00] VITALS: BP 141/85; PULSE 106; RESP 16; TEMP 36.3; O2SAT 95
--- NOTE | 2021-11-19 17:56 | W.PM.NPUPNS ---
Subjective NPU Subjective: Patient presents today continuing her focus on being discharged and struggling with the fact that her guardian is not wanting the same plan that she is hoping for. We discussed restarting her medication per conversation with guardian and she was not wanting to do this but ultimately complied. We discussed restarting her Abilify to maintain a endaural Abilify just for the next 2 weeks. Continue to work on getting her hair combed. Mental Status Exam MSE Comments: This is an overweight, well-developed white female in hospital scrubs, disheveled with appropriate eye contact. She is normally having matted hair that is likely to be shaved. Significant bruising and scabs of different ages all over her exposed skin. No abnormal movements except for psychomotor agitation. Cooperative with exam in mild distress. Speech was increased rate and mostly normal volume. Mood described as I am good I just want to go home with my babies, affect odd. Thought process was mostly organized. Thought content: patient denied suicidal and homicidal ideation. She did not report delusions. But clear bizarre and somatic delusions noted. She did not endorse auditory or visual hallucinations and did not appear to be attending to internal stimuli. Attention and concentration were limited and memory was unreliable, but none were formally tested. She was alert and oriented x 3 but does not understand why she was brought here or needs to be here. Insight and judgment are impaired, impulse control is limited. Vitals/I&O/Wt Last Vital Signs Temp 97.8 F 11/19/21 21:33 Pulse 116 H 11/19/21 21:33 Resp 18 11/19/21 21:33 BP 96/60 11/19/21 21:33 Pulse Ox 98 11/19/21 21:33 O2 Del Method 11/19/21 21:33 Weight last 48 hrs Weight 72.575 kg Data NPU : 11/13/21 04:02 11/13/21 04:02 A&P Assessment and plan (1) Chronic disorganized schizophrenia: Status: Inactive (2) Acute psychosis: Status: Acute (3) Cannabis dependence, uncomplicated: Status: Acute (4) Acute exacerbation of subchronic schizophrenia: Status: Acute (5) Nicotine dependence, cigarettes, uncomplicated: Status: Acute (6) Methamphetamine use disorder, severe: Status: Acute Plan This is a 36-year-old white female well known to the system who presents with history of schizophrenia and presents with active psychosis likely exacerbated by continued addiction. RECOMMENDATION AND PLAN: 1.? Continue current medication. Started Abilify Maintena 400 mg IM and Abilify 10 mg in the morning. 2.? Continue every 15 minute checks for safety. 3.? Encourage individual, group and milieu therapies. 4.? Encourage sober living treatment after discharge at the highest level of care to which she is willing to commit. 5. Contact guardian identified what measures undertaken for suitable placement. We will discontinue possible RCF's. Involuntary Hold Information 96 Hour Hold: 96 Hour Involuntary Admission: Yes 96 Hour Hold Ending Date: 11/19/21 96 Hour Hold Ending Time: 04:30 Attestations NPU Medical Necessity Statement*: Inpatient hospitalization is medically necessary and the clinically appropriate intervention at this time. We will monitor medications and make changes as indicated. Likely length of stay 5-7 days. Coding Level of Care Code Acute Collection Systems Consultant for Anna Stubbs Diagnoses Chronic disorganized schizophrenia F20.1 Acute psychosis F23 Cannabis dependence, uncomplicated F12.20 Acute exacerbation of subchronic schizophrenia F20.89 Nicotine dependence, cigarettes, uncomplicated F17.210 Methamphetamine use disorder, severe F15.20
[2021-11-19] MEDS: nicotine 2 mg Gum BUCCAL (19:31)
[2021-11-19] MEDS: ibuprofen 600 mg Tablet PO (20:15)
[2021-11-19] MEDS: OLANZapine 5 mg ODT PO (21:28)
[2021-11-19 21:33] VITALS: BP 96/60; PULSE 116; RESP 18; TEMP 36.6; O2SAT 98
[2021-11-20] MEDS: ARIPiprazole 10 mg Tablet PO (08:27)
[2021-11-20] MEDS: haloperidol inj 5 mg/mL INJ 1 mL IM (12:05)
[2021-11-20] MEDS: diphenhydrAMINE 50 mg/mL SDV 1mL IM (12:10)
[2021-11-20] MEDS: LORazepam 2 mg/mL INJ 1 mL (12:10)
--- NOTE | 2021-11-20 12:28 | W.PM.BREST ---
Face to Face: Restrn/Seclusion Events leading up to initiation: Combative/Striking out at staff or others Evaluation of patient's immediate situation: Alert and oriented, Signs of physical distress and Signs of psychological distress Patient reaction since intervention applied: De-escalation/no displays of violent/destructive behavior Recent labs reviewed: Yes Review of medications: Yes Patient's current medical/behavioral condition: No new concerns since last ROS Need for restraint or seclusion is: No longer present Attending notified: Attending completed assessment
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
[2021-11-20 14:00] VITALS: RESP 16
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
[2021-11-20 21:28] VITALS: RESP 18
[2021-11-21 06:00] VITALS: RESP 18
[2021-11-21] MEDS: ARIPiprazole 10 mg Tablet PO (12:21)
[2021-11-21 14:00] VITALS: BP 103/69; PULSE 93; RESP 18; TEMP 36.6; O2SAT 95
[2021-11-21] MEDS: nicotine 2 mg Gum BUCCAL (16:05)
[2021-11-21] MEDS: hyDROXYzine 25 mg Capsule 50 MG PO ×2 (16:25→21:56)
[2021-11-21] MEDS: OLANZapine 5 mg ODT PO ×2 (16:43→21:56)
--- NOTE | 2021-11-21 17:55 | W.PM.NPUPNS ---
Subjective NPU Subjective: Patient presents today able to maintain herself better than yesterday with no physical or emotional explosions in the past 24 hours but continuing to demonstrate the lack of insight that caused the appointment of a guardian. We continue to discuss with her the plan of the treatment team working with the guardian for placement as she continues to discuss all the different people who could be her new guardian in all different places she could stay. She continues to take her medication as prescribed. Mental Status Exam MSE Comments: This is an overweight, well-developed white female in hospital scrubs, with some improved grooming and appropriate eye contact. Significant bruising and scabs of different ages all over her exposed skin improving. No abnormal movements except for psychomotor agitation. Cooperative with exam in mild distress. Speech was increased rate and mostly normal volume. Mood described as I am fine, affect odd. Thought process was mostly organized. Thought content: patient denied suicidal and homicidal ideation. She did not report delusions. But clear bizarre and somatic delusions noted. She did not endorse auditory or visual hallucinations and did not appear to be attending to internal stimuli. Attention and concentration were limited and memory was unreliable, but none were formally tested. She was alert and oriented x 3 but does not understand why she was brought here or needs to be here. Insight and judgment are impaired, impulse control is impaired. Vitals/I&O/Wt Last Vital Signs Temp 98 F 11/21/21 14:00 Pulse 93 11/21/21 14:00 Resp 18 11/21/21 14:00 BP 103/69 11/21/21 14:00 Pulse Ox 95 11/21/21 14:00 O2 Del Method 11/21/21 14:00 Data NPU : 11/13/21 04:02 11/13/21 04:02 A&P Assessment and plan (1) Chronic disorganized schizophrenia: Status: Inactive (2) Acute psychosis: Status: Acute (3) Cannabis dependence, uncomplicated: Status: Acute (4) Acute exacerbation of subchronic schizophrenia: Status: Acute (5) Nicotine dependence, cigarettes, uncomplicated: Status: Acute (6) Methamphetamine use disorder, severe: Status: Acute Plan This is a 36-year-old white female well known to the system who presents with history of schizophrenia and presents with active psychosis likely exacerbated by continued addiction. RECOMMENDATION AND PLAN: 1.? Continue current medication. Started Abilify Maintena 400 mg IM 11/19/21 patient and Abilify 10 mg in the morning. 2.? Continue every 15 minute checks for safety. 3.? Encourage individual, group and milieu therapies. 4.? Encourage sober living treatment after discharge at the highest level of care to which she is willing to commit. 5. Contact guardian identified what measures undertaken for suitable placement. We will continue to explore possible RCF's. Involuntary Hold Information 96 Hour Hold: 96 Hour Involuntary Admission: Yes 96 Hour Hold Ending Date: 11/19/21 96 Hour Hold Ending Time: 04:30 Attestations NPU Medical Necessity Statement*: Inpatient hospitalization is medically necessary and the clinically appropriate intervention at this time. We will monitor medications and make changes as indicated. Likely length of stay 6-8 days. Coding Level of Care Code Acute Property Handler for Anna Owusud Diagnoses Chronic disorganized schizophrenia F20.1 Acute psychosis F23 Cannabis dependence, uncomplicated F12.20 Acute exacerbation of subchronic schizophrenia F20.89 Nicotine dependence, cigarettes, uncomplicated F17.210 Methamphetamine use disorder, severe F15.20
[2021-11-21 20:23] VITALS: RESP 18
[2021-11-21] MEDS: trazodone 50 mg Tablet PO (21:56)
[2021-11-21] MEDS: diphenhydrAMINE 50 mg/mL SDV 1mL IM (23:22)
[2021-11-21] MEDS: LORazepam 2 mg/mL INJ 1 mL IM (23:24)
--- NOTE | 2021-11-21 23:25 | PC.NURSE ---
Patient was anxious and agitated in regard to being unable to contact her guardian,requested a shot before she got too angry. Benadryl 50 mg IM and Ativan 2 mg IM given. Patient tolerated well.
--- NOTE | 2021-11-22 08:58 | PC.NURSE ---
Behavioral Assessment Patient resting in bed with eyes closed, arousable to voice. Patient did not want to get up and eat breakfast. She also refused to take her meds this AM and stated, I'll come up there when I want to. Patient refused to participate in assessment and covered her head with her blanket and stopped responding.
--- NOTE | 2021-11-22 11:53 | W.PM.NPUPNS ---
Subjective NPU Subjective: Patient is in today continuing to be somewhat irritable about her lack of control of her life circumstances. We discussed the fact that she is accepted at a residential facility that her guardian had selected. We discussed the fact that at this point she had limited options that regardless of what she is thinking her mother is not interested in having her come home nor has anyone else stepped forward that would be providing a reasonable or safe environment for her to continue her recovery and convalescence, support the need for her to avoid illicit drugs which are currently putting her in great risk. Mental Status Exam MSE Comments: This is an overweight, well-developed white female in hospital scrubs, with some improved grooming and appropriate eye contact. Significant bruising and scabs of different ages all over her exposed skin improving. No abnormal movements except for decreasing psychomotor agitation. Cooperative with exam in mild distress. Speech was more normal rate and mostly normal volume. Mood described as I am fine, where is this place, affect odd. Thought process was mostly organized. Thought content: patient denied suicidal and homicidal ideation. She did not report delusions, and less bizarre and/or somatic delusions noted. She did not endorse auditory or visual hallucinations and did not appear to be attending to internal stimuli. Attention and concentration were limited and memory was unreliable, but none were formally tested. She was alert and oriented x 3 but does not understand why she was brought here or needs to be here. Insight and judgment are impaired, impulse control is improving. Vitals/I&O/Wt Last Vital Signs Temp 98 F 11/21/21 14:00 Pulse 93 11/21/21 14:00 Resp 18 11/21/21 20:23 BP 103/69 11/21/21 14:00 Pulse Ox 95 11/21/21 14:00 O2 Del Method 11/21/21 14:00 Data NPU : 11/13/21 04:02 11/13/21 04:02 A&P Assessment and plan (1) Chronic disorganized schizophrenia: Status: Inactive (2) Acute psychosis: Status: Acute (3) Cannabis dependence, uncomplicated: Status: Acute (4) Acute exacerbation of subchronic schizophrenia: Status: Acute (5) Nicotine dependence, cigarettes, uncomplicated: Status: Acute (6) Methamphetamine use disorder, severe: Status: Acute Plan This is a 36-year-old white female well known to the system who presents with history of schizophrenia and presents with active psychosis likely exacerbated by continued addiction. RECOMMENDATION AND PLAN: 1.? Continue current medication. Started Abilify Maintena 400 mg IM 11/19/21 patient and Abilify 10 mg in the morning for 2 weeks before discontinuing. 2.? Continue every 15 minute checks for safety. 3.? Encourage individual, group and milieu therapies. 4.? Encourage sober living treatment after discharge at the highest level of care to which she is willing to commit. 5. RCF in [place] identified. Tentative plan for discharge tomorrow. Involuntary Hold Information 96 Hour Hold: 96 Hour Involuntary Admission: Yes 96 Hour Hold Ending Date: 11/19/21 96 Hour Hold Ending Time: 04:30 Attestations NPU Medical Necessity Statement*: Inpatient hospitalization is medically necessary and the clinically appropriate intervention at this time. We will monitor medications and make changes as indicated. Likely length of stay 1-4. We will evaluate and consider discharge to [facility] in the morning. Coding Level of Care Code Acute Dry Box Operator for Anna Stubbs Diagnoses Chronic disorganized schizophrenia F20.1 Acute psychosis F23 Cannabis dependence, uncomplicated F12.20 Acute exacerbation of subchronic schizophrenia F20.89 Nicotine dependence, cigarettes, uncomplicated F17.210 Methamphetamine use disorder, severe F15.20
[2021-11-22 14:00] VITALS: RESP 18
[2021-11-22] MEDS: LORazepam 2 mg/mL INJ 1 mL IM (14:29)
[2021-11-22] MEDS: diphenhydrAMINE 50 mg/mL SDV 1mL IM (14:29)
[2021-11-22] MEDS: haloperidol inj 5 mg/mL INJ 1 mL IM (14:29)
--- NOTE | 2021-11-22 14:38 | PC.NURSE ---
B52 Administered 5mg Haldol IM, 2mg Ativan IM in Right Deltoid, 50mg Benadryl IM in Left Deltoid for pt having an episode of aggression and screaming at the nurses desk. Pt wanted the injection and tolerated the shot well.
--- NOTE | 2021-11-22 14:43 | PC.NURSE ---
Nurse encouraged pt to take her prescribed Abilify 10mg tab, pt refused and commented that why should she 'She is just going to a [facility] . This place is like [employer] it's a world of it's own, while she was staring at the wall making big hand movements.
--- NOTE | 2021-11-22 14:44 | PC.NURSE ---
MEDICATION REFUSAL PT CONTINUES TO REFUSE AM MEDICATION AYLA NOTIFIED DR. JACKSON OF CONTINUED REFUSAL OF AM MEDICATION. DR. JACKSON STATED TO CONTINUE TO OFFER THE ABILIFY TO HER PERIODICALLY UNTIL SHE TAKES IT. PT DID BECOME UPSET ABOUT NURSES ASKING ABOUT TAKING MEDICATIONS AND NOT SEEING MY KIDS WELL HER PLACEMENT TO A RCF TOMORROW. PT WAS GIVEN HALDOL, ATIVAN AND BENADRLY ORDERED SEE MAR FOR DETAILS .
[2021-11-22 20:43] VITALS: BP 98/66; PULSE 109; RESP 18; O2SAT 98
[2021-11-23 06:00] VITALS: PULSE 74; RESP 18; O2SAT 96
--- NOTE | 2021-11-23 09:03 | PC.NURSE ---
Patient Behavior This AM patient is denying her medication. Patient is also refusing to participate in assessment and speech is very short and agitated. Patient is lying in bed.
--- NOTE | 2021-11-23 12:01 | P.NPUDS_ITS ---
Diagnoses at Discharge Discharge Diagnosis (1) Chronic disorganized schizophrenia: Status: Inactive (2) Acute psychosis: Status: Acute (3) Cannabis dependence, uncomplicated: Status: Acute (4) Acute exacerbation of subchronic schizophrenia: Status: Acute (5) Nicotine dependence, cigarettes, uncomplicated: Status: Acute (6) Methamphetamine use disorder, severe: Status: Acute Reason for Visit Reason for Visit: psychiatric evaluation Brief History: History of Present Illness Aga Lai is a 36 year old female who presented to the emergency department with the following report: Chief Complaint: Psychiatric Symptoms Stated Complaint: psychiatric evaluation Time Seen by Provider: 11/13/21 02:03 Source: patient and police Mode of arrival: other (police) Limitations: no limitations History of Present Illness: 36-year-old female has a history of schizophrenia along with methamphetamine abuse she is brought here by police she is wandering the streets and yelling at people's homes and knocking on the doors here patient is acutely psychotic she has flight of ideas she is extremely paranoid she denies any suicidal homicidal ideations history is difficult due to her psychoses. Associated symptoms: Reports auditory hallucinations and delusions She was admitted to the neuropsychiatric unit for definitive treatment of those issues. She presents today seeming to be crashing from likely methamphetamine use. She is well-known to this unit from very prolonged stays where an her psychosis would not break. Concerns exist as to whether continued episodes like this will create an environment where her recovery is not possible due to toxic impact from the psychosis and drug abuse. She could give no functional history. An excerpt of her December 2020 discharge summary is included below for context. Per her 12/29/2020 [facility] inpatient psychiatric discharge summary: PSYCH EVAL Brief History: Aga Lai is a 35 year old female who presented to the emergency department with the following report: Chief Complaint: Psychiatric Symptoms Stated Complaint: PSYCH EVAL Time Seen by Provider: 11/16/20 13:17 History of Present Illness: HPI Narrative: Ms. Lai is a 35-year-old lady with unclear history who presents the emergency department via law enforcement due to altered mental status and psychiatric concern. Upon initial evaluation patient is markedly agitated, she required physical restraints and subsequently chemical restraints. Her speech is rapid, pressured, tangential. She expresses nonsensical speech at times and has delusions. Unable to redirect or provide meaningful history. The exact course, duration, provoking, exacerbating, or alleviating factors is unclear. The intensity of her current symptoms appears to be severe. No other meaningful history provided. She was admitted to the neuropsychiatric unit for definitive treatment of those issues. Patient was significantly subdued secondary to medications received prior to admission to the unit. She was unable to provide any significant history. Later she did wake up she got a snack and ate some applesauce. She was speaking completely nonsensical. She had some water after that and questions that were asked were not answered in any way and ended up in weird tangential psychotic garble. We discussed the risk benefits and alternatives and that we had restarted her medications and it is unclear if she understood. An excerpt of her 09/02/2020 inpatient hospitalization is included below for context given her limited ability to give a history. Per her 09/02/2020 [facility] inpatient psychiatric evaluation: History of Present Illness Aga Lai is a 34 year old female with a reported history of schizophrenia, bipolar disorder and borderline personality disorder although there does not appear to be any serial observation for any length of time outside the influence of substances other than during a 30-day hospitalization in January 2020. Patient was brought in by police and was placed on 96-hour hold after being found wandering down the road under the influence of substances and alcohol. Patient was somewhat combative at the time of initial evaluation in the emergency department and was given as needed medication. Patient was medically cleared in emergency department prior to admission to inpatient psychiatry. Patient reports that she did not continue to take any medication after leaving the hospital in January 2020 and has not followed up with any mental health care provider. Furthermore, she denies follow-up with any substance treatment. Patient does not appear to be disorganized and is able to communicate in a linear, organized but brief fashion secondary to being soporific from recent amphetamine use. Patient does not a good historian at this time given that she continues to fall asleep during interview. She gave permission for collateral information from her mother although her mother's phone is not a septic voicemail messages at this time. Patient does report auditory and visual loose [place] although she currently denies any at this time and it is unclear with regards to relationship with her ongoing substance and alcohol use. Patient was previously treated with mood stabilizing medication as well as antipsychotics but per above discontinued abruptly at the time of discharge. Patient was unable to complete psychiatric review of systems at this time. Hospital Course Hospital Course The patient was admitted to the neuropsychiatric unit for definitive treatment of these issues. On the unit she slowly acclimated to the individual, group and milieu therapies. There were some mild psychotic symptoms present initially which resolved with the medication being restarted. She was given oral Abilify along with the Zyprexa she had been taking at 5 mg twice daily. On 12/04/2020 she was given Abilify Maintena IM 400 mg. She will get the next dose on 01/03/2021. She was receptive to treatment team recommendations and showed modest improvement and was able to contract for safety prior to discharge. During the hospitalization, patient had routine laboratory studies which were within normal limits except for few outliers. Additionally there was a general medical evaluation which was also within normal limits and revealed no new acute processes. Since the patient had been admitted on several occasions, and was locked in a cycle of using drugs, becoming psychotic, admitted to the hospital, clearing psychosis, return to the community, and using drugs again? Guardianship was [facility] and obtained by the hospital. Her guardian is Viktor Plunkett, [facility] [employer] systems administrator. We sought a placement for the patient, but all of the residential care facilities were unwilling to take her without Medicaid in place. At last, the patient's mother found people who could watch the patient while the mother was at work. This was a reasonable enough solution to provide her the least restrictive level of care. Discharge Summary: At the time of discharge, psychosis and lethality were denied. She did continue to have some disorganized thinking, which is at her baseline. Mood and anxiety were well managed. Patient endorsed a plan to avoid all drugs of abuse and follow-up with the aftercare recommendations of the treatment team. Patient was evaluated and deemed to be absent credible lethality, and had achieved the maximum benefit from an inpatient hospitalization, so was discharged. Hospital Course Hospital Course She slowly acclimated to the individual, group and milieu therapies provided.? When she presented she was struggling with hallucinations and psychosis and active addiction consistent with past presentations.? At the taoism of her home medications including IM Abilify with restarting injection of 400 mg of Abilify Maintena her symptoms began to improve.? She has limited supports and the treatment team worked with her guardian to find her a residential care facility. She also has no depression during today but does decreased as the medication manifested. She was refusing oral Abilify decreasing the efficacy of the oral cross cover and we await the Abilify injection to get to appropriate dosing. She did show some improvement during her stay and was able to contract for safety outside of the hospital prior to discharge.? During the hospitalization, patient had routine laboratory studies which were within normal limits except for few outliers.? Additionally there was a general medical evaluation which was also within normal limits and revealed no new acute processes. Discharge Summary: At the time of discharge, lethality was denied and psychosis was resolving.? Mood and anxiety were well managed.? Patient endorsed a plan to avoid all drugs of abuse and follow-up with the aftercare recommendations of the treatment team.? Patient was evaluated and deemed to be absent credible lethality, and had achieved the maximum benefit from an inpatient hospitalization, so was discharged. Involuntary Hold Information 96 Hour Hold: 96 Hour Involuntary Admission: Yes 96 Hour Hold Ending Date: 11/19/21 96 Hour Hold Ending Time: 04:30 Mental Status Exam MSE Comments: This is an overweight, well-developed white female in hospital scrubs, with some improved grooming and appropriate eye contact. Significant bruising and scabs of different ages all over her exposed skin improving. No abnormal movements except for decreasing psychomotor agitation. Cooperative with exam in mild distress. Speech was more normal rate and mostly normal volume. Mood described as I am fine, where is this place, affect odd. Thought process was mostly organized. Thought content: patient denied suicidal and homicidal ideation. She did not report delusions, and less bizarre and/or somatic delusions noted. She did not endorse auditory or visual hallucinations and did not appear to be attending to internal stimuli. Attention and concentration were limited and memory was unreliable, but none were formally tested. She was alert and oriented x 3 but does not understand why she was brought here or needs to be here. Insight and judgment are impaired, impulse control is improving. Discharge Data Studies Completed and Pending: Laboratory Results WBC 9.7 10^3/uL (4.0- 10.0) 11/13/21 04:02 RBC 4.08 10^6/uL (4.1 -5.3) L 11/13/21 04:02 Hgb 12.3 g/dL (11.5-1 5.3) 11/13/21 04:02 Hct 37.5 % (37.0-47.0 ) 11/13/21 04:02 MCV 91.9 fl (81-99) 11/13/21 04:02 MCH 30.1 pg (28.0-34. 0) 11/13/21 04:02 MCHC 32.8 g/dL (30.0-3 6.0) 11/13/21 04:02 RDW 14.3 % (12.1-15.1 ) 11/13/21 04:02 Plt Count 325 10^3/cmm (130 -400) 11/13/21 04:02 MPV 10.1 fL (7.4-10.4 ) 11/13/21 04:02 Neut % (Auto) 56.1 % 11/13/21 04:02 Lymph % (Auto) 32.0 % 11/13/21 04:02 [place] % (Auto) 9.8 % 11/13/21 04:02 Eos % (Auto) 1.2 % 11/13/21 04:02 Baso % (Auto) 0.7 % 11/13/21 04:02 Neut # (Auto) 5.45 10^3/uL (1.8 -7.7) 11/13/21 04:02 Lymph # (Auto) 3.1 10^3/uL (0.8- 4.8) 11/13/21 04:02 [place] # (Auto) 1.0 10^3/uL (0.2- 0.9) H 11/13/21 04:02 Eos # (Auto) 0.1 10^3/uL (0.0- 0.8) 11/13/21 04:02 Baso # (Auto) 0.1 10^3/uL (0.0- 0.1) 11/13/21 04:02 Nucleated RBC % (a uto) 0 % 11/13/21 04:02 Nucleated RBCs # 0.0 /100WBC 11/13/21 04:02 Sodium 140 mmol/L (136-1 45) 11/13/21 04:02 Potassium 3.5 mmol/L (3.5-5 .1) 11/13/21 04:02 Chloride 104 mmol/L (98-10 7) 11/13/21 04:02 Carbon Dioxide 24 mmol/L (22-29) 11/13/21 04:02 Anion Gap 15.5 (5-19) 11/13/21 04:02 BUN 11 mg/dL (6-20) 11/13/21 04:02 Creatinine 0.8 mg/dL (0.5-0. 9) 11/13/21 04:02 GFR Calculation 81.2 mL/min (90-1 30) L 11/13/21 04:02 Glucose 74 mg/dL (65-115) 11/13/21 04:02 Calculated Osmolal ity 288 mOsm/kg (285- 295) 11/13/21 04:02 Calcium 9.3 mg/dL (8.5-10 .5) 11/13/21 04:02 Total Bilirubin 0.2 mg/dL (0.15-1 .2) 11/13/21 04:02 AST 36 U/L (0-32) H 11/13/21 04:02 ALT 24 U/L (0-33) 11/13/21 04:02 Alkaline Phosphata se 90 U/L (35-105) 11/13/21 04:02 Total Protein 6.6 g/dL (6.6-8.7 ) 11/13/21 04:02 Albumin 3.8 g/dL (3.5-5.2 ) 11/13/21 04:02 Globulin 2.8 g/dL (1.3-4.6 ) 11/13/21 04:02 TSH 4.09 uIU/mL (0.27 -4.20) 11/13/21 04:02 HCG, Qual Negative (Negati ve) 11/13/21 02:19 Urine Color Yellow (Yellow) 11/13/21 02:19 Urine Appearance Cloudy (CLEAR) 11/13/21 02:19 Urine pH 5 (5-7) 11/13/21 02:19 Ur Specific Gravit y 1.025 (1.005-1.0 30) 11/13/21 02:19 Urine Protein 1+ (Negative) H 11/13/21 02:19 Urine Glucose (UA) Norm (Normal) 11/13/21 02:19 Urine Ketones 1+ (Negative) H 11/13/21 02:19 Urine Blood 3+ (Negative) H 11/13/21 02:19 Urine Nitrate Negative (Negati ve) 11/13/21 02:19 Urine Bilirubin 1+ (Negative) H 11/13/21 02:19 Urine Urobilinogen 4 mg/dL (Negative ) H 11/13/21 02:19 Ur Leukocyte Pamella ase 2+ (Negative) H 11/13/21 02:19 Urine RBC 25-40 /hpf (0-2) H 11/13/21 02:19 Urine WBC 40-55 /hpf (0-5) H 11/13/21 02:19 Ur Squamous Epith Cells 5-10 /hpf (0-5) H 11/13/21 02:19 Calcium Oxalate Cr ystal 0-4 /hpf H 11/13/21 02:19 Amorphous Sediment 1+ /hpf 11/13/21 02:19 Urine Bacteria 2+ /hpf (NONE) H 11/13/21 02:19 Hyaline Casts 0-4 /lpf H 11/13/21 02:19 Salicylates < 0.3 mg/dL (3-10 ) L 11/13/21 04:02 Urine Opiates Scre en Negative ng/mL (N egative) 11/13/21 02:19 Acetaminophen < 5.0 ug/mL (10-3 0) L 11/13/21 04:02 Ur Barbiturates Sc reen Negative ng/mL (N egative) 11/13/21 02:19 Ur Phencyclidine S crn Negative ng/mL (N egative) 11/13/21 02:19 Ur Amphetamines Sc reen Positive ng/mL (N egative) H 11/13/21 02:19 U Benzodiazepines Scrn Negative ng/mL (N egative) 11/13/21 02:19 Urine Cocaine Scre en Negative ng/mL (N egative) 11/13/21 02:19 U Marijuana (THC) Screen Positive ng/mL (N egative) H 11/13/21 02:19 Ethyl Alcohol < 10 mg/dL (0-10) 11/13/21 04:02 Vitals: Last Vital Signs Temp 98 F 11/21/21 14:00 Pulse 74 11/23/21 06:00 Resp 18 11/23/21 06:00 BP 98/66 11/22/21 20:43 Pulse Ox 96 11/23/21 06:00 O2 Del Method 11/21/21 14:00 Discharge Plan Discharge Patient Disposition: Home Condition: Stable Prescriptions: New aripiprazole 10 mg Tablet 10 mg PO DAILY 9 Days Qty: 9 0RF Rx Instructions: After 12/02/21 only receives injection. Abilify Maintena 400 mg suspension,extended rel recon 400 mg IM Q28D Qty: 1 1RF Rx Instructions: next injection 12/17/21 Discharge Orders: Discharge Order (Routine); Ordered 11/23/21 Ordered By: Cj Crews Referrals: [facility] [Other] (Call for any questions regarding insurance ext. [phone]) [facility] in house physican -Ronna LORENZ [Other] - 11/27/21 [facility] in house Psychiatrist-Doug To [Other] Discharge Diet: Regular Discharge Activity: Resume usual activity Patient Instructions: Alcohol Abuse, Aripiprazole (By mouth), Aripiprazole (By injection) (Abilify Maintena Dual-Chambered..., Methamphetamine Abuse, Schizophrenia (DC), Suicide Prevention (DC), Opioid Safety Discharge Attestations NPU Time Spent in Discharge Care*: less than 30 min Specific Discharge Activities: Specific discharge activities: educating patient, discussing with pillowcase maker/social workers/dc planners, documenting/other paperwork and evaluating patient/reviewing data Status at Discharge: Cognitive status at discharge: cognitively intact , Behavioral status at discharge: cooperative , Coding Level of Care Code Acute Chg FW DC note Diagnoses Chronic disorganized schizophrenia F20.1 Acute psychosis F23 Cannabis dependence, uncomplicated F12.20 Acute exacerbation of subchronic schizophrenia F20.89 Nicotine dependence, cigarettes, uncomplicated F17.210 Methamphetamine use disorder, severe F15.20
[2021-11-23 12:21] VITALS: PULSE 74; RESP 18; O2SAT 96
[2021-11-23] MEDS: OLANZapine 5 mg ODT PO (12:22)
[2021-11-23] MEDS: ARIPiprazole 10 mg Tablet PO (12:23)
[2021-11-23] MEDS: nicotine 2 mg Gum BUCCAL (12:23)
--- NOTE | 2021-11-23 12:25 | PC.NURSE ---
PRN MEDICATIONS PT TO NURSES STATION GETTING READY FOR DISCHARGE TO [facility] IN [facility]. PT PT STATES SHE IS VWRY ANXIOUS AND IS NEEDING SOMETHING FOR ANXIETY TO HELP WITH THE TRANSITION. ZYDIS 5 MG PO GIVEN ORDERED. SUPPORT VOICED.
--- NOTE | 2021-11-23 12:31 | PC.NURSE ---
PT UP TO NURSES STATION, DID AGREE TO TAKE HER ABILIFY TODAY. RN WATCHED PT TAKE. MEDICATION DELAY DUE TO PT SLEEPING AND REFUSING MEDICATIONS. PT DID TAKE.
== END 2021-11-23 14:01 | disposition home or self-care (01) | DRG 885 ==
LOC: ER 03:57 → NP 07:22
PROVIDERS: Nurse Practitioner Family; Admitting Provider Psychiatry & Neurology Psychiatry; Emergency Provider Emergency Medicine; PCP Electrodiagnostic Medicine; Visit Provider Psychiatry & Neurology Psychiatry
DX: F20.1 Disorganized schizophrenia (principal); F15.20 Other stimulant dependence, uncomplicated; F12.20 Cannabis dependence, uncomplicated; F10.21 Alcohol dependence, in remission; Z81.1 Family history of alcohol abuse and dependence; Z81.8 Family history of other mental and behavioral disorders
CPT/HCPCS: 80053; 80306; 80307; 81001; 81025; 84443; 85025; 87086; 96372; 97150; 97165; 99285; J1200; J1630; J2060; J3486

== ENCOUNTER 2022-04-28 18:17 | Inpatient (IN) | payer MEDICAID, SELFPAY ==
[2022-04-28 18:27] VITALS: BP 126/79; PULSE 66; TEMP 36.7; O2SAT 97
--- NOTE | 2022-04-28 18:55 | W.ED.AMS ---
HPI - Altered Mental Status General: Chief Complaint: Altered Mental Status Stated Complaint: AMS Time Seen by Provider: 04/28/22 18:20 History of Present Illness: 36-year-old female brought in by EMS and law enforcement. She was evidently encountered by law enforcement. She told them she was a Damian, she states I would like some iodine so that I can get back to where I am coming from . She has made no suicidal or homicidal statements. She does have a history of schizophrenia, complicated by substance abuse. complaint: altered mental status and intoxication Onset (ago): unknown Timing confirmed by: other Severity: similar to previous episodes Consistency of symptoms: Constant Context: drug abuse Associated symptoms: Reports auditory hallucinations, visual hallucinations, delusions and racing thoughts; Deny homicidal ideation or suicidal ideation Review of Systems General: Reports: ROS unobtainable due to mental status Psych: Reports: visual hallucinations and auditory hallucinations; Denies: suicidal ideation or homicidal ideation PFS ED PFSH: Medical History Acute exacerbation of subchronic schizophrenia Acute psychosis Alcohol dependence in early, early partial, sustained full, or sustained partial remission 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, early partial, sustained full, or sustained partial remission Bipolar disorder Borderline personality disorder Cannabis dependence in early, early partial, sustained full, or sustained partial remission Cannabis dependence, uncomplicated Chronic schizophrenia 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 Hypnagogic hallucinations Nicotine dependence, cigarettes, uncomplicated Other schizophrenia Schizophrenia, disorganized, chronic with acute exacerbation Substance use Surgical History No pertinent past surgical history Family History Father Suicide Alcohol abuse Schizophrenia Bipolar disorder Substance abuse Mother Depression Social History Smoking and tobacco status: unknown if ever smoked Alcohol intake: current Alcohol intake frequency: few times a week Alcohol type: beer, wine and hard liquor Desire information about alcohol rehabilitation?: No Counseling given: No (information given) Last alcohol use date: 09/01/20 Desire information about substance/drug rehabilitation?: No Adopted: No Caregiver/support person: No Lives independently: Yes Household members: spouse Housing: House Marital status: Marital status details: partner has substance abuse issues also Number of children: 3 Highest education level completed: GED or Equivalent service: No Current occupational status: unemployed 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 Leisure activites: art and music Sexually active: Yes Current gender identity: Female Special kong needs: No Agree to transfusion: Yes Financial difficulty paying for basics: Hard Physical Exam Const: GENERAL APPEARANCE: cooperative (somewhat) and diaphoretic; not ill appearing and not frail appearing HENMT: COMMON NORMALS: normocephalic, atraumatic and Normal external nose present HEAD & SCALP: normocephalic and atraumatic FACE & SINUS: normal facial exam and face symmetric NOSE: Normal external nose present and Normal nares present THROAT: posterior oropharynx normal Eye: COMMON NORMALS: Equal, round and reactive pupils present and EOMs intact bilaterally PUPIL: Yes Equal, round and reactive pupils present Neck/C-Spine: GENERAL: Yes trachea midline Chest: CHEST: Yes Symmetrical chest wall rise Resp: COMMON NORMALS: normal respiratory effort, No use of accessory muscles and clear to auscultation bilaterally AUSCULTATION: clear to auscultation bilaterally Cardio: COMMON NORMALS: regular rate and regular rhythm RATE: regular rate RHYTHM: regular rhythm GI: COMMON NORMALS: Normal to inspection, nondistended, normoactive bowel sounds present and Soft to palpation PALPATION: Yes Soft to palpation Extremity: COMMON NORMALS: normal to inspection Neuro: GIRFFIN COMA SCALE: document GCS findings Griffin coma scale eye opening: Spontaneous Griffin coma scale verbal response: Confused Joseph coma scale motor response: Obey commands Griffin coma scale total score: 14 Psych: APPEARANCE: Yes unkempt ATTITUDE: Yes bizarre and Yes agitated ACTIVITY/MOTOR BEHAVIOR: Yes psychomotor agitation and Yes fidgeting SPEECH: Yes loud and Yes Pressured speech present MOOD & AFFECT: Yes elevated mood THOUGHT PROCESS: disorganized THOUGHT CONTENT: No Suicidality present, No Homicidality present and Yes delusions MEMORY/COGNITION: Yes memory grossly impaired and Yes cognition grossly impaired INSIGHT: Poor insight present (Psych) JUDGEMENT: Poor judgement present (Psych) Skin: COMMON NORMALS: no wounds Course Vital Signs: Vital signs: Vital Signs Temperature 98.1 F 04/28/22 18:27 Pulse Rate 66 04/28/22 18:27 Blood Pressure 126/79 04/28/22 18:27 Pulse Oximetry 97 04/28/22 18:27 MDM - Altered Mental Status Medical Decision Making I spoke with this patient's legal guardian. He is concerned, as this has been an ongoing issue for several days now. She was in his office this past week, and was acting psychotic there. She is floridly psychotic here. She repeatedly makes statements that do not make sense. She was given IM Geodon and Ativan, and is resting comfortably. Medically she is stable. Her labs are essentially not remarkable. She has a contaminated urine sample, without evidence of significant UTI. I spoke with psychiatry. They are willing to admit. As she has a guardian, 96-hour paperwork is not necessary at this point. Lab Data 04/28/22 19:05 04/28/22 19:05 Laboratory Results WBC 9.6 10^3/uL (4.0-10.0) 04/28/22 19:05 RBC 4.36 10^6/uL (4.1-5.3) 04/28/22 19:05 Hgb 13.1 g/dL (11.5-15.3) 04/28/22 19:05 Hct 41.1 % (37.0-47.0) 04/28/22 19:05 MCV 94.3 fl (81-99) 04/28/22 19:05 MCH 30.0 pg (28.0-34.0) 04/28/22 19:05 MCHC 31.9 g/dL (30.0-36.0) 04/28/22 19:05 RDW 14.2 % (12.1-15.1) 04/28/22 19:05 Plt Count 337 10^3/cmm (130-400) 04/28/22 19:05 MPV 10.9 fL (7.4-10.4) H 04/28/22 19:05 Neut % (Auto) 61.4 % 04/28/22 19:05 Lymph % (Auto) 29.7 % 04/28/22 19:05 [place] % (Auto) 6.4 % 04/28/22 19:05 Eos % (Auto) 1.3 % 04/28/22 19:05 Baso % (Auto) 0.9 % 04/28/22 19:05 Neut # (Auto) 5.91 10^3/uL (1.8-7.7) 04/28/22 19:05 Lymph # (Auto) 2.9 10^3/uL (0.8-4.8) 04/28/22 19:05 [place] # (Auto) 0.6 10^3/uL (0.2-0.9) 04/28/22 19:05 Eos # (Auto) 0.1 10^3/uL (0.0-0.8) 04/28/22 19:05 Baso # (Auto) 0.1 10^3/uL (0.0-0.1) 04/28/22 19:05 Nucleated RBC % (auto) 0 % 04/28/22 19:05 Nucleated RBCs # 0.0 /100WBC 04/28/22 19:05 Sodium 140 mmol/L (136-145) 04/28/22 19:05 Potassium 3.9 mmol/L (3.5-5.1) 04/28/22 19:05 Chloride 100 mmol/L (98-107) 04/28/22 19:05 Carbon Dioxide 26 mmol/L (22-29) 04/28/22 19:05 Anion Gap 17.9 (5-19) 04/28/22 19:05 BUN 13 mg/dL (6-20) 04/28/22 19:05 Creatinine 0.5 mg/dL (0.5-0.9) 04/28/22 19:05 GFR Calculation 139.6 mL/min (90-130) H 04/28/22 19:05 Glucose 80 mg/dL (65-115) 04/28/22 19:05 Calculated Osmolality 289 mOsm/kg (285-295) 04/28/22 19:05 Calcium 10.0 mg/dL (8.5-10.5) 04/28/22 19:05 Total Bilirubin 0.2 mg/dL (0.15-1.2) 04/28/22 19:05 AST 30 U/L (0-32) 04/28/22 19:05 ALT 18 U/L (0-33) 04/28/22 19:05 Alkaline Phosphatase 106 U/L (35-105) H 04/28/22 19:05 Total Protein 7.3 g/dL (6.6-8.7) 04/28/22 19:05 Albumin 4.8 g/dL (3.5-5.2) 04/28/22 19:05 Globulin 2.5 g/dL (1.3-4.6) 04/28/22 19:05 TSH 10.20 uIU/mL (0.27-4.20) H 04/28/22 19:05 HCG, Qual Negative (Negative) 04/28/22 19:19 Urine Color Yellow (Yellow) 04/28/22 19:19 Urine Appearance Hazy (CLEAR) A 04/28/22 19:19 Urine pH 8 (5-7) H 04/28/22 19:19 Ur Specific [place] 1.010 (1.005-1.030) 04/28/22 19:19 Urine Protein Neg (Negative) 04/28/22 19:19 Urine Glucose (UA) Norm (Normal) 04/28/22 19:19 Urine Ketones Negative (Negative) 04/28/22 19:19 Urine Blood Neg (Negative) 04/28/22 19:19 Urine Nitrate Positive (Negative) H 04/28/22 19:19 Urine Bilirubin Neg (Negative) 04/28/22 19:19 Prot Sulfosalicylic Acd Negative (Negative) 04/28/22 19:19 Urine Urobilinogen Neg mg/dL (Negative) 04/28/22 19:19 Ur Leukocyte Esterase Trace (Negative) H 04/28/22 19:19 Urine RBC 0-4 /hpf (0-2) H 04/28/22 19:19 Urine WBC 5-10 /hpf (0-5) H 04/28/22 19:19 Ur Squamous Epith Cells 25-40 /hpf (0-5) H 04/28/22 19:19 Amorphous Sediment 1+ /hpf 04/28/22 19:19 Urine Bacteria 3+ /hpf (NONE) H 04/28/22 19:19 Urine Mucus 2+ /hpf 04/28/22 19:19 Salicylates < 0.3 mg/dL (3-10) L 04/28/22 19:05 Urine Opiates Screen Negative ng/mL (Negative) 04/28/22 19:19 Acetaminophen < 5.0 ug/mL (10-30) L 04/28/22 19:05 Ur Barbiturates Screen Negative ng/mL (Negative) 04/28/22 19:19 Ur Phencyclidine Scrn Negative ng/mL (Negative) 04/28/22 19:19 Ur Amphetamines Screen Positive ng/mL (Negative) H 04/28/22 19:19 U Benzodiazepines Scrn Negative ng/mL (Negative) 04/28/22 19:19 Urine Cocaine Screen Negative ng/mL (Negative) 04/28/22 19:19 U Marijuana (THC) Screen Positive ng/mL (Negative) H 04/28/22 19:19 Ethyl Alcohol < 10 mg/dL (0-10) 04/28/22 19:05 SARS-CoV-2 Ag (Rapid) negative (Negative) 04/28/22 18:51 Discharge Plan Discharge Patient Disposition: Admitted As Inpatient Clinical Impression: Acute exacerbation of subchronic schizophrenia, Methamphetamine use disorder, severe Condition: Stable Prescriptions: No Action Abilify Maintena 400 mg suspension,extended rel recon 400 mg IM Q28D Qty: 1 1RF Rx Instructions: next injection 12/17/21 Referrals: Adriano Sullivan DO [Primary Care Provider] - Coding Level of Care Code ED Director Of Manufacturing Operations for [facility]
[2022-04-28] MEDS: ziprasidone 20 mg/mL SDV IM (19:04)
[2022-04-28] MEDS: LORazepam 2 mg/mL INJ 1 mL IM (19:04)
--- NOTE | 2022-04-28 19:15 | PC.NURSE ---
pt up to restroom. nad noted. pt calm at this time.
[2022-04-28 19:23] LABS: SARS Covid-2 Antigen negative (Negative)
[2022-04-28 19:34] LABS: Basophils # 0.1 10^3/uL (0.0-0.1); Basophils % 0.9 %; Eosinophils # 0.1 10^3/uL (0.0-0.8); Eosinophils % 1.3 %; Hematocrit 41.1 % (37.0-47.0); Hemoglobin 13.1 g/dL (11.5-15.3); Lymphocytes # 2.9 10^3/uL (0.8-4.8); Lymphocytes % 29.7 %; Mean Corpuscular HGB Conc 31.9 g/dL (30.0-36.0); Mean Corpuscular Volume 94.3 fl (81-99); Mean Platelet Volume 10.9 fL (7.4-10.4); Monocytes # 0.6 10^3/uL (0.2-0.9); Monocytes % 6.4 %; Neutrophils # 5.91 10^3/uL (1.8-7.7); Neutrophils % 61.4 %; Nucleated Red Blood Cells % 0 %; Platelet Count 337 10^3/cmm (130-400); Red Blood Count 4.36 10^6/uL (4.1-5.3); Red Cell Distribution Width 14.2 % (12.1-15.1); White Blood Count 9.6 10^3/uL (4.0-10.0)
[2022-04-28 19:48] LABS: HCG Qualitative Urine. Negative (Negative)
[2022-04-28 19:56] LABS: Alanine Aminotransferase 18 U/L (0-33); Albumin Level 4.8 g/dL (3.5-5.2); Alkaline Phosphatase 106 U/L (35-105); Anion Gap 17.9 (5-19); Aspartate Amino Transferase 30 U/L (0-32); Blood Urea Nitrogen 13 mg/dL (6-20); Carbon Dioxide 26 mmol/L (22-29); Chloride 100 mmol/L (98-107); Globulin 2.5 g/dL (1.3-4.6); Glomerular Filtration Rate 139.6 mL/min (90-130); Glucose 80 mg/dL (65-115); Osmolality Calculated 289 mOsm/kg (285-295); Potassium 3.9 mmol/L (3.5-5.1); Sodium 140 mmol/L (136-145); Total Bilirubin 0.2 mg/dL (0.15-1.2); Total Protein 7.3 g/dL (6.6-8.7)
[2022-04-28 20:08] LABS: Acetaminophen < 5.0 ug/mL (10-30); Alcohol Level < 10 mg/dL (0-10); Salicylate < 0.3 mg/dL (3-10)
--- NOTE | 2022-04-28 20:20 | PC.NURSE ---
to room. pt resting comfortably with eyes closed. no needs identified.
[2022-04-28 20:46] LABS: Amphetamines Screen Urine Positive (Negative); Barbiturates Screen Urine Negative (Negative); Benzodiazepines Screen Urine Negative (Negative); Cocaine Screen Urine Negative (Negative); Opiate Screen Urine Negative (Negative); PCP Screen Urine Negative (Negative); THC Screen Urine Positive (Negative)
[2022-04-28 21:11] LABS: Add Urine Microscopic? YES; Bilirubin Urine Neg (Negative); Blood Urine Neg (Negative); Glucose Urine UA Norm (Normal); Ketones Urine Negative (Negative); Leukocyte Esterase Urine Trace (Negative); Nitrate Urine Positive (Negative); Protein Urine Neg (Negative); Sulfosalicylic Acid Urine Negative (Negative); Urine Appearance Hazy (CLEAR); Urine Color Yellow (Yellow); Urobilinogen Urine Neg (Negative); pH Urine 8 (5-7)
[2022-04-28 21:13] LABS: Add Urine Culture? No; Amorphous Sediment Urine 1+ /hpf; Bacteria Urine 3+ /hpf; Mucus Urine 2+ /hpf; RBC Urine 0-4 /hpf (0-2); Squamous Epithelial Cell Urine 25-40 /hpf (0-5)
--- NOTE | 2022-04-28 21:27 | PC.NURSE ---
to room. pt requesting to go to restroom. pt ambulates without difficulty. upon return to room, pt finishing sack lunch. no other needs identified.
--- NOTE | 2022-04-29 00:46 | PC.NURSE ---
36yr. old female admitted to room 150-2. Arrived to unit from ED via w/c accompanied by ED staff and security, Patient is voluntary by guardian. Does have affidavit from Police who brought patient in. Patient was given several prn's in ED before arriving to floor. Attempted to assessment but patient was disorganized and delusional when giving answers. Patient signed different names on each admission forms. Patient stated she was an alien form that was staying out in the [place] and had been probed. In ED she stated she was a Damian. She also stated she would like some iodine so that she could get back to where she was coming from. Most answers were nonsensical. Did deny SI/HI. Denied AVH. No c/o pain voiced. Patient has a long history of substance abuse and did test positive for meth and THC. Skin assessment completed with no issues noted and no contraband found. Patient was given snacks and fluid and orientated to room. Patient was loud and wandering halls. Attempted to redirect but patient continued with behaviors. PRN haldol po given.
[2022-04-29] MEDS: trazodone 50 mg Tablet PO (01:07)
[2022-04-29] MEDS: haloperidol 5 mg Tablet PO (01:07)
[2022-04-29 01:11] VITALS: BP 133/84; PULSE 109; RESP 20; TEMP 36.7; O2SAT 96
--- NOTE | 2022-04-29 06:12 | PC.NURSE ---
Attempted to do VS on patient x2. Patient became agitated and did not want to cooperate. Will pass on to day shift.
--- NOTE | 2022-04-29 09:55 | PC.OT ---
OT EVALUATION HELD PATIENT IS SLEEPING SOUNDLY
--- NOTE | 2022-04-29 10:36 | PC.NURSE ---
Assessment Refusal- Patient awoken for assessment. Patient wouldn't wake to verbal stimuli, but did awaken slowly to touch. This RN then asked the patient if it was okay to listen to her heart and talk to her for a bit to which she replied, no! You don't look right, sound right. This RN let the patient know I was there to assist her if she would allow me to. Patient seemed to not comprehend what I was saying. She then took a rice krispie out of her pocket, took a bite, then threw the rest of the rice krispie, and yelled, you're fucking waking me up! Fucking stupid! I want to sleep!. This RN will attempt to talk to the patient and assess her when she is more coherent.
[2022-04-29 14:00] VITALS: RESP 17
--- NOTE | 2022-04-29 16:38 | P.NPUHP_ITS ---
Providers/Chief Complaint Admitting Physician: Cj Crews MD Primary Care Provider: Adriano Slulivan DO Chief Complaint: AMS HPI NPU History of Present Illness Aga Lai is a 36 year old female who presented to the emergency department with the following report: Chief Complaint: Altered Mental Status Stated Complaint: AMS Time Seen by Provider: 04/28/22 18:20 History of Present Illness: 36-year-old female brought in by EMS and law enforcement. She was evidently encountered by law enforcement. She told them she was a Damian, she states I would like some iodine so that I can get back to where I am coming from . She has made no suicidal or homicidal statements. She does have a history of schizophrenia, complicated by substance abuse. MD complaint: altered mental status and intoxication Onset (ago): unknown Timing confirmed by: other Severity: similar to previous episodes Consistency of symptoms: Constant Context: drug abuse Associated symptoms: Reports auditory hallucinations, visual hallucinations, delusions and racing thoughts; Deny homicidal ideation or suicidal ideation. She was admitted to the neuropsychiatric unit for definitive treatment of those issues. She presents today having had moments of screaming at the top of her lungs and very erratic manner. When I entered her room she was sleeping but arousable. After she awoke she was a fairly poor historian highly focused on discharge. She would not really answer questions she would just respond I am fine can I just be discharged to this place or that place. She did not answer questions regarding what has happened since her last hospitalization or what she has been taking and is just Reporting that she was fine and that it would be okay if she was discharged. Previous hospitalizations, she was positive for methamphetamine and cannabis in her urine drug screen. She denied that those findings could have any bearing on her current mood, affect or behavior. She would not entertain conversations about any aspect of her situation since discharge in November of last year. Including her absconding from the discharge destination that was arranged. An excerpt of her last discharge summary is included below for historical information. Per her 11/23/2021 [facility] inpatient discharge summary: Discharge Diagnosis (1) Chronic disorganized schizophrenia: Status: Inactive (2) Acute psychosis: Status: Acute (3) Cannabis dependence, uncomplicated: Status: Acute (4) Acute exacerbation of subchronic schizophrenia: Status: Acute (5) Nicotine dependence, cigarettes, uncomplicated: Status: Acute (6) Methamphetamine use disorder, severe: Status: Acute Reason for Visit Reason for Visit: psychiatric evaluation Brief History: History of Present Illness Aga Lai is a 36 year old female who presented to the emergency department with the following report: Chief Complaint: Psychiatric Symptoms Stated Complaint: psychiatric evaluation Time Seen by Provider: 11/13/21 02:03 Source: patient and police Mode of arrival: other (police) Limitations: no limitations History of Present Illness: 36-year-old female has a history of schizophrenia along with methamphetamine abuse she is brought here by police she is wandering the streets and yelling at people's homes and knocking on the doors here patient is acutely psychotic she has flight of ideas she is extremely paranoid she denies any suicidal homicidal ideations history is difficult due to her psychoses. Associated symptoms: Reports auditory hallucinations and delusions She was admitted to the neuropsychiatric unit for definitive treatment of those issues. She presents today seeming to be crashing from likely methamphetamine use. She is well-known to this unit from very prolonged stays where an her psychosis would not break. Concerns exist as to whether continued episodes like this will create an environment where her recovery is not possible due to toxic impact from the psychosis and drug abuse. She could give no functional history. An excerpt of her December 2020 discharge summary is included below for context. Per her 12/29/2020 [facility] inpatient psychiatric discharge summary: PSYCH EVAL Brief History: Aga Lai is a 35 year old female who presented to the emergency department with the following report: Chief Complaint: Psychiatric Symptoms Stated Complaint: PSYCH EVAL Time Seen by Provider: 11/16/20 13:17 History of Present Illness: HPI Narrative: Ms. Lai is a 35-year-old lady with unclear history who presents the emergency department via law enforcement due to altered mental status and psychiatric concern. Upon initial evaluation patient is markedly agitated, she required physical restraints and subsequently chemical restraints. Her speech is rapid, pressured, tangential. She expresses nonsensical speech at times and has delusions. Unable to redirect or provide meaningful history. The exact course, duration, provoking, exacerbating, or alleviating factors is unclear. The intensity of her current symptoms appears to be severe. No other meaningful history provided. She was admitted to the neuropsychiatric unit for definitive treatment of those issues. Patient was significantly subdued secondary to medications received prior to admission to the unit. She was unable to provide any significant history. Later she did wake up she got a snack and ate some applesauce. She was speaking completely nonsensical. She had some water after that and ques tions that were asked were not answered in any way and ended up in weird tangential psychotic garble. We discussed the risk benefits and alternatives and that we had restarted her medications and it is unclear if she understood. An excerpt of her 09/02/2020 inpatient hospitalization is included below for context given her limited ability to give a history. Per her 09/02/2020 [facility] inpatient psychiatric evaluation: History of Present Illness Aga Lai is a 34 year old female with a reported history of schizophrenia, bipolar disorder and borderline personality disorder although there does not appear to be any serial observation for any length of time outside the influence of substances other than during a 30-day hospitalization in January 2020. Patient was brought in by police and was placed on 96-hour hold after being found wandering down the road under the influence of substances and alcohol. Patient was somewhat combative at the time of initial evaluation in the emergency department and was given as needed medication. Patient was medically cleared in emergency department prior to admission to inpatient psychiatry. Patient reports that she did not continue to take any medication after leaving the hospital in January 2020 and has not followed up with any mental health care provider. Furthermore, she denies follow-up with any substance treatment. Patient does not appear to be disorganized and is able to communicate in a linear, organized but brief fashion secondary to being soporific from recent amphetamine use. Patient does not a good historian at this time given that she continues to fall asleep during interview. She gave permission for collateral information from her mother although her mother's phone is not a septic voicemail messages at this time. Patient does report auditory and visual loose Nations although she currently denies any at this time and it is unclear with regards to relationship with her ongoing substance and alcohol use. Patient was previously treated with mood stabilizing medication as well as antipsychotics but per above discontinued abruptly at the time of discharge. Patient was unable to complete psychiatric review of systems at this time. Hospital Course Hospital Course The patient was admitted to the neuropsychiatric unit for definitive treatment of these issues. On the unit she slowly acclimated to the individual, group and milieu therapies. There were some mild psychotic symptoms present initially which resolved with the medication being restarted. She was given oral Abilify along with the Zyprexa she had been taking at 5 mg twice daily. On 12/04/2020 she was given Abilify Maintena IM 400 mg. She will get the next dose on 01/03/2021. She was receptive to treatment team recommendations and showed modest improvement and was able to contract for safety prior to discharge. During the hospitalization, patient had routine laboratory studies which were within normal limits except for few outliers. Additionally there was a general medical evaluation which was also within normal limits and revealed no new acute processes. Since the patient had been admitted on several occasions, and was locked in a cycle of using drugs, becoming psychotic, admitted to the hospital, clearing psy chosis, return to the community, and using drugs again? Guardianship was sought and obtained by the hospital. Her guardian is Viktor Plunkett [facility] Public storage and backup administrator. We sought a placement for the patient, but all of the residential care facilities were unwilling to take her without Medicaid in [facility]. At last, the patient's mother found people who could watch the patient while the mother was at work. This was a reasonable enough solution to provide her the least restrictive level of care. Discharge Summary: At the time of discharge, psychosis and lethality were denied. She did continue to have some disorganized thinking, which is at her baseline. Mood and anxiety were well managed. Patient endorsed a plan to avoid all drugs of abuse and follow-up with the aftercare recommendations of the treatment team. Patient was evaluated and deemed to be absent credible lethality, and had achieved the maximum benefit from an inpatient hospitalization, so was discharged. Meds NPU Home Medications Medication Instructions Recorded Confirmed Last Taken Type aripiprazole 400 mg intramuscular 400 mg IM Q28D #1 ea 11/23/21 04/29/22 Unknown Rx suspension,extended release (Abilify Maintena) Allergies Allergy/AdvReac Type Severity Reaction Status Date / Time No Known Allergies Allergy Verified 01/03/21 09:53 PFS NPU PFSH: Medical History Acute exacerbation of subchronic schizophrenia Acute psychosis Alcohol dependence in early, early partial, sustained full, or sustained partial remission 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, early partial, sustained full, or sustained partial remission Bipolar disorder Borderline personality disorder Cannabis dependence in early, early partial, sustained full, or sustained partial remission Cannabis dependence, uncomplicated Chronic schizophrenia 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 Hypnagogic hallucinations Nicotine dependence, cigarettes, uncomplicated Other schizophrenia Schizophrenia, disorganized, chronic with acute exacerbation Substance use Surgical History No pertinent past surgical history Family History Father Suicide Alcohol abuse Schizophrenia Bipolar disorder Substance abuse Mother Depression Social History Smoking and tobacco status: unknown if ever smoked Alcohol intake: current Alcohol intake frequency: few times a week Alcohol type: beer, wine and hard liquor Desire information about alcohol rehabilitation?: No Counseling given: No (information given) Last alcohol use date: 09/01/20 Desire information about substance/drug rehabilitation?: No Adopted: No Caregiver/support person: No Lives independently: Yes Household members: spouse Housing: House Marital status: Marital status details: partner has substance abuse issues also Number of children: 3 Highest education level completed: GED or Equivalent service: No Current occupational status: unemployed 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 Hair has been dyed blonde since last visit but is matted and unkempt. No abnormal movements except for significant psychomotor agitation. Somewhat cooperative with exam in mild to moderate distress at times but she is also been heard screaming at the top of her lungs at times prior to the interview. Speech was limited initially but then increased rate and normal volume. Mood described as fine cannot I just go home, affect congruent. Thought process was disorganized. Thought content: patient denied suicidal and homicidal ideation. She did not report delusions. But clear bizarre delusions noted. She did not endorse auditory or visual hallucinations and did not appear to be attending to internal stimuli. Attention and concentration were limited and memory was unreliable, but none were formally tested. She was alert and oriented x 3 but does not understand why she was brought here or needs to be here. Insight and judgment are impaired, impulse control is limited. Vitals/I&O/Wt Last Vital Signs Temp 98.0 F 04/29/22 01:11 Pulse 109 H 04/29/22 01:11 Resp 20 H 04/29/22 01:11 BP 133/84 04/29/22 01:11 Pulse Ox 96 04/29/22 01:11 O2 Del Method 04/29/22 00:46 Weight last 48 hrs Weight 68.039 kg Data NPU 04/28/22 19:05 04/28/22 19:05 A&P Assessment and plan (1) Chronic disorganized schizophrenia: (2) Acute psychosis: (3) Cannabis dependence, uncomplicated: (4) Acute exacerbation of subchronic schizophrenia: (5) Nicotine dependence, cigarettes, uncomplicated: (6) Methamphetamine use disorder, severe: Plan This is a 36-year-old white female well known to the system who presents with history of schizophrenia and presents with active psychosis likely exacerbated by continued addiction. RECOMMENDATION AND PLAN: 1.? Continue current medication. Find out what her medication compliance has been. 2.? Continue every 15 minute checks for safety. 3.? Encourage individual, group and milieu therapies. 4.? Encourage sober living treatment after discharge at the highest level of care to which she is willing to commit. 5. Contact guardian identified what measures undertaken for suitable placement. Involuntary Hold Information 96 Hour Hold: 96 Hour Involuntary Admission: No Attestations NPU Medical Necessity Statement*: Inpatient hospitalization is medically necessary and the clinically appropriate intervention at this time. We will monitor medications and make changes as indicated. Patient will be in the hospital for over two midnights. Likely length of stay 7-10 days. Coding Level of Care Code Acute Code for [facility] Fwd Diagnoses Chronic disorganized schizophrenia F20.1 Acute psychosis F23 Cannabis dependence, uncomplicated F12.20 Acute exacerbation of subchronic schizophrenia F20.89 Nicotine dependence, cigarettes, uncomplicated F17.210 Methamphetamine use disorder, severe F15.20
--- NOTE | 2022-04-30 06:50 | PC.NURSE ---
Patient refused VS this morning. Became verbally aggressive calling INDUSTRIAL RECRUITER a stupid fat bitch and told her never to wake her up again. Patient has slept in both beds in her room this shift. Switching during the night and claims clerk.
--- NOTE | 2022-04-30 09:27 | PC.OT ---
OT EVALUATION ATTEMPTED AGAIN TODAY. PATIENT SLEEPING SOUNDLY AND NURSE ASKS FOR HOLD
--- NOTE | 2022-04-30 13:50 | P.NPUPN_ITS ---
Subjective NPU Subjective: Patient presented today continuing to report that she wants to leave. That continues to be her only mantra. She still has moments of screaming at the top of her lungs with no apparent reason or trigger except for likely internal psychotic triggers. She really had no contribution to the info rmation gathering process. Mental Status Exam 2 MSE Comments: This is an overweight versus obese white female with hospital scrubs on with disheveled with minimal eye contact. Hair has been dyed blonde since last visit but is matted and unkempt. No abnormal movements except for significant psychomotor agitation. Somewhat cooperative with exam in mild to moderate distress at times but she is also been heard screaming at the top of her lungs at times prior to the interview. Speech was limited initially but then increased rate and normal volume. Mood described as fine cannot I just go home, affect congruent. Thought process was disorganized. Thought content: patient denied suicidal and homicidal ideation. She did not report delusions. But clear bizarre delusions noted. She did not endorse auditory or visual hallucinations and did not appear to be attending to internal stimuli. Attenti on and concentration were limited and memory was unreliable, but none were formally tested. She was alert and oriented x 3 but does not understand why she was brought here or needs to be here. Insight and judgment are impaired, impulse control is limited. Vitals/I&O/Wt Last Vital Signs Temp 98.0 F 04/29/22 01:11 Pulse 109 H 04/29/22 01:11 Resp 17 04/29/22 14:00 BP 133/84 04/29/22 01:11 Pulse Ox 96 04/29/22 01:11 O2 Del Method 04/29/22 00:46 Weight last 48 hrs Weight 68.039 kg Data NPU 04/28/22 19:05 04/28/22 19:05 A&P Assessment and plan (1) Chronic disorganized schizophrenia: (2) Acute psychosis: (3) Cannabis dependence, uncomplicated: (4) Acute exacerbation of subchronic schizophrenia: (5) Nicotine dependence, cigarettes, uncomplicated: (6) Methamphetamine use disorder, severe: Plan This is a 36-year-old white female well known to the system who presents with history of schizophrenia and presents with active psychosis likely exacerbated by continued addiction. RECOMMENDATION AND PLAN: 1.? Continue current medication. Find out what her medication compliance has been. 2.? Continue every 15 minute checks for safety. 3.? Encourage individual, group and milieu therapies. 4.? Encourage sober living treatment after discharge at the highest level of care to which she is willing to commit. 5. Contact guardian identified what measures undertaken for suitable placement. Involuntary Hold Information 96 Hour Hold: 96 Hour Involuntary Admission: No Attestations NPU Medical Necessity Statement*: Inpatient hospitalization is medically necessary and the clinically appropriate intervention at this time. We will monitor medications and make changes as indicated. Likely length of stay 7-10 days. Coding Level of Care Code Acute Code for [facility] Fwd Diagnoses Chronic disorganized schizophrenia F20.1 Acute psychosis F23 Cannabis dependence, uncomplicated F12.20 Acute exacerbation of subchronic schizophrenia F20.89 Nicotine dependence, cigarettes, uncomplicated F17.210 Methamphetamine use disorder, severe F15.20
[2022-04-30 14:00] VITALS: RESP 16
[2022-04-30] MEDS: haloperidol inj 5 mg/mL INJ 1 mL IM (20:35)
[2022-04-30] MEDS: diphenhydrAMINE 50 mg/mL SDV 1mL IM (20:35)
[2022-04-30] MEDS: LORazepam 2 mg/mL INJ 1 mL IM (20:35)
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
--- NOTE | 2022-05-01 04:52 | PC.NURSE ---
Patient has rested quietly all night. No further behaviors after prn was given. No signs of distress.
--- NOTE | 2022-05-01 09:38 | PC.OT ---
OT EVALUATION ATTEMPTED. PATIENT SLEEPING SOUNDLY; HOLD PER NURSING REQUEST
--- NOTE | 2022-05-01 13:19 | W.PM.NPUPNS ---
Subjective NPU Subjective: Patient presented today essentially ignoring this literary writer was only a few responses. No changes in her overall behavior with isolation intermixed with moments where she is angry and screaming. She has continued to sleep significantly likely representing a withdrawal from methamphetamine. Mental Status Exam MSE Comments: This is an overweight versus obese white female with hospital scrubs on with disheveled with minimal eye contact. Hair has been dyed blonde since last visit but is matted and unkempt. No abnormal movements except for significant psychomotor agitation. Somewhat cooperative with exam in mild to moderate distress at times but she is also been heard screaming at the top of her lungs at times prior to the interview. Speech was limited initially but then increased rate and normal volume. Mood described as fine cannot I just go home, affect congruent. Thought process was disorganized. Thought content: patient denied suicidal and homicidal ideation. She did not report delusions. But clear bizarre delusions noted. She did not endorse auditory or visual hallucinations and did not appear to be attending to internal stimuli. Attention and concentration were limited and memory was unreliable, but none were formally tested. She was alert and oriented x 3 but does not understand why she was brought here or needs to be here. Insight and judgment are impaired, impulse control is limited. Vitals/I&O/Wt Last Vital Signs Temp 98.0 F 04/29/22 01:11 Pulse 109 H 04/29/22 01:11 Resp 16 04/30/22 14:00 BP 133/84 04/29/22 01:11 Pulse Ox 96 04/29/22 01:11 O2 Del Method 04/29/22 00:46 Data NPU 04/28/22 19:05 04/28/22 19:05 A&P Assessment and plan (1) Chronic disorganized schizophrenia: (2) Acute psychosis: (3) Cannabis dependence, uncomplicated: (4) Acute exacerbation of subchronic schizophrenia: (5) Nicotine dependence, cigarettes, uncomplicated: (6) Methamphetamine use disorder, severe: Plan This is a 36-year-old white female well known to the system who presents with history of schizophrenia and presents with active psychosis likely exacerbated by continued addiction. RECOMMENDATION AND PLAN: 1.? Continue current medication. Find out what her medication compliance has been. 2.? Continue every 15 minute checks for safety. 3.? Encourage individual, group and milieu therapies. 4.? Encourage sober living treatment after discharge at the highest level of care to which she is willing to commit. 5. Contact guardian identified what measures undertaken for suitable placement. Involuntary Hold Information 96 Hour Hold: 96 Hour Involuntary Admission: No Attestations NPU Medical Necessity Statement*: Inpatient hospitalization is medically necessary and the clinically appropriate intervention at this time. We will monitor medications and make changes as indicated. Likely length of stay 7-10 days. Coding Level of Care Code Acute Code for [facility] Diagnoses Chronic disorganized schizophrenia F20.1 Acute psychosis F23 Cannabis dependence, uncomplicated F12.20 Acute exacerbation of subchronic schizophrenia F20.89 Nicotine dependence, cigarettes, uncomplicated F17.210 Methamphetamine use disorder, severe F15.20
[2022-05-01 14:00] VITALS: RESP 17
[2022-05-01 22:00] VITALS: RESP 15
[2022-05-02 06:00] VITALS: RESP 18
[2022-05-02 14:00] VITALS: RESP 16
--- NOTE | 2022-05-02 15:13 | PC.OT ---
OT EVALUATION ATTEMPTED TWICE TODAY. PATIENT IS SLEEPING AND NURSING REQUESTS TO NOT AWAKEN HER.
--- NOTE | 2022-05-02 15:50 | PC.NURSE ---
patient refused vitals
--- NOTE | 2022-05-02 16:30 | P.NPUPN_ITS ---
Subjective NPU Subjective: Patient presents today continuing to appear oblivious to her addiction issues. She spent most of the time talking about being discharged and denying that there were any issues leading to her hospitalization. She was out of bed more today but still having occasional screaming outbursts. We discussed the likelihood for placement as she asked for discharge to some new boyfriend she has. Mental Status Exam MSE Comments: This is an overweight versus obese white female with hospital scrubs on less disheveled with appropriate eye contact. Hair has been dyed blonde since last visit but is matted and unkempt. No abnormal movements except for psychomotor agitation. More cooperative with exam in mild to moderate distress at times but she is also been heard screaming at the top of her lungs at times prior to the interview. Speech was normal rate volume. Mood described as fine, affect congruent. Thought process was disorganized. Thought content: patient denied suicidal and homicidal ideation. She did not report delusions. But clear bizarre delusions noted. She did not endorse champ tory or visual hallucinations and did not appear to be attending to internal stimuli. Attention and concentration were limited and memory was unreliable, but none were formally tested. She was alert and oriented x 3 but does not understand why she was brought here or needs to be here. Insight and judgment are impaired, impulse control is impaired. Vitals/I&O/Wt Last Vital Signs Temp 98.0 F 04/29/22 01:11 Pulse 109 H 04/29/22 01:11 Resp 16 05/02/22 14:00 BP 133/84 04/29/22 01:11 Pulse Ox 96 04/29/22 01:11 O2 Del Method 04/29/22 00:46 Data NPU 04/28/22 19:05 04/28/22 19:05 A&P Assessment and plan (1) Chronic disorganized schizophrenia: (2) Acute psychosis: (3) Cannabis dependence, uncomplicated: (4) Acute exacerbation of subchronic schizophrenia: (5) Nicotine dependence, cigarettes, uncomplicated: (6) Methamphetamine use disorder, severe: Plan This is a 36-year-old white female well known to the system who presents with history of schizophrenia and presents with active psychosis likely exacerbated b y continued addiction. RECOMMENDATION AND PLAN: 1.? Continue current medication. Find out what her medication compliance has been. 2.? Continue every 15 minute checks for safety. 3.? Encourage individual, group and milieu therapies. 4.? Encourage sober living treatment after discharge at the highest level of care to which she is willing to commit. 5. Contact guardian identified what measures undertaken for suitable placement. Involuntary Hold Information 96 Hour Hold: 96 Hour Involuntary Admission: No Attestations NPU Medical Necessity Statement*: Inpatient hospitalization is medically necessary and the clinically appropriate intervention at this time. We will monitor medications and make changes as indicated. Likely length of stay 7-10 days. Coding Level of Care Code Acute Code for [facility] Fwd Diagnoses Chronic disorganized schizophrenia F20.1 Acute psychosis F23 Cannabis dependence, uncomplicated F12.20 Acute exacerbation of subchronic schizophrenia F20.89 Nicotine dependence, cigarettes, uncomplicated F17.210 Methamphetamine use disorder, severe F15.20
[2022-05-02] MEDS: ibuprofen 800 mg tablet PO (17:29)
[2022-05-02 22:00] VITALS: RESP 16
[2022-05-03 06:00] VITALS: RESP 16
[2022-05-03] MEDS: nicotine 2 mg Gum BUCCAL (10:57)
[2022-05-03] MEDS: OLANZapine 5 mg ODT PO (12:11)
--- NOTE | 2022-05-03 12:13 | P.NPUPN_ITS ---
Subjective NPU Subjective: Patient presented today reporting that she is struggling with being here. She reports she wants to go home and be with my babies. We discussed the fact that she needs to be consistent with her medication and that we are hoping to restart her Abilify Maintena 400 mg IM q. monthly. She cont inues to express ambivalence about the need to be in the hospital and that she is just wanting to call people to pick her up demonstrating 0 insight into the circumstance she finds her self in the hospital. Shreya her needing to call her guardian so that she can appreciate that we are working together towards this plan of restarting medication and finding a safe place for her to engage in her recovery and ongoing treatment. Mental Status Exam MSE Comments: This is an overweight versus obese white female with hospital scrubs on less disheveled with appropriate eye contact. Hair has been dyed blonde since last visit but is matted and unkempt. No abnormal movements except for mild psychomotor agitation. More cooperative with exam in mild to moderate distress at times but she is also been heard screaming at the top of her lungs at times prior to the interview. Speech was normal rate volume. Mood described as fine, affect congruent. Thought process was disorganized. Thought content: patient denied suicidal and homicidal ideation. She did not report delusions. But clear bizarre delusions noted. She did not endorse auditory or visual hallucinations and did not appear to be attending to internal stimuli. Attention and concentration were limited and memory was unreliable, but none were formally tested. She was alert and oriented x 3 but does not understand why she was brought here or needs to be here. Insight and judgment are impaired, impulse control is impaired. Vitals/I&O/Wt Last Vital Signs Temp 98.0 F 04/29/22 01:11 Pulse 109 H 04/29/22 01:11 Resp 16 05/03/22 06:00 BP 133/84 04/29/22 01:11 Pulse Ox 96 04/29/22 01:11 O2 Del Method 04/29/22 00:46 Data NPU 04/28/22 19:05 04/28/22 19:05 A&P Assessment and plan (1) Chronic disorganized schizophrenia: (2) Acute psychosis: (3) Cannabis dependence, uncomplicated: (4) Acute exacerbation of subchronic schizophrenia: (5) Nicotine dependence, cigarettes, uncomplicated: (6) Methamphetamine use disorder, severe: Plan This is a 36-year-old white female well known to the system who presents with history of schizophrenia and presents with active psychosis likely exacerbated by continued addiction. RECOMMENDATION AND PLAN: 1.? Continue current medication. Find out what her medication compliance has been. Plan to initiate Abilify Maintena 400 mg IM q. monthly today with additional confirmation of nonadherence. 2.? Continue every 15 minute checks for safety. 3.? Encourage individual, group and milieu therapies. 4.? Encourage sober living treatment after discharge at the highest level of care to which she is willing to commit. 5. Contact guardian identified what measures undertaken for suitable placement. Involuntary Hold Information 96 Hour Hold: 96 Hour Involuntary Admission: No Attestations U Medical Necessity Statement*: Inpatient hospitalization is medically necessary and the clinically appropriate intervention at this time. We will monitor medications and make changes as indicated. Likely length of stay 7-10 days. Coding Level of Care Code Acute Code for [facility] Diagnoses Chronic disorganized schizophrenia F20.1 Acute psychosis F23 Cannabis dependence, uncomplicated F12.20 Acute exacerbation of subchronic schizophrenia F20.89 Nicotine dependence, cigarettes, uncomplicated F17.210 Methamphetamine use disorder, severe F15.20
--- NOTE | 2022-05-03 12:13 | PC.NURSE ---
PT REQUESTS PRN MEDS FOR INCREASED ANXIETY, PRN ZYDIS GIVEN PER MED NURSE, PT VERY ANTSY, PACING HALLS AND UP TO NURSES STATION ASKING FOR LITHIUM AND METH, PT INSTRUCTED TO LET MEDICATION WORK AND REPORT BACK TO STAFF IF MED NOT REDUCING ANXIETY, PT VERB UNDERSTANDING
[2022-05-03 14:00] VITALS: RESP 18
--- NOTE | 2022-05-03 14:33 | PC.NURSE ---
patient refused vitals
[2022-05-03] MEDS: ARIPiprazole Maintena 400 MG IM (14:34)
[2022-05-03 22:00] VITALS: RESP 16
[2022-05-04 06:00] VITALS: RESP 16
[2022-05-04] MEDS: haloperidol inj 5 mg/mL INJ 1 mL IM (08:33)
[2022-05-04] MEDS: LORazepam 2 mg/mL INJ 1 mL IM (08:34)
[2022-05-04] MEDS: diphenhydrAMINE 50 mg/mL SDV 1mL IM (08:34)
[2022-05-04] MEDS: nicotine 2 mg Gum BUCCAL (08:35)
--- NOTE | 2022-05-04 12:49 | W.PM.NPUPNS ---
Subjective NPU Subjective: Patient presented today a little more active and engaging. She is continuing to be either misremembering or disingenuous about her situation. She reports that she needs to get out to take care of her babies and endorses that she has been primarily caring for them when she does not have guardianship. We continued to talk about her taking her medication as prescribed and she continues to report that the medications do not work for her. We discussed [place]el reality that the medication works quite well for her and she is able to have clear functional conversations. Mental Status Exam MSE Comments: This is an overweight versus obese white female with hospital scrubs on less disheveled with appropriate eye contact. Hair has been dyed blonde since last visit but is matted and unkempt. No abnormal movements except for mild psychomotor agitation. More cooperative with exam in mild to moderate distress at times but she is also been heard screaming at the top of her lungs at times prior to the interview. Speech was normal rate volume. Mood described as fine, affect congruent. Thought process was occasionally organized. Thought content: patient denied suicidal and homicidal ideation. She did not report delusions. But clear bizarre delusions noted. She did not endorse auditory or visual hallucinations and did not appear to be attending to internal stimuli. Attention and concentration were limited and memory was unreliable, but none were formally tested. She was alert and oriented x 3 but does not understand why she was brought here or needs to be here. Insight and judgment are impaired, impulse control is impaired. Vitals/I&O/Wt Last Vital Signs Temp 98.0 F 04/29/22 01:11 Pulse 109 H 04/29/22 01:11 Resp 16 05/04/22 06:00 BP 133/84 04/29/22 01:11 Pulse Ox 96 04/29/22 01:11 O2 Del Method 04/29/22 00:46 Data NPU 04/28/22 19:05 04/28/22 19:05 A&P Assessment and plan (1) Chronic disorganized schizophrenia: (2) Acute psychosis: (3) Cannabis dependence, uncomplicated: (4) Acute exacerbation of subchronic schizophrenia: (5) Nicotine dependence, cigarettes, uncomplicated: (6) Methamphetamine use disorder, severe: Plan This is a 36-year-old white female well known to the system who presents with history of schizophrenia and presents with active psychosis likely exacerbated by continued addiction. RECOMMENDATION AND PLAN: 1.? Continue current medication. Find out what her medication compliance has been. Initiated Abilify Maintena 400 mg IM q. monthly. Offer Abilify 50 mg p.o. every morning to assist the injection getting to and steady state. 2.? Continue every 15 minute checks for safety. 3.? Encourage individual, group and milieu therapies. 4.? Encourage sober living treatment after discharge at the highest level of care to which she is willing to commit. 5. Contact guardian identified what measures undertaken for suitable placement. Involuntary Hold Information 96 Hour Hold: 96 Hour Involuntary Admission: No Attestations NPU Medical Necessity Statement*: Inpatient hospitalization is medically necessary and the clinically appropriate intervention at this time. We will monitor medications and make changes as indicated. Likely length of stay 7-10 days. Coding Level of Care Code Acute Code for [facility] Fwd Diagnoses Chronic disorganized schizophrenia F20.1 Acute psychosis F23 Cannabis dependence, uncomplicated F12.20 Acute exacerbation of subchronic schizophrenia F20.89 Nicotine dependence, cigarettes, uncomplicated F17.210 Methamphetamine use disorder, severe F15.20
[2022-05-04 14:00] VITALS: RESP 16
[2022-05-04 20:25] VITALS: RESP 18
[2022-05-05 05:50] VITALS: RESP 18
[2022-05-05] MEDS: nicotine 2 mg Gum BUCCAL (12:50)
--- NOTE | 2022-05-05 12:50 | PC.NURSE ---
Patient refused medication at approximately 1030. When offered medication she yelled, I'm NOT taking any fucking medicationnnn!! She then began slamming her hands against the plexiglass and screaming.
[2022-05-05] MEDS: OLANZapine 5 mg ODT PO (13:15)
--- NOTE | 2022-05-05 13:15 | PC.NURSE ---
Patient becoming frustrated that she can't leave right at this moment to go to [facility]. Patient becoming visibly agitated, pacing, and bringing her hands to her face. She is asking for IM medications, but this RN explained the importance of her taking something first that won't make her as sleepy. Patient given zyprexa 10mg ODT.
[2022-05-05 13:43] VITALS: RESP 19
[2022-05-05] MEDS: LORazepam 2 mg Tablet PO (13:43)
--- NOTE | 2022-05-05 13:43 | PC.NURSE ---
Patient becoming irritated because, I took that other med an hour ago and it isn't helping. She is repeatedly asking to go to [facility] and states she just wants to leave here and be where she supposed to be with her kids. Patient requesting an IM medication again, but agreed to take an ativan 2mg PO.
--- NOTE | 2022-05-05 15:39 | P.NPUPN_ITS ---
Subjective NPU Subjective: Patient presented today having a screening fit after she was engaged this morning. For about half hour to 45 minutes after we spoke she was screaming at the top of her lungs and cursing at this assembly instructions writer. Ultimately she had breakfast and was able to calm down but she continued the same theme as she has since admission with reports of her needing to get back to her kids and that she does not use drugs and that the medications do not help. Mental Status Exam MSE Comments: This is an overweight versus obese white female with hospital scrubs on less disheveled with appropriate eye contact. Hair has been dyed blonde since last visit but is matted and unkempt. No abnormal movements except for mild psychomotor agitation. More cooperative with exam in mild to extreme distress at times but she is also been heard screaming at the top of her lungs at times on the unit. Speech was normal rate volume. Mood described as fine, affect congruent. Thought process was occasionally organized. Thought content: patient denied suicidal and homicidal ideation. She did not report delusions. But clear bizarre delusions noted. She did not endorse auditory or visual hallucinations and did not appear to be attending to internal stimuli. Attention and concentration were limited and memory was unreliable, but none were formally tested. She was alert and oriented x 3 but does not understand why she was brought here or needs to be here. Insight and judgment are impaired, impulse control is impaired. Vitals/I&O/Wt Last Vital Signs Temp 98.0 F 04/29/22 01:11 Pulse 109 H 04/29/22 01:11 Resp 18 05/05/22 19:39 BP 133/84 04/29/22 01:11 Pulse Ox 96 04/29/22 01:11 O2 Del Method 04/29/22 00:46 Data NPU 04/28/22 19:05 04/28/22 19:05 A&P Assessment and plan (1) Chronic disorganized schizophrenia: (2) Acute psychosis: (3) Cannabis dependence, uncomplicated: (4) Acute exacerbation of subchronic schizophrenia: (5) Nicotine dependence, cigarettes, uncomplicated: (6) Methamphetamine use disorder, severe: Plan This is a 36-year-old white female well known to the system who presents with history of schizophrenia and presents with active psychosis likely exacerbated by continued addiction. RECOMMENDATION AND PLAN: 1.? Continue current medication. Find out what her medication compliance has been. Initiated Abilify Maintena 400 mg IM q. monthly. Offer Abilify 50 mg p.o. every morning to assist the injection getting to and steady state. 2.? Continue every 15 minute checks for safety. 3.? Encourage individual, group and milieu therapies. 4.? Encourage sober living treatment after discharge at the highest level of care to which she is willing to commit. 5. Contact guardian identified what measures undertaken for suitable placement. Involuntary Hold Information 96 Hour Hold: 96 Hour Involuntary Admission: No Attestations NPU Medical Necessity Statement*: Inpatient hospitalization is medically necessary and the clinically appropriate intervention at this time. We will monitor medications and make changes as indicated. Likely length of stay 7-10 days. Coding Level of Care Code Acute Code for [facility] Fwd Diagnoses Chronic disorganized schizophrenia F20.1 Acute psychosis F23 Cannabis dependence, uncomplicated F12.20 Acute exacerbation of subchronic schizophrenia F20.89 Nicotine dependence, cigarettes, uncomplicated F17.210 Methamphetamine use disorder, severe F15.20
[2022-05-05 19:39] VITALS: RESP 18
[2022-05-06 06:00] VITALS: RESP 18
--- NOTE | 2022-05-06 06:22 | PC.NURSE ---
Patient refused VS @ hs and this am. Stated Get the fuck out of my room this morning.
[2022-05-06] MEDS: nicotine 21 mg Patch 1 PATCH TRANSDERMA (10:55)
--- NOTE | 2022-05-06 11:48 | W.PM.NPUPNS ---
Subjective NPU Subjective: Patient presented today continuing to be mercurial and easily agitated. She continues to ask if her boyfriend/significant other can check her out or if she can go to [facility] or long term. She continues to report that she does not take drugs but today she adjusted/amended the story to say she has not used in a month. She is beginning to focus on the of her sister. This individual appears to be her equivalent of [id number]. She reported that her mom and family needed her to process this but it is unclear whether the burden of trying to manage her erratic behaviors would be an additional burden to the situation. We discussed the importance of her taking her medication as well as as finding appropriate discharge options. Mental Status Exam MSE Comments: This is an overweight versus obese white female with hospital scrubs on less disheveled with appropriate eye contact. Hair has been dyed blonde since last visit but is matted and unkempt. No abnormal movements except for mild and occasionally extreme psychomotor agitation. More cooperative with exam in mild to extreme distress at times but she is also been heard screaming at the top of her lungs at times on the unit. Speech was normal rate volume. Mood described as I am good there is nothing wrong with me, affect still labile. Thought process was occasionally organized. Thought content: patient denied suicidal and homicidal ideation. She did not report delusions. But clear bizarre delusions noted. She did not endorse auditory or visual hallucinations and did not appear to be attending to internal stimuli. Attention and concentration were limited and memory was unreliable, but none were formally tested. She was alert and oriented x 3 but does not understand why she was brought here or needs to be here. Insight and judgment are impaired, impulse control is impaired. Vitals/I&O/Wt Last Vital Signs Temp 98.0 F 04/29/22 01:11 Pulse 109 H 04/29/22 01:11 Resp 18 05/06/22 06:00 BP 133/84 04/29/22 01:11 Pulse Ox 96 04/29/22 01:11 O2 Del Method 04/29/22 00:46 Data NPU 04/28/22 19:05 04/28/22 19:05 A&P Assessment and plan (1) Chronic disorganized schizophrenia: (2) Acute psychosis: (3) Cannabis dependence, uncomplicated: (4) Acute exacerbation of subchronic schizophrenia: (5) Nicotine dependence, cigarettes, uncomplicated: (6) Methamphetamine use disorder, severe: Plan This is a 36-year-old white female well known to the system who presents with history of schizophrenia and presents with active psychosis likely exacerbated by continued addiction. RECOMMENDATION AND PLAN: 1.? Continue current medication. Find out what her medication compliance has been. Initiated Abilify Maintena 400 mg IM q. monthly. Offer Abilify 15 mg p.o. every morning to assist the injection getting to and steady state. 2.? Continue every 15 minute checks for safety. 3.? Encourage individual, group and milieu therapies. 4.? Encourage sober living treatment after discharge at the highest level of care to which she is willing to commit. 5. Contact guardian identified what measures undertaken for suitable placement. Involuntary Hold Information 96 Hour Hold: 96 Hour Involuntary Admission: No Attestations U Medical Necessity Statement*: Inpatient hospitalization is medically necessary and the clinically appropriate intervention at this time. We will monitor medications and make changes as indicated. Likely length of stay 7-10 days. Coding Level of Care Code Acute Code for [facility] Diagnoses Chronic disorganized schizophrenia F20.1 Acute psychosis F23 Cannabis dependence, uncomplicated F12.20 Acute exacerbation of subchronic schizophrenia F20.89 Nicotine dependence, cigarettes, uncomplicated F17.210 Methamphetamine use disorder, severe F15.20
[2022-05-06 14:00] VITALS: RESP 18
[2022-05-06] MEDS: nicotine 2 mg Gum BUCCAL (16:07)
[2022-05-06] MEDS: LORazepam 2 mg Tablet PO (16:07)
--- NOTE | 2022-05-06 16:09 | PC.NURSE ---
PRN Veneer Jointer Offbearer- Patient pacing hallway and become increasingly agitated. Offered snacks and drink for patient, but she refused. Patient administered ativan 2mg PO
[2022-05-06] MEDS: hyDROXYzine 25 mg Capsule 50 MG PO (20:55)
--- NOTE | 2022-05-06 20:55 | PC.NURSE ---
Patient came to nurse's station requesting Ativan for anxiety. Patient would not give a specific number on a rating scale of 1 thru 10. Discussed coping skills and offered other interventions. Patient continued wanting ativan. PRN vistaril offered and taken. Patient returned to room.
--- NOTE | 2022-05-07 01:26 | PC.NURSE ---
Patient has rested quietly in bed with eyes closed this shift. No further c/o anxiety voiced. No signs of distress noted.
[2022-05-07] MEDS: nicotine 2 mg Gum BUCCAL ×3 (07:36→16:15)
[2022-05-07 14:00] VITALS: BP 94/67; PULSE 101; RESP 17; TEMP 36.6; O2SAT 97
[2022-05-07] MEDS: hyDROXYzine 25 mg Capsule 50 MG PO (15:27)
[2022-05-07] MEDS: OLANZapine 5 mg ODT PO (16:09)
[2022-05-07] MEDS: ondansetron 4 MG Tablet PO (16:09)
--- NOTE | 2022-05-07 16:14 | W.PM.NPUPNS ---
Subjective NPU Subjective: Patient presented today essentially unchanged. She continues to resist or refuse taking her oral of eye even with discussions about how that is likely prolonging her length of stay. She continues to talk about an upcoming , being with her children, and being with her significant other been as reasons why she needs to leave but she continues to have erratic behavior, screaming, etc. Mental Status Exam MSE Comments: This is an overweight versus obese white female with hospital scrubs on less disheveled with appropriate eye contact. Hair has been dyed blonde since last visit but is matted and unkempt. No abnormal movements except for mild and occasionally extreme psychomotor agitation. More cooperative with exam in mild to extreme distress at times but she is also been heard screaming at the top of her lungs at times on the unit. Speech was normal rate volume. Mood described as I am fine, affect still labile. Thought process was occasionally organized. Thought content: patient denied suicidal and homicidal ideation. She did not report delusions. But clear bizarre delusions noted. She did not endorse auditory or visual hallucinations and did not appear to be attending to internal stimuli. Attention and concentration were limited and memory was unreliable, but none were formally tested. She was alert and oriented x 3 but does not understand why she was brought here or needs to be here. Insight and judgment are impaired, impulse control is impaired. Vitals/I&O/Wt Last Vital Signs Temp 98 F 05/07/22 14:00 Pulse 101 H 05/07/22 14:00 Resp 17 05/07/22 14:00 BP 94/67 05/07/22 14:00 Pulse Ox 97 05/07/22 14:00 O2 Del Method 04/29/22 00:46 Data NPU 04/28/22 19:05 04/28/22 19:05 A&P Assessment and plan (1) Chronic disorganized schizophrenia: (2) Acute psychosis: (3) Cannabis dependence, uncomplicated: (4) Acute exacerbation of subchronic schizophrenia: (5) Nicotine dependence, cigarettes, uncomplicated: (6) Methamphetamine use disorder, severe: Plan This is a 36-year-old white female well known to the system who presents with history of schizophrenia and presents with active psychosis likely exacerbated by continued addiction. RECOMMENDATION AND PLAN: 1.? Continue current medication. Find out what her medication compliance has been. Initiated Abilify Maintena 400 mg IM q. monthly. Offer Abilify 15 mg p.o. every morning to assist the injection getting to and steady state. 2.? Continue every 15 minute checks for safety. 3.? Encourage individual, group and milieu therapies. 4.? Encourage sober living treatment after discharge at the highest level of care to which she is willing to commit. 5. Contact guardian identified what measures undertaken for suitable placement. Involuntary Hold Information 96 Hour Hold: 96 Hour Involuntary Admission: No Attestations NPU Medical Necessity Statement*: Inpatient hospitalization is medically necessary and the clinically appropriate intervention at this time. We will monitor medications and make changes as indicated. Likely length of stay 7-10 days. Coding Level of Care Code Acute Code for [facility] Diagnoses Chronic disorganized schizophrenia F20.1 Acute psychosis F23 Cannabis dependence, uncomplicated F12.20 Acute exacerbation of subchronic schizophrenia F20.89 Nicotine dependence, cigarettes, uncomplicated F17.210 Methamphetamine use disorder, severe F15.20
--- NOTE | 2022-05-08 10:22 | PC.NURSE ---
Pt threw her breakfast tray all over the floor and hardy in the dayroom. Pt took chocolate milk and sprayed it all over the hardy and tables and chairs in dayroom area. Nursing staff and SUPERVISOR CUTTING DEPARTMENT cleaned up the mess, nurse encouraged the pt to please come and clean up her own mess, pt did come down and help with the cleaning some. EVS was called to clean the dayroom and mop the floors.
[2022-05-08] MEDS: nicotine 2 mg Gum BUCCAL ×2 (10:30→14:53)
--- NOTE | 2022-05-08 10:48 | PC.NURSE ---
Pt refused morning medication of Abilify 15mg PO. Pt was encouraged by nursing staff to be med compliant, pt refused a second time.
[2022-05-08] MEDS: hyDROXYzine 25 mg Capsule 50 MG PO (11:58)
[2022-05-08 14:00] VITALS: BP 96/65; PULSE 92; RESP 18; TEMP 36.8; O2SAT 97
[2022-05-08] MEDS: OLANZapine 5 mg ODT PO (14:59)
--- NOTE | 2022-05-08 15:39 | P.NPUPN_ITS ---
Subjective NPU Subjective: Patient presented today reporting that she is really wanting to go home and at 1 point was quite tearful speaking about her family and Deep. However later she was talking about her new boyfriend who was not Deep. We discussed the importance of her being well before she worried about caring for her children or some of these other significant family challenges including recent of a close family connection. We discussed the fact that we have been working with her guardian and there is a facility that might take her as soon as this Friday. She does not like the idea of the locked facility but we discussed that would be where this would have to start most likely. Mental Status Exam MSE Comments: This is an overweight versus obese white female with hospital scrubs on less disheveled with appropriate eye contact. Hair has been dyed blonde since last visit but is matted and unkempt. No abnormal movements except for mild and occasionally extreme psychomotor agitation. More cooperat irving with exam in mild to extreme distress at times but she has had less screaming on the unit. Speech was normal rate volume. Mood described as I am fine, affect still labile. Thought process was occasionally organized. Thought content: patient denied suicidal and homicidal ideation. She did not report delusions. But clear bizarre delusions noted. She did not endorse auditory or visual hallucinations and did not appear to be attending to internal stimuli. Attention and concentration were limited and memory was unreliable, but none were formally tested. She was alert and oriented x 3 but does not understand why she was brought here or needs to be here. Insight and judgment are impa ired, impulse control is impaired. Vitals/I&O/Wt Last Vital Signs Temp 98.2 F 05/08/22 14:00 Pulse 92 05/08/22 14:00 Resp 18 05/08/22 14:00 BP 96/65 05/08/22 14:00 Pulse Ox 97 05/08/22 14:00 O2 Del Method 04/29/22 00:46 Data NPU 04/28/22 19:05 04/28/22 19:05 A&P Assessment and plan (1) Chronic disorganized schizophrenia: (2) Acute psychosis: (3) Cannabis dependence, uncomplicated: (4) Acute exacerbation of subchronic schizophrenia: (5) Nicotine dependence, cigarettes, uncomplicated: (6) Methamphetamine use disorder, severe: Plan This is a 36-year-old white female well known to the system who presents with h istory of schizophrenia and presents with active psychosis likely exacerbated by continued addiction. RECOMMENDATION AND PLAN: 1.? Continue current medication. Find out what her medication compliance has been. Initiated Abilify Maintena 400 mg IM q. monthly. Offer Abilify 15 mg p.o. every morning to assist the injection getting to and steady state although she has been refusing.. 2.? Continue every 15 minute checks for safety. 3.? Encourage individual, group and milieu therapies. 4.? Encourage sober living treatment after discharge at the highest level of care to which she is willing to commit. 5. Contact guardian identified what measures undertaken for suitable placement. It appears there is a locked facility that may have a bed as early as Friday. Involuntary Hold Information 96 Hour Hold: 96 Hour Involuntary Admission: No Attestations NPU Medical Necessity Statement*: Inpatient hospitalization is medically necessary and the clinically appropriate intervention at this time. We will monitor medications and make changes as indicated. Likely length of stay 2-5 days. Awaiting placement. Coding Level of Care Code Acute Code for [facility] Fwd Diagnoses Chronic disorganized schizophrenia F20.1 Acute psychosis F23 Cannabis dependence, uncomplicated F12.20 Acute exacerbation of subchronic schizophrenia F20.89 Nicotine dependence, cigarettes, uncomplicated F17.210 Methamphetamine use disorder, severe F15.20
[2022-05-08] MEDS: diphenhydrAMINE 50 mg/mL SDV 1mL IM (16:21)
[2022-05-08] MEDS: ziprasidone 20 mg/mL SDV IM (16:22)
[2022-05-08 21:05] VITALS: BP 74/52; PULSE 89; RESP 18; TEMP 36.8; O2SAT 100
[2022-05-09] MEDS: OLANZapine 5 mg ODT PO ×3 (01:07→21:08)
[2022-05-09] MEDS: diphenhydrAMINE 50 mg Capsule PO ×2 (01:07→21:08)
--- NOTE | 2022-05-09 03:24 | PC.NURSE ---
Benadryl 50mg PO and zyprexa 5mg sl given for anxiety / agitation. with good results.
[2022-05-09] MEDS: nicotine 2 mg Gum BUCCAL ×2 (10:51→13:23)
--- NOTE | 2022-05-09 10:52 | PC.NURSE ---
Pt refused morning dose of Abilify 15mg. Nursing staff encouraged pt to take her medication.
[2022-05-09] MEDS: hyDROXYzine 25 mg Capsule 50 MG PO (12:41)
[2022-05-09 14:00] VITALS: BP 101/65; PULSE 109; RESP 18; TEMP 36.6; O2SAT 98
[2022-05-09] MEDS: nicotine 21 mg Patch 1 PATCH TRANSDERMA (14:54)
--- NOTE | 2022-05-09 15:39 | W.PM.NPUPNS ---
Subjective NPU Subjective: Patient presents today continuing to talk about getting to see her children and her ex. She continues to downplay the significance of her limitations. We discussed the fact that the plan was for her to go to a locked facility and she was happy at 1 level reporting that she does not like it here in the neuropsychiatric unit but continued to ask about what freedoms she would have. We discussed the fact that programs may have activities outside of the building but that is only system by system situation and that certainly wherever she goes in the beginning she will be in a lockdown situation where she will be staying in that facility. She then asked whether or not she would be able to smoke. Mental Status Exam MSE Comments: This is an overweight versus obese white female with hospital scrubs on less disheveled with appropriate eye contact. Hair has been dyed blonde since last visit but is matted and unkempt. No abnormal movements except for mild and occasionally extreme psychomotor agitation. More cooperative with exam in mild to extreme distress at times but she has had less screaming on the unit. Speech was normal rate volume. Mood described as I am fine, affect still labile. Thought process was occasionally organized. Thought content: patient denied suicidal and homicidal ideation. She did not report delusions. But clear bizarre delusions noted. She did not endorse auditory or visual hallucinations and did not appear to be attending to internal stimuli. Attention and concentration were limited and memory was unreliable, but none were formally tested. She was alert and oriented x 3 but does not understand why she was brought here or needs to be here. Insight and judgment are impaired, impulse control is impaired. Vitals/I&O/Wt Last Vital Signs Temp 97.8 F 05/09/22 14:00 Pulse 109 H 05/09/22 14:00 Resp 18 05/09/22 14:00 BP 101/65 05/09/22 14:00 Pulse Ox 98 05/09/22 14:00 O2 Del Method 05/08/22 21:05 Data NPU 04/28/22 19:05 04/28/22 19:05 A&P Assessment and plan (1) Chronic disorganized schizophrenia: (2) Acute psychosis: (3) Cannabis dependence, uncomplicated: (4) Acute exacerbation of subchronic schizophrenia: (5) Nicotine dependence, cigarettes, uncomplicated: (6) Methamphetamine use disorder, severe: Plan This is a 36-year-old white female well known to the system who presents with history of schizophrenia and presents with active psychosis likely exacerbated by continued addiction. RECOMMENDATION AND PLAN: 1.? Continue current medication. Find out what her medication compliance has been. Initiated Abilify Maintena 400 mg IM q. monthly. Offer Abilify 15 mg p.o. every morning to assist the injection getting to and steady state although she has been refusing.. 2.? Continue every 15 minute checks for safety. 3.? Encourage individual, group and milieu therapies. 4.? Encourage sober living treatment after discharge at the highest level of care to which she is willing to commit. 5. Contact guardian identified what measures undertaken for suitable placement. It appears there is a locked facility that may have a bed as early as Friday. Involuntary Hold Information 96 Hour Hold: 96 Hour Involuntary Admission: No Attestations U Medical Necessity Statement*: Inpatient hospitalization is medically necessary and the clinically appropriate intervention at this time. We will monitor medications and make changes as indicated. Likely length of stay 1-4 days. Awaiting placement. Coding Level of Care Code Acute Code for [facility] Fwd Diagnoses Chronic disorganized schizophrenia F20.1 Acute psychosis F23 Cannabis dependence, uncomplicated F12.20 Acute exacerbation of subchronic schizophrenia F20.89 Nicotine dependence, cigarettes, uncomplicated F17.210 Methamphetamine use disorder, severe F15.20
[2022-05-09 19:59] VITALS: BP 100/57; PULSE 92; RESP 18; TEMP 36.7; O2SAT 98
--- NOTE | 2022-05-10 12:57 | P.NPUPN_ITS ---
Subjective NPU Subjective: Patient presented today reporting that she is desirous to leave here and get back with her babies and go to her ex-'s place. She is more easily redirected these days and he is identifying that the plan is for her to go to a residential treatment facility with the plan being for Friday or Friday. She continues to have questions about what she is able to do at this facility and we continue to redirect her to the fact that the greatest goal for everyone is that she first gets stability and then exploring what privileges might exist at these facilities for someone who has functionally stable is a secondary question. Mental Status Exam MSE Comments: This is an overweight versus obese white female with hospital scrubs on less disheveled with appropriate eye contact. Hair has been dyed blonde since last visit but is matted and unkempt. No abnormal movements except for mild and occasionally extreme psychomotor agitation. More cooperative with exam in mild to extreme distress at times but she has had less screaming on the unit. Speech was normal rate volume. Mood described as I am fine, affect still labile. Thought process was occasionally organized. Thought content: patient denied suicidal and homicidal ideation. She did not report delusions. But clear bizarre delusions noted. She did not endorse auditory or visual hallucinations and did not appear to be attending to internal stimuli. Attention and concentration were limited and memory was unreliable, but none were formally tested. She was alert and oriented x 3 but does not understand why she was brought here or needs to be here. Insight and judgment are impaired, impulse control is impaired. Vitals/I&O/Wt Last Vital Signs Temp 98.0 F 05/09/22 19:59 Pulse 92 05/09/22 19:59 Resp 18 05/09/22 19:59 BP 100/57 05/09/22 19:59 Pulse Ox 98 05/09/22 19:59 O2 Del Method 05/08/22 21:05 Data NPU 04/28/22 19:05 04/28/22 19:05 A&P Assessment and plan (1) Chronic disorganized schizophrenia: (2) Acute psychosis: (3) Cannabis dependence, uncomplicated: (4) Acute exacerbation of subchronic schizophrenia: (5) Nicotine dependence, cigarettes, uncomplicated: (6) Methamphetamine use disorder, severe: Plan This is a 36-year-old white female well known to the system who presents with history of schizophrenia and presents with active psychosis likely exacerbated by continued addiction. RECOMMENDATION AND PLAN: 1.? Continue current medication. Find out what her medication compliance has been. Initiated Abilify Maintena 400 mg IM q. monthly. Offer Abilify 15 mg p.o. every morning to assist the injection getting to and steady state although she has been refusing.. 2.? Continue every 15 minute checks for safety. 3.? Encourage individual, group and milieu therapies. 4.? Encourage sober living treatment after discharge at the highest level of care to which she is willing to commit. 5. Contact guardian identified what measures undertaken for suitable placement. It appears there is a locked facility that may have a bed as early as Friday. Involuntary Hold Information 96 Hour Hold: 96 Hour Involuntary Admission: No Attestations NPU Medical Necessity Statement*: Inpatient hospitalization is medically necessary and the clinically appropriate intervention at this time. We will monitor medications and make changes as indicated. Likely length of stay 3-4 days. Awaiting placement. Coding Level of Care Code Acute Code for [facility] Diagnoses Chronic disorganized schizophrenia F20.1 Acute psychosis F23 Cannabis dependence, uncomplicated F12.20 Acute exacerbation of subchronic schizophrenia F20.89 Nicotine dependence, cigarettes, uncomplicated F17.210 Methamphetamine use disorder, severe F15.20
[2022-05-10 14:00] VITALS: BP 102/60; PULSE 75; RESP 18; TEMP 36.4; O2SAT 98
[2022-05-10] MEDS: nicotine 2 mg Gum BUCCAL (19:21)
[2022-05-10] MEDS: LORazepam 2 mg Tablet PO (20:47)
[2022-05-10] MEDS: diphenhydrAMINE 50 mg Capsule PO (20:47)
--- NOTE | 2022-05-10 20:50 | PC.NURSE ---
Patient very anxious and agitated Benadryl 50mg PO and ativan 2mg PO given.
[2022-05-10 22:00] VITALS: BP 100/67; PULSE 97; RESP 16; TEMP 36.6; O2SAT 99
[2022-05-11] MEDS: ARIPiprazole 30 mg Tablet 15 MG PO (09:56)
--- NOTE | 2022-05-11 11:33 | W.PM.NPUPNS ---
Subjective NPU Subjective: Patient presented today reporting that things are fine. She was lying in bed and denying any issues other than being a little tired. We continue to discuss the fact that the plan is for her to discharge on Friday or Friday to the residential treatment facility. She reported understanding this and denied there being any other issues. She still has not been taking her oral Abilify. Mental Status Exam MSE Comments: This is an overweight versus obese white female with hospital scrubs on less disheveled with appropriate eye contact. Hair has been dyed blonde since last visit but is matted and unkempt. No abnormal movements except for mild motor retardation. More cooperative with exam in no acute distress. Speech was normal rate volume. Mood described as I am tired, affect is subdued. Thought process was occasionally organized. Thought content: patient denied suicidal and homicidal ideation. She did not report delusions. But clear bizarre delusions noted. She did not endorse auditory or visual hallucinations and did not appear to be attending to internal stimuli. Attention and concentration were limited and memory was unreliable, but none were formally tested. She was alert and oriented x 3 but does not understand why she was brought here or needs to be here. Insight and judgment are limited, impulse control is impaired. Vitals/I&O/Wt Last Vital Signs Temp 97.8 F 05/10/22 22:00 Pulse 97 05/10/22 22:00 Resp 16 05/10/22 22:00 BP 100/67 05/10/22 22:00 Pulse Ox 99 05/10/22 22:00 O2 Del Method 05/10/22 22:00 Data NPU 04/28/22 19:05 04/28/22 19:05 A&P Assessment and plan (1) Chronic disorganized schizophrenia: (2) Acute psychosis: (3) Cannabis dependence, uncomplicated: (4) Acute exacerbation of subchronic schizophrenia: (5) Nicotine dependence, cigarettes, uncomplicated: (6) Methamphetamine use disorder, severe: Plan This is a 36-year-old white female well known to the system who presents with history of schizophrenia and presents with active psychosis likely exacerbated by continued addiction. RECOMMENDATION AND PLAN: 1.? Continue current medication. Initiated Abilify Maintena 400 mg IM q. monthly. Offer Abilify 15 mg p.o. every morning to assist the injection getting to and steady state although she has been refusing.. 2.? Continue every 15 minute checks for safety. 3.? Encourage individual, group and milieu therapies. 4.? Encourage sober living treatment after discharge at the highest level of care to which she is willing to commit. 5. Contact guardian identified what measures undertaken for suitable placement. Facility supposedly excepting her on Friday or Friday. Involuntary Hold Information 96 Hour Hold: 96 Hour Involuntary Admission: No Attestations NPU Medical Necessity Statement*: Inpatient hospitalization is medically necessary and the clinically appropriate intervention at this time. We will monitor medications and make changes as indicated. Likely length of stay 2-3 days. Awaiting placement. Coding Level of Care Code Acute Code for [facility] Diagnoses Chronic disorganized schizophrenia F20.1 Acute psychosis F23 Cannabis dependence, uncomplicated F12.20 Acute exacerbation of subchronic schizophrenia F20.89 Nicotine dependence, cigarettes, uncomplicated F17.210 Methamphetamine use disorder, severe F15.20
[2022-05-11 14:00] VITALS: BP 104/70; PULSE 90; RESP 18; TEMP 36.6; O2SAT 98
[2022-05-11] MEDS: nicotine 2 mg Gum BUCCAL (17:48)
[2022-05-11] MEDS: hyDROXYzine 25 mg Capsule 50 MG PO (18:26)
[2022-05-11 20:38] VITALS: BP 105/69; PULSE 100; RESP 16; TEMP 36.4; O2SAT 99; BMI 31.5
[2022-05-11] MEDS: diphenhydrAMINE 50 mg Capsule PO (21:27)
[2022-05-11] MEDS: LORazepam 2 mg Tablet PO (21:27)
[2022-05-11] MEDS: OLANZapine 5 mg ODT PO (21:27)
--- NOTE | 2022-05-11 21:27 | PC.NURSE ---
Given [id number] PO, Benadryl 50mg PO and ativan 2mg PO for anxiety / agitation.
--- NOTE | 2022-05-12 06:34 | P.NPUPN_ITS ---
Subjective NPU Subjective: Patient presenting not very arousable this morning. She reported being tired and really does not want to get up and have a conversation. She denied any changes or pressing issues. Mental Status Exam MSE Comments: This is an overweight versus obese white female with hospital scrubs on less disheveled with appropriate eye contact. Hair has been dyed blonde since last visit but is matted and unkempt. No abnormal movements except for mild motor retardation. More cooperative with exam in no acute distress. Speech was normal rate volume. Mood not described, affect is subdued. Thought process was occasionally organized. Thought content: patient denied suicidal and homicidal ideation. She did not report delusions. But clear bizarre delusions noted. She did not endorse auditory or visual hallucinations and did not appear to be attending to internal stimuli. Attention and concentration were limited and memory was unreliable, but none were formally tested. She was alert and oriented x 3 but does not understand why she was brought here or needs to be here. Insight and judgment are limited, impulse control is impaired. Vitals/I&O/Wt Last Vital Signs Temp 97.5 F L 05/11/22 20:38 Pulse 100 05/11/22 20:38 Resp 16 05/11/22 20:38 BP 105/69 05/11/22 20:38 Pulse Ox 99 05/11/22 20:38 O2 Del Method 05/11/22 20:38 Weight last 48 hrs Weight 78.188 kg Data NPU 04/28/22 19:05 04/28/22 19:05 A&P Assessment and plan (1) Chronic disorganized schizophrenia: (2) Acute psychosis: (3) Cannabis dependence, uncomplicated: (4) Acute exacerbation of subchronic schizophrenia: (5) Nicotine dependence, cigarettes, uncomplicated: (6) Methamphetamine use disorder, severe: Plan This is a 36-year-old white female well known to the system who presents with history of schizophrenia and presents with active psychosis likely exacerbated by continued addiction. RECOMMENDATION AND PLAN: 1.? Continue current medication. Initiated Abilify Maintena 400 mg IM q. monthly. Offer Abilify 15 mg p.o. every morning to assist the injection getting to and steady state although she has been refusing. 2.? Continue every 15 minute checks for safety. 3.? Encourage individual, group and milieu therapies. 4.? Encourage sober living treatment after discharge at the highest level of care to which she is willing to commit. 5. Contact guardian identified what measures undertaken for suitable placement. Facility supposedly excepting her on Friday or Friday. Involuntary Hold Information 96 Hour Hold: 96 Hour Involuntary Admission: No Attestations NPU Medical Necessity Statement*: Inpatient hospitalization is medically necessary and the clinically appropriate intervention at this time. We will monitor medications and make changes as indicated. Likely length of stay 2-3 days. Awaiting placement. Coding Level of Care Code Acute Code for [facility] Fwd Diagnoses Chronic disorganized schizophrenia F20.1 Acute psychosis F23 Cannabis dependence, uncomplicated F12.20 Acute exacerbation of subchronic schizophrenia F20.89 Nicotine dependence, cigarettes, uncomplicated F17.210 Methamphetamine use disorder, severe F15.20
--- NOTE | 2022-05-12 08:00 | PC.NURSE ---
Pt resting with eyes closed; respirations even and unlabored. Pt was not disturbed.
[2022-05-12 14:00] VITALS: BP 116/62; PULSE 82; RESP 18; TEMP 36.9; O2SAT 96
[2022-05-12] MEDS: nicotine 2 mg Gum BUCCAL (20:50)
[2022-05-12 22:00] VITALS: BP 110/73; PULSE 95; RESP 17; TEMP 36.6; O2SAT 99
[2022-05-12] MEDS: diphenhydrAMINE 50 mg Capsule PO (22:14)
[2022-05-12] MEDS: OLANZapine 5 mg ODT PO (22:14)
[2022-05-12] MEDS: alum-mag-hydroxide-sime 30 mL UDC PO (23:10)
[2022-05-13 14:00] VITALS: RESP 17
--- NOTE | 2022-05-13 14:42 | PC.NURSE ---
pt woke up just now, staff offered Scheduled Abilify, patient refused to take scheduled med Abilify at this time
[2022-05-13] MEDS: nicotine 2 mg Gum BUCCAL (15:23)
[2022-05-13] MEDS: hyDROXYzine 25 mg Capsule 50 MG PO (15:49)
--- NOTE | 2022-05-13 16:46 | P.NPUPN_ITS ---
Subjective NPU Subjective: Patient is a 36-year-old white female with a history of schizophrenia along with methamphetamine use. Patient continued to engage in somewhat bizarre behavior as she repeatedly asked to leave the hospital and continued to state that she needed to speak with the impact hammer operator about going back home to take care of her kids. The patient was informed that she was under the care of a guardian and this would not be possible. She continued to show no evidence of insight regarding why she was hospitalized. She reported that she was feeling better. Staff notes the patient continued to be minimally interested or engaged in groups and continued to make unrealistic demands regarding her leaving here. Mental Status Exam MSE Comments: This is an overweight versus obese white female with hospital scrubs who was seen wandering the halls. She had made loud intense vocalizations at times that were unusual. Her mood was described as okay. Her affect is subdued. Thought process was superficial and minimally organized. Thought content: patient denied suicidal and homicidal ideation. She continued to have overvalued and unrealistic ideas without any clear realistic basis. She did not endorse auditory or visual hallucinations and did not appear to be attending to internal stimuli. Attention and concentration were limited and memory was unreliable, but none were formally tested. She was alert and oriented x 3 but not reason for hospitalization. Insight and judgment are feeble, Her impulse control is impaired. Vitals/I&O/Wt Last Vital Signs Temp 97.9 F 05/12/22 22:00 Pulse 95 05/12/22 22:00 Resp 17 05/13/22 14:00 BP 110/73 05/12/22 22:00 Pulse Ox 99 05/12/22 22:00 O2 Del Method 05/12/22 22:00 Weight last 48 hrs Weight 78.188 kg Data NPU 04/28/22 19:05 04/28/22 19:05 A&P Assessment and plan (1) Chronic disorganized schizophrenia: (2) Acute psychosis: (3) Cannabis dependence, uncomplicated: (4) Acute exacerbation of subchronic schizophrenia: (5) Nicotine dependence, cigarettes, uncomplicated: (6) Methamphetamine use disorder, severe: Plan This is a 36-year-old white female well known to the system who presents with h istory of schizophrenia and presents with active psychosis likely exacerbated by continued addiction. RECOMMENDATION AND PLAN: 1.? Continue current medication. Initiated Abilify Maintena 400 mg IM q. monthly. Continue Abilify 15 mg p.o. daily to assist the injection getting to and steady state although she has been refusing. 2.? Continue every 15 minute checks for safety. 3.? Encourage individual, group and milieu therapies. 4.? Encourage sober living treatment after discharge at the highest level of care to which she is willing to commit. 5. Contact guardian identified what measures undertaken for suitable placement. Facility supposedly excepting her on Friday or Friday. Involuntary Hold Information 96 Hour Hold: 96 Hour Involuntary Admission: No Attestations NPU Medical Necessity Statement*: Inpatient hospitalization is medically necessary and the clinically appropriate intervention at this time. We will monitor medications and make changes as indicated. Likely length of stay 3-4 days. Awaiting placement. Coding Level of Care Code Acute Code for [facility] Fwd Diagnoses Chronic disorganized schizophrenia F20.1 Acute psychosis F23 Cannabis dependence, uncomplicated F12.20 Acute exacerbation of subchronic schizophrenia F20.89 Nicotine dependence, cigarettes, uncomplicated F17.210 Methamphetamine use disorder, severe F15.20
[2022-05-13] MEDS: OLANZapine 5 mg ODT PO ×2 (16:53→20:18)
[2022-05-13] MEDS: nicotine 4 mg lozenge MUCOUS MEM ×2 (18:32→20:18)
[2022-05-13 20:33] VITALS: BP 98/63; PULSE 103; RESP 18; TEMP 36.7; O2SAT 97
[2022-05-14] MEDS: LORazepam 2 mg Tablet PO (01:07)
--- NOTE | 2022-05-14 16:36 | W.PM.NPUPNS ---
Subjective NPU Subjective: Patient is a 36-year-old white female with a history of schizophrenia along with methamphetamine use. The patient had refused her oral Abilify stating that she did not wish to take medications. Patient had continue to state to multiple staff members that she was ready to go home stating that she needed to take care of her children. She continued to minimize much of the problems that had led to her hospitalization including previously running away from locked facilities and refusing to take prescribed medications. She continued to express hope that the ecdis n navigation operator would see her point of view and stated that she did not need medication. Mental Status Exam MSE Comments: This is an overweight versus obese white female with hospital scrubs who was seen in her room with minimal eye contact. She continued to make unusual vocalizations during the interview.. Her mood was described as good. Her affect is odd, incongruent and subdued. Thought process was nonlinear and disorganized. Thought content: patient denied suicidal and homicidal ideation. She continued to have overvalued and unrealistic ideas without any clear realistic basis. She did not endorse auditory or visual hallucinations and did not appear to be attending to internal stimuli. Attention and concentration were limited and memory was unreliable, but none were formally tested. She was alert and oriented x3, but not reason for hospitalization. Insight and judgment are feeble. Her impulse control is impaired. Vitals/I&O/Wt Last Vital Signs Temp 98.0 F 05/13/22 20:33 Pulse 103 H 05/13/22 20:33 Resp 18 05/13/22 20:33 BP 98/63 05/13/22 20:33 Pulse Ox 97 05/13/22 20:33 O2 Del Method 05/12/22 22:00 Data NPU 04/28/22 19:05 04/28/22 19:05 A&P Assessment and plan (1) Chronic disorganized schizophrenia: (2) Acute psychosis: (3) Cannabis dependence, uncomplicated: (4) Acute exacerbation of subchronic schizophrenia: (5) Nicotine dependence, cigarettes, uncomplicated: (6) Methamphetamine use disorder, severe: Plan This is a 36-year-old white female well known to the system who presents with history of schizophrenia and presents with active psychosis likely exacerbated by continued addiction. RECOMMENDATION AND PLAN: 1.? Continue current medication. Initiated Abilify Maintena 400 mg IM q. monthly. Next IM dosing of abilify on 06/03/22. Continue Abilify 15 mg p.o. daily to assist the injection getting to and steady state although she has been refusing. 2.? Continue every 15 minute checks for safety. 3.? Encourage individual, group and milieu therapies. 4.? Encourage sober living treatment after discharge at the highest level of care to which she is willing to commit. 5. Contact guardian identified what measures undertaken for suitable placement. Facility supposedly excepting her on Friday or Friday. Involuntary Hold Information 96 Hour Hold: 96 Hour Involuntary Admission: No Attestations NPU Medical Necessity Statement*: Inpatient hospitalization is medically necessary and the clinically appropriate intervention at this time. We will monitor medications and make changes as indicated. Likely length of stay 3-4 days. Awaiting placement. Coding Level of Care Code Acute Code for [facility] Diagnoses Chronic disorganized schizophrenia F20.1 Acute psychosis F23 Cannabis dependence, uncomplicated F12.20 Acute exacerbation of subchronic schizophrenia F20.89 Nicotine dependence, cigarettes, uncomplicated F17.210 Methamphetamine use disorder, severe F15.20
[2022-05-14] MEDS: nicotine 4 mg lozenge MUCOUS MEM ×2 (17:19→20:19)
[2022-05-14] MEDS: OLANZapine 5 mg ODT PO ×2 (17:58→22:44)
[2022-05-14] MEDS: hyDROXYzine 25 mg Capsule 50 MG PO (19:44)
--- NOTE | 2022-05-14 19:45 | PC.NURSE ---
Patient came to nurse's station requesting ativan. When asked why she needed it she stated I don't know. I just want it. Explained to patient that she would not be given ativan. Asked patient if she was anxious and she stated yes. Patient again asked for ativan and requested it IM. Told patient she could not have ativan and offered vistaril for anxiety. Patient stated no at first and then stated she would take some. PRN vistaril given at that time.
--- NOTE | 2022-05-14 20:55 | PC.NURSE ---
Patient came to nurse's station and stated she could not sleep. Requested ativan again. PRN trazodone offered to promote sleep. Patient stated she would take medication. Given as ordered.
[2022-05-14] MEDS: trazodone 50 mg Tablet PO (20:57)
[2022-05-14 22:00] VITALS: PULSE 91; RESP 17; TEMP 36.7; O2SAT 99
--- NOTE | 2022-05-14 22:45 | PC.NURSE ---
Patient continues to be up and agitated. Stated she couldn't rest and felt like she needed medication. Patient asked for ativan and was told she was not going to receive any ativan this shift. Patient began to slam hand on counter and talk loudly. Attempted to redirect but patient continued to be loud. PRN zyprexa po given at that time.
--- NOTE | 2022-05-15 05:43 | PC.NURSE ---
Patient has rested quietly in bed since receiving zyprexa. No sign of distress present. Continues with 15 minute safety checks by staff.
[2022-05-15] MEDS: nicotine 2 mg Gum BUCCAL (13:22)
[2022-05-15 14:00] VITALS: BP 106/73; PULSE 119; RESP 18; TEMP 36.5; O2SAT 99
--- NOTE | 2022-05-15 14:29 | W.PM.NPUPNS ---
Subjective NPU Subjective: Patient is a 36-year-old white female with a history of schizophrenia along with methamphetamine use. The patient continued to refuse to take her oral Abilify. She continued to wander around the unit asking that the optical instrument inspector rescind her guardianship and allow her to return outside to her family's home. She continued to minimize much of the problems that had led to her hospitalization. She had to continue to ignore and minimized the use of methamphetamine in the past. She had continued to struggle with routine activities of daily living and reported adequate appetite and normal energy and concentration. The patient had stated that she does not like to take medications and has no need for medications but she remained agreeable to taking a shot of Abilify monthly. Mental Status Exam MSE Comments: This is an overweight versus obese white female with hospital scrubs who was seen in her room with minimal eye contact. Her mood was described as fine. Her affect is odd, and subdued. Thought process was nonlinear and illogical. Thought content: patient denied suicidal and homicidal ideation. She continued to have overvalued and unrealistic ideas without any reasonable basis. She did not endorse auditory or visual hallucinations and did not appear to be responding to internal stimuli. Attention and concentration were limited and memory was unreliable, but none were formally tested. She was alert and oriented x3, but not reason for hospitalization or the need to be treated. Insight and judgment are feeble. Her impulse control is impaired. Vitals/I&O/Wt Last Vital Signs Temp 98.0 F 05/14/22 22:00 Pulse 91 05/14/22 22:00 Resp 17 05/14/22 22:00 BP 98/63 05/13/22 20:33 Pulse Ox 99 05/14/22 22:00 O2 Del Method 05/14/22 22:00 Data NPU 04/28/22 19:05 04/28/22 19:05 A&P Assessment and plan (1) Chronic disorganized schizophrenia: (2) Acute psychosis: (3) Cannabis dependence, uncomplicated: (4) Acute exacerbation of subchronic schizophrenia: (5) Nicotine dependence, cigarettes, uncomplicated: (6) Methamphetamine use disorder, severe: Plan This is a 36-year-old white female well known to the system who presents with history of schizophrenia and presents with active psychosis likely exacerbated by continued addiction. RECOMMENDATION AND PLAN: 1.? Continue current medication. Initiated Abilify Maintena 400 mg IM q. monthly. Next IM dosing of abilify on 05/31/22. Continue Abilify 15 mg p.o. daily to assist the injection getting to and steady state although she has been refusing. 2.? Continue every 15 minute checks for safety. 3.? Encourage individual, group and milieu therapies. 4.? Encourage sober living treatment after discharge at the highest level of care to which she is willing to commit. 5. Contact guardian identified what measures undertaken for suitable placement. Patient likely to be placed in facility (locked) tommorow. Involuntary Hold Information 96 Hour Hold: 96 Hour Involuntary Admission: No Attestations NPU Medical Necessity Statement*: Inpatient hospitalization is medically necessary and the clinically appropriate intervention at this time. We will monitor medications and make changes as indicated. Likely length of stay 1-2 days with placement hopefully tommorow. Coding Level of Care Code Acute Code for [facility] Diagnoses Chronic disorganized schizophrenia F20.1 Acute psychosis F23 Cannabis dependence, uncomplicated F12.20 Acute exacerbation of subchronic schizophrenia F20.89 Nicotine dependence, cigarettes, uncomplicated F17.210 Methamphetamine use disorder, severe F15.20
[2022-05-15] MEDS: hyDROXYzine 25 mg Capsule 50 MG PO ×2 (14:59→22:54)
[2022-05-15] MEDS: OLANZapine 5 mg ODT PO (14:59)
[2022-05-15] MEDS: nicotine 4 mg lozenge MUCOUS MEM ×2 (15:33→20:33)
--- NOTE | 2022-05-15 15:39 | PC.NURSE ---
PRN MEDS PT GIVEN 50MG VISTARIL & 5MG ZYPREXA ZYDIS FOR STATED ANXIETY & AGITATION, WILL CONTINUE TO MONITOR.
[2022-05-15] MEDS: diphenhydrAMINE 50 mg Capsule PO (21:11)
--- NOTE | 2022-05-15 21:13 | PC.NURSE ---
Patient continually asks for Ativan, this RN explained that Ativan was no longer on her orders & offered Vistaril or Zyprexa, she refused both & asked for a Benadryl. Benadryl 50mg PO given.
[2022-05-15 21:57] VITALS: RESP 17
--- NOTE | 2022-05-15 22:55 | PC.NURSE ---
Patient has been back & forth at RN station since the start of shift, wanting Ativan, this RN explained it is no longer on her orders, Vistaril, Zydis, Trazodone, Benadryl offered earlier. Patient has also c/o of a toothache on one of her multiple trips to the RN station. She then asked another RN for something for her toothache, RN offered Oragel, patient declined & said she had been given a liquid that had codeine, this RN explained that is not ordered, she then asked if we would call the MD about Ativan, it was again reinforced that this was not possible. Oragel offered again, patient refused again, then agreed to try some Vistaril. This RN advised she needs to lay down in order for the medication to help. It was also noted that the next Q15 round, patient requested another snack.
[2022-05-16] MEDS: nicotine 4 mg lozenge MUCOUS MEM ×4 (08:12→22:33)
--- NOTE | 2022-05-16 13:31 | W.PM.NPUPNS ---
Subjective NPU Subjective: Patient is a 36-year-old white female with a history of schizophrenia along with methamphetamine use. She continued to perseverate on the about needing to speak with her dispute resolution analyst stating that she needed to go home and take care of her children. Patient continued to report that she was being kept here without a choice. The patient was informed once again that she had a guardian and she could inform her guardian about her concerns. She had continued to refuse taking her oral Abilify once again. She denied having thoughts of hurting herself or others at this time. She was informed that she would likely be placed in [facility] tomorrow in a locked facility. Mental Status Exam MSE Comments: This is an overweight versus obese white female with hospital scrubs who was seen in her room with minimal eye contact. Her mood was described as good. Her affect is odd, and subdued though she was more irritable today. Thought process was nonlinear and illogical. Thought content: patient denied suicidal and homicidal ideation. She continued to have overvalued and unrealistic ideas without any reasonable basis. She did not endorse auditory or visual hallucinations and did not appear to be responding to internal stimuli. Attention and concentration were limited and memory was unreliable, but none were formally tested. She was alert and oriented x3, but not reason for hospitalization or the need to be treated. Insight and judgment are feeble. Her impulse control is impaired. Vitals/I&O/Wt Last Vital Signs Temp 97.7 F 05/15/22 14:00 Pulse 119 H 05/15/22 14:00 Resp 17 05/15/22 21:57 BP 106/73 05/15/22 14:00 Pulse Ox 99 05/15/22 14:00 O2 Del Method 05/14/22 22:00 Data NPU 04/28/22 19:05 04/28/22 19:05 A&P Assessment and plan (1) Chronic disorganized schizophrenia: (2) Acute psychosis: (3) Cannabis dependence, uncomplicated: (4) Acute exacerbation of subchronic schizophrenia: (5) Nicotine dependence, cigarettes, uncomplicated: (6) Methamphetamine use disorder, severe: Plan This is a 36-year-old white female well known to the system who presents with history of schizophrenia and presents with active psychosis likely exacerbated by continued addiction. RECOMMENDATION AND PLAN: 1.? Continue current medication. Initiated Abilify Maintena 400 mg IM q. monthly. Next IM dosing of abilify on 05/31/22. Continue Abilify 15 mg p.o. daily to assist the injection getting to and steady state although she has been refusing. 2.? Continue every 15 minute checks for safety. 3.? Encourage individual, group and milieu therapies. 4.? Encourage sober living treatment after discharge at the highest level of care to which she is willing to commit. 5. Contact guardian identified what measures undertaken for suitable placement. Patient likely to be placed in facility (locked) tommorow. Involuntary Hold Information 96 Hour Hold: 96 Hour Involuntary Admission: No Attestations NPU Medical Necessity Statement*: Inpatient hospitalization is medically necessary and the clinically appropriate intervention at this time. We will monitor medications and make changes as indicated. Likely length of stay 1-2 days with placement hopefully tommorow. Coding Level of Care Code Acute Code for [facility] Diagnoses Chronic disorganized schizophrenia F20.1 Acute psychosis F23 Cannabis dependence, uncomplicated F12.20 Acute exacerbation of subchronic schizophrenia F20.89 Nicotine dependence, cigarettes, uncomplicated F17.210 Methamphetamine use disorder, severe F15.20
[2022-05-16] MEDS: hyDROXYzine 25 mg Capsule 50 MG PO (13:56)
[2022-05-16] MEDS: nicotine 21 mg Patch 1 PATCH TRANSDERMA (13:57)
[2022-05-16 14:00] VITALS: BP 102/70; PULSE 76; RESP 18; TEMP 36.7; O2SAT 96
[2022-05-16] MEDS: OLANZapine 5 mg ODT PO (15:26)
[2022-05-16] MEDS: ondansetron 4 MG Tablet PO (15:26)
[2022-05-16] MEDS: ibuprofen 800 mg tablet PO (15:28)
--- NOTE | 2022-05-16 21:55 | PC.NURSE ---
Patient came to nurse's station complaining of anxiety and requesting Ativan. Informed patient that she did not have an order for ativan but offered vistaril. Patient stated she did not want vistaril and asked for a different medication. Rated anxiety at a 8/10. PRN benadryl po given.
[2022-05-16] MEDS: diphenhydrAMINE 50 mg Capsule PO (21:59)
[2022-05-16 22:00] VITALS: RESP 16
[2022-05-16] MEDS: calcium carbonate 500 mg Chew Tablet 1000 MG PO (22:41)
[2022-05-17] MEDS: hyDROXYzine 25 mg Capsule 50 MG PO ×3 (01:02→18:39)
--- NOTE | 2022-05-17 01:02 | PC.NURSE ---
Patient continues to c/o anxiety and reports benadryl was not effective. Other interventions offered since benadryl was given. Patient did color for awhile in room. Offered vistaril and patient was cooperative with administration. Encouraged patient to return to room and lay in bed and relax. Patient returned to room.
--- NOTE | 2022-05-17 02:58 | PC.NURSE ---
Patient currently resting quietly in bed with eyes closed at this time. No signs of distress noted.
[2022-05-17 06:00] VITALS: RESP 16
[2022-05-17] MEDS: nicotine 4 mg lozenge MUCOUS MEM ×3 (09:41→17:57)
[2022-05-17 09:48] VITALS: BP 115/77; PULSE 110; RESP 16; TEMP 36.5; O2SAT 98
[2022-05-17] MEDS: calcium carbonate 500 mg Chew Tablet 1000 MG PO ×2 (09:54→16:12)
--- NOTE | 2022-05-17 10:30 | PC.NURSE ---
Discharge information reviewed with patient, including appointments and medication. Pt informed she had meds to take with her to her facility. Will provide them to the facility staff when they arrive. Pt verbalized her understanding; denied having any questions. Asked if staff could allow her to smoke while she waited. Staff informed pt it wasn't allowed. Pt verbalized her understanding. Asked if she just couldn't leave. Pt was told staff from a facility was going to come get her. Awaiting discharge.
--- NOTE | 2022-05-17 10:46 | PC.NURSE ---
Pt's guardian, Yin Hoang, notified of pt's pending discharge. Discharge information reviewed with him, including medications and appointment with facility physician later this afternoon. He verbalized his understanding. He asked about PRNs; none were included on discharge medication list. Informed the facility physician would probably provide orders for those. He shared pt could be a flight risk as she had done it before. Will make sure those picking pt up are aware of this type of behavior. Spoke with Kelin, Supervisor Logging. She indicated the vehicle being used for transport would be a locked van.
[2022-05-17] MEDS: nicotine 2 mg Gum BUCCAL (11:48)
[2022-05-17 14:00] VITALS: BP 113/79; PULSE 102; RESP 17; TEMP 37.1; O2SAT 98
[2022-05-17] MEDS: OLANZapine 5 mg ODT PO ×2 (15:21→20:11)
--- NOTE | 2022-05-17 15:22 | PC.NURSE ---
Pt complaining of feeling agitation; rated it 9/10. Medicated with zyprexa zydis as too early for more Vistaril.
--- NOTE | 2022-05-17 17:04 | PC.NURSE ---
Pt still waiting to be picked up for discharge. Can Operator has had several contacts which implied the facility staff was on their way and should be here shortly. Initial plan was for the pt to be to picked up between 1300 and 1400. Subsequent contacts indicated they were on the way and should be here shortly, in 45 minutes, 15 minutes. JENY Neville, was able to reach the facility and they say the van should be here shortly. They had experienced a flat on the way and had to have it fixed. Pt continues to pace in the lobby awaiting her ride.
--- NOTE | 2022-05-17 18:35 | PC.NURSE ---
Swapna RN contacted Austin from [place] to determine their ETA to berry picker this patient who has been awaiting discharge. He said he didn't know as the van was still on the side of the road with a flat tire. Previous reports were the tire was already being fixed and the van should be here shortly. Based on this information, the pt was allowed to put on her own clothes and she sat in the waiting area awaiting her ride. This screen writer also spoke with Austin. He was unable to give any kind of ETA, saying he didn't know exactly where the van was. He said the van had made a trip to [place] really early this AM, but couldn't explain why the van hadn't arrived to berry picker Aga at the prescheduled time of 1-2pm. The pt would like to leave tonight. Austin was requested to call the unit around 1914 to give an update. Staff informed Austin the pt's discharge order was good until 0924 tomorrow and if they didn't come tonight, they really needed to try to pick the pt up by 0900 tomorrow. He verbalized his understanding and said he would call us. Staff confirmed the pt had the unit's phone number as he claimed he'd tried to reach the number he'd been calling earlier today but no one answered. Ezekiel, the Adhesive Bonding Machine Operator, had been in contact with him earlier, but was no longer at work. supervisor ship maintenance services notified pt had not yet discharged and Dr. Saleh also notified.
--- NOTE | 2022-05-17 20:15 | PC.NURSE ---
Pt very anxious about her transportation and discharge, administered 5mg zyprexa zydis.
--- NOTE | 2022-05-17 20:31 | P.NPUPN_ITS ---
Subjective NPU Subjective: Patient is a 36-year-old white female with a history of schizophrenia along with methamphetamine use. Patient changes were seen today. She continued to spend time stating that she did not need to be here and did not need a guardian. She continued to request that her guardian be contacted so that she can communicate this to the roving hauler. She continued to refuse to take her oral medications. She was informed of her placement in another facility scheduled for today.. Patient had admitted to having by fled by foot from various facilities in the past Mental Status Exam MSE Comments: This is an overweight versus obese white female with hospital scrubs who was seen in her room with minimal eye contact. Her mood was described as good. Her affect is odd, and subdued. Thought process was non linear and illogical. Thought content: patient denied suicidal and homicidal ideation. She continued to have overvalued and unrealistic ideas without any reasonable basis. She did not endorse auditory or visual hallucinations and did not appear to be responding to internal stimuli. Attention and concentration were limited and memory was unreliable, but none were formally tested. She was alert and oriented x3, but not reason oriented for hospitalization or the need to be treated. Insight and judgment are feeble. Her impulse control is impaired. Vitals/I&O/Wt Last Vital Signs Temp 98.7 F 05/17/22 14:00 Pulse 102 H 05/17/22 14:00 Resp 17 05/17/22 14:00 BP 113/79 05/17/22 14:00 Pulse Ox 98 05/17/22 14:00 O2 Del Method 05/17/22 14:00 Data NPU 04/28/22 19:05 04/28/22 19:05 A&P Assessment and plan (1) Chronic disorganized schizophrenia: (2) Acute psychosis: (3) Cannabis dependence, uncomplicated: (4) Acute exacerbation of subchronic schizophrenia: (5) Nicotine dependence, cigarettes, uncomplicated: (6) Methamphetamine use disorder, severe: Plan This is a 36-year-old white female well known to the system who presents with history of schizophrenia and presents with active psychosis likely exacerbated by continued addiction. RECOMMENDATION AND PLAN: 1.? Continue current medication. Initiated Abilify Maintena 400 mg IM q. monthly. Next IM dosing of abilify on 05/31/22. Continue Abilify 15 mg p.o. daily to assist the injection getting to and steady state although she has been refusing. 2.? Continue every 15 minute checks for safety. 3.? Encourage individual, group and milieu therapies. 4.? Encourage sober living treatment after discharge at the highest level of care to which she is willing to commit. 5. Contact guardian identified what measures undertaken for suitable placement. Patient likely to be placed in facility (locked) tommorow. Involuntary Hold Information 96 Hour Hold: 96 Hour Involuntary Admission: No Attestations NPU Medical Necessity Statement*: Inpatient hospitalization is medically necessary and the clinically appropriate intervention at this time. We will monitor medications and make changes as indicated. Likely length of stay 1-2 days with placement hopefully tommorow. Coding Level of Care Code Acute Code for [facility] Diagnoses Chronic disorganized schizophrenia F20.1 Acute psychosis F23 Cannabis dependence, uncomplicated F12.20 Acute exacerbation of subchronic schizophrenia F20.89 Nicotine dependence, cigarettes, uncomplicated F17.210 Methamphetamine use disorder, severe F15.20
[2022-05-17] MEDS: ibuprofen 800 mg tablet PO (20:46)
[2022-05-17] MEDS: loperamide 2 mg Capsule PO (21:25)
[2022-05-17 22:00] VITALS: BP 106/53; PULSE 107; RESP 16; TEMP 35.7; O2SAT 98
[2022-05-18 06:00] VITALS: RESP 15
--- NOTE | 2022-05-18 08:23 | PC.NURSE ---
pt left via [facility] transport [facility]. calm no issues. states understanding of discharge written instruction.
[2022-05-18 08:26] VITALS: RESP 15
--- NOTE | 2022-05-18 18:11 | W.PM.NPUDCS ---
Diagnoses at Discharge Discharge Diagnosis (1) Chronic disorganized schizophrenia: Status: Inactive (2) Acute psychosis: Status: Acute (3) Cannabis dependence, uncomplicated: Status: Acute (4) Acute exacerbation of subchronic schizophrenia: Status: Acute (5) Nicotine dependence, cigarettes, uncomplicated: Status: Acute (6) Methamphetamine use disorder, severe: Status: Acute Reason for Visit Reason for Visit: AMS Brief History: History of Present Illness Aga Lai is a 36 year old female who presented to the emergency department with the following report: Chief Complaint: Altered Mental Status Stated Complaint: AMS Time Seen by Provider: 04/28/22 18:20 History of Present Illness:?? 36-year-old female brought in by EMS and law enforcement.? She was evidently encountered by law enforcement.? She told them she was a Damian, she states I would like some iodine so that I can get back to where I am coming from .? She has made no suicidal or homicidal statements.? She does have a history of schizophrenia, complicated by substance abuse. MD complaint: altered mental status and intoxication Onset (ago): unknown Timing confirmed by: other Severity: similar to previous episodes Consistency of symptoms: Constant Context: drug abuse Associated symptoms: Reports auditory hallucinations, visual hallucinations, delusions and racing thoughts; Deny homicidal ideation or suicidal ideation. She was admitted to the neuropsychiatric unit for definitive treatment of those issues.? She presents today having had moments of screaming at the top of her lungs and very erratic manner.? When I entered her room she was sleeping but arousable.? After she awoke she was a fairly poor historian highly focused on discharge.? She would not really answer questions she would just respond I am fine can I just be discharged to this place or that place.? She did not answer questions regarding what has happened since her last hospitalization or what she has been taking and is just Reporting that she was fine and that it would be okay if she was discharged.? Previous hospitalizations, she was positive for methamphetamine and cannabis in her urine drug screen.? She denied that those findings could have any bearing on her current mood, affect or behavior.? She would not entertain conversations about any aspect of her situation since discharge in November of last year.? Including her absconding from the discharge destination that was arranged.? An excerpt of her last discharge summary is included below for historical information. Per her 11/23/2021 [facility] inpatient discharge summary: Discharge Diagnosis (1) Chronic disorganized schizophrenia: ? ? ? Status: Inactive (2) Acute psychosis: ? ? ? Status: Acute (3) Cannabis dependence, uncomplicated: ? ? ? Status: Acute (4) Acute exacerbation of subchronic schizophrenia: ? ? ? Status: Acute (5) Nicotine dependence, cigarettes, uncomplicated: ? ? ? Status: Acute (6) Methamphetamine use disorder, severe: ? ? ? Status: Acute Reason for Visit Reason for Visit:?? psychiatric evaluation? Brief History: History of Present Illness Aga Lai is a 36 year old female who presented to the emergency department with the following report: Chief Complaint: Psychiatric Symptoms Stated Complaint: psychiatric evaluation Time Seen by Provider: 11/13/21 02:03 Source: patient and police Mode of arrival: other (police) Limitations: no limitations History of Present Illness:?? 36-year-old female has a history of schizophrenia along with methamphetamine abuse she is brought here by police she is wandering the streets and yelling at people's homes and knocking on the doors here patient is acutely psychotic she has flight of ideas she is extremely paranoid she denies any suicidal homicidal ideations history is difficult due to her psychoses. Associated symptoms: Reports auditory hallucinations and delusions She was admitted to the neuropsychiatric unit for definitive treatment of those issues.? She presents today seeming to be crashing from likely methamphetamine use.? She is well-known to this unit from very prolonged stays where an her psychosis would not break.? Concerns exist as to whether continued episodes like this will create an environment where her recovery is not possible due to toxic impact from the psychosis and drug abuse.? She could give no functional history.? An excerpt of her December 2020 discharge summary is included below for context. Hospital Course Hospital Course During the hospitalization, patient had routine laboratory studies which were within normal limits except for few outliers.? Additionally there was a general medical evaluation which was also within normal limits and revealed no new acute processes other than the cut/lacerations related to the issues surrounding his admission.. At the time of discharge, he denied psychosis or lethality.? Mood and anxiety were well managed.? Patient endorsed a plan to avoid all drugs of abuse and follow-up with the aftercare recommendations of the treatment team.? Patient was evaluated and deemed to be absent credible lethality, and had achieved the maximum benefit from an inpatient hospitalization, so was discharged. She was discharged to a Residential Care facility as she has a legal guardian and her previous decisions had been poor at best with previous efforts to flee locked facilities and make dangerous decisions without legal supervision. Involuntary Hold Information 96 Hour Hold: 96 Hour Involuntary Admission: No Mental Status Exam MSE Comments: This is an overweight versus obese white female with hospital scrubs who was seen in her room with minimal eye contact. Her mood was described as good. Her affect is odd, and subdued. Thought process was nonlinear and illogical. Thought content: patient denied suicidal and homicidal ideation. She continued to have overvalued and unrealistic ideas without any reasonable basis. She did not endorse auditory or visual hallucinations and did not appear to be responding to internal stimuli. Attention and concentration were limited and memory was unreliable, but none were formally tested. She was alert and oriented x3, but not reason oriented for hospitalization or the need to be treated. Insight and judgment are feeble. Her impulse control is impaired. Discharge Data Studies Completed and Pending: Laboratory Results WBC 9.6 10^3/uL (4.0- 10.0) 04/28/22 19:05 RBC 4.36 10^6/uL (4.1 -5.3) 04/28/22 19:05 Hgb 13.1 g/dL (11.5-1 5.3) 04/28/22 19:05 Hct 41.1 % (37.0-47.0 ) 04/28/22 19:05 MCV 94.3 fl (81-99) 04/28/22 19:05 MCH 30.0 pg (28.0-34. 0) 04/28/22 19:05 MCHC 31.9 g/dL (30.0-3 6.0) 04/28/22 19:05 RDW 14.2 % (12.1-15.1 ) 04/28/22 19:05 Plt Count 337 10^3/cmm (130 -400) 04/28/22 19:05 MPV 10.9 fL (7.4-10.4 ) H 04/28/22 19:05 Neut % (Auto) 61.4 % 04/28/22 19:05 Lymph % (Auto) 29.7 % 04/28/22 19:05 Ward % (Auto) 6.4 % 04/28/22 19:05 Eos % (Auto) 1.3 % 04/28/22 19:05 Baso % (Auto) 0.9 % 04/28/22 19:05 Neut # (Auto) 5.91 10^3/uL (1.8 -7.7) 04/28/22 19:05 Lymph # (Auto) 2.9 10^3/uL (0.8- 4.8) 04/28/22 19:05 Ward # (Auto) 0.6 10^3/uL (0.2- 0.9) 04/28/22 19:05 Eos # (Auto) 0.1 10^3/uL (0.0- 0.8) 04/28/22 19:05 Baso # (Auto) 0.1 10^3/uL (0.0- 0.1) 04/28/22 19:05 Nucleated RBC % (a uto) 0 % 04/28/22 19:05 Nucleated RBCs # 0.0 /100WBC 04/28/22 19:05 Sodium 140 mmol/L (136-1 45) 04/28/22 19:05 Potassium 3.9 mmol/L (3.5-5 .1) 04/28/22 19:05 Chloride 100 mmol/L (98-10 7) 04/28/22 19:05 Carbon Dioxide 26 mmol/L (22-29) 04/28/22 19:05 Anion Gap 17.9 (5-19) 04/28/22 19:05 BUN 13 mg/dL (6-20) 04/28/22 19:05 Creatinine 0.5 mg/dL (0.5-0. 9) 04/28/22 19:05 GFR Calculation 139.6 mL/min (90- 130) H 04/28/22 19:05 Glucose 80 mg/dL (65-115) 04/28/22 19:05 Calculated Osmolal ity 289 mOsm/kg (285- 295) 04/28/22 19:05 Calcium 10.0 mg/dL (8.5-1 0.5) 04/28/22 19:05 Total Bilirubin 0.2 mg/dL (0.15-1 .2) 04/28/22 19:05 AST 30 U/L (0-32) 04/28/22 19:05 ALT 18 U/L (0-33) 04/28/22 19:05 Alkaline Phosphata se 106 U/L (35-105) H 04/28/22 19:05 Total Protein 7.3 g/dL (6.6-8.7 ) 04/28/22 19:05 Albumin 4.8 g/dL (3.5-5.2 ) 04/28/22 19:05 Globulin 2.5 g/dL (1.3-4.6 ) 04/28/22 19:05 TSH 10.20 uIU/mL (0.2 7-4.20) H 04/28/22 19:05 HCG, Qual Negative (Negati ve) 04/28/22 19:19 Urine Color Yellow (Yellow) 04/28/22 19:19 Urine Appearance Hazy (CLEAR) A 04/28/22 19:19 Urine pH 8 (5-7) H 04/28/22 19:19 Ur Specific Gravit y 1.010 (1.005-1.0 30) 04/28/22 19:19 Urine Protein Neg (Negative) 04/28/22 19:19 Urine Glucose (UA) Norm (Normal) 04/28/22 19:19 Urine Ketones Negative (Negati ve) 04/28/22 19:19 Urine Blood Neg (Negative) 04/28/22 19:19 Urine Nitrate Positive (Negati ve) H 04/28/22 19:19 Urine Bilirubin Neg (Negative) 04/28/22 19:19 Prot Sulfosalicyli c Acd Negative (Negati ve) 04/28/22 19:19 Urine Urobilinogen Neg mg/dL (Negati ve) 04/28/22 19:19 Ur Leukocyte Pamella ase Trace (Negative) H 04/28/22 19:19 Urine RBC 0-4 /hpf (0-2) H 04/28/22 19:19 Urine WBC 5-10 /hpf (0-5) H 04/28/22 19:19 Ur Squamous Epith Cells 25-40 /hpf (0-5) H 04/28/22 19:19 Amorphous Sediment 1+ /hpf 04/28/22 19:19 Urine Bacteria 3+ /hpf (NONE) H 04/28/22 19:19 Urine Mucus 2+ /hpf 04/28/22 19:19 Salicylates < 0.3 mg/dL (3-10 ) L 04/28/22 19:05 Urine Opiates Scre en Negative ng/mL (N egative) 04/28/22 19:19 Acetaminophen < 5.0 ug/mL (10-3 0) L 04/28/22 19:05 Ur Barbiturates Sc reen Negative ng/mL (N egative) 04/28/22 19:19 Ur Phencyclidine S crn Negative ng/mL (N egative) 04/28/22 19:19 Ur Amphetamines Sc reen Positive ng/mL (N egative) H 04/28/22 19:19 U Benzodiazepines Scrn Negative ng/mL (N egative) 04/28/22 19:19 Urine Cocaine Scre en Negative ng/mL (N egative) 04/28/22 19:19 U Marijuana (THC) Screen Positive ng/mL (N egative) H 04/28/22 19:19 Ethyl Alcohol < 10 mg/dL (0-10) 04/28/22 19:05 SARS-CoV-2 Ag (Rap id) negative (Negati ve) 04/28/22 18:51 Vitals: Last Vital Signs Temp 96.2 F L 05/17/22 22:00 Pulse 107 H 05/17/22 22:00 Resp 15 05/18/22 08:26 BP 106/53 05/17/22 22:00 Pulse Ox 98 05/17/22 22:00 O2 Del Method 05/17/22 22:00 Discharge Plan Discharge Patient Disposition: Home Condition: Stable Prescriptions: New aripiprazole 30 mg Tablet 15 mg PO DAILY Qty: 15 1RF Abilify Maintena 400 mg suspension,extended rel recon 400 mg IM Q28D Qty: 1 1RF Rx Instructions: Inject IM in buttocks or arm, DUE DATE to be given 05/31/22 Abilify 15 mg tablet 15 mg PO DAILY Qty: 30 1RF Discharge Orders: Discharge Order (Routine); Ordered 05/17/22 Ordered By: Ralph Saleh Referrals: [facility] [Other] - 05/17/22 Dr. Lianna Murray [Other] - 05/17/22 4:00 pm (Dr Murray will see you right after admission for follow up) Adriano Sullivan, DO [Primary Care Provider] - Discharge Diet: Advance as tolerated Discharge Activity: Increase activity as tolerated Patient Instructions: Methamphetamine Abuse, Schizophrenia (DC), Cannabis Use Disorder (DC), Psychotic Disorder (DC), Opioid Safety Discharge Attestations NPU Time Spent in Discharge Care*: less than 30 min Specific Discharge Activities: Specific discharge activities: documenting/other paperwork and evaluating patient/reviewing data Status at Discharge: Cognitive status at discharge: cognitively intact, Behavioral status at discharge: cooperative, Coding Level of Care Code Acute Chg FW DC note Diagnoses Chronic disorganized schizophrenia F20.1 Acute psychosis F23 Cannabis dependence, uncomplicated F12.20 Acute exacerbation of subchronic schizophrenia F20.89 Nicotine dependence, cigarettes, uncomplicated F17.210 Methamphetamine use disorder, severe F15.20
== END 2022-05-18 08:20 | disposition home or self-care (01) | DRG 885 ==
LOC: ER 04-29 00:14 → NP 04-29 00:33
PROVIDERS: Admitting Provider Psychiatry & Neurology Psychiatry; Emergency Provider Emergency Medicine; PCP Electrodiagnostic Medicine; Visit Provider Psychiatry & Neurology Psychiatry
DX: F20.1 Disorganized schizophrenia (principal); F15.251 Other stimulant dependence with stimulant-induced psychotic disorder with hallucinations; F15.250 Other stimulant dependence with stimulant-induced psychotic disorder with delusions; F12.251 Cannabis dependence with psychotic disorder with hallucinations; F17.210 Nicotine dependence, cigarettes, uncomplicated; Z63.4 Disappearance and death of family member
CPT/HCPCS: 36415; 80053; 80306; 80307; 81001; 81025; 84443; 85025; 87426; 96372; 97150; 97165; 99285; J1200; J1630; J2060; J3486; Q0162; Q0163

== ENCOUNTER 2024-07-24 20:38 | Emergency (ER) | payer MEDICAID, SELFPAY ==
[2024-07-24 20:40] VITALS: BP 121/78; PULSE 89; RESP 14; TEMP 36.8; O2SAT 99
--- NOTE | 2024-07-24 21:02 | ED_ITS ---
HPI - Dental/Oral General: Chief complaint: Dental/Oral Stated complaint: tooth and ear pain Time Seen by Provider: 07/24/24 20:46 Source: patient Mode of arrival: ambulatory Limitations: no limitations History of Present Illness: Patient is a 38-year-old female who presents the emergency department planing of left lower dental pain for the past few days. History of poor dentition, states she has upcoming appointment with a dentist but pain got too severe and she also has a history of dental abscess stating this feels the same. Notes the pain is starting to spread further in her mouth and up towards her ear. Vitals unremarkable at this time, no fever. MD Complaint: tooth pain Onset (ago): day(s) Duration: constant Severity: severe Relieving factors: nothing Exacerbating factors: nothing Context: history of dental caries and poor dental care Associated symptoms: Denies ear or mastoid pain or fever(s) Related Data Previous Rx's ?Medication ?Instructions ?Recorded aripiprazole 30 mg tablet 15 mg (1/2 x 30 mg) PO DAILY #15 05/16/22 tabs aripiprazole 15 mg tablet (Abilify) 15 mg PO DAILY #30 tabs 05/17/22 aripiprazole 400 mg intramuscular 400 mg IM Q28D #1 ea 05/17/22 suspension,extended release (Abilify Maintena) amoxicillin 875 mg-potassium 1 tab PO BID 10 days #20 tabs 07/24/24 clavulanate 125 mg tablet Allergies Allergy/AdvReac Type Severity Reaction Status Date / Time No Known Allergies Allergy Verified 07/24/24 20:44 Review of Systems General: Reports: 10 or more systems reviewed and unremarkable except in HPI and below Const: Denies: fever(s), chills or fatigue Eyes: Denies: change in vision ENMT: Reports: mouth pain and dental pain; Denies: throat pain, ear or mastoid pain or nasal discharge Card: Denies: chest pain, palpitations, swelling of feet/ankles or lightheadedness Resp: Denies: dyspnea, productive cough or wheezing GI: Denies: abdominal pain, nausea, vomiting, diarrhea or constipation : Denies: flank pain, difficulty voiding, dysuria or urinary frequency Musc: Denies: neck pain, back pain or joint pain Skin/Breast: Denies: rash Neuro: Denies: headache(s), numbness in extremities or weakness in extremities PFSH ED PFSH: Medical History Psychiatric care Cannabis dependence, uncomplicated Other schizophrenia Borderline personality disorder Hypnagogic hallucinations Bipolar disorder Drug-induced psychotic disorder Acute exacerbation of subchronic schizophrenia Nicotine dependence, cigarettes, uncomplicated Cannabis dependence in early, early partial, sustained full, or sustained partial remission Alcohol dependence in early, early partial, sustained full, or sustained partial remission 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, early partial, sustained full, or sustained partial remission Acute psychosis Schizophrenia, disorganized, chronic with acute exacerbation Drug-induced psychotic disorder Chronic schizophrenia Substance use Surgical History No pertinent past surgical history Family History Father Suicide Alcohol abuse Schizophrenia Bipolar disorder Substance abuse Mother Depression Social History Smoking and tobacco/nicotine status: unknown if used tobacco/nicotine Alcohol intake: current Alcohol intake frequency: few times a week Alcohol type: beer, wine and hard liquor Substance/Drug Use: current Substance/Drug use frequency: daily Adopted: No Caregiver/support person: No Lives independently: Yes Household members: spouse Housing: House Marital status: Marital status details: partner has substance abuse issues also Number of children: 3 Highest education level completed: GED or Equivalent service: No Current occupational status: unemployed 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 Leisure activites: art and music Sexually active: Yes Do you think of yourself as: Straight/Heterosexual Current gender identity: Female Special kong needs: No Agree to transfusion: Yes Physical Exam Const: COMMON NORMALS: no acute distress and no limitations GENERAL APPEARANCE: cooperative, comfortable and well developed ORIENTATION/CONSCIOUSNESS: Yes awake HENMT: COMMON NORMALS: normocephalic, atraumatic and hearing grossly normal bilaterally HEAD & SCALP: normocephalic and atraumatic TEETH & GINGIVA: Yes abnormal tooth and associated gingiva lower left tender and with associated gingival edema, Yes caries, Yes multiple restorations and Yes poor dentition Eye: COMMON NORMALS: Equal, round and reactive pupils present, EOMs intact bilaterally and conjunctivae normal CONJUNCTIVA: Yes conjunctivae normal PUPIL: Yes Equal, round and reactive pupils present Neck/C-Spine: COMMON NORMALS: full ROM, supple and no JVD Resp: COMMON NORMALS: normal respiratory effort, No retractions, No use of accessory muscles and clear to auscultation bilaterally AUSCULTATION: clear to auscultation bilaterally Cardio: COMMON NORMALS: no JVD, regular rate, regular rhythm, No clicks prese nt (Cardio), No murmurs present (Cardio) and No rub (Cardio) RATE: regular rate RHYTHM: regular rhythm Extremity: COMMON NORMALS: normal to inspection, full ROM and capillary refill normal Skin: COMMON NORMALS: no rashes or lesions noted GENERAL SKIN EXAM: no rashes or lesions noted Course Vital Signs: Vital signs: Vital Signs Temperature 98.2 F 07/24/24 20:40 Pulse Rate 89 07/24/24 20:40 Respiratory Rate 14 07/24/24 20:40 Blood Pressure 121/78 07/24/24 20:40 Pulse Oximetry 99 07/24/24 20:40 MDM - Dental/Oral Medical Decision Making Patient requesting treatment for a dental abscess as she is set to undergo removal of affected tooth with dentist, there was gingival edema and quite a bit of tenderness on exam and with her stating it is spreading towards her face will treat empirically. Pain medicine and Decadron given here for pain and swelling respectively. Started on Augmentin. No radiology studies performed this visit Discharge Plan Discharge Patient Disposition: Home Clinical Impression: Dental abscess Condition: Stable Prescriptions: New amoxicillin-pot clavulanate 875-125 mg tablet 1 tab PO BID 10 Days Qty: 20 0RF No Action aripiprazole 30 mg Tablet 15 mg PO DAILY Qty: 15 1RF Abilify Maintena 400 mg suspension,extended rel recon 400 mg IM Q28D Qty: 1 1RF Rx Instructions: Inject IM in buttocks or arm, DUE DATE to be given 05/31/22 Abilify 15 mg tablet 15 mg PO DAILY Qty: 30 1RF Discharge Orders: Discharge ED (Routine); Ordered 07/24/24 Ordered By: Hemant Reynolds Referrals: Adriano Sullivan DO [Primary Care Provider, Family Practice] Patient Instructions: Dental Abscess (ED) Activity Restrictions/Additional Instructions: Augmentin as prescribed. Please follow-up with your dentist as planned as you will need those teeth pulled. Tylenol/Motrin for pain at home. Print Language: Lao Coding Level of Care Code ED Perfume Compounder for Anna Stubbs
[2024-07-24] MEDS: HYDROcodone-acetaminophen 5-325 mg Tablet 2 TAB PO (21:10)
[2024-07-24] MEDS: amoxicillin-clav 875-125 mg Tablet 1 TAB PO (21:11)
[2024-07-24] MEDS: dexamethasone 10 mg/mL INJ IM (21:11)
--- NOTE | 2024-07-24 21:13 | PC.NURSE ---
pt given narinder to go home with. signed out in narc book. handed to pt.
== END 2024-07-24 21:14 | disposition home or self-care (01) ==
PROVIDERS: Emergency Provider Physician Assistant; PCP Electrodiagnostic Medicine
DX: K04.7 Periapical abscess without sinus (principal)
CPT/HCPCS: 96372; 99284; J1100; J9999

== ENCOUNTER → 2024-08-31 09:16 | Outpatient (BNVA) | payer MEDICAID, SELFPAY | PROVIDERS: PCP Electrodiagnostic Medicine; Visit Provider Nurse Practitioner Psychiatric/Mental Health | DX: Z79.899 Other long term (current) drug therapy (principal) | CPT/HCPCS: 83036 ==

== ENCOUNTER → 2025-02-01 10:27 | Outpatient (BNVA) | payer MEDICAID, SELFPAY | PROVIDERS: PCP Electrodiagnostic Medicine; Visit Provider Nurse Practitioner Women's Health | DX: N94.6 Dysmenorrhea, unspecified (principal); R93.89 Abnormal findings on diagnostic imaging of other specified body structures; N88.8 Other specified noninflammatory disorders of cervix uteri; N83.291 Other ovarian cyst, right side | CPT/HCPCS: 76830 ==

== ENCOUNTER → 2025-02-14 09:49 | Outpatient (BNVA) | payer MEDICAID, SELFPAY | PROVIDERS: PCP Electrodiagnostic Medicine; Visit Provider Nurse Practitioner Women's Health | DX: N94.6 Dysmenorrhea, unspecified (principal) | CPT/HCPCS: 84439; 84443; 84481 ==